=== PATIENT | female | born 1965 | race Caucasian/White ===

== ENCOUNTER 2018-01-06 10:05 | Emergency (ER) | payer OTHER, MEDICAID, MEDICARE ==
[2018-01-06 10:46] LABS: HEMATOCRIT 45.8 % (36.0-47.0); HEMOGLOBIN 15.2 g/dl (12.0-15.5); MEAN CORPUSCULAR HEMOGLOBIN 29.9 pg (27.0-33.0); MEAN CORPUSCULAR HGB CONC 33.2 g/dl (32.0-36.5); PLATELET COUNT, AUTOMATED 244 10^3/uL (150-450); RED BLOOD COUNT 5.09 10^6/uL (4.00-5.40); WHITE BLOOD COUNT 6.9 10^3/uL (4.0-10.0)
[2018-01-06 11:24] LABS: ACETAMINOPHEN LEVEL < 2.0 UG/ML (10.0-30.0); ALBUMIN 3.8 GM/DL (3.2-5.2); ALBUMIN/GLOBULIN RATIO 1.19 (1.00-1.93); ALKALINE PHOSPHATASE 100 U/L (45-117); ALT/SGPT 42 U/L (12-78); ANION GAP 9 MEQ/L (8-16); AST/SGOT 29 U/L (7-37); BILIRUBIN,DIRECT 0.2 MG/DL (0.0-0.2); BILIRUBIN,TOTAL 0.8 MG/DL (0.2-1.0); BLOOD UREA NITROGEN 9 MG/DL (7-18); CALCIUM LEVEL 8.7 MG/DL (8.5-10.1); CARBON DIOXIDE LEVEL 23 MEQ/L (21-32); CHLORIDE LEVEL 110 MEQ/L (98-107); CREATININE FOR GFR 0.86 MG/DL (0.55-1.30); ETHYL ALCOHOL (ETHANOL) < 0.003 % (0.000-0.010); GLOMERULAR FILTRATION RATE > 60.0 (>51); GLUCOSE, FASTING 89 MG/DL (70-100); POTASSIUM SERUM 4.1 MEQ/L (3.5-5.1); SALICYLATE LEVEL < 1.7 MG/DL (5.0-30.0); SODIUM LEVEL 142 MEQ/L (136-145)
[2018-01-06] MEDS: CEPHALEXIN 500 MG CAP PO (12:06)
[2018-01-06 12:49] LABS: AMPHETAMINES LEVEL URINE NEGATIVE (NEGATIVE); BARBITURATES URINE NEGATIVE (NEGATIVE); BENZODIAZEPINES URINE NEGATIVE (NEGATIVE); CANNABINOIDS URINE NEGATIVE (NEGATIVE); COCAINE METABOLITE URINE NEGATIVE (NEGATIVE); METHADONE URINE NEGATIVE (NEGATIVE); OPIATES URINE NEGATIVE (NEGATIVE); PHENCYCLIDINE URINE NEGATIVE (NEGATIVE)
== END 2018-01-06 15:54 ==
LOC: M ED 10:05
DX: R45.851 Suicidal ideations (principal); Z79.890 Hormone replacement therapy; Z88.0 Allergy status to penicillin
CPT/HCPCS: 93005

== ENCOUNTER → 2018-01-15 | Outpatient (CLI) | payer OTHER | LOC: M RAD 15:32 | DX: J32.4 Chronic pansinusitis (principal) | CPT/HCPCS: 70486 ==

== ENCOUNTER → 2020-05-20 | Outpatient (CLI) | payer OTHER ==
[~2020-05-20] MED LIST: BISO5TAB14 PO; CEPH500C; ELIQ5TAB PO; ESTR1TD; GABA-282 PO; PANT40TA29 PO; SIME80TA PO; VIVELLE
== END ==
LOC: M LABSMTC 10:08
PROVIDERS: ATTEND Anesthesiology
DX: Z01.818 Encounter for other preprocedural examination (principal); Z11.52 Encounter for screening for COVID-19

== ENCOUNTER 2020-05-25 11:45 | Day surgery (SDC) | payer OTHER ==
[~2020-05-25] VITALS: Ht 165.1 cm; Wt 127.0 kg
[~2020-05-25 11:45] MED LIST changes: +LIDOCAINE 2% 100MG/5ML SDV (FOR ANES.) As Ordered ONE; +NS 1,000 ML IV SCH; +fentaNYL 100 MCG/2 ML INJECTION (J3010) As Ordered ONE; +propofoL 200 MG/20 ML VIAL As Ordered ONE
--- OUTSIDE RECORDS SUMMARY | 2020-05-25 11:53 | CCD | Continuity of Care Document ---
Author Author Rika DANG MD Organization Unknown Address [address] [place] [address] Phone [phone] Care Team Providers Care Sba Business Development Officer Name Role Phone Hillary Garcia DO AUTM [phone] Problems Active Problems Provider Date Chest pain Onset: Pulmonary embolism Onset: Note: Bilateral Gastroesophageal reflux disease Onset: 0 Degenerative joint disease Onset: Obstructive sleep apnea Onset: 0 Radiculopathy Onset: Anxiety depression Onset: Herpes simplex with complication Onset: Note: History of Mixed hyperlipidemia Salena Acosta RN, EXHAUST WORKER Onset: 01/05/2020 Essential hypertension Salena Acosta RN, EXHAUST WORKER Onset: 01/05/20 20 Obesity Salena Acosta RN, EXHAUST WORKER Onset: 01/05/2020 Palpitations Salena Acosta RN, EXHAUST WORKER Onset: 01/05/2020 Precordial pain Salena Acosta RN, EXHAUST WORKER Onset: 01/05/2020 Skin sensation disturbance Salena Acosta RN, EXHAUST WORKER Onset: 10/2019 Dyspnea Salena Acosta RN, EXHAUST WORKER Onset: 01/05/2020 H/O: pulmonary embolus Salena Acosta RN, EXHAUST WORKER Onset: 01/05/20 Social History Type Date Description Comments Sex Unknown Tobacco Use Start: Unknown Light tobacco user x 9 years ETOH Use Rarely consumes alcohol Tobacco Use Start: Unknown End: Unknown Patient is a former smoker D/C 1991 Recreational Drug Use Denies Drug Use Smoking Status Reviewed: 04/06/20 Patient is a former smoker D/ C 1991 Allergies, Adverse Reactions, Alerts Active Allergies Reaction Severity Comments Date Penicillins Rash Morphine Chest discomfort Omeprazole Myalgia Premarin Pulmonary Embolism 0 Medications Active Medications SIG Qnty Indications Ordering Provide r Date Pantoprazole Sodium 40mg Tablets D R 1 by mouth twice a day Unknown Gabapentin 300mg Capsules 1 by mouth twice a day Unknown Eliquis 5mg Tablets 1 by mouth twice a day Unknown History Medications Bisoprolol Fumarate 5mg Tablets 1/2 by mouth every day 90tabs Salena Acosta RN, EXHAUST WORKER 01/05/2020 - Unknown Immunizations Description No Information Available Vital Signs Date Vital Result Comment 04/09/2020 11:15am BP Systolic 124 mmHg BP Diastolic 72 mmHg Heart Rate 102 /min Height 65 inches 5'5" Weight 291.00 lb BMI (Body Mass Index) 48.4 kg/m2 O2 % BldC Oximetry 96 % 01/05/2020 10:38am BP Systolic 124 mmHg BP Diastolic 62 mmHg Heart Rate 80 /min Height 65 inches 5'5" Weight 283.00 lb BMI (Body Mass Index) 47.1 kg/m2 Results Test Acquired Date Facility Test Result H/L Range Note Order 02/02/2020 [facility] Echocardiogram <pending> CBC With Auto Diff 01/05/2020 [facility] WBC # Bld Auto 7.2 10*3/uL Normal 4.45-10.71 1 RBC # Bld Auto 5.05 10*6/uL Normal 4.20-5.40 Hgb Bld-sCnc 14.9 g/dL Normal 10.7-15.4 Hct VFr Bld Auto 45.8 % Normal 37-47 MCV BldCo Auto 90.7 fL Normal 80-96 MCH RBC Qn Auto 29.5 pg Normal 27-31 MCHC BldCo-mCnc 32.5 g/dL Low 33-37 RDW RBC Auto 14 % Normal 11-15 Platelet # Bld Auto 249 10*3/uL Normal 130-472 PMV Bld 10.3 fL Normal 9.1-13.1 Neutrophils/leuk NFr Bld Auto 56.3 % Normal 41-77 Neutrophils # Bld Auto 4.1 U Normal 1.7-7.6 Lymphocytes/leuk NFr Bld Auto 32.8 % Normal 14-46 Lymphocytes # Bld Auto 2.4 U Normal 0.6-4.6 Monocytes/leuk NFr Bld Auto 6.4 % Normal 4-12 Monocytes # Bld Auto 0.5 U Normal 0.2-1.2 Eosinophil/leuk NFr Bld Auto 3.3 % Normal 0-7 Eosinophil # Bld Auto 0.2 U Normal 0.0-0.5 Basophils/leuk NFr Bld Auto 1.1 % Normal 0.4-1.3 Basophils # Bld Auto 0.1 U Normal 0.0-0.2 Nucleated Red Blood Cell 0 % Nucleated Red Blood Cell# 0 U Imm Granulocytes Bld Ql Auto 0.1 Normal 0-2 Imm Granulocytes # Bld Auto 0.0 U Normal 0-0.1 Manual diff Bld NO [facility] PPP-aCnc 0.35 mg/L Normal 0.0-0.50 2 Basic Metabolic Profile [facility] BUN SerPl-mCnc 16 mg/dL Normal 9-23 Sodium SerPl-sCnc 142 mmol/L Normal 132-146 Potassium SerPl-sCnc 4.7 mmol/L Normal 3.5-5.5 Chloride SerPl-sCnc 109 mmol/L Normal 99-109 Co2 SerPl-sCnc 29 mmol/L Normal 20-31 Anion Gap SerPl-sCnc 9 mmol/L Normal 8-16 Glucose SerPl-mCnc 86 mg/dL Normal 74-106 Creatinine 1.0 mg/dL Normal 0.5-1.1 GFR/Bsa.pred SerPlBld-ArVRat 58 UCUM Above 60 Calcium SerPl-mCnc 9.8 mg/dL Normal 8.5-10.1 D-Dimer Test 01/05/2020 [facility] Z#Other Observations <pending> BMP W/Egfr 01/05/2020 [facility] Sodium QN Ser/Plasma <pending> Potassium <pending> Chloride Serum/Plasma <pending> Carbon Dioxide Ser/Plasm <pending> Calcium Ser/Plasma Mass/Vol <pending> Glucose Serum <pending> CBC W/Auto Differential 01/05/2020 [facility] White Blood Count Ser Auto CNT <pending> RBC Red Blood Count <pending> Hemoglobin Blood <pending> Hematocrit <pending> MCV (Corpuscular Volume) <pending> MCH (Corpuscular Hemoglobin) <pending> MCHC (Corpuscular Hemog Conc) <pending> RDW <pending> Platelet Count Blood Auto CNT <pending> MPV <pending> Neutrophils <pending> Fluid Bands <pending> Fluid Lymphocytes <pending> Monocytes <pending> Fluid Body Eosinophils <pending> Basophils % <pending> Absolute Basophils <pending> Absolute Eosinophils <pending> Absolute Lymphocytes <pending> Absolute Monocytes <pending> Absolute Neutrophils Auto CNT <pending> 1 Z86.711,R06.02,R07.2 2 PLEASE NOTE: THIS TEST WAS PERFORMED USING A PARTICLE- ENHANCED, IMMUNOTURBIDIMETRIC ASSAY AND HAS A SINGLE, CLINICALLY DERIVED CUTOFF OF 0.50 MG/L. Procedures Date Code Description Status 02/02/2020 83838 Echocardiography, Tranthoracic C omplete Image Documentation Completed Medical Devices Description No Information Available Encounters Type Date Location Provider Dx Diagnosis Office Visit 04/09/2020 11:00a [place] [facility] Tee Dang MD R06.0 2 Shortness of breath R07.2 Precordial pain I10 Essential (primary) hyperten sis Z86.711 Personal history of pulmonar y embolism Office Visit 01/05/2020 10:15a [place] [facility] [place] GRANT[employer] ADMINISTRATOR/Device (41 5) Z86.711 Personal history of pulmonary embolism R06.02 Shortness of breath R20.0 Anesthesia of skin R07.2 Precordial pain R00.2 Palpitations E66.09 Other obesity due to excess calories I10 Essential (primary) hyperten sis E78.2 Mixed hyperlipidemia G47.33 Obstructive sleep apnea (renetta lt) (pediatric) Assessments Date Code Description Provider 04/09/2020 R06.02 Shortness of breath Tee arita MD 04/09/2020 R07.2 Precordial pain Tee Dang MD 04/09/2020 I10 Essential (primary) hypertension Tee Dang MD 04/09/2020 Z86.711 Personal history of pulmonary em bolism Tee Dang MD 02/02/2020 R06.02 Shortness of breath Vinicius bernabe MD 02/02/2020 R07.2 Precordial pain Vinicius Banks MD 02/02/2020 I10 Essential (primary) hypertension Vinicius Banks MD 02/02/2020 R06.02 Shortness of breath Shane scott MD 02/02/2020 R07.2 Precordial pain Ade Brown 02/02/2020 I10 Essential (primary) hypertension Shane Fajardo MD 01/05/2020 Z86.711 Personal history of pulmonary em bolism [place] GRANTS ADMINISTRATOR/Device (415) 01/05/2020 Z86.711 Personal history of pulmonary em bolism Salena Acosta RN, EXHAUST WORKER 01/05/2020 R06.02 Shortness of breath [place] GRANTS ADMINISTRATOR/ Device (415) 01/05/2020 R06.02 Shortness of breath Salena Acosta RN, EXHAUST WORKER 01/05/2020 R20.0 Anesthesia of skin [place] GRANTS ADMINISTRATOR/D evice (415) 01/05/2020 R20.0 Anesthesia of skin Salena Acosta RN, EXHAUST WORKER 01/05/2020 R07.2 Precordial pain [place] GRANTS ADMINISTRATOR/Mayte ce (415) 01/05/2020 R07.2 Precordial pain Salena Acosta RN , EXHAUST WORKER 01/05/2020 R00.2 Palpitations [place] GRANTS ADMINISTRATOR/Mayte ce (415) 01/05/2020 R00.2 Palpitations Salena Acosta RN , EXHAUST WORKER 01/05/2020 E66.09 Other obesity due to excess dylan prasanth [place] GRANTS ADMINISTRATOR/Device (415) 01/05/2020 E66.09 Other obesity due to excess dylan prasanth Salena Acosta RN, EXHAUST WORKER 01/05/2020 I10 Essential (primary) hypertension [place] GRANTS ADMINISTRATOR/Device (415) 01/05/2020 I10 Essential (primary) hypertension Salena Acosta RN, EXHAUST WORKER 01/05/2020 E78.2 Mixed hyperlipidemia [place] GRANTS ADMINISTRATOR /Device (415) 01/05/2020 E78.2 Mixed hyperlipidemia Salena wilson RN, EXHAUST WORKER 01/05/2020 G47.33 Obstructive sleep apnea (adult) (pediatric) [place] GRANTS ADMINISTRATOR/Device (415) 01/05/2020 G47.33 Obstructive sleep apnea (adult) (pediatric) Salena Acosta, RN, EXHAUST WORKER Plan of Treatment Future Appointment(s):* 05/11/2020 11:30 am - Stress ECHO Schedule (204 and 208) at [place] E[facility] Schedule * 05/11/2020 11:00 am - Stress ECHO Schedule (204 and 208) at [place] ECHO Schedule * 04/09/2021 2:45 pm - Rita FRANKLIN ([id number]) at [place] [facility] 04/09/2020 - Tee Dang MD* R06.02 Shortness of breath * R07.2 Precordial pain * I10 Essential (primary) hypertension * Z86.711 Personal history of pulmonary embolism* New Orders:* Stress Echo, Ordered: 04/09/20 * Recommendations:* Impression: 1. Morbid obesity. 2. Precedent history of pulmonary emboli. 3. Dyspnea on exertion and chest pain syndrome. Plan: Stress echocardiogram. If negative, weight loss will again be stressed. ADDENDUM: Etiology of pulmonary emboli is not certain. Patient does state that she did have a hematologic evaluation. Functional Status Description No Information Available Mental Status Description No Information Available Referrals Refer to Reason for Referral Status Appt Date Caden Daugherty MD Scheduled 04/26/[address] [place] [address] [phone] Abdi Mcgill Scheduled 02/02/[address] [place] [address] [address] [place] [address] ( )- -
--- OUTSIDE RECORDS SUMMARY | 2020-05-25 11:53 | CCD | Continuity of Care Document ---
Author Author Rika CAMPOS MD Organization Unknown Address [address] [place] [id number] Phone [phone] Care Team Providers Care Operations Officer Afloat Name Role Phone Sarah Falcon Hillary DO AUTM Problems Active Problems Provider Date Chest pain Onset: Pulmonary embolism Onset: Note: Bilateral Gastroesophageal reflux disease Onset: 0 Degenerative joint disease Onset: Obstructive sleep apnea Onset: 0 Radiculopathy Onset: Anxiety depression Onset: Herpes simplex with complication Onset: Note: History of Mixed hyperlipidemia Salena Acosta RN, WOODS BOSS Onset: 01/05/2020 Essential hypertension Salena Acosta RN, WOODS BOSS Onset: 01/05/20 Obesity Salena Acosta RN, WOODS BOSS Onset: 01/05/2020 Palpitations Salena Acosta RN, WOODS BOSS Onset: 01/05/2020 Precordial pain Salena Acosta RN, WOODS BOSS Onset: 01/05/2020 Skin sensation disturbance Salena Acosta RN, WOODS BOSS Onset: 10/2019 Dyspnea Salena Acosta RN, WOODS BOSS Onset: 01/05/2020 H/O: pulmonary embolus Salena Acosta RN, WOODS BOSS Onset: 01/05/20 Social History Type Date Description Comments Sex Unknown Tobacco Use Start: Unknown Light tobacco user x 9 years ETOH Use Rarely consumes alcohol Tobacco Use Start: Unknown End: Unknown Patient is a former smoker D/C 1991 Recreational Drug Use Denies Drug Use Smoking Status Reviewed: 05/23/20 Patient is a former smoker D/ C 1991 Allergies, Adverse Reactions, Alerts Active Allergies Reaction Severity Comments Date Penicillins Rash Morphine Chest discomfort Omeprazole Myalgia Premarin Pulmonary Embolism 0 Medications Active Medications SIG Qnty Indications Ordering Provide r Date Sertraline HCL 50mg Tablets 1 by mouth every day Unknown Pantoprazole Sodium 40mg Tablets D R 1 by mouth twice a day Unknown Gabapentin 300mg Capsules 1 by mouth twice a day Unknown Eliquis 5mg Tablets 1 by mouth twice a day Unknown Multivitamin Gummies Womens Chewtabs Unknown Colace 100mg Capsules 1 by mouth 2 times a day Unknown Nystatin [id number] Cream bid as needed Unknown Trazodone HCL 50mg Tablets 1 po daily Unknown History Medications Bisoprolol Fumarate 5mg Tablets 1/2 by mouth every day 90tabs Salena Acosta RN, WOODS BOSS 01/05/2020 - Unknown Immunizations Description No Information Available Vital Signs Date Vital Result Comment 05/24/2020 11:37am BP Systolic 110 mmHg BP Diastolic 78 mmHg Heart Rate 93 /min Height 65 inches 5'5" Weight 280.00 lb BMI (Body Mass Index) 46.6 kg/m2 O2 % BldC Oximetry 79 % 04/09/2020 11:15am BP Systolic 124 mmHg BP Diastolic 72 mmHg Heart Rate 102 /min Height 65 inches 5'5" Weight 291.00 lb BMI (Body Mass Index) 48.4 kg/m2 O2 % BldC Oximetry 96 % Results Test Acquired Date Facility Test Result H/L Range Note Order 02/02/2020 [facility] Echocardiogram <pending> CBC With Auto Diff 01/05/2020 [facility] WBC # Bld Auto 7.2 10*3/uL Normal [...] diff Bld NO Laboratory test finding 01/05/2020 [facility] pital D Dimer PPP-aCnc 0.35 mg/L Normal 0.0-0.50 2 Basic Metabolic Profile 01/05/2020 [facility] pital BUN SerPl-mCnc 16 mg/dL Normal 9-23 Sodium [...] MG/L. Procedures Date Code Description Status 02/02/2020 45432 Echocardiography, Tranthoracic C omplete Image Documentation Completed Medical Devices Description No Information Available Encounters Type Date Location Provider Dx Diagnosis Office Visit 04/09/2020 11:00a [place] [facility] Tee Coyle MD R06.0 2 Shortness of breath R07.2 Precordial pain I10 Essential (primary) hyperten sis Z86.711 Personal history of pulmonar y embolism Office Visit 01/05/2020 10:15a [place] [facility] [place] SEDIMENTATIONIST/Device (41 5) Z86.711 Personal history of pulmonary embolism R06.02 Shortness of breath R20.0 Anesthesia of skin R07.2 Precordial pain R00.2 Palpitations E66.09 Other obesity due to excess calories I10 Essential (primary) hyperten sis E78.2 Mixed hyperlipidemia G47.33 Obstructive sleep apnea (renetta lt) (pediatric) Assessments Date Code Description Provider 05/24/2020 R06.02 Shortness of breath Yoel swanson MD 05/24/2020 R07.2 Precordial pain Ade Wallace 05/24/2020 I10 Essential (primary) hypertension Yoel Campos MD 05/24/2020 Z86.711 Personal history of pulmonary em bolism Yoel Campos MD 04/09/2020 R06.02 Shortness of breath Tee arita MD 04/09/2020 R07.2 Precordial pain Tee Coyle MD 04/09/2020 I10 Essential (primary) hypertension Tee Coyle MD 04/09/2020 Z86.711 Personal history of pulmonary em bolism Tee Coyle MD 02/02/2020 R06.02 Shortness of breath Vinicius bernabe MD 02/02/2020 R07.2 Precordial pain Vinicius Banks MD 02/02/2020 I10 Essential (primary) hypertension Vinicius Banks MD 02/02/2020 R06.02 Shortness of breath Shane scott MD 02/02/2020 R07.2 Precordial pain Ade Brown 02/02/2020 I10 Essential (primary) hypertension Shane Fajardo MD 01/05/2020 Z86.711 Personal history of pulmonary em bolism [place] SEDIMENTATIONIST/Device (415) 01/05/2020 Z86.711 Personal history of pulmonary em bolism Salena Acosta RN, WOODS BOSS 01/05/2020 R06.02 Shortness of breath [place] SEDIMENTATIONIST/ Device (415) 01/05/2020 R06.02 Shortness of breath Salena Acosta RN, WOODS BOSS 01/05/2020 R20.0 Anesthesia of skin [place] SEDIMENTATIONIST/D evice (415) 01/05/2020 R20.0 Anesthesia of skin Salena Acosta RN, WOODS BOSS 01/05/2020 R07.2 Precordial pain [place] SEDIMENTATIONIST/Mayte ce (415) 01/05/2020 R07.2 Precordial pain Salena Acosta RN , WOODS BOSS 01/05/2020 R00.2 Palpitations [place] SEDIMENTATIONIST/Mayte ce (415) 01/05/2020 R00.2 Palpitations Salena Acosta RN , WOODS BOSS 01/05/2020 E66.09 Other obesity due to excess dylan prasanth [place] SEDIMENTATIONIST/Device (415) 01/05/2020 E66.09 Other obesity due to excess dylan prasanth Salena Acosta RN, WOODS BOSS 01/05/2020 I10 Essential (primary) hypertension [place] SEDIMENTATIONIST/Device (415) 01/05/2020 I10 Essential (primary) hypertension Salena Acosta RN, WOODS BOSS 01/05/2020 E78.2 Mixed hyperlipidemia [place] SEDIMENTATIONIST /Device (415) 01/05/2020 E78.2 Mixed hyperlipidemia Salena wilson RN, WOODS BOSS 01/05/2020 G47.33 Obstructive sleep apnea (adult) (pediatric) [place] SEDIMENTATIONIST/Device (415) 01/05/2020 G47.33 Obstructive sleep apnea (adult) (pediatric) Salena Acosta RN, WOODS BOSS Plan of Treatment Future Appointment(s):* 07/03/2020 8:30 am - Rita Wilson ([id number]) at [facility] * 04/09/2021 2:45 pm - Rita FRANKLIN ([id number]) at [place] Office 05/24/2020 - Yoel Campos MD* R06.02 Shortness of breath * R07.2 Precordial pain * I10 Essential (primary) hypertension * Z86.711 Personal history of pulmonary embolism Functional Status Description No Information Available Mental Status Description No Information Available Referrals Refer to Dr Reason for Referral Status Appt Date Caden Daugherty MD Scheduled 04/26/2020 [facility] [address] [place] [address] [phone] Abdi Mcgill Scheduled 02/02/[address] [place] [phone] ( )- -
--- OUTSIDE RECORDS SUMMARY | 2020-05-25 11:53 | CCD | Continuity of Care Document ---
Author Author Rika [facility] Organization Unknown Address [address] [place] [address], [address] [place] [address] Phone [phone] Care Team Providers Care Sheet Metal Assembler Name Role Phone Guy Rodriguez DO AUTM [phone] Hillary Garcia D.O. AUTM AUTM Unavailable Problems Active Problems Provider Date Allergic rhinitis Taras Lemon MD Onset: 01/01/2017 Chronic sinusitis Taras Lemon MD Onset: 01/01/2017 Chronic rhinitis Taras Lemon MD Onset: 01/01/2017 Chronic pansinusitis Taras Lemon MD Onset: 01/22/2018 Social History Type Date Description Comments Sex Unknown ETOH Use Denies alcohol use Tobacco Use Start: Unknown End: Unknown Patient is a former smoker Recreational Drug Use Denies Drug Use Smoking Status Reviewed: 07/20/19 Patient is a former smoker Allergies, Adverse Reactions, Alerts Active Allergies Reaction Severity Comments Date Penicillin 10/21/2016 Medications Active Medications SIG Qnty Indications Ordering Provide r Date Gabapentin 300mg Capsules 1 tab by mouth bid Unknown Eliquis 5mg Tablets 1 tab by mouth twice a day Unknown Trazodone HCL 50mg Tablets 1 by mouth at bedtime Unknown Pantoprazole Sodium 40mg Tablets D R twice daily Unknown Miralax 17GM/Scoop Powder prn Unknown Famotidine 20mg Tablets 1 tab by mouth twice a day Unknown Immunizations Description No Information Available Vital Signs Date Vital Result Comment 04/19/2020 1:58pm BP Systolic 108 mmHg BP Diastolic 80 mmHg Height 65 inches 5'5" Weight 286.00 lb BMI (Body Mass Index) 47.6 kg/m2 [place] Body Weight 125 lb Weight 129.730 kg BSA (Body Surface Area) 2.30 m2 07/20/2019 3:42pm BP Systolic 130 mmHg BP Diastolic 82 mmHg Heart Rate 96 /min O2 % BldC Oximetry 97 % Body Temperature 97.2 F Height 65 inches 5'5" Weight 296.00 lb BMI (Body Mass Index) 49.3 kg/m2 [place] Body Weight 125 lb Weight 134.266 kg BSA (Body Surface Area) 2.34 m2 Results Description No Information Available Procedures Description No Information Available Medical Devices Description No Information Available Encounters Description No Information Available Assessments Date Code Description Provider 04/19/2020 K21.9 Gastro-esophageal reflux disease without esophagitis ARSH Mansfield 04/19/2020 K59.00 Constipation, unspecified ARSH Lubin Plan of Treatment 04/19/2020 - ARSH [place]* K21.9 Gastro-esophageal reflux disease without esophagitis * K59.00 Constipation, unspecified * * New Orders:* Endoscopy, Ordered: 04/19/20 * Comments:* Will arrange for upper endoscopy. Reviewed risks and benefits of the procedure, as well as other options, with the patient. Prep for this procedure was discussed with patient. A letter will be sent to her Dry Cans Back Tender requesting a cardiac clearance prior to the procedure. She will NOT stop Eliquis for the EGD. Patient verbalized understanding of all of the above and is in agreement to proceed. Patient will seek medical attention for any acute changes. Will monitor. * Follow up:* As scheduled, sooner if needed. Functional Status Description No Information Available Mental Status Description No Information Available Referrals Refer to Reason for Referral Status Appt Date Hung Mayes M.D. GERD/reflux w/o esophagitis Schedule d 04/09/2020 6 [facility], [address] [place] [id number] [phone]
--- OUTSIDE RECORDS SUMMARY | 2020-05-25 11:54 | CCD | Continuity of Care Document ---
Author Author [facility] Address [address] [place] [address] Phone Support Name Relationship Address Phone Hillary Montelongo PRS [facility] [place] [address] Guy Quispe PRS [address] [place] [address] Dennis Lopez PRS [address] [place] [address] Shane Fajardo PRS [facility] [place] [address] Gypsy Bunch PRS Unknown Unavailable [place] [address] EDUARDO MCKINNEY PRS [address] [place] [address] [place] [address] Migdalia Joshi PRS [address] [place] [address] DERRICK KOCH PRS [address] [place] [address] Jenni Peres PRS [address] [place] [address] Ephraim Gonzalez PRS [address] [place] [address] [place] [address] Do Acosta PRS [address] [place] [address] Salomon Stanley PRS [address] [place] [address] Allergies, Adverse Reactions, Alerts Allergen Type Severity Reaction Last Updated Verified Status Penicillins Allergy Mode rate Rash March 14, 2020 12:26pm Yes Active estrogens, conjugated Adverse Reaction Severe PULMONARY EMBOLISM March 14, 2020 12:26pm Yes Active morphine Adverse Reaction Moderate Chest pain 01/06March 14, 2020 12:26pm Yes Active omeprazole Adverse Reaction Myalgia March 14, 2020 12:26pm Yes Active Medications Medication Status Dose Units Route Directions Qty Days Start Date End Date Instructions Gabapentin (Neurontin) 300 mg capsule Discontinued 300 MG PO 2 Times Per Day 60 September 03, 2018 1:01pm November 08, 2018 2:03pm Pantoprazole Discontinued 40 MG PO Once Per Day 90 December 10, 2018 3:36pm February 18, 2019 3:56pm Flucelvax Quad 7314-5335 (PF) (flu vac q s 2018(4 yr up)CD(PF)) 60 mcg (15 mcg x Discontinued 0.5 ML IM 1 Time/Once 0.5 February 18, 2019 2:31pm February 18, 2019 3:40pm Pantoprazole Discontinued 40 MG PO 2 Times Per Day 180 February 18, 2019 3:56pm September 14, 2019 6:12pm Azithromycin Discontinued 0 PO .COMPLEX 6 February 18, 2019 3:57pm May 10, 2019 8:03am take 500 mg today (day 1), then 250 mg for 4 days (days 2-5) PO Docusate Sodium (Colace) 100 mg capsule Discontinued 100 MG PO 2 Times Per Day 60 June 24, 2019 11:57am October 09, 2019 3:00am Polyethylene Glycol 3350 (Miralax) 17 gram/dose powder Discontinued 17 GM PO daily 850 June 24, 2019 11:58am March 14, 2020 12:27pm 1 scoop with water Doxycycline Hyclate Discontinued 100 MG PO 2 Times Per Day 20 July 20, 2019 12 :45pm August 12, 2019 12:58pm w/food, avoid dairy Famotidine Discontinued 20 MG PO 2 Times Per Day 60 November 23, 2019 3:16pm March 14, 2020 12:27pm Nystatin-Triamcinolone Discontinued 1 APPLIC TOP 2 Times Per D ay 60 September 14, 2019 11: 21am September 14, 2019 12:54pm use on butto cks rash BID x2 weeks,then prn Pantoprazole Discontinued 40 MG PO 2 Times Per Day 180 September 14, 2019 6:11pm March 14, 2020 12:27pm Apixaban (Eliquis) 5 mg tablet Active 5 MG PO 2 Times Per Day 180 September 14, 2019 6: 11pm Afluria Qd 2019-(3yr up)(PF) (flu vac sb0952-47 36mos up(PF)) Discontinued 60 MCG IM 1 Time/Once 0.5 January 30, 2020 3:19pm January 292019 3:47pm Pantoprazole Active 40 MG PO Every Morning March 26, 2020 2:59pm Acetaminophen (Tylenol) 325 MG tablet Discontinued 650 MG PO NEEDED July 07, 2014 6:0 4am May 01, 2015 2:49pm Omeprazole Discontinued 20 MG PO Once Per Day July 07, 2014 6:04am March 16, 2015 6:18pm Levofloxacin (Levaquin) 750 MG tablet Discontinued 750 MG PO Once Per Day 10 July 11, 2014 11:46am August 03, 2014 6:25pm Azithromycin Discontinued 250 MG PO Once Per Day 4 July 11, 2014 11:47am August 03, 2014 6:25pm Aspirin (Aspirin Low-Strength) 81 MG tablet,chewable Discontinued 81 MG PO Once Per Day August 27, 2014 4:21pm May 01, 2015 2:49pm Cefuroxime Axetil Discontinued 500 MG PO 2 Times Per Day March 16, 2015 6:18pm March 18, 2015 3:56pm Esomeprazole Magnesium (Nexium) 20 MG ca psule,delayed release(DR/EC) Discontinued 20 MG PO Once Per Day March 16, 2015 6:18pm May 01, 2015 2:49pm Fluticasone Propionate Discontinued 1 DOSE NS Once Per Day May 01, 2015 2 :46pm July 04, 2015 12:17pm Simvastatin Discontinued 40 MG PO Once Per Day December 15, 2016 8:21pm April 12, 2018 4:14pm Fluticasone Furoate (Flonase Sensimist) 9.9 ML spray,suspension Discontinued 9.9 ML NS Once Per Day December 15, 2016 8:21pm April 21, 2017 12:14pm Dicyclomine Discontinued 20 MG PO Every 8 hours December 15, 2016 10:42pm April 21, 2017 12:14pm Apixaban (Eliquis) 5 mg Tablet Discontinue d 10 MG PO 2 Times Per Day May 11, 2019 8:24am June 24, 2019 10:29am Docusate Sodium (Colace) 100 mg capsule Discontinued 100 MG PO 2 Times Per Day October 09, 2019 3:00am March 14, 2020 12:27pm Nystatin Discontinued 1 APPLIC TOP 2 Times Per Day October 09, 2019 9:49 am March 14, 2020 12:27pm Erythromycin Discontinued 1 APPLIC BOTH EYES Once Pe r Day 1 October 12, 2019 8:43 am October 18, 2019 11:01pm Bisoprolol Fumarate Active 5 MG PO Once Per Day March 14, 2020 12:26pm Multivitamin Discontinued 1 CAP PO Once Per Day 0 April 26, 2012 10:11am August 20, 2015 10:30am Omeprazole Discontinued 40 MG PO Once Per Day July 04, 2015 12:17pm February 12, 2017 3:17pm Susu Jewt-Tqffrzrb-Yimxoyguq Ac (Evening Mcdonald 1,000 Mg Sftg) 1000 MG capsule Discontinued 1000 MG PO Once Per Day August 20, 2015 10:30am August 18, 2016 9:22am Estradiol (Vivelle-Dot) 0.025 MG patch semiweekly Discontinued 1 PATCH TD 2 Times Per Week August 23, 2015 11:23am October 29, 2015 9:54am Estradiol (Vivelle-Dot) 0.05 MG/24 HR patch semiweekly Discontinued 1 PATCH TD 2 Times Per Week September 11, 2015 3:38pm October 28 016 9:54am Estradiol (Climara) 0.05 MG/DAY patch weekly Discontinued 1 PATCH TD 1 Time Per Week September 13, 2015 6:59am October 29, 2015 9:54am ONCE A WEEK Estradiol (Climara) 0.1 MG/DAY patch weekly Discontinued 1 PATCH TD 1 Time Per Week October 29, 2015 9:52am November 23, 2015 7:47pm ONCE A WEEK Estradiol (Climara) 0.1 MG/DAY patch weekly Discontinued 1 PATCH TD 1 Time Per Week November 23, 2015 7:47pm February 19, 2016 1:24pm ONCE A WEEK Estradiol (Climara) 0.1 MG/DAY patch weekly Discontinued 1 PATCH TD 1 Time Per Week 4 February 19, 2016 1:24pm August 07, 2016 3:02pm ONCE A WEEK Estradiol (Climara) 0.1 MG/DAY patch weekly Discontinued 1 PATCH TD 1 Time Per Week 4 August 07, 2016 3:02pm August 21, 2016 8:10am ONCE A WEEK Estradiol (Climara) 0.1 MG/DAY patch weekly Discontinued 1 PATCH TD 1 Time Per Week August 21, 2016 8:10am September 10, 2017 8:44am ONCE A WEEK Estradiol (Climara) 0.1 MG/DAY patch weekly Discontinued 1 PATCH TD 1 Time Per Week 4 September 10, 2017 8:44am July 28, 2018 6:59am ONCE A WEEK Estradiol (Climara) 0.1 MG/DAY patch weekly Discontinued 1 PATCH TD 1 Time Per Week September 10, 2017 8:44am August 24, 2018 8:55pm ONCE A WEEK Sertraline Discontinued 1 TAB PO Once Per Day March 26, 2018 4:08pm May 28, 2018 2:28pm Fluticasone Propionate (Flonase Allergy Relief) 9.9 ML spray,suspension Discontinued 1 SPRAYS NS Once Per Day 1 March 26, 2018 4:08pm March 302018 4:14pm Risperidone Discontinued 1 MG PO 2 Times Per Day March 26, 2018 4:08pm May 28, 2018 2:28pm Loratadine Discontinued 10 MG PO Once Per Day March 26, 2018 4:08pm April 12, 2018 4:14pm Trazodone Hcl Discontinued 1 TAB PO Once Per Day 60 March 26, 2018 4:08pm March 14, 2020 12:27pm Pantoprazole Discontinued 40 MG PO Once Per Day April 12, 2018 4:17pm July 28, 2018 9:02am Pantoprazole Discontinued 40 MG PO Once Per Day April 12, 2018 4:17pm December 10, 2018 3:36pm Sertraline Discontinued 50 MG PO Once Per Day May 28, 2018 2:28pm March 14, 2020 12:27pm Lisdexamfetamine (Vyvanse) 40 MG capsule Discontinued 1 CAP PO O nce Per Day May 28, 2018 2:28pm May 10, 2019 8:06am Gabapentin (Neurontin) 300 MG capsule Discontinued 300 MG PO At Bedtime May 28, 2018 3:09pm July 28, 2018 9:54am Gabapentin (Neurontin) 300 MG capsule Discontinued 300 MG PO At Bedtime May 28, 2018 3:09pm September 03, 2018 1:02pm Cholecalciferol (Vitamin D3) (Vitamin D3) 1000 UNIT ca psule Discontinued 1 CAP PO Once Per Day May 28, 2018 3:15pm July 28, 2018 9:54am Cholecalciferol (Vitamin D3) (Vitamin D3) 1000 UNIT ca psule Discontinued 1 CAP PO Once Per Day May 28, 2018 3:15pm November 4:55pm Estradiol (Climara) 0.1 mg/24 hr patch weekly Discontinued 1 PATCH TD 1 Time Per Week 4 August 24, 2018 8:54pm October 25, 2018 11:52am ONCE A WEEK Estradiol (Climara) 0.1 mg/24 hr patch weekly Discontinued 1 PATCH TD 1 Time Per Week 4 October 25, 2018 11:52am December 27, 2018 12:46pm ONCE A WEEK Gabapentin Discontinued 300 MG PO 2 Times Per Day 60 November 08, 2018 2:02pm December 08, 2018 9:10pm Gabapentin Discontinued 300 MG PO 2 Times Per Day 60 December 08, 2018 9:09pm March 07, 2019 12:18pm Cholecalciferol (Vitamin D3) (Vitamin D3) 1,000 unit c apsule Discontinued 1000 UNIT PO Once Per Day 30 December 20, 2018 4:54pm June 162019 2:44pm Estradiol Discontinued 1 PATCH TD Every Week 4 December 27, 2018 12:46pm December 28, 2018 6:26am Norethindrone-Ethin Estradiol (Nortrel 0 .5/35 (28)) 0.5-35 mg-mcg tablet Discontinued 1 TAB PO daily December 28, 2018 6:24am May 102019 8:07am Estradiol Discontinued 1 PATCH TD Every Week December 28, 2018 6:26am April 19, 2019 3:49pm Gabapentin Discontinued 300 MG PO 2 Times Per Day 60 March 07, 2019 12:18pm September 05, 2019 2:18pm Estradiol Discontinued 1 PATCH TD Every Week 4 April 19, 2019 3:49pm June 24, 2019 10:28am Apixaban (Eliquis) 5 mg tablet Discontinue d 5 MG PO 2 Times Per Day 180 May 12 0 5:12pm September 14, 2019 6:12pm Cholecalciferol (Vitamin D3) (Vitamin D3 ) 25 mcg (1,000 unit) capsule Discontinued 1000 UNIT PO daily June 17, 2019 2:44pm July 10, 2019 5:20pm Cholecalciferol (Vitamin D3) (Vitamin D3 ) 25 mcg (1,000 unit) capsule Discontinued 1000 UNIT PO daily July 10, 2019 5:20pm December 142019 10:13am Gabapentin Discontinued 300 MG PO 2 Times Per Day 60 September 05, 2019 2:18pm February 15, 2020 7:57am Nystatin Discontinued 1 APPLIC TOP 2 Times Per Day September 14, 2019 12: 54pm October 09, 2019 9:49am Cholecalciferol (Vitamin D3) (Vitamin D3 ) 25 mcg (1,000 unit) capsule Discontinued 1000 UNIT PO daily December 15, 2019 10:13am January 05, 2020 9:50am Cholecalciferol (Vitamin D3) (Vitamin D3 ) 25 mcg (1,000 unit) capsule Discontinued 0 .ROUTE .COMPLEX January 05, 2020 9:50am March 142019 12:27pm TAKE ONE CAPSULE BY MOUTH EVERY DAY Gabapentin Active 0 .ROUTE .COMPLEX 60 February 15, 2020 7:57am TAKE ONE CAPSULE BY MOUTH TWICE A DAY Problems Active Problems Medical Problem Onset Date Status Medication noncompliance due to cognitive impairment Active Small bowel obstruction due to adhesions Active 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 Hearing loss Active Fatty liver March 26, 2018 Active Obstructive sleep apnea hypopnea, severe Active Glucose intolerance Ac tive Mixed hyperlipidemia A ctive Mild cognitive impairment February 282017 Active 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, 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, with psychotic features March 26, 2018 Active Seasonal allergic rhinitis due to pollen March 26, 2018 Active Left lumbar radiculopathy Active Pulmonary embolism Act cyndy GERD (gastroesophageal reflux disease) Active Carpal tunnel syndrome, bilateral Active Vitamin D deficiency March 26, 2018 Active Spinal stenosis of lumbar region with neurogenic olinda ication May 28, 2018 Active Hypokalemia Active Inactive/Resolved Problems Medical Problem Onset Date Status Chest wall pain Resolv ed Acute abdominal pain R esolved Small bowel obstruction Resolved Obstructive sleep apnea syndrome Resolved Epistaxis Resolved Fever Resolved Obesities, morbid Reso lved URI (upper respiratory infection) Resolved Gastroenteritis Resolv ed Bowel obstruction Reso lved Mixed hyperlipidemia March 26, 2018 Resolved Postmenopausal March 26, 2018 Resolved Abdominal pain in female patient Resolved Hepatic cyst Resolved Rectal bleeding Resolv ed Small bowel obstruction Resolved Blood present in stool Resolved Hemangioma of spine May 28, 2018 Resolved Chest pain Resolved Constipation by delayed colonic transit Resolved Acute appendicitis Res olved Adhesion of intestine March 26, 2018 Resolved Procedures Procedure Date Performed Status CT Abd/pel w/ contrast February 1:44pm completed SARS-CoV-2 (PCR) Interpretation Dece mber 2019 completed 3D DIG MAMMO SCREEN BILAT February 272019 4:38pm completed MRI Lumbar without contrast Septembe r 2019 2:40pm completed Gastrointestinal Tract Panel (PCR) A ugust 2019 completed MRI Abdomen w/ & w/o contrast September 282019 12:03pm completed Xray Chest One View May 09 020 4:17pm completed CTA Chest non-card W/ & or w/o Febru nayeli 2019 6:41pm completed US Echo complete May 10, 2019 1:33p m completed Relevant Diagnostic Tests and/or Laboratory Data Laboratory Results Test Date/Time Result Interpretation Reference Range Result Comment Performing Site White Blood Count March 14 0 1:53pm 9.8 10e3/uL 4.45-10.71 [facility], [address] [place] [address] White Blood Count January 05, 2020 10:51a m 7.2 10e3/uL 4.45-10.71 [facility], [address] [place] [address] 30586 White Blood Count August 09, 2019 7:08am 5.6 10e3/uL 4.45-10.71 [facility], [address] [place] [address] 50787 White Blood Count May 11 0 5:55am 4.7 10e3/uL 4.45-10.71 [facility], [address] [place] [address]1940 Red Blood Count March 14, 2020 1:53pm 4.85 10e6/uL 4.20-5.40 [facility], [address] [place] [address] Red Blood Count January 05, 2020 10:51am 5.05 10e6/uL 4.20-5.40 [facility], [address] [place] [address] 99615 Red Blood Count August 09, 2019 7:08am 4.93 10e6/uL 4.20-5.40 [facility], [address] [place] [address] Red Blood Count May 11, 2019 5:55am 4.44 10e6/uL 4.20-5.40 [facility], [address] [place], [place] [id number] Hemoglobin March 14, 2020 1:53pm 14.2 g/dL 10.7-15.4 [facility], [address] [place] [address] Hemoglobin January 05, 2020 10:51am 14.9 g/dL 10.7-15.4 [facility], [address] [place] [address] Hemoglobin August 09, 2019 7:08am 14.5 g/dL 10.7-15.4 [facility], [address] [place] [address] Hemoglobin May 11, 2019 5:55am 13.1 g/dL 10.7-15.4 [facility], [address] [place] [address] Hematocrit March 14, 2020 1:53pm 43.7 % 37-47 [facility], [address] [place], [place] [id number] Hematocrit January 05, 2020 10:51am 45.8 % 37-47 [facility], [address] [place] [address] 44214 Hematocrit August 09, 2019 7:08am 44.9 % 37-47 [facility], [address] [place], [place] [address] Hematocrit May 11, 2019 5:55am 40.4 % 37-47 [facility], [address] [place] [address] Mean Corpuscular Volume February 1:53pm 90.1 fl 80-96 [facility], [address] [place], [place] [id number] Mean Corpuscular Volume January 05, 2020 10:51am 90.7 fl 80-96 [facility], [address] [place] [address] Mean Corpuscular Volume August 08 7:08am 91.1 fl 80-96 [facility], [address] [place] [address] Mean Corpuscular Volume April 5:55am 91.0 fl 80-96 [facility], [address] [place] [address] 03748 Mean Corpuscular Hemoglobin March 14, 2020 1:53pm 29.3 pg 27-31 [facility], [address] [place] [address] 18658 Mean Corpuscular Hemoglobin January 05, 2020 10:51am 29.5 pg 27-31 [facility], [address] [place] [address] 56593 Mean Corpuscular Hemoglobin July 7:08am 29.4 pg 27-31 [facility], [address] [place] [address] Mean Corpuscular Hemoglobin May 11, 2019 5:55am 29.5 pg 27-31 [facility], [address] [place] [address] 45535 Mean Corpuscular Hemoglobin Concent March 14, 2020 1:53pm 32.5 g/dl 33-37 [facility], [address] [place] [address] 93104 Mean Corpuscular Hemoglobin Concent January 05, 2020 10:51am 32.5 g/dl 3337 [facility], [address] [place] [address] 88884 Mean Corpuscular Hemoglobin Concent August 09, 2019 7:08am 32.3 g/dl 3337 [facility], [address] [place] [address] 89202 Mean Corpuscular Hemoglobin Concent May 11, 2019 5:55am 32.4 g/dl 3337 [facility], [address] [place] [address] 09835 Red Cell Distribution Width March 14, 2020 1:53pm 14 % 11-15 [facility], [address] [place] [address] Red Cell Distribution Width January 05, 2020 10:51am 14 % 11-15 [facility], [address] [place] [address] Red Cell Distribution Width July 7:08am 14 % 11-15 [facility], [address] [place] [address] Red Cell Distribution Width May 11, 2019 5:55am 14 % 11-15 [facility], [address] [place] [address] 12836 Platelet Count March 14, 2020 1:53pm 226 10e3/ul 130-472 [facility], [address] [place] [address] Platelet Count January 05, 2020 10:51am 249 10e3/ul 130-472 [facility], [address] [place] [address] 38004 Platelet Count August 09, 2019 7:08am 244 10e3/ul 130-472 [facility], [address] [place] [address] Platelet Count May 11, 2019 5:55am 180 10e3/ul 130-472 [facility], [address] [place] [address] 18271 Mean Platelet Volume March 14, 2020 1:53pm 10.0 fl 9.1-13.1 [facility], [address] [place] [address] Mean Platelet Volume January 04 10:51am 10.3 fl 9.1-13.1 [facility], [address] [place] [address] Mean Platelet Volume August 09, 2019 7:08am 10.9 fl 9.1-13.1 [facility], [address] [place] [address] Mean Platelet Volume May 11, 2019 5:55am 10.2 fl 9.1-13.1 [facility], [address] [place] [address] 85117 Neutrophils (%) (Auto) February 1:53pm 75.4 % [address] [place] [address] LABORATORY, [address] [place] [address] 20667 Neutrophils (%) (Auto) January 05, 2020 10:51am 56.3 % [address] [facility], [address] [place] [address] 39375 Neutrophils (%) (Auto) August 08 0 7:08am 56.0 % [address] [place] [address] LABORATORY, [address] [place] [address] 12669 Neutrophils (%) (Auto) April 5:55am 46.8 % [address] [place] [address] LABORATORY, [address] [place] [address] 49483 Absolute Neutrophil March 14, 020 1:53pm 7.4 # 1.7-7.6 [facility], [address] [place] [address] 47470 Absolute Neutrophil January 04 0 10:51am 4.1 # 1.7-7.6 [facility], [address] [place] [address] 23335 Absolute Neutrophil August 09, 2019 7:08am 3.2 # 1.7-7.6 [facility], [address] [place] [address] Absolute Neutrophil May 11 020 5:55am 2.2 # 1.7-7.6 [facility], [address] [place] [address] 85242 Lymphocytes (%) (Auto) February 1:53pm 17.0 % 1446 [facility], [address] [place] [address] 45245 Lymphocytes (%) (Auto) January 05, 2020 10:51am 32.8 % 1446 [facility], [address] [place] [address] 96691 Lymphocytes (%) (Auto) August 08 0 7:08am 35.5 % 14-46 [facility], [address] [place] [address] 57110 Lymphocytes (%) (Auto) April 5:55am 42.1 % 1446 [facility], [address] [place] [address] 10660 Lymphocytes # (Auto) March 14, 2020 1:53pm 1.7 # 0.6-4.6 [facility], [address] [place] [address] 21228 Lymphocytes # (Auto) January 04 10:51am 2.4 # 0.6-4.6 [facility], [address] [place] [address] 23115 Lymphocytes # (Auto) August 09, 2019 7:08am 2.0 # 0.6-4.6 [facility], [address] [place] [address] 04156 Lymphocytes # (Auto) May 11, 2019 5:55am 2.0 # 0.6-4.6 [facility], [address] [place] [address] 23998 Monocytes (%) (Auto) March 14, 2020 1:53pm 4.8 % 4-12 [facility], [address] [place] [address] 03169 Monocytes (%) (Auto) January 04 10:51am 6.4 % 4-12 [facility], [address] [place] [address] 97762 Monocytes (%) (Auto) August 09, 2019 7:08am 5.0 % 4-12 [facility], [address] [place] [address] 81267 Monocytes (%) (Auto) May 11, 2019 5:55am 6.4 % 4-12 [facility], [address] [place] [address] 85515 Monocytes # March 14, 2020 1:53pm 0.5 # 0.2-1.2 [facility], [address] [place] [address] 78240 Monocytes # January 05, 2020 10:51am 0.5 # 0.2-1.2 [facility], [address] [place] [address] 78996 Monocytes # August 09, 2019 7:08am 0.3 # 0.2-1.2 [facility], [address] [place] [address] 37743 Monocytes # May 11, 2019 5:55am 0.3 # 0.2-1.2 [facility], [address] [place] [address] 26176 Eosinophils (%) (Auto) February 1:53pm 1.9 % 0-7 [facility], [address] [place] [address] 73033 Eosinophils (%) (Auto) January 05, 2020 10:51am 3.3 % 0-7 [facility], [address] [place] [address] 49761 Eosinophils (%) (Auto) August 08 0 7:08am 2.8 % 0-7 [facility], [address] [place] [address] Eosinophils (%) (Auto) April 5:55am 3.6 % 0-7 [facility], [address] [place] [address] Absolute Eosinophils (CBC) March 14, 2020 1:53pm 0.2 # 0.0-0.5 [facility], [address] [place] [address] 45027 Absolute Eosinophils (CBC) January 042019 10:51am 0.2 # 0.0-0.5 [facility], [address] [place] [address] 44383 Absolute Eosinophils (CBC) August 09, 2019 7:08am 0.2 # 0.0-0.5 [facility], [address] [place] [address] Absolute Eosinophils (CBC) May 11, 2019 5:55am 0.2 # 0.0-0.5 [facility], [address] [place] [address] 04769 Basophils (%) (Auto) March 14, 2020 1:53pm 0.6 % 0.4-1.3 [facility], [address] [place] [address] 36224 Basophils (%) (Auto) January 04 10:51am 1.1 % 0.4-1.3 [facility], [address] [place] [address] 64637 Basophils (%) (Auto) August 09, 2019 7:08am 0.7 % 0.4-1.3 [facility], [address] [place] [address] 09613 Basophils (%) (Auto) May 11, 2019 5:55am 1.1 % 0.4-1.3 [facility], [address] [place] [address] 30227 Absolute Basophils (CBC) March 142019 1:53pm 0.1 # 0.0-0.2 [facility], [address] [place] [address] 70797 Absolute Basophils (CBC) December 10:51am 0.1 # 0.0-0.2 [facility] [facility], [address] [place] [address] 67363 Absolute Basophils (CBC) August 08 7:08am 0.0 # 0.0-0.2 [facility], [address] [place] [address] 16220 Absolute Basophils (CBC) May 112019 5:55am 0.1 # 0.0-0.2 [facility], [address] [place] [address] 84296 Immature Granulocyte % (Auto) Decemb er 2019 1:53pm 0.3 % 0-2 [facility], [address] [place] [address] 20757 Immature Granulocyte % (Auto) Octobe r 2019 10:51am 0.1 % 0-2 [facility], [address] [place] [address] 06863 Immature Granulocyte % (Auto) August 082019 7:08am 0.0 % 0-2 [facility], [address] [place] [address] 79782 Immature Granulocyte % (Auto) Februa ry 2019 5:55am 0.0 % 0-2 [facility], [address] [place] [address] 86508 Absolute Immature Granulocyte (auto March 14, 2020 1:53pm 0.0 # 0-0.1 [facility], [address] [place] [address] 47693 Absolute Immature Granulocyte (auto January 05, 2020 10:51am 0.0 # 0-0.1 [facility], [address] [place] [address] 90744 Absolute Immature Granulocyte (auto August 09, 2019 7:08am 0.0 # 0-0.1 [facility], [address] [place] [address] Absolute Immature Granulocyte (auto May 11, 2019 5:55am 0.0 # 0-0.1 [facility], [address] [place] [address] Add Manual Differential February 1:53pm No [facility], [address] [place] [address] Add Manual Differential January 05, 2020 10:51am No [facility], [address] [place] [address] Add Manual Differential August 08 7:08am No [facility], [address] [place] [address] Add Manual Differential April 5:55am No [facility], [address] [place] [address] Prothrombin Time May 09, 2019 4:15p m 10.1 SECONDS 9.6-12.3 [facility], [address] [place] [address] INR International Normalized Ratio F 2019 4:15pm 1.0 0.9-1.1 THE INR IS OPERATIONALLY DEFINED FOR PHILOMENA SH PLASMA FROMPATIENTS STABILIZED ON ORAL ANTICOAGULANTS. ROUTINE ANTICOAGULANT THERAPY 2.0-3.0RECURRENT SYSTEMIC EMBOLISM/HEART VALVE REPLACEMENT 2.5-3.5 [facility], [address] [place] [address] Partial Thromboplastin Time - Ashlie F 2019 4:15pm 23.9 SECONDS 22.7-31.6 [facility], [address] [place] [address] D-Dimer January 05, 2020 10:51am 0.35 mg/L 0.0-0.50 PLEASE NOTE: THIS TEST WAS PERFORMED USING A PARTICLE-ENHANCED, IMMUNOTURBIDIMETRIC ASSAY AND HAS A SINGLE,CLINICALLY DERIVED CUTOFF OF 0.50 MG/L. [facility], [address] [place] [address] 30590 D-Dimer May 09, 2019 4:15pm 9.60 mg/L 0.0-0.50 Repeated by: Abida Lomeli 05/09/19 1825.Result Confirmation: 9.6 mg/L PLEASE NOTE: THIS TEST WAS PERFORMED USING A PARTICLE-ENHANCED, IMMUNOTURBIDIMETRIC ASSAY AND HAS A SINGLE,CLINICALLY DERIVED CUTOFF OF 0.50 MG/L. [facility], [address] [place] [address] 29994 Urine Color May 10, 2019 8:23am Yellow [facility], [address] [place] [address] 30300 Urine Appearance May 10, 2019 8:23a m Clear CLEAR [facility], [address] [place] [address] 55568 Urine pH May 10, 2019 8:23am 6.0 [facility], [address] [place] [address] 19633 Urine Specific [facility] April 8:23am 1.015 [facility], [address] [place] [address] 22141 Urine Leukocyte Esterase May 102019 8:23am Negative NEGATIVE [facility], [address] [place] [address] 12052 Urine Nitrate May 10, 2019 8:23am Negative NEGATIVE [facility], [address] [place] [address] 11395 Urine Protein May 10, 2019 8:23am Negative NEGATIVE [facility], [address] [place] [address] 82170 Urine Glucose May 10, 2019 8:23am Negative NEGATIVE [facility], [address] [place] [address] 83434 Urine Ketones May 10, 2019 8:23am Negative NEGATIVE [facility], [address] [place] [address] 19469 Urine Urobilinogen May 10 8:23am 0.2 eu/dl [facility], [address] [place] [address] 79466 Urine Bilirubin May 10, 2019 8:23am Negative NEGATIVE [facility], [address] [place] [address] 14612 Urine Blood May 10, 2019 8:23am Negative NEGATIVE [facility], [address] [place] [address] 47477 Add Urine Microanalysis April 8:23am No [facility], [address] [place] [address] 95280 Blood Urea Nitrogen March 14 020 1:53pm 16 mg/dL 12-20 [facility], [address] [place] [address] 71553 Blood Urea Nitrogen January 04 0 10:51am 16 mg/dL 12-20 [facility], [address] [place] [address] 28603 Blood Urea Nitrogen November 20 0 10:28am 13 mg/dL 12-20 [facility], [address] [place] [address] Blood Urea Nitrogen August 09, 2019 7:08am 13 mg/dL 12-20 [facility], [address] [place] [address] Blood Urea Nitrogen May 11 5:55am 13 mg/dL 12-20 [facility], [address] [place] [address] 25847 Sodium Level March 14, 2020 1:53pm 142 mmol/L 132-146 [facility], [address] [place] [address] 10573 Sodium Level January 05, 2020 10:51am 142 mmol/L 132-146 [facility], [address] [place] [address] 06989 Sodium Level November 21, 2019 10:28am 144 mmol/L 132-146 [facility], [address] [place] [address] 28112 Sodium Level August 09, 2019 7:08am 142 mmol/L 132-146 [facility], [address] [place] [address] 79162 Sodium Level May 11, 2019 5:55am 143 mmol/L 132-146 [facility], [address] [place] [address] 25064 Potassium Level March 14, 2020 1:53pm 4.2 mmol/L 3.5-5.5 [facility], [address] [place] [address] 50524 Potassium Level January 05, 2020 10:51am 4.7 mmol/L 3.5-5.5 [facility], [address] [place] [address] 97269 Potassium Level November 21, 2019 10:28am 4.2 mmol/L 3.5-5.5 [facility], [address] [place] [address] 14535 Potassium Level August 09, 2019 7:08am 3.8 mmol/L 3.5-5.5 [facility], [address] [place] [address] 10027 Potassium Level May 11, 2019 5:55am 4.3 mmol/L 3.5-5.5 SLIGHTLY HEMOLYZED [facility], [address] [place] [address] 94677 Chloride Level March 14, 2020 1:53pm 110 mmol/l 99-109 [facility], [address] [place] [address] 89602 Chloride Level January 05, 2020 10:51am 109 mmol/l 99-109 [facility], [address] [place] [address] 00198 Chloride Level November 21, 2019 10:28am 113 mmol/l 99-109 [facility], [address] [place] [address] 11168 Chloride Level August 09, 2019 7:08am 111 mmol/l 99-109 [facility], [address] [place] [address] 39566 Chloride Level May 11, 2019 5:55am 112 mmol/l 99-109 [facility], [address] [place] [address] 88887 Carbon Dioxide Level March 14, 2020 1:53pm 26 mmol/l 20-31 [facility], [address] [place] [address] 51616 Carbon Dioxide Level January 04 10:51am 29 mmol/l -31 [facility], [address] [place] [address] 42775 Carbon Dioxide Level November 20 10:28am 25 mmol/l 20-31 [facility], [address] [place] [address] 02697 Carbon Dioxide Level August 09, 2019 7:08am 22 mmol/l 20-31 [facility], [address] [place] [address] 45296 Carbon Dioxide Level May 11, 2019 5:55am 25 mmol/l 20-31 [facility], [address] [place] [address] 93481 Anion Gap March 14, 2020 1:53pm 10 mmol/l 8-16 [facility], [address] [place] [address] 88964 Anion Gap January 05, 2020 10:51am 9 mmol/l 8-16 [facility], [address] [place] [address] 89331 Anion Gap November 21, 2019 10:28am 10 mmol/l 8-16 [facility], [address] [place] [address] 82529 Anion Gap August 09, 2019 7:08am 13 mmol/l 8-16 [facility], [address] [place] [address] 87889 Anion Gap May 11, 2019 5:55am 10 mmol/l 8-16 [facility], [address] [place] [address] 79095 Glucose Level March 14, 2020 1:53pm 107 mg/dL 74-106 [facility], [address] [place] [address] 33458 Glucose Level January 05, 2020 10:51am 86 mg/dL 74-106 [facility], [address] [place] [address] 20262 Glucose Level November 21, 2019 10:28am 95 mg/dL 74-106 [facility], [address] [place] [address] 50395 Glucose Level August 09, 2019 7:08am 133 mg/dL 74-106 [facility], [address] [place] [address] Glucose Level May 11, 2019 5:55am 95 mg/dL 74-106 [facility], [address] [place] [address] Creatinine March 14, 2020 1:53pm 0.9 mg/dL 0.5-1.1 [facility], [address] [place] [address] Creatinine January 05, 2020 10:51am 1.0 mg/dL 0.5-1.1 [facility], [address] [place] [address] Creatinine November 21, 2019 10:28am 1.0 mg/dL 0.5-1.1 [facility], [address] [place] [address] Creatinine August 09, 2019 7:08am 1.0 mg/dL 0.5-1.1 [facility], [address] [place] [address] Creatinine May 11, 2019 5:55am 0.8 mg/dL 0.5-1.1 [facility], [address] [place] [address] Glomerular Filtration Rate Calc Dece mber 2019 1:53pm Greater than 60 ml/min ABOVE 60 [facility], [address] [place] [address] Glomerular Filtration Rate Calc Octo 2019 10:51am 58 ml/min ABOVE 60 [facility], [address] [place] [address] Glomerular Filtration Rate Calc Augu st 2019 10:28am 58 ml/min ABOVE 60 [facility], [address] [place] [address] Glomerular Filtration Rate Calc August 09, 2019 7:08am 58 ml/min ABOVE 60 [facility], [address] [place] [address] Glomerular Filtration Rate Calc Febr uary 2019 5:55am Greater than 60 ml/min ABOVE 60 [facility], [address] [place] [address] Alanine Aminotransferase (ALT/SGPT) March 14, 2020 1:53pm 28 U/L 10- [facility], [address] [place] [address] Alanine Aminotransferase (ALT/SGPT) November 21, 2019 10:28am 30 U/L 10-49 [facility], [address] [place] [address] Alanine Aminotransferase (ALT/SGPT) August 09, 2019 7:08am 29 U/L 10-49 [facility], [address] [place] [address] Alanine Aminotransferase (ALT/SGPT) May 11, 2019 5:55am 25 U/L 10-49 [facility], [address] [place] [address] Aspartate Amino Transf (AST/SGOT) De cember 2019 1:53pm 17 U/L 0-33 [facility], [address] [place] [address] 36316 Aspartate Amino Transf (AST/SGOT) Au jonatan 2019 10:28am 22 U/L 0-33 [facility], [address] [place] [address] 19625 Aspartate Amino Transf (AST/SGOT) Ma y 2019 7:08am 21 U/L 0-33 [facility], [address] [place] [address] 35465 Aspartate Amino Transf (AST/SGOT) Fe bruary 2019 5:55am 24 U/L 0-33 [facility], [address] [place] [address] 96179 Alkaline Phosphatase March 14, 2020 1:53pm 98 U/L 45-129 [facility], [address] [place] [address] 01595 Alkaline Phosphatase November 20 10:28am 104 U/L 45-129 [facility], [address] [place] [address] 52848 Alkaline Phosphatase August 09, 2019 7:08am 103 U/L 45-129 [facility], [address] [place] [address] 55921 Alkaline Phosphatase May 11, 2019 5:55am 80 U/L 45-129 [facility], [address] [place] [address] 17398 Amylase Level March 14, 2020 1:53pm 55 U/L 30-118 [facility], [address] [place] [address] 35907 Lipase March 14, 2020 1:53pm 141 U/L 73-393 [facility], [address] [place] [address] 90895 Calcium Level March 14, 2020 1:53pm 9.1 mg/dL 8.5-10.1 [facility], [address] [place] [address] 26742 Calcium Level January 05, 2020 10:51am 9.8 mg/dL 8.5-10.1 [facility], [address] [place] [address] Calcium Level November 21, 2019 10:28am 9.2 mg/dL 8.5-10.1 [facility], [address] [place] [address] Calcium Level August 09, 2019 7:08am 9.4 mg/dL 8.5-10.1 [facility], [address] [place] [address] Calcium Level May 11, 2019 5:55am 8.5 mg/dL 8.5-10.1 [facility], [address] [place], [place] [address] Total Bilirubin March 14, 2020 1:53pm 0.4 mg/dL 0.3-1.2 [facility], [address] [place] [address] Total Bilirubin November 21, 2019 10:28am 0.6 mg/dL 0.3-1.2 [facility], [address] [place] [address] Total Bilirubin August 09, 2019 7:08am 0.5 mg/dL 0.3-1.2 [facility], [address] [place], [place] [address] Total Bilirubin May 11, 2019 5:55am 0.4 mg/dL 0.3-1.2 [facility], [address] [place] [address] Albumin March 14, 2020 1:53pm 3.6 g/dL 3.2-4.8 [facility], [address] [place] [address] Albumin November 21, 2019 10:28am 3.9 g/dL 3.2-4.8 [facility], [address] [place], [place] [address] Albumin August 09, 2019 7:08am 3.9 g/dL 3.2-4.8 [facility], [address] [place] [address] Albumin May 11, 2019 5:55am 3.3 g/dL 3.2-4.8 [facility], [address] [place], [place] [address] Serum Total Protein March 14 020 1:53pm 7.2 g/dL 5.7-8.2 [facility], [address] [place] [address] Serum Total Protein November 20 0 10:28am 7.0 g/dL 5.7-8.2 [facility], [address] [place] [address] Serum Total Protein August 09, 2019 7:08am 7.0 g/dL 5.7-8.2 [facility], [address] [place] [address] Serum Total Protein May 11 5:55am 6.1 g/dL 5.7-8.2 [facility], [address] [place] [address] 03940 Lactic Acid Level March 14 0 5:30pm 1.3 mmol/L 0.5-2.2 [facility], [address] [place] [address] 82389 Triglycerides Level August 09, 2019 7:08am 110 mg/dL 0-150 [facility], [address] [place] [address] Triglycerides Level May 09 4:15pm 110 mg/dL 0-150 [facility], [address] [place] [address] 91575 Cholesterol Level August 09, 2019 7:08am 240 mg/dL 120-200 [facility], [address] [place] [address] 25427 Cholesterol Level May 09 4:15pm 200 mg/dL 120-200 [facility], [address] [place] [address] 11546 HDL Cholesterol August 09, 2019 7:08am 49 mg/dL HDL Less than 40 mg/dL: Major risk for CHDHDL Greater than 59 mg/dL: Low risk for CHD [facility], [address] [place] [address] 67959 HDL Cholesterol May 09, 2019 4:15pm 42 mg/dL HDL Less than 40 mg/dL: Major risk for CHDHDL Greater than 59 mg/dL: Low risk for CHD [facility], [address] [place] [address] 53916 LDL Cholesterol, Calculated July 7:08am 169 mg/dL 0-100 [facility], [address] [place] [address] 79833 LDL Cholesterol, Calculated May 09, 2019 4:15pm 136 mg/dL 0-100 [facility], [address] [place] [address] 73836 Magnesium Level May 09, 2019 4:15pm 2.2 mg/dL 1.3-2.7 [facility], [address] [place] [address] 14637 Creatine Kinase May 09, 2019 4:15pm 85 U/L 33-211 [facility], [address] [place] [address] Creatine Kinase MB May 09 4:15pm 1.8 ng/mL 0.0-5.0 [facility], [address] [place] [address] Creatine Kinase MB % May 09, 2019 4:15pm 2.1 % [facility], [address] [place] [address] Troponin I March 14, 2020 1:53pm Less than 0.015 ng/mL 0.00-0.09 Less than 0.09 NG/ML Negative0.10 - 0.77 NG/ML High Risk0.78 NG/ML or Greater Positive The WHO defined the cutoff (definition for diagnosis of MO)for this method as 0.78 ng/ml. [facility], [address] [place] [address] 89958 Troponin I May 10, 2019 4:00am Less than 0.015 ng/mL 0.00-0.09 Less than 0.09 NG/ML Negative0.10 - 0.77 NG/ML High Risk0.78 NG/ML or Greater Positive The WHO defined the cutoff (definition for diagnosis of MO)for this method as 0.78 ng/ml. [facility], [address] [place] [address] Serum Test, Qualitative De cember 2019 1:53pm Negative NEGATIVE [facility], [address] [place] [address] 68310 Insulin Level November 21, 2019 10:28am 11.3 uIU/mL Reference Range < or = 19.6 Risk: Optimal < or = 19.6 Moderate NA High >19.6 Adult cardiovascular event risk category cut points (optimal, moderate, high) are based on [employer] population data from 02/2011.This insulin assay shows strong cross- reactivity forsome insulin analogs (lispro, aspart, and glargine)and much lower cross-reactivity with others (detemir,glulisine).THIS TEST WAS PERFORMED AT:[employer] [id number] MERATI,MD [place] Vitamin D 25-Hydroxy August 09, 2019 7:08am 40.9 ng/mL Vitamin D deficiency has been defined by the [place] [employer] and an Endocrine Society practice guideline as alevel of serum 25-OH vitamin D less than 20 ng/mL (1,2).The Endocrine Society went on to further define vitamin Dinsufficiency as a level between 21 and 29 ng/mL (2).1. IOM ([place] [employer]). 2010. Dietary reference intakes for calcium and D. [place]: The National Academies Press.2. Juliet MF, Sahil MARTINEZ, Brissa SHRESTHA, et al. Evaluation, treatment, and prevention of vitamin D deficiency: an Endocrine Society clinical practice guideline. JCEM. 2010; 96(7):1911-30.Performed at: [facility] [address] [id number] Director: Inga Reyes MD, Phone: [phone] [facility] , [address] [facility] [address] Coronavirus (COVID-19)(PCR) July 2:10pm Not detected Not Detec sathish Testing was performed using the ben(R) SARS-CoV-2 test.This test was developed and its performance characteristicsdetermined by [facility]. This test has not beenFDA cleared or approved. This test has been authorized byA under an Emergency Use Authorization (EUA). This testis only authorized for the duration of time the declarationthat circumstances exist justifying the authorization ofthe emergency use of in vitro diagnostic tests fordetection of SARS-CoV-2 virus and/or diagnosis of COVID-19infection under section 564(b)(1) of the Act, 21 U.S.C.360bbb-3(b)(1), unless the authorization is terminated orrevoked sooner. When diagnostic testing is negative, thepossibility of a false negative result should be consideredin the context of a patient's recent exposures and thepresence of clinical signs and symptoms consistent withCOVID- 19. An individual without symptoms of COVID-19 andwho is not shedding SARS-CoV-2 virus would expect to have anegative (not detected) result in this assay.Per formed at: [facility] [address] [id number] Director: Inga Reyes MD, Phone: [phone] [facility] , [address] [facility] [address] Hemoglobin A1c November 21, 2019 10:28am 6.0 % 4.0-6.0 The following ranges may be used for interpretation of results: HGBA1C degree of glucose control: Greater than 8%: Action Suggested * Less than 7%: Goal of Diabetic Therapy Less than 6%: Normal Factors such as duration of diabetes, adherence to therapyand the age of the patient should also be considered inassessing the degree of blood glucose control. * High risk of developing longwall headgate operator complications such asretinopathy, nephropathy, neuropathy, cardiopathy, etc. Some danger of hypoglycemic reaction in Type I diabetics.Some glucose intolerant individuals and "Sub Clinical"diabetics may demonstrate HGBA1C levels in this area. [facility], [address] [place] [address] Hemoglobin A1c August 09, 2019 7:08am 5.5 % 4.0-6.0 Th e following ranges may be used for interpretation of results: HGBA1C degree of glucose control: Greater than 8%: Action Suggested * Less than 7%: Goal of Diabetic Therapy Less than 6%: Normal Factors such as duration of diabetes, adherence to therapyand the age of the patient should also be considered inassessing the degree of blood glucose control. * High risk of developing longwall headgate operator complications such asretinopathy, nephropathy, neuropathy, cardiopathy, etc. Some danger of hypoglycemic reaction in Type I diabetics.Some glucose intolerant individuals and "Sub Clinical"diabetics may demonstrate HGBA1C levels in this area. [facility], [address] [place] [id number] Hemoglobin A1c May 09, 2019 4:15pm 5.6 % 4.0-6.0 The following ranges may be used for interpretation of results: HGBA1C degree of glucose control: Greater than 8%: Action Suggested * Less than 7%: Goal of Diabetic Therapy Less than 6%: Normal Factors such as duration of diabetes, adherence to therapyand the age of the patient should also be considered inassessing the degree of blood glucose control. * High risk of developing longwall headgate operator complications such asretinopathy, nephropathy, neuropathy, cardiopathy, etc. Some danger of hypoglycemic reaction in Type I diabetics.Some glucose intolerant individuals and "Sub Clinical"diabetics may demonstrate HGBA1C levels in this area. [facility], [address] [place] [address] Estimated Average Glucose (eAG) Augu 2019 10:28am 126 mg/dl An A1C of 7% - the goal of diabetic ther apy - is equivalentto an EAG of 154 mg/dl. [facility], [address] [place] [address] Estimated Average Glucose (eAG) August 09, 2019 7:08am 111 mg/dl An A1C of 7% - the goal of diabetic therapy - is equivalentto an EAG of 154 mg/dl. [facility], [address] [place] [address] Estimated Average Glucose (eAG) [facility]2019 4:15pm 114 mg/dl An A1C of 7% - the goal of diabetic ther apy - is equivalentto an EAG of 154 mg/dl. [facility], [address] [place] [address] Pro-B-Type Natriuretic Peptide Febru 2019 4:15pm 25.00 pg/mL 0.00-175 [facility], [address] [place] [address] Microbiology Results Procedure Source Result Collection Date/Time Result Date/Time Result Comment Performing Site SARS-CoV-2 (PCR) Interpretation Naso pharyngeal No Organisms Detected March 14, 2020 4:39pm March 14, 2020 5:20pm [facility], [address] [place] [address] Gastrointestinal Tract Panel (PCR) Stool No Organisms Detected November 24, 2019 2:00pm November 24, 2019 5:14pm [facility], [address] [place] [address] Diagnostic Imaging Reports Report Dictated Date/Time Dictated By Status Radiology Report May 09, 2019 4:26p do Schwartz DO completed [place] [id number] [place] [id number] [phone] NAME SEX PT STATUS ACCOUNT NUMBER MADDISON CHAVARRIA [facility] ER [id number] ORDERING PHYSICIAN LOCATION MEDICAL RECORD NO. Guy Quispe MD ER [id number] ATTENDING PHYSICIAN DATE OF DATE OF EXAM/TIME Hillary Montelongo DO 1965 05/09/191616 TYPE / EXAM Xray Chest One View REASON FOR EXAM chest pain CLINICAL HISTORY: Chest pain. TECHNIQUE: Single portable radiograph of the chest obtained. COMPARISON: 02/12/2017. FINDINGS: The cardiomediastinal silhouette is unremarkable. There are low lung volumes, with no gross focal consolidations. There is no pneumothorax. There are degenerative changes of the thoracic spine. IMPRESSION: Low lung volumes, with no gross focal consolidations. No pneumothorax. Reported By Mark Schwartz DO on 05/09/191625 Signed By Mark Schwartz DO on 05/09/191626 Date Time CC: Mark Schwartz DO; Hillary Montelongo DO Techn: PELBU Trans Dt/Tm: Trans by: DT Prt Dt/Tm: [id number]: Total DLP = 0.00 mGy-cm Fluoroscopy Time (in secs): Radiology Report May 09, 2019 7:45p m [place] [address] [phone] NAME SEX PT STATUS ACCOUNT NUMBER MADDISON CHAVARRIA F ADM TONY [id number] ORDERING PHYSICIAN LOCATION MEDICAL RECORD NO. Dennis Lopez MD [id number] ATTENDING PHYSICIAN DATE OF DATE OF EXAM/TIME Hillray Montelongo DO 1965 05/09/19 / 1841 TYPE / EXAM CTA Chest non-card W/ & or w/o REASON FOR EXAM elevated d dimer PATTIEMADDISON Booker [id number] 1965 ADDENDUM Clinical History/Indication for Exam: elevated d dimer Called for Critical Findings by Maria Del Carmen GROVE on 05/09/2019 4:54PM [place] Time;Call for Critical Findings Reconstructions Comparison: NONE History: Evaluate for pulmonary embolism PROCEDURE: CT images are obtained of the entire chest after intravenous contrast administration . Post processing multiplanar reformations and 3D rendering is done . FINDINGS: Several intraluminal filling defects seen in distal right main pulmonary artery extending into right upper lobe and right lower lobe pulmonary artery branches as well as several intraluminal filling defect seen in distal left main pulmonary artery and extending into left lower lobe pulmonary artery branches. This is compatible with POSITIVE BILATERAL PULMONARY EMBOLISM. No endotracheal mass. No pneumonia. No pleural effusion. No enlarged mediastinal lymphadenopathy. No enlarged right or left hilar lymphadenopathy. Thoracic aorta is normal in caliber. Degenerative changes of thoracic spine. No pericardial effusion. Visualized upper abdomen shows no right or left adrenal mass. Cholecystectomy. IMPRESSION: 1. POSITIVE BILATERAL PULMONARY EMBOLISM. Automatic exposure control was used as a dose lowering technique. Contrast Type: isovue 370. Contrast Volume: 75cc REPORT SIGNATURE ON FILE 05/09/2019 (19:45 Eastern Time ) Signed by: Miles Fajardo M.D. Addendum Reported By Miles Fajardo MD on 05/09/191944 Signed By Miles Fajardo MD on 05/09/191944 Trans Dt/Tm: Trans by: MEDQ [p pg] Clinical History/Indication for Exam: elevated d dimer Call for Critical Findings Reconstructions Comparison: NONE History: Evaluate for pulmonary embolism PROCEDURE: CT images are obtained of the entire chest after intravenous contrast administration . Post processing multiplanar reformations and 3D rendering is done . FINDINGS: Several intraluminal filling defects seen in distal right main pulmonary artery extending into right upper lobe and right lower lobe pulmonary artery branches as well as several intraluminal filling defect seen in distal left main pulmonary artery and extending into left lower lobe pulmonary artery branches. This is compatible with POSITIVE BILATERAL PULMONARY EMBOLISM. No endotracheal mass. No pneumonia. No pleural effusion. No enlarged mediastinal lymphadenopathy. No enlarged right or left hilar lymphadenopathy. Thoracic aorta is normal in caliber. Degenerative changes of thoracic spine. No pericardial effusion. Visualized upper abdomen shows no right or left adrenal mass. Cholecystectomy. IMPRESSION: 1. POSITIVE BILATERAL PULMONARY EMBOLISM. Automatic exposure control was used as a dose lowering technique. Contrast Type: isovue 370. Contrast Volume: 75cc REPORT SIGNATURE ON FILE 05/09/2019 (19:45 Eastern Time ) Signed by: Miles Fajardo M.D. Reported By Miles Fajardo MD on 05/09/191944 Signed By Miles Fajardo MD on 05/09/191944 Date Time CC: Miles Fajardo MD; Hillary Montelongo DO Techn: PELBU Trans Dt/Tm: Trans by: DT Prt Dt/Tm: : Total DLP = 433.00 mGy-cm : Total Radiation Dose = 2.5547 mSv Lifetime Dose: 2.5547 mSv Radiology Report May 10, 2019 2:47p do Cruz completed [facility] [address] [place] [id number] [phone] NAME SEX PT STATUS ACCOUNT NUMBER MADDISON CHAVARRIA DIS TONY [id number] ORDERING PHYSICIAN LOCATION MEDICAL RECORD NO. Dennis Lopez MD [id number] ATTENDING PHYSICIAN DATE OF DATE OF EXAM/TIME Hillary Montelongo DO 1965 05/10/19 / 1332 TYPE / EXAM US Echo complete REASON FOR EXAM bilateral PE DATE OF TEST: 05/10/19 REFERRING PHYSICIAN: Dr. Lopez. INDICATION: Chest pain syndrome, bilateral PE (pulmonary embolism). MEASUREMENTS: Left atrium 3.9, aortic root 3.3, left ventricle in diastole 4.4 and systole 2.4. FINDINGS: 1. Normal aortic root. Normal left and right sided atrial and ventricular size. 2. Normal aortic, mitral and tricuspid v alve and pulmonic valves. 3. Normal left ventricular systolic func tion, ejection fraction 50%. 4. No evidence of pericardial effusion. 5. Color flow and spectral Doppler exami nation was unremarkable. Diastolic function was normal. IMPRESSION: 1. Normal left ventricular systolic func tion. 2. No evidence of significant Doppler ab normality. Reported By Ortiz Cruz MD on 05/10/19 7501 Signed By Ortiz Cruz MD on 05/17/19 0933 <<Signature on File>> Date Time CC: Ortiz Cruz M.D.; Hillary Montelongo DO Techn: FREST Trans Dt/Tm: 05/10/19 1749 Trans by: MB Prt Dt/Tm: : Total DLP = 0.00 mGy-cm : Total Radiation Dose = 0.0000 mSv Lifetime Dose: 2.5547 mSv Stress Test June 28, 2019 10:20am Shane Fajardo completed STRESS TEST CONSULTATION NAME: MADDISON CHAVARRIA : 1965 AGE: 53 MR#: [id number] ADMITTING DATE: 06/28/[address]: DISCHARGE DATE: ATTENDING DR: MAINE AYON ROOM#: PRE-TEST EKG Sinus rhythm, nonspecific changes. Patient exercised on Lexiscan protocol, 0.4 mg of Lexiscan given over 20 seconds after which Cardiolite was injected. Resting heart rate 51, resting blood pressure 116/80. Peak heart rate 82, peak blood pressure 106/60. SYMPTOMS WITH STRESS TEST No chest pain. EKG CHANGES WITH EXERCISE No additional ST or T-wave changes at peak exercise or in recovery. ARRHYTHMIAS None. EKG ANALYSIS No ST-T changes after Lexiscan. SUGGESTIONS Pending Cardiolite results, dictated separately. CC: Hillary Montelongo DO <Electronically signed by Shane Fajardo MD> Shane Fajardo MD 07/04/19 1447 Shane Fajardo M.D. Cosigner: D: STEFAN 06/28/19 1020 T: BEATA 06/28/19 1052 CC: Shane Fajardo M.D.; Hillary Montelongo DO LAST EDIT: Radiology Report June 28, 2019 2:15pm Shane Fajardo completed [facility] [address] [place] [address] [phone] NAME SEX PT STATUS ACCOUNT NUMBER MADDISON CHAVARRIA REG REF [id number] ORDERING PHYSICIAN LOCATION MEDICAL RECORD NO. MAINE MCKINNEY EKG [id number] ATTENDING PHYSICIAN DATE OF DATE OF EXAM/TIME Hillary Montelongo DO 1965 06/28/19 / 699 TYPE / EXAM NM Nuclear Stress Test REASON FOR EXAM R07.2 CP, E78.2 HYPERLIPIDEMIA, R06.02 SOB, R00.2 PALPS, Z66.711 DATE OF TEST: 06/28/19 TECHNIQUE: Gaited myocardial perfusion SPECT was performed using rest-stress sequence. T echnetium 99m sestamibi; 10.14 millicurie at rest and 31.7 millicurie at peak exercise was injected. EKG was reported separately. FINDINGS: 1. There is normal perfusion of all segm ent of left ventricular myocardium at rest and with exercise. 2. Significant breast attenuation noted at rest level. 3. Above findings were confirmed with [facility] eye SPECT analysis. 4. Gated wall motion analysis showed nor mal wall motion, ejection fraction of 69%. CONCLUSION: 1. Normal perfusion of all segment of le ft ventricular myocardium. 2. No evidence of ischemia or infarction . 3. Significant breast attenuation at res t. 4. Normal LV function. Reported By Shane Fajardo MD on 06/28/19 1415 Signed By Shane Fajardo MD on 07/04/19 1447 <<Signature on File>> Date Time CC: Shane Fajardo M.D.; Hillary Montelongo DO Techn: MARLYN Trans Dt/Tm: 06/28/19 1602 Trans by: MELECIO Judge Dt/Tm: : Total DLP = 0.00 mGy-cm : Total Radiation Dose = 0.0000 mSv Lifetime Dose: 2.5547 mSv Radiology Report October 26, 2019 1:32pm Ayaka Salas MD completed [facility] [address] [place] [address] [phone] NAME SEX PT STATUS ACCOUNT NUMBER MADDISON CHAVARRIA REG REF [id number] ORDERING PHYSICIAN LOCATION MEDICAL RECORD NO. Natashamono MD Lisa MRI [id number] ATTENDING PHYSICIAN DATE OF DATE OF EXAM/TIME SarahKeshavHillary Falcon 1965 10/26/19 / 1303 TYPE / EXAM MRI Abdomen w/ & w/o contrast REASON FOR EXAM Liver Lesion Clinical History/Indication for Exam: Liver Lesion MR ABDOMEN WITHOUT AND WITH INTRAVENOUS CONTRAST INDICATION: Liver Lesion TECHNIQUE: Multiplanar magnetic resonance images of the abdomen without and with intravenous contrast. COMPARISON: CT abdomen from 10/08/19. FINDINGS: there is a well-circumscribed T2 intense cystic lesion involving the inferior aspect of the right lobe of the liver,, with low intensity appearance on T1-weighted imagingand no evidence for postcontrast enhancement on early and delayed imaging. Findings are favored to represent benign entity such as hepatic cysts. The lesion appears mildly irregular on the margins and measures approximately 2.8 x 2.7 cm, series 11, image 20, and decision to distal intrahepatic duct. Attention on follow-up imaging can be considered if clinically indicated. No additional suspicious hepatic lesions otherwise noted. No intrahepatic ductal dilation. Lung bases are grossly unremarkable. Inferior heart is within normal limits for size. Moderate hepatomegaly with hepatic steatosis measuring up to 22 cm. Hiatal hernia. The stomach is grossly unremarkable. Spleen, pancreas, adrenal glands demonstrate normal signal intensity and morphology. Bilateral kidneys are without suspicious lesions or collecting system obstruction. The biliary system is not dilated. Changes suggestive of previous cholecystectomy. The upper abdomen is without enlarged lymph nodes. Diverticular disease in the colon. No bowel obstruction or inflammation. Vascular structures are grossly unremarkable. Degenerative changes in the osseous structures of the spine and pelvis. No acute osseous abnormality. IMPRESSION: Mildly irregular well-circumscribed lesion in the right lobe of the liver is favored to represent benign entity such as a cyst. No evidence for abnormal enhancement. Contrast Type: Eovist. Contrast Volume: 10mL REPORT SIGNATURE ON FILE 10/26/2019 (13:32 Eastern Time ) Signed by: Ayaka Salas M.D. Reported By Ayaka Salas MD on 10/26/191331 Signed By Ayaka Salas MD on 10/26/191331 Date Time CC: Hillary Montelongo DO; Ayaka Salas MD Techn: ALY Trans Dt/Tm: Trans by: DT Prt Dt/Tm: : Total DLP = 0.00 mGy-cm : Total Radiation Dose = 0.0000 mSv Lifetime Dose: 30.4697 mSv Radiology Report December 11 7:43pm Jb Gill MD completed [facility] [address] [place] [address] [phone] NAME SEX PT STATUS ACCOUNT NUMBER MADDISON CHAVARRIA REG REF [id number] ORDERING PHYSICIAN LOCATION MEDICAL RECORD NO. Addis Alamo MRI [id number] ATTENDING PHYSICIAN DATE OF DATE OF EXAM/TIME Addis Alamo RPA 1965 12/12/19 / 0 TYPE / EXAM MRI Lumbar without contrast REASON FOR EXAM hx stenosis w/radic worsening numbness/weakness le Clinical History/Indication for Exam: hx stenosis w/radic worsening numbness/weakness MRI LUMBAR SPINE WITHOUT INTRAVENOUS CONTRAST INDICATION: hx stenosis w/radic worsening numbness/weakness TECHNIQUE: Magnetic resonance images of the lumbar spine without intravenous contrast in multiple planes. COMPARISON: June 03, 2018 MRI FINDINGS: Vertebrae: Minimal Modic type I endplate signal changes at L2-L3. Lumbar spine is normal in height, curvature, and alignment. Marrow: Several vertebral body hemangiomas are again seen including any typical L1 vertebral body hemangioma and these are similar to prior. Spinal cord: Conus medullaris is unremarkable. Cauda equina is unremarkable. Sacrum/coccyx: Intact. Soft tissues: Paraspinous soft tissues are unremarkable. DISCS/SPINAL CANAL/NEURAL FORAMINA: T12-L1: Disc space is preserved. Facet joints are unremarkable. Spinal canal is patent. Neural foramina are patent. L1-L2: Mild facet hypertrophy bilaterally. Spinal canal and neural from our patent. Disc spaces preserved. L2-L3: Mild desiccation of the disc with mild circumferential disc bulging. Mild facet hypertrophy bilaterally. Mild spinal canal stenosis. Right neural foramen is patent. Mild left neural foraminal stenosis. L3-L4: Mild facet hypertrophy bilaterally. Spinal canal is patent. Neural foramina are patent. L4-L5: Desiccation of the disc. Mild facet hypertrophy bilaterally. Spinal canal is patent. Mild bilateral neural foraminal stenosis. L5-S1: Mild facet hypertrophy bilaterally. Spinal canal is patent. Mild right neural foraminal stenosis. Left neural foramen is patent. IMPRESSION: Mild multilevel lumbar spondylosis with spinal canal and neural foraminal stenosis as described and level by level detail above and not significantly changed compared to prior study. REPORT SIGNATURE ON FILE 12/12/2019 (19:43 Eastern Time ) Signed by: Jb Gill MD, PhD. Reported By Jb Gill MD on 12/12/191942 Signed By Jb Gill MD on 12/12/191942 Date Time CC: Jb Gill MD; [place]is [place]amo Techn: ALICIA Trans Dt/Tm: Trans by: DT Prt Dt/Tm: : Total DLP = 0.00 mGy-cm : Total Radiation Dose = 0.0000 mSv Lifetime Dose: 30.4697 mSv Radiology Report March 01, 2020 6:21pm Candace Quijano MD completed [facility] [address] [facility] [address] [place] [id number] [phone] NAME SEX PT STATUS ACCOUNT NUMBER MADDISON CHAVARRIA REG REF [id number] ORDERING PHYSICIAN LOCATION MEDICAL RECORD NO. Hillary Montelongo DO MAMMO [id number] ATTENDING PHYSICIAN DATE OF DATE OF EXAM/TIME Hillary Montelongo DO 1965 02/28/201637 TYPE / EXAM 3D DIG MAMMO SCREEN BILAT REASON FOR EXAM Screening for breast cancer LAST CLINICAL BREAST EXAM: 1 year ago FIVE YEAR RISK: 0.8% LIFETIME RISK: 6.1% FAMILY HISTORY OF BREAST CARCINOMA: None COMPARISON: 09/16/2018 09/06/2014 01/09/2011 2D bilateral digital mammogram in the CC and MLO projections was performed with supplemental 3D tomosynthesis of both breasts. FINDINGS: Craniocaudad and oblique lateral views of the breasts were obtained. The breasts are primarily of fat density. There is no dominant mass, suspicious clustered microcalcification or architectural distortion. IMPRESSION: No mammographic evidence of malignancy. Yearly screening recommended. OVERALL FINAL ASSESSMENT OF FINDINGS BI-RADS 1 - Negative OVERALL FINAL ASSESSMENT OF THE BREAST COMPOSITION Breast Density Classification: A Description: The breasts are almost entirely fatty. This mammogram was read with the assistance of Jamil, an FDA-approved computer- aided detection system for mammography. Reported By Candace Quijano MD on 03/01/201820 Signed By Candace Quijano MD on 03/01/201824 Date Time CC: Candace Quijano MD; Hillary Montelongo DO Techn: PELBU Trans Dt/Tm: Trans by: DT Prt Dt/Tm: 7032-0177: Total DLP = 0.00 mGy-cm 6658-9290: Total Radiation Dose = 0.0000 mSv Lifetime Dose: 30.4697 mSv Radiology Report March 14, 2020 3:26p m Kay Medrano MD completed [facility] [address] [facility] [place] [address] [phone] NAME SEX PT STATUS ACCOUNT NUMBER MADDISON CHAVARRIA [facility] ER [id number] ORDERING PHYSICIAN LOCATION MEDICAL RECORD NO. Salomon Stanley MD ER [id number] ATTENDING PHYSICIAN DATE OF DATE OF EXAM/TIME Hillary Montelongo DO 1965 03/14/201343 TYPE / EXAM CT Abd/pel w/ contrast REASON FOR EXAM Epigastric pain MADDISON CHAVARRIA [id number] 1965 ADDENDUM Clinical History/Indication for Exam: Epigastric pain Called for Critical Findings by Dora Phipps to on 03/14/2020 12:41PM [place] Time;Call for Critical Findings Acute small bowel obstruction. Automatic exposure control was used as a dose lowering technique. Contrast Type: Isovue 300. Contrast Volume: 100 mL REPORT SIGNATURE ON FILE 03/14/2020 (15:26 Eastern Time ) Signed by: Kay Medrano M.D. Addendum Reported By Kay Medrano MD on 03/14/201525 Signed By Kay Medrano MD on 03/14/201525 Trans Dt/Tm: Trans by: MEDQ [p pg] TJMADDISON OGDEN [id number] 1965 ADDENDUM Clinical History/Indication for Exam: Epigastric pain Call for Critical Findings Acute small bowel obstruction. Automatic exposure control was used as a dose lowering technique. Contrast Type: Isovue 300. Contrast Volume: 100 mL REPORT SIGNATURE ON FILE 03/14/2020 (15:26 Eastern Time ) Signed by: Kay Medrano M.D. Addendum Reported By Kay Medrano MD on 03/14/201525 Signed By Kay Medrano MD on 03/14/201525 Trans Dt/Tm: Trans by: MEDQ [p pg] Clinical History/Indication for Exam: Epigastric pain CT ABDOMEN AND PELVIS WITH INTRAVENOUS CONTRAST INDICATION: Epigastric pain TECHNIQUE: Axial computed tomography images of the abdomen and pelvis with intravenous contrast. Sagittal and coronal reformatted images were created and reviewed. This CT exam was performed using one or more of the following dose reduction techniques: automated exposure control, adjustment of the mA and/or kV according to patient size, and/or use of iterative reconstruction technique. COMPARISON: CT abdomen pelvis dated October 08, 2019. CT abdomen pelvis dated October 08, 2019. FINDINGS: Lung bases: Unremarkable. No mass. No consolidation. ABDOMEN: Liver: Hepatic steatosis. Hepatomegaly at 27 m in length. 2.7 cm hypodense lesion is noted in segment 6 of the liver, no change when compared to the prior studies. Consider hemangioma. Consider follow- up with CT scan of the abdomen with hepatic hemangioma protocol. Hepatomegaly at 20 cm in length. Gallbladder and bile ducts: Cholecystectomy. No ductal dilation. Pancreas: Unremarkable. No mass. No ductal dilation. Spleen: Unremarkable. No splenomegaly. Adrenals: Unremarkable. No mass. Kidneys and ureters: Cortical scarring is seen involving the interpolar region of the RIGHT kidney, new since the prior study, most likely sequela from prior inflammatory process. No hydronephrosis. Stomach and bowel: Multiple distended loops of small bowel are seen involving the distal jejunum and proximal ileum with mild mucosal thickening and associated mesenteric congestion. Transition point is located in the RIGHT lower abdomen likely in the proximal 3rd of the ileum. PELVIS: Appendix: No findings to suggest acute appendicitis. Bladder: Unremarkable. No mass. Reproductive: The uterus is not seen. The ovaries are not seen. ABDOMEN and PELVIS: Intraperitoneal space: Mild ascites. No free air. Bones/joints: No significant findings. Soft tissues: Unremarkable. Vasculature: Unremarkable. No abdominal aortic aneurysm. Lymph nodes: Unremarkable. No enlarged lymph nodes. IMPRESSION: 1. Hepatic steatosis. Hepatomegaly at 27 m in length. 2. 2.7 cm hypodense lesion is noted in segment 6 of the liver, no change when compared to the prior studies. Consider hemangioma. Consider follow-up with CT scan of the abdomen with hepatic hemangioma protocol. 3. Pattern of findings suggestive of high-grade partial small bowel obstruction. The possibility of closed loop bowel obstruction is also raised since the proximal jejunum and the distal ileum are not distended. Nevertheless the appearance is very similar to the prior study dated October 08, 2019. 4. Mild ascites. No free air. Automatic exposure control was used as a dose lowering technique. Contrast Type: Isovue 300. Contrast Volume: 100 mL REPORT SIGNATURE ON FILE 03/14/2020 (15:26 Eastern Time ) Signed by: Kay Medrano M.D. Reported By Kay Medrano MD on 03/14/20 1526 Signed By Kay Medrano MD on 03/14/20 1526 Date Time CC: Kay Medrano MD; Hillary Montelongo DO Techn: EBEBR Trans Dt/Tm: Trans by: DT Prt Dt/Tm: [id number]: Total DLP = 1706.00 mGy-cm : Total Radiation Dose = 25.5900 mSv Lifetime Dose: 56.0597 mS v Health Concerns Health Concerns may be documented in an alternate section. Advance Directives Advance Directive Response Recorded Date/Time Advanced Directive No 2019 12:23pm MOLST No January 29 020 4:49pm Advance Directives on File or in chart? No January 30, 2020 4:49pm Does Patient have a DNR? 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 Hospital Discharge Follow-up LIVER [place],K76.9,Z91.14,I26.99,G47.33,E74.39, Lesion assessment Hospital Discharge Follow-up I26.99,G47.33,E74.39,K76.89,E87.6 Gastroesophageal reflux disease (GERD) K21.9 Gastroesophageal reflux disease (GERD) MOSES,HYPOPNEA,SEVERE PE,IMPAIRED COGNITION HX STENOSIS, NUMBNESS, WEAKNESS Z86.711,R06.02,R07.2 Hyperlipidemia screening STOMACH PAIN Hyperlipidemia Reason for Visit Obstructive sleep a pnea hypopnea, severe Pulmonary embolism GERD (gastroesophageal reflux disease) Mild cognitive impairment Blood present in stool Carpal tunnel syndrome, bilateral Obstructive sleep apnea hypopnea, severe Pulmonary embolism Glucose intolerance Peripheral axonal neuropathy Spinal stenosis of lumbar region with neurogenic claudication Medication noncompliance due to cognitive impairment Obstructive sleep apnea hypopnea, severe Pulmonary embolism Mild cognitive impairment Hypokalemia Medication noncompliance due to cognitive impairment Pulmonary embolism Fatty liver Glucose intolerance GERD (gastroesophageal reflux disease) Mild cognitive impairment Obstructive sleep apnea hypopnea, severe Medication noncompliance due to cognitive impairment Mixed hyperlipidemia Obstructive sleep apnea hypopnea, severe Pulmonary embolism Fatty liver GERD (gastroesophageal reflux disease) Glucose intolerance Mild cognitive impairment Seasonal allergic rhinitis due to pollen Severe episode of recurrent major depressive disorder, with psychotic features Spinal stenosis of lumbar region with neurogenic claudication Vitamin D deficiency Left lumbar radiculopathy Medication noncompliance due to cognitive impairment Obstructive sleep apnea hypopnea, severe Pulmonary embolism Small bowel obstruction due to adhesions Fatty liver GERD (gastroesophageal reflux disease) Glucose intolerance Peripheral axonal neuropathy Spinal stenosis of lumbar region with neurogenic claudication Encounters Encounter Location(s) Ar rival/Admit Date Discharge/Depart Date Provider(s) Discharged Inpatient [facility] May 09, 2019 5:40pm May 11, 2019 11:00am Dennis Lopez MD Registered Outpatient [facility] May 13, 2019 2:03pm Gypsy Bunch RN Departed Physician/Provider Office Visit [facility] May 16, 2019 2:14pm May 16, 2019 2:58pm Guy hummel DO Departed Physician/Provider Office Visit [facility] June 24, 2019 10:19am June 24, 2019 12:18pm Hillary Hewitt Registered Referred [facility]-EKG June 28, 2019 6:38am MAINE AYON Departed Physician/Provider Office Visit [facility] July 20, 2019 11:54am July 20, 2019 12:45pm Addis arriola Registered Referred [facility]-Laboratory August 09, 2019 6:50am Hillary Montelongo Departed Physician/Provider Office Visit [facility] August 12, 2019 12:13pm August 12, 2019 1:16pm Hillary Thomsa Departed Physician/Provider Office Visit [facility] August 16, 2019 2:07pm August 16, 2019 2:16pm Migdalia Joshi Registered Referred [facility]-Lab Drop Off August 16, 2019 2:48pm Migdalia Joshi Departed Physician/Provider Office Visit [facility] September 14, 2019 10:38am September 14, 2019 11:30am Hillary Brush Registered Outpatient [facility] October 08, 2019 10:36pm October 12, 2019 9:45am Derrick huerta MD Registered Outpatient [facility] Family [facility] October 13, 2019 2:54pm Gypsy Bunch RN Departed Physician/Provider Office Visit [facility] October 18, 2019 11:10am October 18, 2019 12:16pm Jenni clay Departed Physician/Provider Office Visit [facility] October 21, 2019 11:33am October 21, 2019 12:00pm Ephraim Gonzalez MD Registered Referred [facility]-MRI/MRA October 26, 2019 8:20am Ephraim Gonzalez MD Departed Physician/Provider Office Visit [facility] October 27, 2019 11:51am October 27, 2019 12:04pm Ephraim Gonzalez MD Departed Physician/Provider Office Visit [facility] October 28, 2019 8:32am October 28, 2019 9:33am Hillary Benítez Registered Referred [facility]Laboratory November 21, 2019 10:18am Hillary Montelongo Departed Physician/Provider Office Visit [facility] November 23, 2019 2:14pm November 23, 2019 3:17pm Ann sánchez NP Registered Referred [facility]Labor[facility] November 24, 2019 1:06pm Ann Fernandez NP Departed Physician/Provider Office Visit [facility] December 07, 2019 2:25pm December 07, 2019 3:38pm Addis payton Registered Referred [facility]-Sleep Lab December 07, 2019 6:48pm Hillary Montelongo Registered Referred [facility]-MRI/MRA December 12, 2019 2:29pm Addis Alamo Registered Referred [facility]Laboratory January 05, 2020 10:45am Salena Acosta Departed Physician/Provider Office Visit [facility] January 30, 2020 3:19pm January 30, 2020 4:50pm Hillary Montelongo Registered Referred [facility]-Mammography February 28, 2020 4:14pm Hillary Montelongo Departed Emergency [facility]-Emergency Room ER March 14, 2020 11:45am March 14, 2020 10:04pm null Departed Physician/Provider Office Visit [facility] March 26, 2020 2:23pm March 26, 2020 3:53pm Hillary Montelongo Recent Diagnosis Onset Date Obstructive sleep apnea hypopnea, severe Pulmonary embolism GERD (gastroesophageal reflux disease) Mild cognitive impairment February 282017 Blood present in stool Carpal tunnel syndrome, bilateral Obstructive sleep apnea hypopnea, severe Pulmonary embolism Glucose intolerance 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 Spinal stenosis of lumbar region with neurogenic olinda ication May 28, 2018 Medication noncompliance due to cognitive impairment Obstructive sleep apnea hypopnea, severe Pulmonary embolism Mild cognitive impairment February 282017 Hypokalemia Medication noncompliance due to cognitive impairment Pulmonary embolism Fatty liver March 26, 2018 Glucose intolerance GERD (gastroesophageal reflux disease) Mild cognitive impairment February 282017 Obstructive sleep apnea hypopnea, severe Medication noncompliance due to cognitive impairment Mixed hyperlipidemia Obstructive sleep apnea hypopnea, severe Pulmonary embolism Fatty liver March 26, 2018 GERD (gastroesophageal reflux disease) Glucose intolerance Mild cognitive impairment February 282017 Seasonal allergic rhinitis due to pollen March 26, 2018 Severe episode of recurrent major depres sive disorder, with psychotic features March 26, 2018 Spinal stenosis of lumbar region with neurogenic olinda ication May 28, 2018 Vitamin D deficiency March 26, 2018 Left lumbar radiculopathy Medication noncompliance due to cognitive impairment Obstructive sleep apnea hypopnea, severe Pulmonary embolism Small bowel obstruction due to adhesions Fatty liver March 26, 2018 GERD (gastroesophageal reflux disease) Glucose intolerance 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 Spinal stenosis of lumbar region with neurogenic olinda ication May 28, 2018 Assessments Diagnosis Onset Date Res olution Status Obstructive sleep apnea hypopnea, severe acute Pulmonary embolism acute GERD (gastroesophageal reflux disease) chronic Mild cognitive impairment February 282017 chronic Blood present in stool resolved Carpal tunnel syndrome, bilateral acute Obstructive sleep apnea hypopnea, severe acute Pulmonary embolism acute Glucose intolerance chronic 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 chronic Spinal stenosis of lumbar region with neurogenic olinda ication May 28, 2018 chronic Medication noncompliance due to cognitive impairment acute Obstructive sleep apnea hypopnea, severe acute Pulmonary embolism acute Mild cognitive impairment February 282017 chronic Hypokalemia acute Medication noncompliance due to cognitive impairment acute Pulmonary embolism acute Fatty liver March 26, 2018 chronic Glucose intolerance chronic GERD (gastroesophageal reflux disease) chronic Mild cognitive impairment February 282017 chronic Obstructive sleep apnea hypopnea, severe acute Medication noncompliance due to cognitive impairment acute Mixed hyperlipidemia acute Obstructive sleep apnea hypopnea, severe acute Pulmonary embolism acute Fatty liver March 26, 2018 chronic GERD (gastroesophageal reflux disease) chronic Glucose intolerance chronic Mild cognitive impairment February 282017 chronic Seasonal allergic rhinitis due to pollen March 26, 2018 chronic Severe episode of recurrent major depres sive disorder, with psychotic features March 26, 2018 chronic Spinal stenosis of lumbar region with neurogenic olinda ication May 28, 2018 chronic Vitamin D deficiency March 26, 2018 chronic Left lumbar radiculopathy acute Medication noncompliance due to cognitive impairment acute Obstructive sleep apnea hypopnea, severe acute Pulmonary embolism acute Small bowel obstruction due to adhesions acute Fatty liver March 26, 2018 chronic GERD (gastroesophageal reflux disease) chronic Glucose intolerance chronic 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 chronic Spinal stenosis of lumbar region with neurogenic olinda ication May 28, 2018 chronic Family History Relationship Condition A ge at Onset Recorded Date/Time Not Specified Alcoholism Unknown Not Specified Malignant neoplasm of colon Unknown Malignant neoplasm of lung 60 Functional Status Observation Response Valente e Recorded Functional Status Complete [place] May 09, 2019 9:00pm Goals Goals may be documented in an alternate section. Immunizations Immunization Event Date Not Given Reason Dose Number Stock Digger Lot Number Vaccine Information Statement (VIS) Deta il influenza vaccine, inactivated Decem 2016 influenza vaccine, inactivated Novem 2018 [id number] influenza vaccine, inactivated Novem 2019 [id number] Mental Status Observation Response Valente e Recorded Impairments No impairments or barriers March 14, 2020 11:45am Cognitive Status Mild Cognitive impairment May 09, 2019 9:00pm Medical Equipment No Medical Equipment Information available Insurance Providers Guarantor MADDISON CHAVARRIA Address [address] [place] [address] Contact Info. Home Phone: Payer Policy Id Coverage Id Subscriber's Name Subscriber Id Effective Date Expiration Date MEDICAID [place] [id number] R [id number] [facility] [id number] MADDISON CHAVARRIA [id number] 2015 MEDICAID MEDICARE [place] Self Pay Self N/A [employer] MEDICAID [id number] MADDISON CHAVARRIA [id number] Plan of Treatment Given patient's memory impairment I have handwritten out several information sheets for her. I have explained and written out for her that once she is off Eliquis referral for pain management particularly epidural is option. Today I do not think it matters who she sees. They are going to suggest physical therapy. She has not completed a course of therapy recently. She did some therapy years ago but not recent. She has multilevel spinal stenosis which is mild and at multiple levels. Her pain however is radicular and mainly on the left side. She probably has an L4-L5 L5-S1 left-sided lumbar radiculopathy and that is what they should focus on. She seem s to be obsessed with trying to exercise doing things that likely aggravate her back such as push ing and pulling exercises with her legs and I have repeatedly told her her that probably plain w alking is what is the best for her back muscles and that if she feels strain in her back from thes e other exercises she should stop doing them. Hopefully therapy will teach her some safer ways to exercise and build back her back muscles. Continue gabapentin. Her year of Eliquis will end in and we will do hypercoagulable work-up. I personally think her main risk factor in addition to her obesity was her estrogen use. I would not be surprised if we have been negative hypercoagul able work-up and it was her daily estrogen use of Premarin. I reached out to behavioral wellness as they have watch caser she now is no lo nger going to behavioral wellness she is seeing a private psychologist who does not have any c ase managers not sure what to do to help her other than hand write notes like I did today each vi sit provide her copy of her medicine reconcile her meds directly from the pharmacy fills Prior to pulmonary embolus her main risk factors were obesity fairly sedentary l ifestyle and Premarin use her 1 year will be up in April. I plan to see her back then. C ontinue Eliquis I have hand written these instructions not to stop Eliquis until I see her back wh en I see her in April I will formally give her permission to stop it and order hypercoagulabl e work-up next visit. Once she is off Eliquis then if her back has not improved with physical therapy we will have more options in terms of injection therapy she would be high risk for that now w isadora she is anticoagulated. Bleeding precautions discussed currently no nosebleeds blood in the stool or blood in the urine or any menstrual bleeding. Admits she is not wearing her CPAP gave her lengthy discussion on how this affec ts the lungs the heart and all the body systems. She admits to severe fatigue. It is likely fro m not wearing her CPAP. Her oxygen was borderline at 90 even with the CPAP 12. I am sure she plu mmets severely without it. Even with that she was only 90 sleeping she has very poor sleep eff iciency in the 50s. She really should wear it. I am happy to send her back to Dr. Bee. At this point she does not want to go because of Covid. 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 She will try physical therapy. She initially had seen neurology group in [place]. They shrestha d sent her to neurosurgeon and did a bone scan which was negative. She has been noncompliant with follow-up back at their office. There are various pain groups that do injections. That may be tricky because of the hemangiomas. Definitely not even an option while she is on Eliquis hopefull y therapy will help will reevaluate in April and at that time plan is to take her off the Eliquis .She was getting some breakthrough indigestion and I think it was mainly because she was not taking her medicine she has medicine compliance issues I think mainly because of her me idris she was referred back in the summer to GI she did not go. I think main issue is improvi ng her medication compliance when she takes Protonix daily she does not have any issues She was scheduled for routine follow-up today of her multiple medical problems b ut it so happens she just got home last week from another admission for small bowel obstruction. Not alexandru was found other than acute small bowel obstruction. She was again treated with NG tube IV fluid s and bowel rest she was tolerating soups and liquids by the time she left. She says she is eating s crambled eggs soups toast and other soft foods without any difficulty she is having 1 or 2 bowel mov ements daily. She is also drinking some Slim fast she has not had any recurrence of abdominal pain .. They put her back on pantoprazole which she had run out of. Medicine compliance continues to be a n issue. She is not had any indigestion since being discharged home on pantoprazole. She did fill i t the when she got discharged home. She was also provided with a list of her medications which I have told her multiple times she should carry in her purse so she has it at all times. GERD improved on pantoprazole 40mg bid and famotidine 20mg bid. Awaiting gastroenterology appt. Sleep study scheduled for [facility]. Advised that her symptoms could very well be related to untreated MOSES. Hx lumbar stenosis, last MRI over 1yr ago - complaining of increased numbness LE bilat and weakness with any physical exertion. Recommended updated MRI to further evaluate spinal stenosis. 53 yoF who was recently admitted 2 weeks ago for partial SBO that resolved with conservative management. SHe is doing well from this standpoint and denies pain or nausea/vo miting, passing flatus/having BMs. She was seen for a hypodense lesion in right lobe of the liver last week. MRI w as obtained showing it to be likely a benign cyst ~2.8x2.7 cm. -No need for further work-up or follow-up given the MRI finding. 53 yoF who was recently admitted 2 weeks ago for partial SBO that resolved with conservative management. SHe is doing well from this standpoint and denies pain or nausea/vo miting, passing flatus/having BMs. She also was seen to have a hypodense lesion in right lobe of the liver. -Will schedule for MRI liver with 4 phase contrast to fu on the liver lesion. Chronic issue which we need to continue to work with patient on and part of reas on I am reluctant to transfer her psychiatric care back to me actually has not been taking her Zoloft in several months and psychiatric caregiver was not aware recently did letter so that she was awar e patient had not been failing Zoloft in several months and although she does not always reported to her caregiver and brief visits she has had suicidal thoughts in the past but within the timeframe of me taking care of her in the past 2 years so definitely advise ongoing psychiatric care at [facility] and communicated this to her provider Leigh both by letter and phone call to her n tejase Patient is significantly obese weight loss has been difficult for her some of it likely is related to sedentary lifestyle but some of it also is likely related to psychiatric medi cations so have encouraged her to dialogue with her provider there are medications she could patience e that would counter this and this is probably partly why she has not been taking her medication we w ill continue to watch liver test repeat MRI and 1 year Weight is 288 although she has not had A1c above 6 and remains in glucose tolera nce range she has fatty liver she has EMG proven polyneuropathy and has some early complications f rom the glucose intolerance so weight loss is advised follow-up blood sugar in the hospital was 103 labs potassium when she left the hospital was still low at 3.4 so that does need a follow-up.Ma y A1c 5.5 Likely incidental finding confirmed on MRI. Patient is feeling well without any further GI upset. I discussed with patient that some providers would probably given its cystic natur e not recommend any follow-up but I typically will do a one-year follow-up with MRI just to make enoch e there is no changes .I would particularly recommend this in her case since she has moderate range fatty liver MRI in 1 year will also give us another look at the fatty liver changes .if they progress she should see GI on the basis of her fatty liver I am not concerned about the cyst at all I am concerned about the fatty liver and advise weight loss cyst really is incidental finding and I d o not think contributes to her symptoms she presented with whatsoever. Hospital stay fairly lengthy but eventually resolved and felt to be due to adhes ions . Followed up with surgeon as advised. Tolerating regular diet feels well today Again explained how important it is she takes her Eliquis this is something that if she stops prematurely could cause recurrence of her pulmonary emboli and cause she d id resume it and has been taking it as directed .......Patient admitted with nausea vomiting having small bowel obstruction she had surgical consult in the hospital with Dr. Loyola and then as an outpatient has followed up this pa week with Dr. Gonzalez. She is feeling better the cause is felt to be due to adhesions. She did have hypokalemia and I have ordered some follow-up labs. Her anticoagulation was reversed and she wa s put on heparin drip I followed her inpatient course and had my nursing staff contact her to [place] sure she had appropriately resumed her Eliquis which she had she followed up with Dr. Gonzalez an d he did MRI of the abdomen which confirmed suspected hepatic cyst but not any tumor or mass. It al so confirms more fatty liver changes that are in moderate range she had elevated liver test in [address] showed some mild fatty liver it is now moderate range so she really needs to try to lose ashok e weight. Since hepatic cyst is new we will plan on repeating MRI in 1 year just to make sure th ere is no change if there is no change then she probably does not need any additional imaging Likely due to the vomiting and small bowel obstruction but she should have follo w-up labs to make sure this is come back in normal range Patient wrote me a letter earlier this year and it is clear to me that she feels badly when she does not take her medicines. It is clear she wants to please her providers including me and Leigh at [facility] I think she just needs some help I think if she had a case sealer that could set up her medicines and give her a reminder phone calls she would probably take them w ithout any difficulty. She is not homebound she does get out and about. So I do not think she would qualify for home health services. In the meantime I suggested she set an alarm clock bradley does not have a smart phone but she can set an alarm clock during the day to remind her for her morning and night pills and use the pillbox Called mental health and left message with display manager Lo Colin to see if dex ent can be taken into case management as she still is not taking her trazodone or sertraline for months at a time. She is not consistently taking any of her medicines she is fairly good about heidy apentin and vitamin D and her famotidine but is not taking anything else on a regular basis she real ly needs to be taking her Eliquis as directed as well as her antidepressants. I left a message with the drop shipment clerk at [facility] but she said most everyone is working from home. However on ce patient arrived she informed me she no longer is seen at [facility]. I do not think [facility] group she is seeing now has case management. She cannot even for sure give me the name of o she seeing. I told her the benefit of staying with [facility] is that they did have c ase managers and that I think she really needs 1. I would recommend she transferred back. She i s going to think it over Recheck liver function test we are going to repeat CT in the spring to reassess her liver changes but she needs to do her liver tests now I ordered CPAP 12 cm daily 2 months ago she never picked it up. After having [facility] functional capacity test doing poorly and being referred back to cardiology she now finally has decided she should try it again. 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 she does have memory iss ues I think this is the main reason she struggles with medicine compliance left call with case manag er at [facility] she really would benefit from case management I am going to refer her t o [facility] She is supposed to be taking trazodone at night sertraline in the morning has no t filled either 1 in 6 months today tells me she actually has not been back to Leigh at [facility] in a few months I had done a letter to Leigh earlier this year and did not get any response I di d leave a message today hopefully someone will call me back She can take Claritin and Flonase but at this point there are other medicines mu ch more urgent like the Eliquis that she needs to focus on taking it on a regular basis I do not think she has been back to Dr. Bee. Plan was to continue Eliquis an d have her see Dr. Bee again and then once he gave the okay stop it I do not think she has been back to him she is not taking it consistently she did get off Premarin which was probably one of he r risk factors but she really needs to take this consistently I did previously suggest a pillbox. Not consistently taking pantoprazole or famotidine neither 1 admits she does get indigestion encouraged her to take the pantoprazole every morning and take the famotidine at bedtime if she has any problems during the day Recheck vitamin D she does fairly consistently fill her vitamin D so hopefully t he level will be in good range Has not followed up with neurology but is still taking Neurontin Patient has complication of herpes encephalitis has very poor short-term memory and I am not at all convinced that she is deliberately not taking her medications I think she just d oes not remember them I have called her and told her to get back on the Eliquis immediately. I h yoselyn told her she should restart pantoprazole for her reflux hiatal hernia. But that getting back on Eliquis is something that is potentially life-threatening if she does not follow through. She voices understanding. I have personally spoke with Kya at the pharmacy. She will g et it filled immediately. I will have my nurse follow through tomorrow to make sure that she has filled it and started taking it. If she has not I will make adult protective referral On medicine reconciliation she has been off her Eliquis about a month should hav e refill that August 09 and did not I will have her restart it she should be on it at least 3 more month s and if she does not comply since this is something potentially life-threatening I will make adul t protective referral I am not sure she completely understands how serious this is she is had cognitive impairment she is applied for disability has been denied she does not have a gua rdian I am not at all convinced she understands how serious some of her medical conditions are thi s is part of why I have been reluctant to take over her mental health care I ordered sleep study on paper last visit a month ago. It still has not been do ne I will order it electronically today. This is simply a re-titration. 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 She had desaturations documented in 2018 sleep study down to 85. Her AHI in 2018 was 10 . She continues to complain of severe fatigue. She was titrated to 14 cm water pressure in June 29 018 she simply refused to use it her weight got up to 330 she is down to 294 she may need a lit tle less or a little more but she needs an up-to-date sleep study to figure that out she has impaired cognition she most definitely cannot follow instructions for home study she needs it in the hospita l study will have staff follow through on this. Although she came in for a simple rash I reconciled her medicines and discovered she has not filled her mental health medicines for anxiety and depression in several months. Disco kervin she has not filled her Protonix for hiatal hernia and reflux in over 6 months and critically important she has not filled her Eliquis since April if she were taking the Eliquis twice a day every day since April she would have been due for a refill approximately 1 month ago I spoke directly with the pharmacy. Kya the pharmacist will get it ready I called the patient and disc ussed this she says she did not intentionally stop anything I believe her I think these are medicati on errors because of her cognitive impairment hopefully with her pillboxes and some support from my [facility] staff and myself we can get her back on track if not I will have to do an adult protective referral Main reason she came in was rash it ends up being the most minor issue addressed today. It is a simple candidiasis that should with hygiene to the area twice a day and nystatin cream twice a day to the area clear up. However multiple other more pressing issues discussed wit h her including follow-up phone call to make sure she gets back on her blood thinner. Swabbed for COVID. PH out to quarantine patient. will continue pantropazole and will get gi panel and stool for h pylori. will t reat if indicated. will refer to GI and will start bid pepcid duplicate patient reports that she does have support system Advised epistaxis could be d/t sinus infection. However is currently on eliquis 5mg bid - has appt today with pulmonology - enco uraged to mention this today. Discussed ENT referral if persists. Treat with doxycycline 100mg bid x 10days. Advised not to take within 2hrs of eating dairy. Encouraged to take with food. Discussed possible side effects. Recommended nasal saline twice daily. She has sleep apnea and refuses to use CPAP this is a risk in terms of anesthesi a for colonoscopy faxed previous [address] Bee and I think he wants her to have an up-t o-date 1 will defer to his work-up but did discuss risk with her and why she should cooperate with h im This is 1 of the reasons I feel she is disabled. She is not fully oriented. Sh e cannot spell world backwards. Her concentration is impaired. Her memory is impaired she could not recall 3 objects. At 5 minutes she could recall only 1. I write things down for her. Just the si mple addition of Colace and MiraLAX she could not remember at the end of the visit. I always wri te things down for her. I do not see how any senior data modeler could think she has employable with these [facility] issues. She has depression and anxiety. She might physically be able to work but in terms o f being able to keep pace follow directions I think she has significant impairment she additionally n ow has other medical issues as addressed above This was her main complaint last visit in January and since starting on pantopr azole she admits it is much better Waiting further input from both cardiology and pulmonology in terms of length of treatment unless there is significant bleeding to the point she ends up in the ER or has severe a nemia she needs to continue Eliquis and we discussed this at length. If she has rectal bleeding th at fills the toilet she is to go to the ER and call 911. She admits she had rectal bleeding prior t o hospitalization. She was not anemic in the hospital she is to continue Eliquis and I will make [facility] surgery referral.. We discussed that although we will follow through if she is not anemi c likely and a repeat colonoscopy will either be deferred or possibly not even happen at all. Likelihood as she has hemorrhoids and constipation I am going to treat those with Colace and Sujatha AX. If that takes care of it and she is not anemic probably does not need another colonoscopy but we definitely will watch closely. I want her to do CBC in the next week she is to watch her stools closely. After reading through both cardiology and pulmonary consults it looks like Dr. Bee was not aware she does have sleep apnea and chooses not to wear CPAP. So we will fax her 2018 jerardo dies to him. This is been a chronic issue for her. Colonoscopy was clear in 2016. She was n ot anemic in April. It is just more worrisome now that she is on Eliquis her pattern of b leeding has not changed it is scant amounts on the stool not in the stool she is not anemic. Wi ll recheck her CBC. Dr. Nunez no longer is here at the hospital. Offered her GI referral but she de clines. Unless she becomes anemic risk in the face of acute PE is really not outweighed unless she becomes anemic would favor postponing a repeat colonoscopy. I have done a detailed letter to Dr. Vernell gold and ask his second opinion if he feels otherwise certainly will proceed as he suggest but my opinion is to watch her CBC monthly and unless she becomes anemic to stay conservative until the rg demic is over with and cardiology and pulmonary consults have completed there necessary testing and patient agrees. Hospital Discharge F/u for large PE R and some on L. She did not take Eliquis t emperatriz. Go to [facility] and take Eliquis 5mg immediately and then another one tonight and then BID. She will stay on for a year. Consult Pulmonology. I will place consult to [facility] Cardiology ronda covarrubias that is what Dr. Corea had wanted. She is on Estradiol Patch weekly for awful menopaus e symptoms. F/u [address] Montelongo can make that determination to keep her on or take her off. She will need a work up after done Elliquis for coagulation factors. Generally well controlled on pantoprazole twice daily. Last endoscopy 2017 refl ux precautions discussed she occasionally forgets her evening pantoprazole but is doing her bes t to remember to put her pills out weekly in her pillbox 1 of her main complaints today is severe fatigue despite 30 pound weight loss an d trying to recondition with exercise. Although she has anxiety and depression and follows with mental health and it definitely could be related to her anxiety and depression it most likely is due to her untreated severe sleep apnea syndrome. Advise she go back to the lab and have a re-titration she admits to daytime somnolence she falls asleep reading she falls asleep watching TV. She does not drive but says she falls asleep riding in the car. She should have re-titration and try CPAP again if she wants her fatigue to improve she is agreeable. Although her A1c is still in the 5 range her fasting blood sugar is 133 and she has mild polyneuropathy which is most likely due to prediabetes on EMG with Dr. Wiggins he started her on gabapentin I am reluctant to increase the dose given her complaints of fatigue p robably related not to gabapentin but to untreated sleep apnea she has lost 30 pounds over the past year she will continue low-carb diet continue walking on her treadmill recheck labs in 3 month s she would like to try to get back down to her previous weight of 235 and I think that is a reasona ble goal In addition to her peripheral axonal neuropathy and L5 chronic radiculopathy was noted she is on gabapentin for both of these due to complaint of fatigue will leave the dose at 300 twice daily continue to lose weight continue to exercise as tolerated She is able to walk about 15 minutes on a treadmill she is trying to do that twi ce a day she is only getting worsening back pain if she sits too long or does more than 15 minutes it seems as though her spinal stenosis symptoms are stable she has not had any change in her incontinen ce she has had urge incontinence and wears a pad but no saddle paresthesias we discussed she could g o back to Dr. Wiggins but at this point in time she declines she does not want to try injections she a lso has carpal tunnel she is not wearing splints we talked about wearing splints she is most co ncerned today about her fatigue Patient had further work-up with contract driver. Both PFTs stress test with card iology all additional work-up due to her pulmonary emboli has been negative. PFTs and puls e oximetry normal. Once I see her back in 3 months we will discontinue Eliquis and do hypercoagulab le work-up. When she first started Eliquis she did have a nosebleed I had her do a follow-up CBC just to make sure she was not having any further bleeding she denies any further melena hematochez ia nosebleeds blood in the urine she has any I have asked her to report immediately or get to the ER she voices understanding she would like a copy of her blood work she understands that once she is off the anticoagulant then we will do some additional labs to make sure she is low risk for recurrence otherwise most likely this was complication of her estrogen she says she has not had a hot flashes and very rarely gets any night sweats 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 [facility] l[facility] we will see her back after she has a chance to do her sleep study Future Tests Future scheduled test information is unavailable Pending Tests Pending diagnostic test information is unavailable Future Visits Future appointment information is unavailable Referrals to Other Providers Reason for Referral Referral Start Date Provider Provider Conta ct Information Provider Address Jaime Loyola MD Email: [email or web address] Phone: [phone] [address] Hillary Montelongo Work Phone: [facility] [address] [facility] [address] Dr Montelongo is on vacation so you w ill be seen by Dr Rodriguez in the same office Guy Rodriguez DO Work Phone: [facility] [address] [facility] [address] [facility] [address] K21.9 - Gastro-esophageal reflux disease without esophagitis November 23, 2019 [facility] [address] [facility]; [address] [facility] [id number] Future Procedures Future procedure information is unavailable Future Medications Future medication information is unavailable Patient Instructions Pulmonary Embolism (DC) Heart Healthy Diet (DC) Apixaban (By mouth) Abdominal Pain (ED) Social History Smoking Status Status Date of Observation Former smoker March 14, 2020 2: 17pm Observation Status Date of Observation Not January 30, 2020 Observation Status Observation Response Valente e of Response Smoking quit date 03/30/90 May 09, 2019 9:00pm Smoking Status Former smoker March 14, 2020 2:17pm Alcohol Use Yes March 14, 2020 2:17pm Substance Use No Decee r 2019 2:17pm Inhalant Use No January 30, 2020 4:49pm When did patient quit smoking? 1991January 30, 2020 4:49pm Assigned Sex Female Vital Signs Vital Reading Result Ref erence Range Collection Date/Time Height 64 [in_i] May 11, 2019 8:24am Weight 291.00 [lb_av] May 11, 2019 8:24am Body Temperature 979 [degF] 97.6-99.5 May 11, 2019 7:54am Heart Rate 72 /min 60-100 May 11, 2019 7:58am Respiratory rate 16 /min 03-22May 11, 2019 7:54am Oxygen saturation by Pulse oximetry 94 % 95- 100 May 11, 2019 7:15am BP Systolic 97 mm[Hg] May 11, 2019 7:54am BP Diastolic 58 mm[Hg] May 11, 2019 7:54am BMI (Body Mass Index) 49.9 kg/m2 May 11, 2019 8:24am Weight 194.50 [lb_av] May 16, 2019 2:18pm Body Temperature 98.3 [degF] 97.6-99.5 May 16, 2019 2:18pm Heart Rate 86 /min 60-100 May 16, 2019 2:18pm Respiratory rate 18 /min -May 16, 2019 2:18pm Oxygen saturation by Pulse oximetry 95 % 95- 100 May 16, 2019 2:18pm BP Systolic 112 mm[Hg] May 16, 2019 2:18pm BP Diastolic 64 mm[Hg] May 16, 2019 2:18pm Height 64 [in_i] June 24, 2019 11:30am Weight 296.00 [lb_av] June 24, 2019 11:30am Body Temperature 97.8 [degF] 97.6-99.5 June 24, 2019 11:30am Heart Rate 78 /min 60-100 June 24, 2019 11:30am Respiratory rate 20 /min 12-24 June 24, 2019 11:30am Oxygen saturation by Pulse oximetry 96 % 95- 100 June 24, 2019 11:30am BP Systolic 118 mm[Hg] June 24, 2019 11:30am BP Diastolic 64 mm[Hg] June 24, 2019 11:30am BMI (Body Mass Index) 50.8 kg/m2 June 24, 2019 11:30am Height 64 [in_i] July 20, 2019 12:59pm Weight 298.00 [lb_av] July 20, 2019 12:59pm Body Temperature 97.9 [degF] 97.6-99.5 July 20, 2019 12:59pm Heart Rate 82 /min 60-100 July 20, 2019 12:59pm Respiratory rate 20 /min 12-24 July 20, 2019 12:59pm Oxygen saturation by Pulse oximetry 97 % 95- 100 July 20, 2019 12:59pm BP Systolic 110 mm[Hg] July 20, 2019 12:59pm BP Diastolic 74 mm[Hg] July 20, 2019 12:59pm BMI (Body Mass Index) 51.1 kg/m2 July 20, 2019 12:59pm Height 64 [in_i] August 12, 2019 1:16pm Weight 296.00 [lb_av] August 12, 2019 1:16pm Body Temperature 98 [degF] 97.6-99.5 August 12, 2019 1:16pm Heart Rate 75 /min 60-100 August 12, 2019 1:16pm Respiratory rate 16 /min 12-24 August 12, 2019 1:16pm Oxygen saturation by Pulse oximetry 98 % 95- 100 August 12, 2019 1:16pm BP Systolic 130 mm[Hg] August 12, 2019 1:16pm BP Diastolic 78 mm[Hg] August 12, 2019 1:16pm BMI (Body Mass Index) 50.8 kg/m2 August 12, 2019 1:16pm Body Temperature 98.1 [degF] 97.6-99.5 August 16, 2019 3:16pm Heart Rate 79 /min 60-100 August 16, 2019 3:16pm Oxygen saturation by Pulse oximetry 97 % 95- 100 August 16, 2019 3:16pm Height 64 [in_i] September 14, 2019 11:44am Weight 294.00 [lb_av] September 14, 2019 11:44am Body Temperature 98.4 [degF] 97.6-99.5 September 14, 2019 11:44am Heart Rate 77 /min 60-100 September 14, 2019 11:44am Respiratory rate 20 /min 12-September 14, 2019 11:44am Oxygen saturation by Pulse oximetry 97 % 95- 100 September 14, 2019 11:44am BP Systolic 138 mm[Hg] September 14, 2019 11:44am BP Diastolic 78 mm[Hg] September 14, 2019 11:44am BMI (Body Mass Index) 50.4 kg/m2 September 14, 2019 11:44am Height 63 [in_i] October 12, 2019 8:51am Weight 294.80 [lb_av] October 12, 2019 8:51am Body Temperature 98.1 [degF] 97.6-99.5 October 12, 2019 9:00am Heart Rate 74 /min 60-100 October 12, 2019 9:00am Respiratory rate 18 /min -October 12, 2019 9:00am Oxygen saturation by Pulse oximetry 95 % 95- 100 October 12, 2019 9:00am BP Systolic 133 mm[Hg] October 12, 2019 9:00am BP Diastolic 72 mm[Hg] October 12, 2019 9:00am BMI (Body Mass Index) 52.2 kg/m2 October 12, 2019 8:51am Height 64.5 [in_i] October 18, 2019 12:43pm Weight 288.50 [lb_av] October 18, 2019 12:43pm Body Temperature 98 [degF] 97.6-99.5 October 18, 2019 12:43pm Heart Rate 86 /min 60-100 October 18, 2019 12:43pm Respiratory rate 18 /min -October 18, 2019 12:43pm Oxygen saturation by Pulse oximetry 98 % 95- 100 October 18, 2019 12:43pm BP Systolic 120 mm[Hg] October 18, 2019 12:43pm BP Diastolic 64 mm[Hg] October 18, 2019 12:43pm BMI (Body Mass Index) 48.7 kg/m2 October 18, 2019 12:43pm Height 64.5 [in_i] October 21, 2019 12:39pm Weight 288.00 [lb_av] October 21, 2019 12:39pm Body Temperature 98.6 [degF] 97.6-99.5 October 21, 2019 12:39pm Heart Rate 80 /min 60-100 October 21, 2019 12:39pm Respiratory rate 21 /min -October 21, 2019 12:39pm Oxygen saturation by Pulse oximetry 97 % 95- 100 October 21, 2019 12:39pm BP Systolic 132 mm[Hg] October 21, 2019 12:39pm BP Diastolic 80 mm[Hg] October 21, 2019 12:39pm BMI (Body Mass Index) 48.6 kg/m2 October 21, 2019 12:39pm Height 64.5 [in_i] October 27, 2019 12:52pm Weight 288.00 [lb_av] October 27, 2019 12:52pm Body Temperature 98.3 [degF] 97.6-99.5 October 27, 2019 12:52pm Heart Rate 85 /min 60-100 October 27, 2019 12:52pm Respiratory rate 21 /min 03-22October 27, 2019 12:52pm Oxygen saturation by Pulse oximetry 98 % 95- 100 October 27, 2019 12:52pm BP Systolic 128 mm[Hg] October 27, 2019 12:52pm BP Diastolic 82 mm[Hg] October 27, 2019 12:52pm BMI (Body Mass Index) 48.6 kg/m2 October 27, 2019 12:52pm Height 64.5 [in_i] October 28, 2019 9:34am Weight 290.00 [lb_av] October 28, 2019 9:34am Body Temperature 98.3 [degF] 97.6-99.5 October 28, 2019 9:34am Heart Rate 78 /min 60-100 October 28, 2019 9:34am Respiratory rate 20 /min 12-October 28, 2019 9:34am Oxygen saturation by Pulse oximetry 98 % 95- 100 October 28, 2019 9:34am BP Systolic 132 mm[Hg] October 28, 2019 9:34am BP Diastolic 88 mm[Hg] October 28, 2019 9:34am BMI (Body Mass Index) 49.0 kg/m2 October 28, 2019 9:34am Height 64.5 [in_i] November 23, 2019 3:44pm Weight 289.00 [lb_av] November 23, 2019 3:44pm Body Temperature 98.2 [degF] 97.6-99.5 November 23, 2019 3:44pm Heart Rate 68 /min 60-100 November 23, 2019 3:44pm Respiratory rate 18 /min 12-November 23, 2019 3:44pm Oxygen saturation by Pulse oximetry 96 % 95- 100 November 23, 2019 3:44pm BP Systolic 138 mm[Hg] November 23, 2019 3:44pm BP Diastolic 94 mm[Hg] November 23, 2019 3:44pm BMI (Body Mass Index) 48.8 kg/m2 November 23, 2019 3:44pm Height 64.5 [in_i] December 07, 2019 3:41pm Weight 288.00 [lb_av] December 07, 2019 3:41pm Body Temperature 98.6 [degF] 97.6-99.5 December 07, 2019 3:41pm Heart Rate 86 /min 60-100 December 07, 2019 3:41pm Respiratory rate 20 /min -December 07, 2019 3:41pm Oxygen saturation by Pulse oximetry 98 % 95- 100 December 07, 2019 3:41pm BP Systolic 126 mm[Hg] December 07, 2019 3:41pm BP Diastolic 78 mm[Hg] December 07, 2019 3:41pm BMI (Body Mass Index) 48.6 kg/m2 December 07, 2019 3:41pm Height 64.5 [in_i] January 30, 2020 3:33pm Weight 289.25 [lb_av] January 30, 2020 3:33pm Body Temperature 98.5 [degF] 97.6-99.5 January 30, 2020 3:33pm Heart Rate 75 /min 60-100 January 30, 2020 3:33pm Respiratory rate 18 /min -January 30, 2020 3:33pm Oxygen saturation by Pulse oximetry 99 % 95- 100 January 30, 2020 3:33pm BP Systolic 138 mm[Hg] January 30, 2020 3:33pm BP Diastolic 82 mm[Hg] January 30, 2020 3:33pm BMI (Body Mass Index) 48.9 kg/m2 January 30, 2020 3:33pm Height 65 [in_i] March 14, 2020 12:23pm Weight 280.00 [lb_av] March 14, 2020 12:23pm Body Temperature 98.3 [degF] 97.6-99.5 March 14, 2020 8:27pm Heart Rate 73 /min 60-100 March 14, 2020 8:27pm Respiratory rate 18 /min -March 14, 2020 8:27pm Oxygen saturation by Pulse oximetry 100 % 95-100 March 14, 2020 8:27pm BP Systolic 123 mm[Hg] March 14, 2020 8:27pm BP Diastolic 71 mm[Hg] March 14, 2020 8:27pm Height 65 [in_i] March 26, 2020 2:26pm Weight 285.12 [lb_av] March 26, 2020 2:26pm Body Temperature 97.5 [degF] 97.6-99.5 March 26, 2020 2:26pm Heart Rate 65 /min 60-100 March 26, 2020 2:26pm Respiratory rate 18 /min -March 26, 2020 2:26pm Oxygen saturation by Pulse oximetry 96 % 95- 100 March 26, 2020 2:26pm BP Systolic 118 mm[Hg] March 26, 2020 2:26pm BP Diastolic 66 mm[Hg] March 26, 2020 2:26pm BMI (Body Mass Index) 47.4 kg/m2 March 26, 2020 2:26pm Hospital Discharge Instructions
--- OUTSIDE RECORDS SUMMARY | 2020-05-25 11:54 | CCD | Summary of Care ---
Author Author [facility] Organization [facility] Address Unknown Phone Unavailable Care Team Providers Care Loading Checker Name Role Phone Hillary Montelongo DO PCP [phone] Encounter Details Care Team Description Date Type Department 03/14/2020 [facility] TRANSFER CE NTER Encounter [address] [place] [address] Allergies Comments Active Allergy Reactions Severity Noted Date Penicillins Hives 07/21/2018 documented as of this encounter (statuses as of 03/29/2020) Medications End Date Status Medication Sig Dispensed Refills Start Date Active trazodone (DESYREL) 50 MG TAKE 1 TABLET 2 05/01 tablet BY MOUTH AT 9 BEDTIME NEEDED FOR SLEEP Active sertraline (ZOLOFT) 50 MG Take 50 mg by 2 05/01 tablet mouth daily 9 Active estradiol (CLIMARA) 0.1 APPLY 1 PATCH 11 MG/24HR ONCE A WEEK 9 Active D3-1000 1000 units Take 1,000 5 capsule Units by 9 mouth daily documented as of this encounter (statuses as of 03/29/2020) Active Problems No known active problemsdocumented as of this encounter (statuses as of 03/29/2020) Social History Date Tobacco Use Types Packs/Day Years Used Never Smoker Smokeless Tobacco: Never Used Drinks/Week oz/Week Comments Alcohol Use Never Alcohol Habits Answer Date Recorded How often do you have a drink containing alcohol? Never 07/21/2018 How many drinks containing alcohol do you have on No t asked a typical day when you are drinking? How often do you have six or more drinks on one Not asked occasion? Sex Assigned at Date Recorded Not on file Date Recorded COVID-19 Exposure Response 03/14/2020 4:02 PM EST In the last month, have you been in contact with No / Unsure someone who was confirmed or suspected to have Coronavirus / COVID-19? documented as of this encounter Last Filed Vital Signs Not on filedocumented in this encounter Plan of Treatment Health Maintenance Due Date Last Done Comments MMR Vaccines (1 of - 1966 Standard series) Varicella Vaccines (1 of 1966 2 - 2-dose childhood series) DTaP,Tdap,and Td Vaccines 1972 (1 - Tdap) HIV Screening 1978 Cervical Cancer Screening 1986 5 years Breast Cancer Screening 2 12/05/2015 years Colon Cancer Screening 10 12/05/2015 yrs Influenza Vaccine 12/29/2019 Pneumococcal Vaccine: 65+ 2030 Years (1 of 1 - PPSV23) HIB Vaccines Aged Out No longer eligible based on patient's age to complete this topic Hepatitis A Vaccines Aged Out No longer eligibl e based on patient's age to complete this topic Hepatitis B Vaccines Aged Out No longer eligibl e based on patient's age to complete this topic IPV Vaccines Aged Out No longer eligible based on patient's age to complete this topic Pneumococcal Vaccine: Aged Out No longer eligib le based on patient's age to Pediatrics (0 to 5 Years) complete this topic and At-Risk Patients (6 to 64 Years) documented as of this encounter Results Not on filedocumented in this encounter
--- OUTSIDE RECORDS SUMMARY | 2020-05-25 11:54 | CCD | Continuity of Care Document ---
Author Author Rika DANG MD Organization Unknown Address [address] [place] [id number] Phone [phone] Care Team Providers Care Clockmaker Name Role Phone Hillary Garcia DO AUTM Problems Active Problems Provider Date Chest pain Onset: Pulmonary embolism Onset: Note: Bilateral Gastroesophageal reflux disease Onset: 0 Degenerative joint disease Onset: Obstructive sleep apnea Onset: 0 Radiculopathy Onset: Anxiety depression Onset: Herpes simplex with complication Onset: Note: History of Mixed hyperlipidemia Slaena Acosta RN, FILBERT GROWER Onset: 01/05/2020 Essential hypertension Salena Acosta RN, FILBERT GROWER Onset: 01/05/20 20 Obesity Salena Acosta RN, FILBERT GROWER Onset: 01/05/2020 Palpitations Salena Acosta RN, FILBERT GROWER Onset: 01/05/2020 Precordial pain Salena Acosta RN, FILBERT GROWER Onset: 01/05/2020 Skin sensation disturbance Salena Acosta RN, FILBERT GROWER Onset: 10/2019 Dyspnea Salena Acosta RN, FILBERT GROWER Onset: 01/05/2020 H/O: pulmonary embolus Salena Acosta RN, FILBERT GROWER Onset: 01/05/20 Social History Type Date Description [...] mouth every day 90tabs Salena Acosta RN, FILBERT GROWER 01/05/2020 - Unknown Immunizations Description No Information [...] Echocardiogram <pending> CBC With Auto Diff 01/05/2020 [facility] WBC # Bld Auto 7.2 10*3/uL Normal [...] diff Bld NO [facility] PPP-aCnc 0.35 mg/L Normal 0.0-0.50 2 Basic Metabolic Profile 01[facility]05[facility]2020 [facility] BUN SerPl-mCnc 16 mg/dL Normal 9-23 Sodium [...] MG/L. Procedures Date Code Description Status 02/02/2020 74422 Echocardiography, Tranthoracic C omplete Image Documentation Completed Medical Devices Description No Information Available Encounters Type Date Location Provider Dx Diagnosis Office Visit 04/09/2020 11:00a [place] [facility] Tee Dang MD R06.0 2 Shortness of breath R07.2 Precordial pain I10 Essential (primary) hyperten sis Z86.711 Personal history of pulmonar y embolism Office Visit 01/05/2020 10:15a [facility] [employer]/Device (41 5) Z86.711 Personal history of pulmonary [...] Personal history of pulmonary em bolism [place] [employer]/Device (415) 01/05/2020 Z86.711 Personal history of pulmonary em bolism Salena Acosta RN, FILBERT GROWER 01/05/2020 R06.02 Shortness of breath [place] [employer]/ Device (415) 01/05/2020 R06.02 Shortness of breath Salena Acosta RN, FILBERT GROWER 01/05/2020 R20.0 Anesthesia of skin [place] FIELD AUDITOR/D evice (415) 01/05/2020 R20.0 Anesthesia of skin Salena Acosta RN, FILBERT GROWER 01/05/2020 R07.2 Precordial pain [place] [employer] AUDITOR/Mayte ce (415) 01/05/2020 R07.2 Precordial pain Salena Acosta RN , FILBERT GROWER 01/05/2020 R00.2 Palpitations [place] [employer] A[employer]ITOR/Mayte ce (415) 01/05/2020 R00.2 Palpitations Salena Acosta RN , FILBERT GROWER 01/05/2020 E66.09 Other obesity due to excess dylan prasanth [place] [employer] A[employer]ITOR/Device (415) 01/05/2020 E66.09 Other obesity due to excess dylan prasanth Salena Acosta RN, FILBERT GROWER 01/05/2020 I10 Essential (primary) hypertension [place] [employer] A[employer]IT[employer]/Device (415) 01/05/2020 I10 Essential (primary) hypertension Salena Acosta RN, FILBERT GROWER 01/05/2020 E78.2 Mixed hyperlipidemia [place] [employer] /Device (415) 01/05/2020 E78.2 Mixed hyperlipidemia Salena wilson RN, FILBERT GROWER 01/05/2020 G47.33 Obstructive sleep apnea (adult) (pediatric) [place] [employer] A[employer]/Device (415) 01/05/2020 G47.33 Obstructive sleep apnea (adult) (pediatric) Salena Acosta, RN, FILBERT GROWER Plan of Treatment Future Appointment(s):* 07/03/2020 2:00 pm - Rita FRANKLIN ([id number]) at [facility] 04/09/2020 - Tee Dang MD* R06.02 Shortness of breath * R07.2 Precordial pain * I10 Essential (primary) hypertension * Z86.711 Personal history of pulmonary embolism Functional Status Description No Information Available Mental Status Description No Information Available Referrals Refer to Reason for Referral Status Appt Date Abdi Mcgill Scheduled 02/02/[address] [place] [address] ( )- -
--- OUTSIDE RECORDS SUMMARY | 2020-05-25 11:55 | CCD | Continuity of Care Document ---
Author Author [facility] Organization [facility] Address [address] [place] [address] Phone Support Name Relationship Address Phone Hillary Montelongo PRS [facility] [place] [address] Guy Quispe PRS [address] [place] [address] Dennis Lopez PRS [address] [place] [address] Shane Fajardo PRS [facility] [place] [address] Gypsy Bunch PRS Unknown Unavailable [place] [address] EDUARDO MCKINNEY PRS [address] [place] [address] [place] [address] Migdalia Joshi PRS [address] [place] [address] DERRICK VERNON PRS [address] [place] [address] Jenni Peres PRS [address] [place] [address] Ephraim Gonzalez PRS [address] [place] [address] [place] [address] Do Acosta PRS [address] [place] [address] Salomon Stanley PRS [address] [place] [address] Allergies, Adverse Reactions, Alerts Allergen Type Severity [...] 3:36pm February 18, 2019 3:56pm Flucelvax Quad (PF) (flu vac q s 2018(4 yr [...] 11pm Afluria Qd 2019-(3yr up)(PF) (flu vac [id number] 36mos up(PF)) Discontinued 60 MCG IM 1 Time/Once 0.5 January 30, 2020 3:19pm January 292019 3:47pm Acetaminophen (Tylenol) 325 MG tablet Discontinued 650 [...] 2015 12:17pm February 12, 2017 3:17pm Susu Kfzo-Eyczhkla-Vmanwqyvc Ac (Evening [place] 1,000 Mg Sftg) 1000 MG capsule Discontinued 1000 MG PO Once Per Day August 20, 2015 10:30am August 18, 2016 9:22am Estradiol (Vivelle-Dot) 0.025 MG patch semiweekly Discontinued 1 PATCH TD 2 Times Per Week August 23, 2015 11:23am October 29, 2015 9:54am Estradiol (Vivelle-Dot) 0.05 MG/24 HR patch semiweekly Discontinued 1 PATCH TD 2 Times Per Week 8 September 11, 2015 3:38pm October 28 016 9:54am Estradiol (Climara) 0.05 MG/DAY patch weekly Discontinued 1 PATCH TD 1 Time Per Week 4 September 13, 2015 6:59am October 29, 2015 [...] 1 PATCH TD 1 Time Per Week February 19, 2016 1:24pm August 07, 2016 3:02pm ONCE A WEEK Estradiol (Climara) 0.1 MG/DAY patch weekly Discontinued 1 PATCH TD 1 Time Per Week 4 August 07, 2016 3:02pm August 21, 2016 8:10am ONCE A WEEK Estradiol (Climara) 0.1 MG/DAY patch weekly Discontinued 1 PATCH TD 1 Time Per Week 4 August 21, 2016 8:10am September 10, 2017 8:44am ONCE A WEEK Estradiol (Climara) 0.1 MG/DAY patch weekly Discontinued 1 PATCH TD 1 Time Per Week September 10, 2017 8:44am July 28, 2018 [...] 1 PATCH TD Every Week 4 December 28, 2018 6:26am April 19, 2019 [...] 300 MG PO 2 Times Per Day September 05, 2019 2:18pm February 15, 2020 [...] EVERY DAY Gabapentin Active 0 .ROUTE .COMPLEX February 15, 2020 7:57am TAKE ONE CAPSULE BY MOUTH TWICE A DAY Problems Active Problems Medical Problem Onset Date Status Medication noncompliance due to cognitive impairment Active 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 [...] due to pollen March 26, 2018 Active Pulmonary embolism Act cyndy GERD (gastroesophageal [...] completed Xray Chest One View May 09 4:17pm completed CTA Chest non-card W/ & or w/o Febru nayeli 2019 6:41pm completed US Echo complete May 10, 2019 1:33p m completed Relevant Diagnostic Tests and/or Laboratory Data Laboratory Results Test Date/Time Result Interpretation Reference Range Result Comment Performing Site White Blood Count March 14 0 1:53pm 9.8 10e3/uL 4.45-10.71 [facility], [address] [place] [address] White Blood Count January 05, 2020 10:51a m 7.2 10e3/uL 4.45-10.71 [facility], [address] [place] [address] White Blood Count August 09, 2019 7:08am 5.6 10e3/uL 4.45-10.71 [facility], [address] [place] [address] 16354 White Blood Count May 11 0 5:55am 4.7 10e3/uL 4.45-10.71 [facility], [address] [place], [place] [id number] Red Blood Count March 14, 2020 1:53pm 4.85 10e6/uL 4.20-5.40 [facility], [address] [place] [address] Red Blood Count January 05, 2020 10:51am 5.05 10e6/uL 4.20-5.40 [facility], [address] [place] [address] 51743 Red Blood Count August 09, 2019 7:08am 4.93 10e6/uL 4.20-5.40 [facility], [address] [place] [address] Red Blood Count May 11, 2019 5:55am 4.44 10e6/uL 4.20-5.40 [facility], [address] [place] [address] Hemoglobin March 14, 2020 1:53pm 14.2 g/dL 10.7-15.4 [facility], [address] [place] [address] Hemoglobin January 05, 2020 10:51am 14.9 g/dL 10.7-15.4 [facility], [address] [place] [address] Hemoglobin August 09, 2019 7:08am 14.5 g/dL 10.7-15.4 [facility], [address] [place] [address] Hemoglobin May 11, 2019 5:55am 13.1 g/dL 10.7-15.4 [facility], [address] [place] [address] Hematocrit March 14, 2020 1:53pm 43.7 % 37-47 [facility], [address] [place] [address] Hematocrit January 05, 2020 10:51am 45.8 % 37-47 [facility], [address] [place] [address] Hematocrit August 09, 2019 7:08am 44.9 % 37-47 [facility], [address] [place] [address] Hematocrit May 11, 2019 5:55am 40.4 % 37-47 [facility], [address] [place] [address] Mean Corpuscular Volume February 1:53pm 90.1 fl 80-96 [facility], [address] [place] [address] Mean Corpuscular Volume January 05, 2020 10:51am 90.7 fl 80-96 [facility], [address] [place] [address] Mean Corpuscular Volume August 08 7:08am 91.1 fl 80-96 [facility], [address] [place] [address] Mean Corpuscular Volume April 5:55am 91.0 fl 80-96 [facility], [address] [place] [address] Mean Corpuscular Hemoglobin March 14, 2020 1:53pm 29.3 pg 27-31 [facility], [address] [place] [address] 71174 Mean Corpuscular Hemoglobin January 05, 2020 10:51am 29.5 pg 27-31 [facility], [address] [place] [address] Mean Corpuscular Hemoglobin July 7:08am 29.4 pg 27-31 [facility], [address] [place] [address] 23723 Mean Corpuscular Hemoglobin May 11, 2019 5:55am 29.5 pg 27-31 [facility], [address] [place] [address] 60070 Mean Corpuscular Hemoglobin Concent March 14, 2020 1:53pm 32.5 g/dl [address] [place] [address] LABORATORY, [address] [place] [address] 41991 Mean Corpuscular Hemoglobin Concent January 05, 2020 10:51am 32.5 g/dl [facility]37 [facility], [address] [place] [address] 39305 Mean Corpuscular Hemoglobin Concent August 09, 2019 7:08am 32.3 g/dl [address] [place] [address] LABORATORY, [address] [place] [address] 95617 Mean Corpuscular Hemoglobin Concent May 11, 2019 5:55am 32.4 g/dl [address] [place] [address] LABORATORY, [address] [place] [address] Red Cell Distribution Width March 14, 2020 1:53pm 14 % 11-15 [facility], [address] [place] [address] Red Cell Distribution Width January 05, 2020 10:51am 14 % 11-15 [facility], [address] [place] [address] Red Cell Distribution Width July 7:08am 14 % 11-15 [facility], [address] [place] [address] Red Cell Distribution Width May 11, 2019 5:55am 14 % 11-15 [facility], [address] [place] [address] Platelet Count March 14, 2020 1:53pm 226 10e3/ul 130-472 [facility], [address] [place] [address] Platelet Count January 05, 2020 10:51am 249 10e3/ul 130-472 [facility], [address] [place] [address] Platelet Count August 09, 2019 7:08am 244 10e3/ul 130-472 [facility], [address] [place] [address] 14780 Platelet Count May 11, 2019 5:55am 180 10e3/ul 130-472 [facility], [address] [place] [address] Mean Platelet Volume March 14, 2020 1:53pm 10.0 fl 9.1-13.1 [facility], [address] [place] [address] 38512 Mean Platelet Volume January 04 20 10:51am 10.3 fl 9.1-13.1 [facility], [address] [place], [place] [address] Mean Platelet Volume August 09, 2019 7:08am 10.9 fl 9.1-13.1 [facility], [address] [place], [place] [address] Mean Platelet Volume May 11, 2019 5:55am 10.2 fl 9.1-13.1 [facility], [address] [place] [address] 89484 Neutrophils (%) (Auto) February 1:53pm 75.4 % [address] [place] [address] LABORATORY, [address] [place] [address] 84407 Neutrophils (%) (Auto) January 05, 2020 10:51am 56.3 % [address] [facility], [address] [place] [address] 72416 Neutrophils (%) (Auto) August 08 0 7:08am 56.0 % [address] [facility], [address] [place] [address] 33634 Neutrophils (%) (Auto) April 5:55am 46.8 % [address] [place] [address] LABORATORY, [address] [place] [address] 89875 Absolute Neutrophil March 14, 020 1:53pm 7.4 # 1.7-7.6 [facility], [address] [place] [address] 96580 Absolute Neutrophil January 04 0 10:51am 4.1 # 1.7-7.6 [facility], [address] [place] [address] 46972 Absolute Neutrophil August 09, 2019 7:08am 3.2 # 1.7-7.6 [facility], [address] [place] [address] 08845 Absolute Neutrophil May 11 020 5:55am 2.2 # 1.7-7.6 [facility], [address] [place] [address] 60050 Lymphocytes (%) (Auto) February 1:53pm 17.0 % 14-46 [facility], [address] [place] [address] 05562 Lymphocytes (%) (Auto) January 05, 2020 10:51am 32.8 % 14-46 [facility], [address] [place] [address] 31986 Lymphocytes (%) (Auto) August 08 0 7:08am 35.5 % 14-46 [facility], [address] [place] [address] 94066 Lymphocytes (%) (Auto) April 5:55am 42.1 % 14-46 [facility], [address] [place] [address] 89720 Lymphocytes # (Auto) March 14, 2020 1:53pm 1.7 # 0.6-4.6 [facility], [address] [place] [address] 67940 Lymphocytes # (Auto) January 04 10:51am 2.4 # 0.6-4.6 [facility], [address] [place] [address] 39990 Lymphocytes # (Auto) August 09, 2019 7:08am 2.0 # 0.6-4.6 [facility], [address] [place] [address] 86421 Lymphocytes # (Auto) May 11, 2019 5:55am 2.0 # 0.6-4.6 [facility], [address] [place] [address] 48745 Monocytes (%) (Auto) March 14, 2020 1:53pm 4.8 % 4-12 [facility], [address] [place] [address] 13515 Monocytes (%) (Auto) January 04 10:51am 6.4 % 4-12 [facility], [address] [place] [address] 67133 Monocytes (%) (Auto) August 09, 2019 7:08am 5.0 % 4-12 [facility], [address] [place] [address] 25237 Monocytes (%) (Auto) May 11, 2019 5:55am 6.4 % 4-12 [facility], [address] [place] [address] 91838 Monocytes # March 14, 2020 1:53pm 0.5 # 0.2-1.2 [facility], [address] [place] [address] 45458 Monocytes # January 05, 2020 10:51am 0.5 # 0.2-1.2 [facility], [address] [place] [address] 81839 Monocytes # August 09, 2019 7:08am 0.3 # 0.2-1.2 [facility], [address] [place] [address] 20711 Monocytes # May 11, 2019 5:55am 0.3 # 0.2-1.2 [facility], [address] [place] [address] 50029 Eosinophils (%) (Auto) February 1:53pm 1.9 % 0-7 [facility], [address] [place] [address] 59571 Eosinophils (%) (Auto) January 05, 2020 10:51am 3.3 % 0-7 [facility], [address] [place] [address] 84173 Eosinophils (%) (Auto) August 08 0 7:08am 2.8 % 0-7 [facility], [address] [place] [address] 15928 Eosinophils (%) (Auto) April 5:55am 3.6 % 0-7 [facility], [address] [place] [address] Absolute Eosinophils (CBC) March 14, 2020 1:53pm 0.2 # 0.0-0.5 [facility], [address] [place] [address] 40042 Absolute Eosinophils (CBC) January 042019 10:51am 0.2 # 0.0-0.5 [facility], [address] [place] [address] 37976 Absolute Eosinophils (CBC) August 09, 2019 7:08am 0.2 # 0.0-0.5 [facility], [address] [place] [address] 08253 Absolute Eosinophils (CBC) May 11, 2019 5:55am 0.2 # 0.0-0.5 [facility], [address] [place] [address] 05663 Basophils (%) (Auto) March 14, 2020 1:53pm 0.6 % 0.4-1.3 [facility], [address] [place] [address] 97719 Basophils (%) (Auto) January 04 10:51am 1.1 % 0.4-1.3 [facility], [address] [place] [address] 73880 Basophils (%) (Auto) August 09, 2019 7:08am 0.7 % 0.4-1.3 [facility], [address] [place] [address] 29736 Basophils (%) (Auto) May 11, 2019 5:55am 1.1 % 0.4-1.3 [facility], [address] [place] [address] 72276 Absolute Basophils (CBC) March 142019 1:53pm 0.1 # 0.0-0.2 [facility], [address] [place] [address] Absolute Basophils (CBC) December 10:51am 0.1 # 0.0-0.2 [facility], [address] [place] [address] 08000 Absolute Basophils (CBC) August 08 7:08am 0.0 # 0.0-0.2 [facility], [address] [place] [address] 62999 Absolute Basophils (CBC) May 112019 5:55am 0.1 # 0.0-0.2 [facility], [address] [place] [address] 92014 Immature Granulocyte % (Auto) Decemb 2019 1:53pm 0.3 % 0-2 [facility], [address] [place] [address] 52584 Immature Granulocyte % (Auto) Octobe 2019 10:51am 0.1 % 0-2 [facility], [address] [place] [address] 02551 Immature Granulocyte % (Auto) August 082019 7:08am 0.0 % 0-2 [facility], [address] [place] [address] 96706 Immature Granulocyte % (Auto) Februa 2019 5:55am 0.0 % 0-2 [facility], [address] [place] [address] 59155 Absolute Immature Granulocyte (auto March 14, 2020 1:53pm 0.0 # 0-0.1 [facility], [address] [place] [address] 86716 Absolute Immature Granulocyte (auto January 05, 2020 10:51am 0.0 # 0-0.1 [facility], [address] [place] [address] 78668 Absolute Immature Granulocyte (auto August 09, 2019 7:08am 0.0 # 0-0.1 [facility], [address] [place] [address] 58026 Absolute Immature Granulocyte (auto May 11, 2019 5:55am 0.0 # 0-0.1 [facility], [address] [place] [address] 39088 Add Manual Differential February 1:53pm No [facility], [address] [place] [address] Add Manual Differential January 05, 2020 10:51am No [facility], [address] [place] [address] Add Manual Differential August 08 7:08am No [facility], [address] [place] [address] Add Manual Differential April 5:55am No [facility], [address] [place] [address] Prothrombin Time May 09, 2019 4:15p m 10.1 SECONDS 9.6-12.3 [facility], [address] [place] [address] INR International Normalized Ratio F ebruary 2019 4:15pm 1.0 0.9-1.1 THE INR IS OPERATIONALLY DEFINED FOR PHILOME[place] SH PLASMA FROMPATIENTS STABILIZED ON ORAL ANTICOAGULANTS. ROUTINE ANTICOAGULANT THERAPY 2.0-3.0RECURRENT SYSTEMIC EMBOLISM/HEART VALVE REPLACEMENT 2.5-3.5 [facility], [address] [place] [address] Partial Thromboplastin Time - Ashlie F [facility]2019 4:15pm 23.9 SECONDS 22.7-31.6 [facility], [address] [place] [address] D-Dimer January 05, 2020 10:51am 0.35 mg/L 0.0-0.50 PLEASE NOTE: THIS TEST WAS PERFORMED USING A PARTICLE-ENHANCED, IMMUNOTURBIDIMETRIC ASSAY AND HAS A SINGLE,CLINICALLY DERIVED CUTOFF OF 0.50 MG/L. [facility], [address] [place] [address] D-Dimer May 09, 2019 4:15pm 9.60 mg/L 0.0-0.50 Repeated by: Abida Lomeli 05/09/19 7738.Result Confirmation: 9.6 mg/L PLEASE NOTE: THIS TEST WAS PERFORMED USING A PARTICLE-ENHANCED, IMMUNOTURBIDIMETRIC ASSAY AND HAS A SINGLE,CLINICALLY DERIVED CUTOFF OF 0.50 MG/L. [facility], [address] [place] [address] 13410 Urine Color May 10, 2019 8:23am Yellow [facility], [address] [place] [address] 58134 Urine Appearance May 10, 2019 8:23a m Clear CLEAR [facility], [address] [place] [address] 05452 Urine pH May 10, 2019 8:23am 6.0 [facility], [address] [place] [address] 08191 Urine Specific [place] April 8:23am 1.015 [facility], [address] [place] [address] 21089 Urine Leukocyte Esterase May 102019 8:23am Negative NEGATIVE [facility], [address] [place] [address] 00649 Urine Nitrate May 10, 2019 8:23am Negative NEGATIVE [facility], [address] [place] [address] 47093 Urine Protein May 10, 2019 8:23am Negative NEGATIVE [facility], [address] [place] [address] 15332 Urine Glucose May 10, 2019 8:23am Negative NEGATIVE [facility], [address] [place] [address] 89525 Urine Ketones May 10, 2019 8:23am Negative NEGATIVE [facility], [address] [place] [address] 32446 Urine Urobilinogen May 10 8:23am 0.2 eu/dl [facility], [address] [place] [address] 71438 Urine Bilirubin May 10, 2019 8:23am Negative NEGATIVE [facility], [address] [place] [address] 06257 Urine Blood May 10, 2019 8:23am Negative NEGATIVE [facility], [address] [place] [address] 32560 Add Urine Microanalysis April 8:23am No [facility], [address] [place] [address] 76137 Blood Urea Nitrogen March 14 020 1:53pm 16 mg/dL 12-20 [facility], [address] [place] [address] 34031 Blood Urea Nitrogen January 04 0 10:51am 16 mg/dL 12-20 [facility], [address] [place] [address] 04381 Blood Urea Nitrogen November 20 0 10:28am 13 mg/dL 12-20 [facility], [address] [place] [address] 59847 Blood Urea Nitrogen August 09, 2019 7:08am 13 mg/dL 12-20 [facility], [address] [place] [address] Blood Urea Nitrogen May 11 5:55am 13 mg/dL 12-20 [facility], [address] [place] [address] 29835 Sodium Level March 14, 2020 1:53pm 142 mmol/L 132-146 [facility], [address] [place] [address] 50546 Sodium Level January 05, 2020 10:51am 142 mmol/L 132-146 [facility], [address] [place] [address] Sodium Level November 21, 2019 10:28am 144 mmol/L 132-146 [facility], [address] [place] [address] 00543 Sodium Level August 09, 2019 7:08am 142 mmol/L 132-146 [facility], [address] [place] [address] Sodium Level May 11, 2019 5:55am 143 mmol/L 132-146 [facility], [address] [place] [address] Potassium Level March 14, 2020 1:53pm 4.2 mmol/L 3.5-5.5 [facility], [address] [place] [address] Potassium Level January 05, 2020 10:51am 4.7 mmol/L 3.5-5.5 [facility], [address] [place] [address] Potassium Level November 21, 2019 10:28am 4.2 mmol/L 3.5-5.5 [facility], [address] [place] [address] Potassium Level August 09, 2019 7:08am 3.8 mmol/L 3.5-5.5 [facility], [address] [place] [address] Potassium Level May 11, 2019 5:55am 4.3 mmol/L 3.5-5.5 SLIGHTLY HEMOLYZED [facility], [address] [place] [address] Chloride Level March 14, 2020 1:53pm 110 mmol/l 99-109 [facility], [address] [place] [address] Chloride Level January 05, 2020 10:51am 109 mmol/l 99-109 [facility], [address] [place] [address] 15544 Chloride Level November 21, 2019 10:28am 113 mmol/l 99-109 [facility], [address] [place] [address] Chloride Level August 09, 2019 7:08am 111 mmol/l 99-109 [facility], [address] [place] [address] 61441 Chloride Level May 11, 2019 5:55am 112 mmol/l 99-109 [facility], [address] [place] [address] 83956 Carbon Dioxide Level March 14, 2020 1:53pm 26 mmol/l 20-31 [facility], [address] [place] [address] 01708 Carbon Dioxide Level January 04 10:51am 29 mmol/l 20-31 [facility], [address] [place] [address] 17274 Carbon Dioxide Level November 20 10:28am 25 mmol/l 20-31 [facility], [address] [place] [address] 35400 Carbon Dioxide Level August 09, 2019 7:08am 22 mmol/l 20-31 [facility], [address] [place] [address] 12728 Carbon Dioxide Level May 11, 2019 5:55am 25 mmol/l 20-31 [facility], [address] [place] [address] 23031 Anion Gap March 14, 2020 1:53pm 10 mmol/l 8-16 [facility], [address] [place] [address] [id number] Anion Gap January 05, 2020 10:51am 9 mmol/l 8-16 [facility], [address] [place] [address] [id number] Anion Gap November 21, 2019 10:28am 10 mmol/l 8-16 [facility], [address] [place] [address] [id number] Anion Gap August 09, 2019 7:08am 13 mmol/l 8-16 [facility], [address] [place] [address] [id number] Anion Gap May 11, 2019 5:55am 10 mmol/l 8-16 [facility], [address] [place] [address] [id number] Glucose Level March 14, 2020 1:53pm 107 mg/dL 74-106 [facility], [address] [place] [address] [id number] Glucose Level January 05, 2020 10:51am 86 mg/dL 74-106 [facility], [address] [place] [address] [id number] Glucose Level November 21, 2019 10:28am 95 mg/dL 74-106 [facility], [address] [place] [address] 40001 Glucose Level August 09, 2019 7:08am 133 mg/dL 74-106 [facility], [address] [place] [address] 23065 Glucose Level May 11, 2019 5:55am 95 mg/dL 74-106 [facility], [address] [place] [address] 28709 Creatinine March 14, 2020 1:53pm 0.9 mg/dL 0.5-1.1 [facility], [address] [place] [address] Creatinine January 05, 2020 10:51am 1.0 mg/dL 0.5-1.1 [facility], [address] [place] [address] Creatinine November 21, 2019 10:28am 1.0 mg/dL 0.5-1.1 [facility], [address] [place] [address] Creatinine August 09, 2019 7:08am 1.0 mg/dL 0.5-1.1 [facility], [address] [place] [address] Creatinine May 11, 2019 5:55am 0.8 mg/dL 0.5-1.1 [facility], [address] [place] [address] Glomerular Filtration Rate Calc Dece mber 2019 1:53pm Greater than 60 ml/min ABOVE 60 [facility], [address] [place] [address] Glomerular Filtration Rate Calc Octo devora 2019 10:51am 58 ml/min ABOVE 60 [facility], [address] [place] [address] Glomerular Filtration Rate Calc Augu st 2019 10:28am 58 ml/min ABOVE 60 [facility], [address] [place] [address] Glomerular Filtration Rate Calc August 09, 2019 7:08am 58 ml/min ABOVE 60 [facility], [address] [place] [address] Glomerular Filtration Rate Calc Febr uary 2019 5:55am Greater than 60 ml/min ABOVE 60 [facility], [address] [place] [address] Alanine Aminotransferase (ALT/SGPT) March 14, 2020 1:53pm 28 U/L 49 [facility], [address] [place] [address] Alanine Aminotransferase (ALT/SGPT) November 21, 2019 10:28am 30 U/L [facility], [address] [place] [address] Alanine Aminotransferase (ALT/SGPT) August 09, 2019 7:08am 29 U/L [facility], [address] [place] [address] Alanine Aminotransferase (ALT/SGPT) May 11, 2019 5:55am 25 U/L 49 [facility], [address] [place] [address] 37515 Aspartate Amino Transf (AST/SGOT) De cember 2019 1:53pm 17 U/L 0-33 [facility], [address] [place] [address] Aspartate Amino Transf (AST/SGOT) Au jonatan 2019 10:28am 22 U/L 0-33 [facility], [address] [place] [address] 72262 Aspartate Amino Transf (AST/SGOT) Ma y 2019 7:08am 21 U/L 0-33 [facility], [address] [place] [address] 17866 Aspartate Amino Transf (AST/SGOT) Fe bruary 2019 5:55am 24 U/L 0-33 [facility], [address] [place] [address] 00217 Alkaline Phosphatase March 14, 2020 1:53pm 98 U/L 45-129 [facility], [address] [place] [address] 66437 Alkaline Phosphatase November 20 10:28am 104 U/L 45-129 [facility], [address] [place] [address] 39152 Alkaline Phosphatase August 09, 2019 7:08am 103 U/L 45-129 [facility], [address] [place] [address] 71490 Alkaline Phosphatase May 11, 2019 5:55am 80 U/L 45-129 [facility], [address] [place] [address] 55213 Amylase Level March 14, 2020 1:53pm 55 U/L 30-118 [facility], [address] [place] [address] 67062 Lipase March 14, 2020 1:53pm 141 U/L 73-393 [facility], [address] [place] [address] 35902 Calcium Level March 14, 2020 1:53pm 9.1 mg/dL 8.5-10.1 [facility], [address] [place] [address] 34508 Calcium Level January 05, 2020 10:51am 9.8 mg/dL 8.5-10.1 [facility], [address] [place] [address] Calcium Level November 21, 2019 10:28am 9.2 mg/dL 8.5-10.1 [facility], [address] [place] [address] Calcium Level August 09, 2019 7:08am 9.4 mg/dL 8.5-10.1 [facility], [address] [place], [place] [address] Calcium Level May 11, 2019 5:55am 8.5 mg/dL 8.5-10.1 [facility], [address] [place] [address] Total Bilirubin March 14, 2020 1:53pm 0.4 mg/dL 0.3-1.2 [facility], [address] [place] [address] Total Bilirubin November 21, 2019 10:28am 0.6 mg/dL 0.3-1.2 [facility], [address] [place], [place] [address] Total Bilirubin August 09, 2019 7:08am 0.5 mg/dL 0.3-1.2 [facility], [address] [place], [place] [address] Total Bilirubin May 11, 2019 5:55am 0.4 mg/dL 0.3-1.2 [facility], [address] [place] [address] Albumin March 14, 2020 1:53pm 3.6 g/dL 3.2-4.8 [facility], [address] [place], [place] [address] Albumin November 21, 2019 10:28am 3.9 g/dL 3.2-4.8 [facility], [address] [place] [address] Albumin August 09, 2019 7:08am 3.9 g/dL 3.2-4.8 [facility], [address] [place], [place] [address] Albumin May 11, 2019 5:55am 3.3 g/dL 3.2-4.8 [facility], [address] [place], [place] [address] Serum Total Protein March 14 020 1:53pm 7.2 g/dL 5.7-8.2 [facility], [address] [place], [place] [address] Serum Total Protein November 20 0 10:28am 7.0 g/dL 5.7-8.2 [facility], [address] [place] [address] 25677 Serum Total Protein August 09, 2019 7:08am 7.0 g/dL 5.7-8.2 [facility], [address] [place] [address] 85095 Serum Total Protein May 11 5:55am 6.1 g/dL 5.7-8.2 [facility], [address] [place] [address] 68070 Lactic Acid Level March 14 5:30pm 1.3 mmol/L 0.5-2.2 [facility], [address] [place] [address] 25303 Triglycerides Level August 09, 2019 7:08am 110 mg/dL 0-150 [facility], [address] [place] [address] Triglycerides Level May 09 4:15pm 110 mg/dL 0-150 [facility], [address] [place] [address] 10636 Cholesterol Level August 09, 2019 7:08am 240 mg/dL 120-200 [facility], [address] [place] [address] 72637 Cholesterol Level May 09 4:15pm 200 mg/dL 120-200 [facility], [address] [place] [address] 61121 HDL Cholesterol August 09, 2019 7:08am 49 mg/dL HDL Less than 40 mg/dL: Major risk for CHDHDL Greater than 59 mg/dL: Low risk for CHD [facility], [address] [place] [address] 08775 HDL Cholesterol May 09, 2019 4:15pm 42 mg/dL HDL Less than 40 mg/dL: Major risk for CHDHDL Greater than 59 mg/dL: Low risk for CHD [facility], [address] [place] [address] 53872 LDL Cholesterol, Calculated July 7:08am 169 mg/dL 0-100 [facility], [address] [place] [address] 33025 LDL Cholesterol, Calculated May 09, 2019 4:15pm 136 mg/dL 0-100 [facility], [address] [place] [address] 51715 Magnesium Level May 09, 2019 4:15pm 2.2 mg/dL 1.3-2.7 [facility], [address] [place] [address] 68431 Creatine Kinase May 09, 2019 4:15pm 85 U/L 33-211 [facility], [address] [place] [address] 33969 Creatine Kinase MB May 09 4:15pm 1.8 ng/mL 0.0-5.0 [facility], [address] [place] [address] 36348 Creatine Kinase MB % May 09, 2019 4:15pm 2.1 % [facility], [address] [place] [address] 33049 Troponin I March 14, 2020 1:53pm Less than 0.015 ng/mL 0.00-0.09 Less than 0.09 NG/ML Negative0.10 - 0.77 NG/ML High Risk0.78 NG/ML or Greater Positive The WHO defined the cutoff (definition for diagnosis of GA)for this method as 0.78 ng/ml. [facility], [address] [place] [address] 45642 Troponin I May 10, 2019 4:00am Less than 0.015 ng/mL 0.00-0.09 Less than 0.09 NG/ML Negative0.10 - 0.77 NG/ML High Risk0.78 NG/ML or Greater Positive The WHO defined the cutoff (definition for diagnosis of GA)for this method as 0.78 ng/ml. [facility], [address] [place] [address] 74692 Serum Test, Qualitative De cember 2019 1:53pm Negative NEGATIVE [facility], [address] [place] [address] 01377 Insulin Level November 21, 2019 10:28am 11.3 uIU/mL Reference Range < or = 19.6 Risk: Optimal < or = 19.6 Moderate NA High >19.6 Adult cardiovascular event risk category cut points (optimal, moderate, high) are based on [place] population data from 02/2011.This insulin assay shows strong cross- reactivity forsome insulin analogs (lispro, aspart, and glargine)and much lower cross-reactivity with others (detemir,glulisine).THIS TEST WAS PERFORMED AT:[address] [id number] MERATI,MD [employer] Vitamin D 25-Hydroxy August 09, 2019 7:08am 40.9 ng/mL Vitamin D deficiency has been defined by the [place] [employer] and an Endocrine Society practice guideline as alevel of serum 25-OH vitamin D less than 20 ng/mL (1,2).The Endocrine Society went on to further define vitamin Dinsufficiency as a level between 21 and 29 ng/mL (2).1. IOM ([place] [employer]). 2010. Dietary reference intakes for calcium and D. [place]: The National Academies Press.2. Juliet MF, Sahil MARTINEZ, Brissa BARAJAS, et al. Evaluation, treatment, and prevention of vitamin D deficiency: an Endocrine Society clinical practice guideline. JCEM. 2010; 96(7):1911-30.Performed at: [facility] [address] [id number] Director: Inga Reyes MD, Phone: [phone] [place] , [address] [facility] [id number] Coronavirus (COVID-19)(PCR) July 2:10pm Not detected Not Detec sathish Testing was performed using the ben(R) SARS-CoV-2 test.This test was developed and its performance characteristicsdetermined by [employer]. This test has not beenFDA cleared or [...] detected) result in this assay.Per formed at: [facility] [address] [id number] Director: Inga Reyes MD, Phone: [phone] [place] , [address] [facility] [address] Hemoglobin A1c November 21, 2019 10:28am 6.0 [...] glucose control. 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 Some danger of hypoglycemic reaction in Type I diabetics.Some glucose intolerant individuals and "Sub Clinical"diabetics may demonstrate HGBA1C levels in this area. [facility], [address] [place] [address] 87110 Hemoglobin A1c August 09, 2019 7:08am 5.5 [...] glucose control. 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 Some danger of hypoglycemic reaction in Type I diabetics.Some glucose intolerant individuals and "Sub Clinical"diabetics may demonstrate HGBA1C levels in this area. [facility], [address] [facility] [address] Hemoglobin A1c May 09, 2019 4:15pm 5.6 [...] glucose control. 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 Some danger of hypoglycemic reaction in Type I diabetics.Some glucose intolerant individuals and "Sub Clinical"diabetics may demonstrate HGBA1C levels in this area. [facility], [address] [place] [address] Estimated Average Glucose (eAG) Augu st 2019 10:28am 126 mg/dl An A1C of 7% - the goal of diabetic ther apy - is equivalentto an EAG of 154 mg/dl. [facility], [address] [place] [address] Estimated Average Glucose (eAG) August 09, 2019 7:08am 111 mg/dl An A1C of 7% - the goal of diabetic therapy - is equivalentto an EAG of 154 mg/dl. [facility], [address] [place] [address] Estimated Average Glucose (eAG) [facility]2019 4:15pm 114 mg/dl An A1C of 7% - the goal of diabetic ther apy - is equivalentto an EAG of 154 mg/dl. [facility], [address] [place] [address] Pro-B-Type Natriuretic Peptide Febru 2019 4:15pm 25.00 pg/mL 0.00-175 [facility], [address] [place] [address] Microbiology Results Procedure Source Result Collection Date/Time Result Date/Time Result Comment Performing Site SARS-CoV-2 (PCR) Interpretation Naso pharyngeal No Organisms Detected March 14, 2020 4:39pm March 14, 2020 5:20pm [facility], [address] [place] [address] Gastrointestinal Tract Panel (PCR) Stool No Organisms Detected November 24, 2019 2:00pm November 24, 2019 5:14pm [facility], [address] [place] [address] Diagnostic Imaging Reports Report Dictated Date/Time Dictated By Status Radiology Report May 09, 2019 4:26p do Schwartz DO completed [address] [id number] [place] [address] [phone] NAME SEX PT STATUS ACCOUNT NUMBER MADDISON CHAVARRIA [facility] ER [id number] ORDERING PHYSICIAN LOCATION MEDICAL RECORD NO. Guy Quispe MD ER [id number] ATTENDING PHYSICIAN DATE OF DATE OF EXAM/TIME [...] Trans Dt/Tm: Trans by: DT Prt Dt/Tm: [id number]: Total DLP = 0.00 mGy-cm Fluoroscopy Time (in secs): Radiology Report May 09, 2019 7:45p [place] [address] [phone] NAME SEX PT STATUS ACCOUNT NUMBER MADDISON CHAVARRIA F [facility] [id number] ORDERING PHYSICIAN LOCATION MEDICAL RECORD NO. Dennis Lopez MD [id number] ATTENDING PHYSICIAN DATE OF DATE OF EXAM/TIME Hillary Montelongo DO 1965 05/09/19 / 1841 TYPE / EXAM CTA Chest non-card W/ & or w/o REASON FOR EXAM elevated d dimer MADDISON CHAVARRIA [id number] 1965 ADDENDUM Clinical History/Indication for Exam: elevated d dimer Called for Critical Findings by Maria Del Carmen GROVE on 05/09/2019 4:54PM [place] Time;Call for Critical Findings Reconstructions Comparison: NONE [...] MD on 05/09/191944 Trans Dt/Tm: Trans by: FABRICIO [p pg] Clinical History/Indication for Exam: elevated [...] May 10, 2019 2:47p do Cruz completed [facility] [address] [id number] [phone] NAME SEX PT STATUS ACCOUNT NUMBER MADDISON CHAVARRIA DIS TONY [id number] ORDERING PHYSICIAN LOCATION MEDICAL RECORD NO. Dennis Lopez MD EW [id number] ATTENDING PHYSICIAN DATE OF DATE OF EXAM/TIME [...] Reported By Ortiz Cruz MD on 05/10/19 1707 Signed By Ortiz Cruz MD on 05/17/19 8153 <<Signature on File>> Date Time CC: Ortiz Cruz M.D.; Hillary Montelongo DO Techn: FRE Trans Dt/Tm: 05/10/19 1749 Trans by: MELECIO Judge Dt/Tm: : Total DLP = 0.00 mGy-cm : Total Radiation Dose = 0.0000 mSv Lifetime Dose: 2.5547 mSv Stress Test June 28, 2019 10:20am Shane Fajardo completed STRESS TEST CONSULTATION NAME: MADDISON CHAVARRIA : 1965 AGE: 53 MR#: [id number] ADMITTING DATE: 06/28/[address]: DISCHARGE DATE: [...] June 28, 2019 2:15pm Shane Fajardo completed [facility] [address] [id number] [phone] NAME SEX PT STATUS ACCOUNT NUMBER MADDISON CHAVARRIA F REG REF [id number] ORDERING PHYSICIAN LOCATION MEDICAL RECORD NO. MAINE MCKINNEY EKG [id number] ATTENDING PHYSICIAN DATE OF DATE OF EXAM/TIME [...] level. 3. Above findings were confirmed with bu lls eye SPECT analysis. 4. Gated wall motion [...] 26, 2019 1:32pm Ayaka Salas MD completed [id number] [place] [address] [phone] NAME SEX PT STATUS ACCOUNT NUMBER MADDISON CHAVARRIA REG REF [id number] ORDERING PHYSICIAN LOCATION MEDICAL RECORD NO. Ephraim Gonzalez MD MRI [id number] ATTENDING PHYSICIAN DATE OF DATE OF EXAM/TIME Hillary Montelongo DO 1965 10/26/19 / 1303 TYPE / EXAM [...] M.D. Reported By Ayaka Salas MD on 10/26/19 1332 Signed By Aykaa Salas MD on 10/26/19 1332 Date Time CC: Hillary Montelongo DO; Ayaka Salas MD Techn: YADIELPAMELA Trans Dt/Tm: Trans by: DT Prt Dt/Tm: : Total DLP = 0.00 mGy-cm : Total Radiation Dose = 0.0000 mSv Lifetime Dose: 30.4697 mSv Radiology Report December 11 7:43pm Jb Gill MD completed [facility] [address] [facility] [address] [place] [id number] [phone] NAME SEX PT STATUS ACCOUNT NUMBER MADDISON CHAVARRIA REG REF [id number] ORDERING PHYSICIAN LOCATION MEDICAL RECORD NO. Addis Alamo MRI [id number] ATTENDING PHYSICIAN DATE OF DATE OF EXAM/TIME Addis Alamo RPA 1965 12/12/191539 TYPE / EXAM MRI Lumbar without contrast [...] Jb Gill MD on 12/12/191942 Signed By bJ Gill MD on 12/12/191942 Date Time CC: Jb Gill MD; Addis Alamo Techn: ALICIA Trans Dt/Tm: Trans by: DT Prt Dt/Tm: : Total DLP = 0.00 mGy-cm : Total Radiation Dose = 0.0000 mSv Lifetime Dose: 30.4697 mSv Radiology Report March 01, 2020 6:21pm Candace Quijano MD completed [facility] [address] [place] [address] [phone] NAME SEX PT STATUS ACCOUNT NUMBER MADDISON CHAVARRIA REG REF [id number] ORDERING PHYSICIAN LOCATION MEDICAL RECORD NO. Hillary Montelongo DO MAMMO [id number] ATTENDING PHYSICIAN DATE OF DATE OF EXAM/TIME [...] mammogram was read with the assistance of [employer], an FDA-approved computer- aided detection system for mammography. Reported By Candace Quijano MD on 03/01/201820 Signed By Candace Quijano MD on 03/01/201824 Date Time CC: Candace Quijano MD; Hillary Montelongo DO Techn: PELBU Trans Dt/Tm: Trans by: DT Prt Dt/Tm: [id number]: Total DLP = 0.00 mGy-cm 7887-8810: Total Radiation Dose = 0.0000 mSv Lifetime Dose: 30.4697 mSv Health Concerns Health Concerns may be documented in an alternate section. Advance Directives Advance Directive Response Recorded Date/Time Advanced Directive No Ordonez2019 12:23pm [place] No January 29 4:49pm Advance Directives on File or in chart? No January 30, 2020 4:49pm Does Patient have a DNR? 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 annual exam Hospital Discharge Follow-up [place],K76.9,Z91.14,I26.99,G47.33,E74.39, Lesion assessment Hospital Discharge Follow-up I26.99,G47.33,E74.39,K76.89,E87.6 Gastroesophageal reflux disease (GERD) K21.9 Gastroesophageal reflux disease (GERD) MOSES,HYPOPNEA,SEVERE PE,IMPAIRED COGNITION HX STENOSIS, NUMBNESS, WEAKNESS Z86.711,R06.02,R07.2 Hyperlipidemia screening STOMACH PAIN Reason for Visit Obstructive sleep a pnea [...] region with neurogenic claudication Vitamin D deficiency Encounters Encounter Location(s) Ar rival/Admit Date Discharge/Depart Date Provider(s) Discharged Inpatient -[facility] May 09, 2019 5:40pm May 11, 2019 11:00am Dennis Lopez MD Registered Outpatient -[facility] May 13, 2019 2:03pm Gypsy Bunch RN Departed Physician/Provider Office Visit -[facility] May 16, 2019 2:14pm May 16, 2019 2:58pm Guy Rodriguez DO Departed Physician/Provider Office Visit -[facility] June 24, 2019 10:19am June 24, 2019 12:18pm Hillary Montelongo Registered Referred -EKG June 28, 2019 6:38am MAINE AYON Departed Physician/Provider Office Visit -[facility] July 20, 2019 11:54am July 20, 2019 12:45pm Addis Alamo Registered Referred -Laboratory August 09, 2019 6:50am Hillary Montelongo Departed Physician/Provider Office Visit -[facility] August 12, 2019 12:13pm August 11 0 1:16pm Hillary Montelongo Departed Physician/Provider Office Visit -[facility] August 16, 2019 2:07pm August 16, 2019 2:16pm Migdalia Joshi Registered Referred -Lab Drop Off August 16, 2019 2:48pm Migdalia Joshi Departed Physician/Provider Office Visit -[facility] September 14, 2019 10:38am September 14, 2019 11:30am Hillary Montelongo Registered Outpatient -[facility] General Surgery October 08, 2019 10:36pm October 11, 020 9:45am Derrick Vernon MD Registered Outpatient -[facility] Family Practice October 13, 2019 2:54pm Gypsy Bunch RN Departed Physician/Provider Office Visit -[facility] October 18, 2019 11:10am October 18, 2019 12:16pm Jenni Peres Departed Physician/Provider Office Visit -[facility] General Surgery October 21, 2019 11:33am October 21, 2019 12:00pm Ephraim Gonzalez MD Registered Referred -MRI/MRA October 26, 2019 8:20am Ephraim Gonzalez MD Departed Physician/Provider Office Visit -[facility] General Surgery October 27, 2019 11:51am October 27, 2019 12:04pm Ephraim Gonzalez MD Departed Physician/Provider Office Visit -[facility] October 28, 2019 8:32am October 28, 2019 9:33am Hillary Montelongo Registered Referred -Laboratory November 21, 2019 10:18am Hillary Montelongo Departed Physician/Provider Office Visit -[facility] November 23, 2019 2:14pm October 3:17pm Ann Fernandez NP Registered Referred -Laboratory November 24, 2019 1:06pm Xander Ivey Departed Physician/Provider Office Visit -[facility] December 07, 2019 2:25pm December 07, 2019 3:38pm Addis Alamo Registered Referred -Sleep Lab December 07, 2019 6:48pm Hillary shepherd Registered Referred -MRI/MRA December 12, 2019 2:29pm Addis Alamo Registered Referred -Laboratory January 05, 2020 10:45am Salena Acosta Departed Physician/Provider Office Visit -[facility] January 30, 2020 3:19pm January 30, 2020 4:50pm Hillary Montelongo Registered Referred -Mammography February 28, 2020 4:14pm Hillary shepherd Departed Emergency -Emergency Room ER March 14, 2020 11:45am March 14, 2020 10:04pm null Recent Diagnosis Onset Date Obstructive sleep apnea [...] 2018 Vitamin D deficiency March 26, 2018 Assessments Diagnosis Onset Date Res olution [...] Vitamin D deficiency March 26, 2018 chronic Family History Relationship Condition A ge at Onset Recorded Date/Time Not Specified Alcoholism Unknown Not Specified Malignant neoplasm of colon Unknown Malignant neoplasm of lung 60 Functional Status Observation Response Valente e Recorded Functional Status Complete [place] May 09, 2019 9:00pm Goals Goals may be documented in an alternate section. Immunizations Immunization Event Date Not Given Reason Dose Number Nonprofit Financial Controller Lot Number Vaccine Information Statement (VIS) Deta il influenza vaccine, inactivated Decem 2016 influenza vaccine, inactivated Novem 2018 2612 31 influenza vaccine, inactivated Novem 2019 [id number] Mental Status Observation Response Valente e Recorded Impairments No impairments or barriers March 14, 2020 11:45am Cognitive Status Mild Cognitive impairment May 09, 2019 9:00pm Medical Equipment No Medical Equipment Information available Insurance Providers Guarantor MADDISON Do PATTIE Address [address] [place] [address] [address] [id number] Contact Info. Home Phone: Payer Policy Id Coverage Id Subscriber's Name Subscriber Id Effective Date Expiration Date MEDICAID [place] [id number] [facility] [id number] MADDISON CHAVARRIA [id number] [address] [facility] Self Pay Self N/A [facility] MEDICAID [id number] MADDISON Booker PATTIE [id number] Plan of Treatment GERD improved on pantoprazole 40mg bid and famotidine 20mg bid. Awaiting gastroenterology appt. Sleep study scheduled for tonight. Advised that her symptoms could very well [...] so definitely advise ongoing psychiatric care at [facility] and communicated this to her provider Leigh both by letter and phone call to her n christine Patient is significantly obese weight loss has [...] an outpatient has followed up this pa st week with Dr. Gonzalez. She is feeling [...] her providers including me and Leigh at [facility] I think she just needs some [...] I suggested she set an alarm clock e does not have a smart phone but she can set an alarm clock during the day to remind her for her morning and night pills and use the pillbox Called [facility] and left message with wood lather Lo Colin to see if dex ent [...] antidepressants. I left a message with the charge account clerk at [facility] but she said most everyone is working from home. However on ce patient arrived she informed me she no longer is seen at [facility]. I do not think [facility] group she is seeing now has case management. She cannot even for sure give me the name of o she seeing. I told her the benefit of staying with [facility] is that they did have c ase [...] she never picked it up. After having [facility] functional capacity test doing poorly and being referred back to cardiology she now finally has decided she should try it again. She plans to pick it up later this week when she has her e cho or going to try to coordinate for her to have her mammogram lab work seed cone picker the CPAP and do the echo [...] left call with case manag er at [facility] she really would benefit from case management I am going to refer her t o [facility] She is supposed to be taking trazodone at night sertraline in the morning has no t filled either 1 in 6 months today tells me she actually has not been [facility] to [facility] [facility] months I had done [...] back on the Eliquis immediately. I h ave told her she should restart pantoprazole for [...] been denied she does not have a cadea rdian I am not at all convinced [...] a re-titration. We know she has sleep bond runner ea. She had desaturations documented in 2018 [...] home study she needs it in the [facility] l study will have staff follow through [...] her pillboxes and some support from my o [facility] staff and myself we can get her [...] of anesthesi a for colonoscopy faxed previous [address] Bee and I think [...] her. 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 She has depression and anxiety. She [...] to continue Eliquis and I will make ge [facility] surgery referral.. We discussed that although [...] issue for her. Colonoscopy was clear in 2017. She was n ot anemic in April. [...] have done a detailed letter to Dr. Matt er and ask his second opinion if he [...] not take Eliquis t emperatriz. Go to [facility] and take Eliquis 5mg immediately and then another one tonight and then BID. She will stay on for a year. Consult Pulmonology. I will place consult to [facility] ronda covarrubias that is what Dr. [...] her fatigue Patient had further work-up with machine rigger. 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 [address] [facility] [address] [address] Montelongo is on vacation so you w ill be seen by Dr Rodriguez in the same office Guy Rodriguez DO Work Phone: [facility] [address] [facility] [address] [facility] [address] K21.9 - Gastro-esophageal reflux disease without esophagitis November 23, 2019 Luis Felipe Barcenasedi [facility] [address] [facility]; [address] [facility] [address] Future Procedures Future procedure information is unavailable Future Medications Future medication information is unavailable Patient Instructions Pulmonary Embolism (DC) Heart Healthy Diet (DC) Apixaban (By mouth) Abdominal Pain (ED) Social History Smoking Status Status Date of Observation Former smoker March 14, 2020 2: 17pm Observation Status Date of Observation Not January 30, 2020 Observation Status Observation Response Valente e of Response Smoking Status Former smoker March 14, 2020 2:17pm Alcohol Use Yes March 14, 2020 2:17pm Substance Use No Decembe r 2019 2:17pm Inhalant Use No January 30, 2020 4:49pm When did patient quit smoking? 1991January 30, 2020 4:49pm Smoking quit date 03/30/90 May 09, 2019 9:00pm Assigned Sex Female Vital Signs Vital Reading Result Ref erence Range Collection Date/Time Height 64 [in_i] May 11, 2019 8:24am Weight 291.00 [lb_av] May 11, 2019 8:24am Body Temperature 979 [degF] 97.6-99.5 May 11, 2019 7:54am Heart Rate 72 /min 60-100 May 11, 2019 7:58am Respiratory rate 16 /min -May 11, 2019 7:54am Oxygen saturation by Pulse [...] 16, 2019 2:18pm Respiratory rate 18 /min -24 May 16, 2019 2:18pm Oxygen saturation by Pulse [...] 24, 2019 11:30am Respiratory rate 20 /min -June 24, 2019 11:30am Oxygen saturation by Pulse [...] 20, 2019 12:59pm Respiratory rate 20 /min -July 20, 2019 12:59pm Oxygen saturation by Pulse [...] 12, 2019 1:16pm Respiratory rate 16 /min -August 12, 2019 1:16pm Oxygen saturation by Pulse [...] 14, 2019 11:44am Respiratory rate 20 /min 12-24 September 14, 2019 11:44am Oxygen saturation by Pulse [...] 18, 2019 12:43pm Respiratory rate 18 /min 12-October 18, 2019 12:43pm Oxygen saturation by Pulse [...] 28, 2019 9:34am Respiratory rate 20 /min -October 28, 2019 9:34am Oxygen saturation by Pulse [...] 23, 2019 3:44pm Respiratory rate 18 /min -November 23, 2019 3:44pm Oxygen saturation by Pulse [...] 14, 2020 8:27pm Respiratory rate 18 /min 12-24 March 14, 2020 8:27pm Oxygen saturation by Pulse oximetry 100 % 95-100 March 14, 2020 8:27pm BP Systolic 123 mm[Hg] March 14, 2020 8:27pm BP Diastolic 71 mm[Hg] March 14, 2020 8:27pm Hospital Discharge Instructions
--- OUTSIDE RECORDS SUMMARY | 2020-05-25 11:58 | CCD ---
Author Author [facility] Organization [facility] Address Unknown Phone Unavailable Care Team Providers Care Services Coordinator Name Role Phone Lisa [phone] MD Ephraim FRANKLIN Unavailable Unavailable Lisa [phone] MD Ephraim FRANKLIN Unavailable Unavailable Lisa [phone] MD Ephraim FRANKLIN Unavailable Unavailable CUONG, LAURA Unavailable Unavailable ROME Peres Unavailable Unavailable Antwan Stanley MD Unavailable Unavailable Antwan Stanley MD Unavailable Unavailable Antwan Stanley MD Unavailable Unavailable Antwan Stanley MD Unavailable Unavailable Antwan Stanley MD Unavailable Unavailable Antwan Stanley MD Unavailable Unavailable Antwan Stanley MD Unavailable Unavailable Antwan Stanley MD Unavailable Unavailable Antwan Stanley MD Unavailable Unavailable Antwan Stanley MD Unavailable Unavailable Lizeth, Antwan Latif MD Unavailable Unavailable KOPIDLANSKY, Monique FOX SILVERWARE ETCHER-CLOTH LAMINATING SUPERVISOR-C Unavailable Unava ilable KOPIDLANSKY, Monique FOX SILVERWARE ETCHER-CLOTH LAMINATING SUPERVISOR-C Unavailable Unava ilable KOPIDLANSKY, Monique FOX APRN-CLOTH LAMINATING SUPERVISOR-C Unavailable Unava ilable KOPIDLANSKY, Monique FOX APRN-CLOTH LAMINATING SUPERVISOR-C Unavailable Unava ilable KOPIDLANSKY, Monique FOX APRN-CLOTH LAMINATING SUPERVISOR-C Unavailable Unava ilable KOPIDLANSKY, Monique FOX APRN-CLOTH LAMINATING SUPERVISOR-C Unavailable Unava ilable KOPIDLANSKY, Monique FOX APRN-CLOTH LAMINATING SUPERVISOR-C Unavailable Unava ilable KOPIDLANSKY, Monique FOX APRN-CLOTH LAMINATING SUPERVISOR-C Unavailable Unava ilable KOPIDLANSKY, Monique FOX APRN-CLOTH LAMINATING SUPERVISOR-C Unavailable Unava ilable KOPIDLANSKY, Monique FOX APRN-CLOTH LAMINATING SUPERVISOR-C Unavailable Unava ilable KOPIDLANSKY, Monique FOX APRN-CLOTH LAMINATING SUPERVISOR-C Unavailable Unava ilable KOPIDLANSKY, Monique FOX APRN-CLOTH LAMINATING SUPERVISOR-C Unavailable Unava ilable KOPIDLANSKY, Monique FOX APRN-CLOTH LAMINATING SUPERVISOR-C Unavailable Unava ilable KOPIDLANSKY, Monique FOX APRN-CLOTH LAMINATING SUPERVISOR-C Unavailable Unava ilable KOPIDLANSKY, Monique FOX APRN-CLOTH LAMINATING SUPERVISOR-C Unavailable Unava ilable KOPIDLANSKY, Monique FOX APRN-CLOTH LAMINATING SUPERVISOR-C Unavailable Unava ilable KOPIDLANSKY, Monique FOX APRN-CLOTH LAMINATING SUPERVISOR-C Unavailable Unava ilable KOPIDLANSKY, Monique FOX APRN-CLOTH LAMINATING SUPERVISOR-C Unavailable Unava ilable KOPIDLANSKY, Monique FOX SILVERWARE ETCHER-CLOTH LAMINATING SUPERVISOR-C Unavailable Unava ilable KOPIDLANSKY, Monique FOX SILVERWARE ETCHER-CLOTH LAMINATING SUPERVISOR-C Unavailable Unava ilable KOPIDLANSKY, Monique FOX SILVERWARE ETCHER-CLOTH LAMINATING SUPERVISOR-C Unavailable Unava ilable KOPIDLANSKY, Monique FOX APRN-CLOTH LAMINATING SUPERVISOR-C Unavailable Unava ilable KOPIDLANSKY, Monique FOX SILVERWARE ETCHER-CLOTH LAMINATING SUPERVISOR-C Unavailable Unava ilable Adi, A Migdalia WHEAT CLEANER Unavailable Unavailable Adi, A Migdalia WHEAT CLEANER Unavailable Unavailable Adi, A Migdalia WHEAT CLEANER Unavailable Unavailable Adi, A Migdalia WHEAT CLEANER Unavailable Unavailable Adi, A Migdalia WHEAT CLEANER Unavailable Unavailable Adi, A Migdalia WHEAT CLEANER Unavailable Unavailable Adi, A Migdalia WHEAT CLEANER Unavailable Unavailable Adi, A Migdalia WHEAT CLEANER Unavailable Unavailable Adi, A Migdalia WHEAT CLEANER Unavailable Unavailable Adi, A Migdalia WHEAT CLEANER Unavailable Unavailable Adi, A Migdalia WHEAT CLEANER Unavailable Unavailable Adi, A Migdalia WHEAT CLEANER Unavailable Unavailable Adi, A Migdalia WHEAT CLEANER Unavailable Unavailable Adi, A Migdalia WHEAT CLEANER Unavailable Unavailable Adi, A Migdalia WHEAT CLEANER Unavailable Unavailable Adi, A Migdalia WHEAT CLEANER Unavailable Unavailable Adi, A Migdalia WHEAT CLEANER Unavailable Unavailable Adi, A Migdalia WHEAT CLEANER Unavailable Unavailable Adi, A Migdalia WHEAT CLEANER Unavailable Unavailable Adi, A Migdalia WHEAT CLEANER Unavailable Unavailable Adi, A Migdalia WHEAT CLEANER Unavailable Unavailable Adi, A Migdalia WHEAT CLEANER Unavailable Unavailable Adi, A Migdalia WHEAT CLEANER Unavailable Unavailable Adi, A Migdalia WHEAT CLEANER Unavailable Unavailable Adi, A Migdalia WHEAT CLEANER Unavailable Unavailable Adi, A Migdalia WHEAT CLEANER Unavailable Unavailable Adi, A Migdalia WHEAT CLEANER Unavailable Unavailable Adi, A Migdalia WHEAT CLEANER Unavailable Unavailable Adi, A Migdalia WHEAT CLEANER Unavailable Unavailable Adi, A Migdalia WHEAT CLEANER Unavailable Unavailable Adi, A Migdalia WHEAT CLEANER Unavailable Unavailable Adi, A Migdalia WHEAT CLEANER Unavailable Unavailable Adi, A Migdalia WHEAT CLEANER Unavailable Unavailable Adi, A Migdalia WHEAT CLEANER Unavailable Unavailable Adi, A Migdalia WHEAT CLEANER Unavailable Unavailable Adi, A Migdalia WHEAT CLEANER Unavailable Unavailable Adi, A Migdalia WHEAT CLEANER Unavailable Unavailable Adi, A Migdalia WHEAT CLEANER Unavailable Unavailable Jennifer, P Guy DO Unavailable Unavailable Jennifer, P Guy DO Unavailable Unavailable Jennifer, P Guy DO Unavailable Unavailable Jennifer, P Guy DO Unavailable Unavailable Jennifer, P Guy DO Unavailable Unavailable Jennifer, P Guy DO Unavailable Unavailable Jennifer, P Guy DO Unavailable Unavailable Jennifer, P Guy DO Unavailable Unavailable Jennifer, P Guy DO Unavailable Unavailable Jennifer, P Guy DO Unavailable Unavailable Jennifer, P Guy DO Unavailable Unavailable Jennifer, P Guy DO Unavailable Unavailable Jennifer, P Guy DO Unavailable Unavailable Jennifer, P Guy DO Unavailable Unavailable Jennifer, P Guy DO Unavailable Unavailable Jennifer, P Guy DO Unavailable Unavailable Jennifer, P Guy DO Unavailable Unavailable Jennifer, P Guy DO Unavailable Unavailable Jennifer, P Guy DO Unavailable Unavailable Jennifer, P Guy DO Unavailable Unavailable Jennifer, P Guy DO Unavailable Unavailable Jennifer, P Guy DO Unavailable Unavailable Jennifer, P Guy DO Unavailable Unavailable Jennifer, P Guy DO Unavailable Unavailable Jennifer, P Guy DO Unavailable Unavailable Jennifer, P Guy DO Unavailable Unavailable Jennifer, P Guy DO Unavailable Unavailable Jennifer, P Guy DO Unavailable Unavailable Jennifer, P Guy DO Unavailable Unavailable Jennifer, P Guy DO Unavailable Unavailable Jennifer, P Guy DO Unavailable Unavailable Jennifer, P Guy DO Unavailable Unavailable Jennifer, P Guy DO Unavailable Unavailable Jennifer, P Guy DO Unavailable Unavailable Jennifer, P Guy DO Unavailable Unavailable Jennifer, P Guy DO Unavailable Unavailable Jennifer, P Guy DO Unavailable Unavailable Jennifer, P Guy DO Unavailable Unavailable Jennifer, P Guy DO Unavailable Unavailable Jennifer, P Guy DO Unavailable Unavailable Jennifer, P Guy DO Unavailable Unavailable Jennifer, P Guy DO Unavailable Unavailable Jennifer, P Guy DO Unavailable Unavailable Jennifer, P Guy DO Unavailable Unavailable Jennifer, P Guy DO Unavailable Unavailable Jennifer, P Guy DO Unavailable Unavailable Jennifer, P Guy DO Unavailable Unavailable Jennifer, P Guy DO Unavailable Unavailable Jennifer, P Guy DO Unavailable Unavailable Jennifer, P Guy DO Unavailable Unavailable Jennifer, P Guy DO Unavailable Unavailable Jennifer, P Guy DO Unavailable Unavailable Jennifer, P Guy DO Unavailable Unavailable Jennifer, P Guy DO Unavailable Unavailable Jennifer, P Guy DO Unavailable Unavailable Jennifer, P Guy DO Unavailable Unavailable Jennifer, P Guy DO Unavailable Unavailable Jennifer, P Guy DO Unavailable Unavailable Jennifer, P Guy DO Unavailable Unavailable Jennifer, P Guy DO Unavailable Unavailable Jennifer, P Guy DO Unavailable Unavailable Jennifer, P Guy DO Unavailable Unavailable Jennifer, P Guy DO Unavailable Unavailable Jennifer, P Guy DO Unavailable Unavailable Jennifer, P Gyu DO Unavailable Unavailable Jennifer, P Guy DO Unavailable Unavailable Jennifer, P Guy DO Unavailable Unavailable Jennifer, P Guy DO Unavailable Unavailable Jennifer, P Guy DO Unavailable Unavailable Guy Quispe MD Unavailable Unavailable Giovanni DANG MD Unavailable Unavailable Giovanni DANG MD Unavailable Unavailable Giovanni DANG MD Unavailable Unavailable Giovanni DANG MD Unavailable Unavailable Giovanni DANG MD Unavailable Unavailable Giovanni DANG MD Unavailable Unavailable Giovanni DANG MD Unavailable Unavailable Giovanni DANG MD Unavailable Unavailable Giovanni DANG MD Unavailable Unavailable Giovanni DANG MD Unavailable Unavailable Giovanni DANG MD Unavailable Unavailable Giovanni DANG MD Unavailable Unavailable Giovanni DANG MD Unavailable Unavailable Giovanni DANG MD Unavailable Unavailable Giovanni DANG MD Unavailable Unavailable Giovanni DANG MD Unavailable Unavailable Giovanni DANG MD Unavailable Unavailable Giovanni DANG MD Unavailable Unavailable Giovanni DANG MD Unavailable Unavailable Giovanni DANG MD Unavailable Unavailable Giovanni DANG MD Unavailable Unavailable Giovanni DANG MD Unavailable Unavailable Giovanni DANG MD Unavailable Unavailable Giovanni DANG MD Unavailable Unavailable Giovanni DANG MD Unavailable Unavailable Giovanni DANG MD Unavailable Unavailable Giovanni DANG MD Unavailable Unavailable Giovanni DANG MD Unavailable Unavailable Giovanni DANG MD Unavailable Unavailable Giovanni DANG MD Unavailable Unavailable Giovanni DANG MD Unavailable Unavailable Giovanni DANG MD Unavailable Unavailable Giovanni DANG MD Unavailable Unavailable Giovanni DANG MD Unavailable Unavailable Giovanni DANG MD Unavailable Unavailable Giovanni DANG MD Unavailable Unavailable Giovanni DANG MD Unavailable Unavailable Giovanni DANG MD Unavailable Unavailable Giovanni DANG MD Unavailable Unavailable Giovanni DANG MD Unavailable Unavailable Giovanni DANG MD Unavailable Unavailable Giovanni DANG MD Unavailable Unavailable Giovanni DANG MD Unavailable Unavailable Giovanni DANG MD Unavailable Unavailable Giovanni DANG MD Unavailable Unavailable Giovanni DANG MD Unavailable Unavailable Giovanni DANG MD Unavailable Unavailable Giovanni DANG MD Unavailable Unavailable Giovanni DANG MD Unavailable Unavailable Giovanni DANG MD Unavailable Unavailable Giovanni DANG MD Unavailable Unavailable Giovanni DANG MD Unavailable Unavailable Mary CHAVEZ MD Unavailable Unavailable Mary CHAVEZ MD Unavailable Unavailable Mary CHAVEZ MD Unavailable Unavailable Mary CHAVEZ MD Unavailable Unavailable Mary CHAVEZ MD Unavailable Unavailable JIMMIE, P FAWAD MD Unavailable Unavailable JIMMIE, P FAWAD MD Unavailable Unavailable JIMMIE, P FAWAD MD Unavailable Unavailable JIMMIE, P FAWAD MD Unavailable Unavailable JIMMIE, P FAWAD MD Unavailable Unavailable JIMMIE, P FAWAD MD Unavailable Unavailable JIMMIE, P FAWAD MD Unavailable Unavailable JIMMIE, P FAWAD MD Unavailable Unavailable JIMMIE, P FAWAD MD Unavailable Unavailable JIMMIE, P FAWAD MD Unavailable Unavailable JIMMIE, P FAWAD MD Unavailable Unavailable JIMMIE, P FAWAD MD Unavailable Unavailable JIMMIE, P FAWAD MD Unavailable Unavailable JIMMIE, P FAWAD MD Unavailable Unavailable JIMMIE, P FAWAD MD Unavailable Unavailable JIMMIE, P FAWAD MD Unavailable Unavailable JIMMIE, P FAWAD MD Unavailable Unavailable JIMMIE, P FAWAD MD Unavailable Unavailable JIMMIE, P FAWAD MD Unavailable Unavailable JIMMIE, P FAWAD MD Unavailable Unavailable JIMMIE, P FAWAD MD Unavailable Unavailable JIMMIE, P FAWAD MD Unavailable Unavailable JIMMIE, P FAWAD MD Unavailable Unavailable JIMMIE, P FAWAD MD Unavailable Unavailable JIMMIE, P FAWAD MD Unavailable Unavailable JIMMIE, P FAWAD MD Unavailable Unavailable JIMMIE, P FAWAD MD Unavailable Unavailable JIMMIE, P FAWAD MD Unavailable Unavailable JIMMIE, P FAWAD MD Unavailable Unavailable JIMMIE, P FAWAD MD Unavailable Unavailable JIMMIE, P FAWAD MD Unavailable Unavailable JIMMIE, P FAWAD MD Unavailable Unavailable JIMMIE, P FAWAD MD Unavailable Unavailable JIMMIE, P FAWAD MD Unavailable Unavailable JIMMIE, P FAWAD MD Unavailable Unavailable JIMMIE, P FAWAD MD Unavailable Unavailable JIMMIE, P FAWAD MD Unavailable Unavailable JIMMIE, P FAWAD MD Unavailable Unavailable JIMMIE, P FAWAD MD Unavailable Unavailable JIMMIE, P FAWAD MD Unavailable Unavailable JIMMIE, P FAWAD MD Unavailable Unavailable JIMMIE, P FAWAD MD Unavailable Unavailable JIMMIE, P FAWAD MD Unavailable Unavailable JIMMIE, P FAWAD MD Unavailable Unavailable JIMMIE, P FAWAD MD Unavailable Unavailable JIMMIE, P FAWAD MD Unavailable Unavailable JIMMIE, P FAWAD MD Unavailable Unavailable JIMMIE, P FAWAD MD Unavailable Unavailable JIMMIE, P FAWAD MD Unavailable Unavailable JIMMIE, P FAWAD MD Unavailable Unavailable JIMMIE, P FAWAD MD Unavailable Unavailable JIMMIE, P FAWAD MD Unavailable Unavailable JIMMIE, P FAWAD MD Unavailable Unavailable JIMMIE, P FAWAD MD Unavailable Unavailable JIMMIE, P FAWAD MD Unavailable Unavailable JIMMIE, P FAWAD MD Unavailable Unavailable Fajardo, Rambhai Shane MD Unavailable Unavailable Fajardo, Cecil Lynn MD Unavailable Unavailable Fajardo, Cecil Lynn MD Unavailable Unavailable Fajardo, Cecil Lynn MD Unavailable Unavailable Fajardo, Cecil Lynn MD Unavailable Unavailable Fajardo, Cecil Lynn MD Unavailable Unavailable Fajardo, Cecil Lynn MD Unavailable Unavailable Fajardo, Cecil Lynn MD Unavailable Unavailable Fajardo, Cecil Lynn MD Unavailable Unavailable Fajardo, Cecil Lynn MD Unavailable Unavailable Fajardo, Cecil Lynn MD Unavailable Unavailable Fajardo, Ceicl Lynn MD Unavailable Unavailable Fajardo, Cecil Lynn MD Unavailable Unavailable Fajardo, Cecil Lynn MD Unavailable Unavailable Fajardo, Cecil Lynn MD Unavailable Unavailable Fajardo, Cecil Lynn MD Unavailable Unavailable Fajardo, Cecil Lynn MD Unavailable Unavailable Fajardo, Cecil Lynn MD Unavailable Unavailable Fajardo, Cecil Lynn MD Unavailable Unavailable Fajardo, Cecil Lynn MD Unavailable Unavailable Fajardo, Cecil Lynn MD Unavailable Unavailable Fajardo, Cecil Lynn MD Unavailable Unavailable Fajardo, Cecil Lynn MD Unavailable Unavailable Fajardo, Cecil Lynn MD Unavailable Unavailable Fajardo, Cecil Lynn MD Unavailable Unavailable Fajardo, Cecil Lynn MD Unavailable Unavailable Fajardo, Cecil Lynn MD Unavailable Unavailable Fajardo, Cecil Lynn MD Unavailable Unavailable Fajardo, Cecil Lynn MD Unavailable Unavailable Fajardo, Cecil Lynn MD Unavailable Unavailable Fajardo, Cecil Lynn MD Unavailable Unavailable Fajardo, Cecil Lynn MD Unavailable Unavailable Fajardo, Cecil Lynn MD Unavailable Unavailable Fajardo, Cecil Lynn MD Unavailable Unavailable Fajardo, Cecil Lynn MD Unavailable Unavailable Fajardo, Cecil Lynn MD Unavailable Unavailable Fajardo, Cecil Lynn MD Unavailable Unavailable Fajardo, Cecil Lynn MD Unavailable Unavailable Fajardo, Cecil Lynn MD Unavailable Unavailable Fajardo, Cecil Lynn MD Unavailable Unavailable Fajardo, Cecil Lynn MD Unavailable Unavailable Fajardo, Cecil Lynn MD Unavailable Unavailable Fajardo, Cecil Lynn MD Unavailable Unavailable Fajardo, Cecil Lynn MD Unavailable Unavailable Fajardo, Cecil Lynn MD Unavailable Unavailable Fajardo, Cecil Lynn MD Unavailable Unavailable Cecil Fajardo MD Unavailable Unavailable Cecil Fajardo MD Unavailable Unavailable Cecil Fajardo MD Unavailable Unavailable Cecil Fajardo MD Unavailable Unavailable Cecil Fajardo MD Unavailable Unavailable Cecil Fajardo MD Unavailable Unavailable Cecil Fajardo MD Unavailable Unavailable Cecil Fajardo MD Unavailable Unavailable Cecil Fajardo MD Unavailable Unavailable Cecil Fajardo MD Unavailable Unavailable Cecil Fajardo MD Unavailable Unavailable Bartolome Bee MD Unavailable Unavailable Bartolome Bee MD Unavailable Unavailable Bartolome Bee MD Unavailable Unavailable Bartolome Bee MD Unavailable Unavailable Bartolome Bee MD Unavailable Unavailable Bartolome Bee MD Unavailable Unavailable Bartolome Bee MD Unavailable Unavailable Bartolome Bee MD Unavailable Unavailable Bartolome Bee MD Unavailable Unavailable Bartolome Bee MD Unavailable Unavailable Bartolome Bee MD Unavailable Unavailable Bartolome Bee MD Unavailable Unavailable Bartolome Bee MD Unavailable Unavailable Bartolome Bee MD Unavailable Unavailable Bartolome Bee MD Unavailable Unavailable Bartolome Bee MD Unavailable Unavailable Bartolome Bee MD Unavailable Unavailable Bartolome Bee MD Unavailable Unavailable Bartolome Bee MD Unavailable Unavailable Bartolome Bee MD Unavailable Unavailable Bartolome Bee MD Unavailable Unavailable Bartolome Bee MD Unavailable Unavailable Bartolome Bee MD Unavailable Unavailable Bartolome Bee MD Unavailable Unavailable Bartolome Bee MD Unavailable Unavailable Bartolome Bee MD Unavailable Unavailable Bartolome Bee MD Unavailable Unavailable Bartolome Bee MD Unavailable Unavailable Bartolome Bee MD Unavailable Unavailable Bartolome Bee MD Unavailable Unavailable Bartolome Bee MD Unavailable Unavailable Bartolome Bee MD Unavailable Unavailable Bartolome Bee MD Unavailable Unavailable Bartolome Bee MD Unavailable Unavailable Bartolome Bee MD Unavailable Unavailable Bartolome Bee MD Unavailable Unavailable Bartolome Bee MD Unavailable Unavailable Bartolome Bee MD Unavailable Unavailable Bartolome Bee MD Unavailable Unavailable Bartolome Bee MD Unavailable Unavailable Bartolome Bee MD Unavailable Unavailable Bartolome Bee MD Unavailable Unavailable Bartolome Bee MD Unavailable Unavailable Bartolome Bee MD Unavailable Unavailable Bartolome Bee MD Unavailable Unavailable Bartolome Bee MD Unavailable Unavailable Bartolome Bee MD Unavailable Unavailable Bartolome Bee MD Unavailable Unavailable Bartolome Bee MD Unavailable Unavailable Bartolome Bee MD Unavailable Unavailable Bartolome Bee MD Unavailable Unavailable Reeves, N Su PA-C Unavailable Unavailable Reeves, N Su PA-C Unavailable Unavailable Reeves, N Su PA-C Unavailable Unavailable Reeves, N Su PA-C Unavailable Unavailable Reeves, N Su PA-C Unavailable Unavailable Reeves, N Su PA-C Unavailable Unavailable Sandor-Jorgensen, Hillary DO Unavailable Unavailable Sandor-Jorgensen, Hillary DO Unavailable Unavailable [place]-Jorgensen, Hillary DO Unavailable Unavailable [place]-Jorgensen, Hillary DO Unavailable Unavailable Sandor-Jorgensen, Hillary DO Unavailable Unavailable [place]-Jorgensen, Hillary DO Unavailable Unavailable [place]-Jorgensen, Hillary DO Unavailable Unavailable Sandor-Jorgensen, Hillary DO Unavailable Unavailable Sandor-Jorgensen, Hillary DO Unavailable Unavailable [place]-Jorgensen, Hillary DO Unavailable Unavailable Sandor-Jorgensen, Hillary DO Unavailable Unavailable Sandor-Jorgensen, Hillary DO Unavailable Unavailable Sandor-Jorgensen, Hillary DO Unavailable Unavailable [place]-Jorgensen, Hillary DO Unavailable Unavailable Sandor-Jorgensen, Hillary DO Unavailable Unavailable [place]-Jorgensen, Hillary DO Unavailable Unavailable Sandor-Jorgensen, Hillary DO Unavailable Unavailable [place]-Jorgensen, Hillary DO Unavailable Unavailable Sandor-Jorgensen, Hillary DO Unavailable Unavailable Sandor-Jorgensen, Hillary DO Unavailable Unavailable [place]-Jorgensen, Hillary DO Unavailable Unavailable Sandor-Jorgensen, Hillary DO Unavailable Unavailable [place]-Jorgensen, Hillary DO Unavailable Unavailable [place]-Jorgensen, Hillary DO Unavailable Unavailable Sandor-Jorgensen, Hillary DO Unavailable Unavailable [place]-Jorgensen, Hillary DO Unavailable Unavailable Sandor-Jorgensen, Hillary DO Unavailable Unavailable [place]-Jorgensen, Hillary DO Unavailable Unavailable [place]-Jorgensen, Hillary DO Unavailable Unavailable [place]-Jorgensen, Hillary DO Unavailable Unavailable [place]-Jorgensen, Hillary DO Unavailable Unavailable Sandor-Jorgensen, Hillary DO Unavailable Unavailable Sandor-Jorgensen, Hillary DO Unavailable Unavailable [place]-Jorgensen, Hillary DO Unavailable Unavailable Sandor-Jorgensen, Hillary DO Unavailable Unavailable [place]-Jorgensen, Hillary DO Unavailable Unavailable Sandor-Jorgensen, Hillary DO Unavailable Unavailable Sandor-Jorgensen, Hillary DO Unavailable Unavailable Sandor-Jorgensen, Hillary DO Unavailable Unavailable Sandor-Jorgensen, Hillary DO Unavailable Unavailable [place]-Jorgensen, Hillary DO Unavailable Unavailable [place]-Jorgensen, Hillary DO Unavailable Unavailable Sandor-Jorgensen, Hillary DO Unavailable Unavailable [place]-Jorgensen, Hillary DO Unavailable Unavailable [place]-Jorgensen, Hillary DO Unavailable Unavailable [place]-Jorgensen, Hillary DO Unavailable Unavailable [place]-Jorgensen, Hillary DO Unavailable Unavailable Sandor-Jorgensen, Hillary DO Unavailable Unavailable Sandor-Jorgensen, Hillary DO Unavailable Unavailable Sandor-Jorgensen, Hillary DO Unavailable Unavailable Sandor-Jorgensen, Hillary DO Unavailable Unavailable [place]-Jorgensen, Hillary DO Unavailable Unavailable Sandor-Jorgensen, Hillary DO Unavailable Unavailable [place]-Jorgensen, Hillary DO Unavailable Unavailable [place]-Jorgensen, Hillary DO Unavailable Unavailable [place]-Jorgensen, Hillary DO Unavailable Unavailable Sandor-Jorgensen, Hillary DO Unavailable Unavailable [place]-Jorgensen, Hillary DO Unavailable Unavailable [place]-Jorgensen, Hillary DO Unavailable Unavailable [place]-Jorgensen, Hillary DO Unavailable Unavailable Sandor-Jorgensen, Hillary DO Unavailable Unavailable [place]-Jorgensen, Hillary DO Unavailable Unavailable Sandor-Jorgensen, Hillary DO Unavailable Unavailable Sandor-Jorgensen, Hillary DO Unavailable Unavailable [place]-Jorgensen, Hillary DO Unavailable Unavailable [place]-Jorgensen, Hillary DO Unavailable Unavailable [place]-Jorgensen, Hillary DO Unavailable Unavailable [place]-Joregnsen, Hillary DO Unavailable Unavailable Sandor-Jorgensen, Hillary DO Unavailable Unavailable Sandor-Jorgensen, Hillary DO Unavailable Unavailable [place]-Jorgensen, Hillary DO Unavailable Unavailable PARSHALL, A ANAYA MD Unavailable Unavailable PARSHALL, A ANAYA MD Unavailable Unavailable PARSHALL, A ANAYA MD Unavailable Unavailable PARSHALL, A ANAYA MD Unavailable Unavailable PARSHALL, A ANAYA MD Unavailable Unavailable PARSHALL, A ANAYA MD Unavailable Unavailable PARSHALL, A ANAYA MD Unavailable Unavailable PARSHALL, A ANAYA MD Unavailable Unavailable PARSHALL, A ANAYA MD Unavailable Unavailable PARSHALL, A ANAYA MD Unavailable Unavailable PARSHALL, A ANAYA MD Unavailable Unavailable PARSHALL, A ANAYA MD Unavailable Unavailable PARSHALL, A ANAYA MD Unavailable Unavailable PARSHALL, A ANAYA MD Unavailable Unavailable PARSHALL, A ANAYA MD Unavailable Unavailable PARSHALL, A ANAYA MD Unavailable Unavailable PARSHALL, A ANAYA MD Unavailable Unavailable PARSHALL, A ANAYA MD Unavailable Unavailable PARSHALL, A ANAYA MD Unavailable Unavailable PARSHALL, A ANAYA MD Unavailable Unavailable PARSHALL, Anthony JULIEN MD Unavailable Unavailable PARSHALL, Anthony JULIEN MD Unavailable Unavailable PARSHALL, Anthony JULIEN MD Unavailable Unavailable PARSHALL, Anthony JULIEN MD Unavailable Unavailable PARSHALL, Anthony JULIEN MD Unavailable Unavailable PARSHALL, Anthony JULEIN MD Unavailable Unavailable PARSHALL, Anthony JULIEN MD Unavailable Unavailable PARSHALL, Anthony JULIEN MD Unavailable Unavailable Ramos Gray MD Unavailable Unavailable Ramos Gray MD Unavailable Unavailable Ramos Gray MD Unavailable Unavailable Ramos Gray MD Unavailable Unavailable Ramos Gray MD Unavailable Unavailable Ramos Gray MD Unavailable Unavailable Ramos Gray MD Unavailable Unavailable Ramos Gray MD Unavailable Unavailable Ramos Gray MD Unavailable Unavailable Ramos Gray MD Unavailable Unavailable Ramos Gray MD Unavailable Unavailable Ramos Gray MD Unavailable Unavailable Ramos Gray MD Unavailable Unavailable Ramos Gray MD Unavailable Unavailable Ramos Gray MD Unavailable Unavailable Ramos Gray MD Unavailable Unavailable Ramos Gray MD Unavailable Unavailable Ramos Gray MD Unavailable Unavailable Ramos Gray MD Unavailable Unavailable Ramos Gray MD Unavailable Unavailable Ramos Gray MD Unavailable Unavailable Ramos Gray MD Unavailable Unavailable Ramos Gray MD Unavailable Unavailable Ramos Gray MD Unavailable Unavailable Ramos Gray MD Unavailable Unavailable Ramos Gray MD Unavailable Unavailable Ramos Gray MD Unavailable Unavailable Hamo, M Salena WHEAT CLEANER Unavailable Unavailable Hamo, M Salena WHEAT CLEANER Unavailable Unavailable Hamo, M Salena WHEAT CLEANER Unavailable Unavailable Hamo, M Salena WHEAT CLEANER Unavailable Unavailable Hamo, M Salena WHEAT CLEANER Unavailable Unavailable Hamo, M Salena WHEAT CLEANER Unavailable Unavailable Hamo, M Salena WHEAT CLEANER Unavailable Unavailable Hamo, M Salena WHEAT CLEANER Unavailable Unavailable Hamo, M Salena WHEAT CLEANER Unavailable Unavailable Hamo, M Salena WHEAT CLEANER Unavailable Unavailable Hamo, M Salena WHEAT CLEANER Unavailable Unavailable Hamo, M Salena WHEAT CLEANER Unavailable Unavailable Hamo, M Salena WHEAT CLEANER Unavailable Unavailable Hamo, M Salena WHEAT CLEANER Unavailable Unavailable Hamo, M Salena WHEAT CLEANER Unavailable Unavailable Hamo, M Salena WHEAT CLEANER Unavailable Unavailable Hamo, M Salena WHEAT CLEANER Unavailable Unavailable Hamo, M Salena WHEAT CLEANER Unavailable Unavailable Hamo, M Salena WHEAT CLEANER Unavailable Unavailable Hamo, M Salena WHEAT CLEANER Unavailable Unavailable Hamo, M Salena WHEAT CLEANER Unavailable Unavailable Sandor-Jorgensen, Hillary DO Unavailable Unavailable Sandor-Jorgensen, Hillary DO Unavailable Unavailable [place]-Jorgensen, Hillary DO Unavailable Unavailable Sandor-Jorgensen, Hillary DO Unavailable Unavailable Sandor-Jorgensen, Hillary DO Unavailable Unavailable [place]-Jorgensen, Hillary DO Unavailable Unavailable Sandor-Jorgensen, Hillary DO Unavailable Unavailable [place]-Jorgensen, Hillary DO Unavailable Unavailable [place]-Jorgensen, Hillary DO Unavailable Unavailable [place]-Jorgensen, Hillary DO Unavailable Unavailable [place]-Jorgensen, Hillary DO Unavailable Unavailable [place]-Jorgensen, Hillary DO Unavailable Unavailable [place]-Jorgensen, Hillary DO Unavailable Unavailable [place]-Jorgensen, Hillary DO Unavailable Unavailable Sandor-Jorgensen, Hillary DO Unavailable Unavailable Sandor-Jorgensen, Hillary DO Unavailable Unavailable [place]-Jorgensen, Hillary DO Unavailable Unavailable [place]-Ojrgensen, Hillary DO Unavailable Unavailable Sandor-Jorgensen, Hillary DO Unavailable Unavailable [place]-Jorgensen, Hillary DO Unavailable Unavailable Sandor-Jorgensen, Hillary DO Unavailable Unavailable [place]-Jorgensen, Hillary DO Unavailable Unavailable [place]-Jorgensen, Hillary DO Unavailable Unavailable Sandor-Jorgensen, Hillary DO Unavailable Unavailable [place]-Jorgensen, Hillary DO Unavailable Unavailable Sandor-Jorgensen, Hillary DO Unavailable Unavailable [place]-Jorgensen, Hillary DO Unavailable Unavailable Sandor-Jorgensen, Hillary DO Unavailable Unavailable [place]-Jorgensen, Hillary DO Unavailable Unavailable Sandor-Jorgensen, Hillary DO Unavailable Unavailable Sandor-Jorgensen, Hillary DO Unavailable Unavailable [place]-Jorgensen, Hillary DO Unavailable Unavailable [place]-Jorgensen, Hillary DO Unavailable Unavailable [place]-Jorgensen, Hillary DO Unavailable Unavailable [place]-Jorgensen, Hillary DO Unavailable Unavailable [place]-Jorgensen, Hillary DO Unavailable Unavailable [place]-Jorgensen, Hillary DO Unavailable Unavailable [place]-Jorgensen, Hillary DO Unavailable Unavailable [place]-Jorgensen, Hillary DO Unavailable Unavailable [place]-Jorgensen, Hillary DO Unavailable Unavailable [place]-Jorgensen, Hillary DO Unavailable Unavailable [place]-Jorgensen, Hillary DO Unavailable Unavailable Sandor-Jorgensen, Hillary DO Unavailable Unavailable [place]-Jorgensen, Hillary DO Unavailable Unavailable Sandor-Jorgensen, Hillary DO Unavailable Unavailable Sandor-Jorgensen, Hillary DO Unavailable Unavailable Sandor-Jorgensen, Hillary DO Unavailable Unavailable Sandor-Jorgensen, Hillary DO Unavailable Unavailable [place]-Jorgensen, Hillary DO Unavailable Unavailable [place]Jorgensen, Hillary DO Unavailable Unavailable [place]-Jorgensen, Hillary DO Unavailable Unavailable Sandor-Jorgensen, Hillary DO Unavailable Unavailable Sandor-Jorgensen, Hillary DO Unavailable Unavailable [place]-Jorgensen, Hillary DO Unavailable Unavailable [place]Jorgensen, Hillary DO Unavailable Unavailable Sandor-Jorgensen, Hillary DO Unavailable Unavailable Sandor-Jorgensen, Hillary DO Unavailable Unavailable [place]-Jorgensen, Hillary DO Unavailable Unavailable Sandor-Jorgensen, Hillary DO Unavailable Unavailable Sandor-Jorgensen, Hillary DO Unavailable Unavailable Sandor-Jorgensen, Hillary DO Unavailable Unavailable [place]-Jorgensen, Hillary DO Unavailable Unavailable [place]Jorgensen, Hillary DO Unavailable Unavailable [place]Jorgensen, Hillary DO Unavailable Unavailable [place]Jorgensen, Hillary DO Unavailable Unavailable [place]Jorgensen, Hillary DO Unavailable Unavailable Sandor-Jorgensen, Hillary DO Unavailable Unavailable [place]-Jorgensen, Hillary DO Unavailable Unavailable Sandor-Jorgensen, Hillary DO Unavailable Unavailable Sandor-Jorgensen, Hillary DO Unavailable Unavailable [place]-Jorgensen, Hillary DO Unavailable Unavailable [facility]_23, NA Unavailable [phone] Jessica B Umu FRANKLIN Unavailable Unavailable [place], B Umu FRANKLIN Unavailable Unavailable [place], B Umu FRANKLIN Unavailable Unavailable [place], B Umu FRANKLIN Unavailable Unavailable [place], B Umu FRANKLIN Unavailable Unavailable [place], B Umu FRANKLIN Unavailable Unavailable [place], B Umu FRANKLIN Unavailable Unavailable [place], B Umu FRANKLIN Unavailable Unavailable [place], B Umu FRANKLIN Unavailable Unavailable [place], B Umu FRANKLIN Unavailable Unavailable [place], B Umu FRANKLIN Unavailable Unavailable [place], B Umu FRANKLIN Unavailable Unavailable DiBMary cornejo MD Unavailable Unavailable DiBellaMary MD Unavailable Unavailable DiBMary cornejo MD Unavailable Unavailable DiBellaMary MD Unavailable Unavailable DiBella, Mary Negrete MD Unavailable Unavailable DiBella, Mary Negrete MD Unavailable Unavailable Milla, Ade Sandoval MD Unavailable Unavailable Milla, Ade Sandoval MD Unavailable Unavailable Milla, Ade Sandoval MD Unavailable Unavailable Milla, Ade Sandoval MD Unavailable Unavailable Milla, Ade Sandoval MD Unavailable Unavailable Milla, Ade Sandoval MD Unavailable Unavailable Milla, Ade Sandoval MD Unavailable Unavailable Milla, Ade Sandoval MD Unavailable Unavailable Milla, Ade Sandoval MD Unavailable Unavailable Milla, Ade Sandoval MD Unavailable Unavailable Milla, Ade Sandoval MD Unavailable Unavailable Milla, Ade Sandoval MD Unavailable Unavailable Milla, Ade Sandoval MD Unavailable Unavailable Reeves, N Su PA-C Unavailable Unavailable Reeves, N Su PA-C Unavailable Unavailable Reeves, N Su PA-C Unavailable Unavailable Reeves, N Su PA-C Unavailable Unavailable Reeves, N Su PA-C Unavailable Unavailable Reeves, N Su PA-C Unavailable Unavailable Cally, A Addis PA Unavailable Unavailable Cally, A Addis PA Unavailable Unavailable Cally, A Addis PA Unavailable Unavailable Cally, A Addis PA Unavailable Unavailable Cally, A Addis PA Unavailable Unavailable Cally, A Addis PA Unavailable Unavailable Cally, A Addis PA Unavailable Unavailable Cally, A Addis PA Unavailable Unavailable Cally, A Addis PA Unavailable Unavailable Cally, A Addis PA Unavailable Unavailable Cally, A Addis PA Unavailable Unavailable Cally, A Addis PA Unavailable Unavailable Cally, A Addis PA Unavailable Unavailable Cally, A Addis PA Unavailable Unavailable Cally, A Addis PA Unavailable Unavailable Cally, A Addis PA Unavailable Unavailable Cally, A Addis PA Unavailable Unavailable Cally, A Addis PA Unavailable Unavailable Cally, A Addis PA Unavailable Unavailable Cally, A Addis PA Unavailable Unavailable Cally, A Addis PA Unavailable Unavailable Cally, A Addis PA Unavailable Unavailable Cally, A Addis PA Unavailable Unavailable Cally, A Addis PA Unavailable Unavailable Cally, A Addis PA Unavailable Unavailable Cally, A Addsi PA Unavailable Unavailable Cally, A Addis PA Unavailable Unavailable Cally, A Addis PA Unavailable Unavailable Cally, A Addis PA Unavailable Unavailable Cally, A Addis PA Unavailable Unavailable Cally, A Addis PA Unavailable Unavailable Cally, A Addis PA Unavailable Unavailable Cally, A Addis PA Unavailable Unavailable Cally, A Addis PA Unavailable Unavailable Cally, A Addis PA Unavailable Unavailable Cally, A Addis PA Unavailable Unavailable Cally, A Addis PA Unavailable Unavailable Cally, A Addis PA Unavailable Unavailable Cally, A Addis PA Unavailable Unavailable Cally, A Addis PA Unavailable Unavailable Cally, A Addis PA Unavailable Unavailable Cally, A Addis PA Unavailable Unavailable Cally, A Addis PA Unavailable Unavailable Cally, A Addis PA Unavailable Unavailable Cally, A Addis PA Unavailable Unavailable Cally, A Addis PA Unavailable Unavailable Cally, A Addis PA Unavailable Unavailable Cally, A Addis PA Unavailable Unavailable Cally, A Addis PA Unavailable Unavailable Cally, A Addis PA Unavailable Unavailable Cally, A Addis PA Unavailable Unavailable Cally, A Addis PA Unavailable Unavailable Cally, A Addis PA Unavailable Unavailable Cally, A Addis PA Unavailable Unavailable Cally, A Addis PA Unavailable Unavailable Adam, Anh WHEAT CLEANER Unavailable Unavailable Adam, Anh WHEAT CLEANER Unavailable Unavailable Adam, Anh WHEAT CLEANER Unavailable Unavailable Adam, Anh WHEAT CLEANER Unavailable Unavailable Adam, Anh WHEAT CLEANER Unavailable Unavailable Adam, Anh WHEAT CLEANER Unavailable Unavailable Adam, Anh WHEAT CLEANER Unavailable Unavailable Adam, Anh WHEAT CLEANER Unavailable Unavailable Adam, Anh WHEAT CLEANER Unavailable Unavailable Adam, Anh WHEAT CLEANER Unavailable Unavailable Adam, Anh WHEAT CLEANER Unavailable Unavailable Adam, Anh WHEAT CLEANER Unavailable Unavailable Adam, Anh WHEAT CLEANER Unavailable Unavailable Adam, Anh WHEAT CLEANER Unavailable Unavailable Adam, Anh WHEAT CLEANER Unavailable Unavailable Adam, Anh WHEAT CLEANER Unavailable Unavailable Adam, Anh WHEAT CLEANER Unavailable Unavailable Adam, Anh WHEAT CLEANER Unavailable Unavailable Adam, Anh WHEAT CLEANER Unavailable Unavailable Adam, Anh WHEAT CLEANER Unavailable Unavailable Adam, Anh WHEAT CLEANER Unavailable Unavailable Adam, Anh WHEAT CLEANER Unavailable Unavailable Adam, Anh WHEAT CLEANER Unavailable Unavailable Adam, Anh WHEAT CLEANER Unavailable Unavailable Adam, Anh WHEAT CLEANER Unavailable Unavailable Adam, Anh WHEAT CLEANER Unavailable Unavailable Adam, Anh WHEAT CLEANER Unavailable Unavailable Adam, Anh WHEAT CLEANER Unavailable Unavailable Adam, Anh WHEAT CLEANER Unavailable Unavailable Adam, Anh WHEAT CLEANER Unavailable Unavailable Adam, Anh WHEAT CLEANER Unavailable Unavailable Adam, Anh WHEAT CLEANER Unavailable Unavailable Adam, Ahn WHEAT CLEANER Unavailable Unavailable Adam, Anh WHEAT CLEANER Unavailable Unavailable Nawaf Medinaon WHEAT CLEANER Unavailable Unavailable Nawaf Medinaon WHEAT CLEANER Unavailable Unavailable Adam, Anh WHEAT CLEANER Unavailable Unavailable Adam, Anh WHEAT CLEANER Unavailable Unavailable Adam, Anh WHEAT CLEANER Unavailable Unavailable Adam, Anh WHEAT CLEANER Unavailable Unavailable Jr Curry Unavailable Unavailable ESEMUEDE, O DERRICK FRANKLIN Unavailable Unavailable ESEMUEDE, O DERRICK FRANKLIN Unavailable Unavailable ESEMUEDE, O DERRICK FRANKLIN Unavailable Unavailable Re-disclosure Warning The records that you are about to access may contain information from federally-assisted alcohol or drug abuse programs. If such information is present, then the following federally mandated warning applies: This information has been disclosed to you from records protected by federal confidentiality rules (42 CFR part 2). The federal rules prohibit you from making any further disclosure of this information unless further disclosure is expressly permitted by the written consent of the person to whom it pertains or as otherwise permitted by 42 CFR part 2. A general authorization for the release of medical or other information is NOT sufficient for this purpose. The Federal rules restrict any use of the information to criminally investigate or prosecute any alcohol or drug abuse patient.The records that you are about to access may contain highly sensitive health information, the redisclosure of which is protected by Article 27-F of the [facility] Public Health law. If you continue you may have access to information: Regarding HIV / AIDS; Provided by facilities licensed or operated by the [facility] Office of Mental Health; or Provided by the [facility] Office for People With Developmental Disabilities. If such information is present, then the following [facility] mandated warning applies: This information has been disclosed to you from confidential records which are protected by state law. State law prohibits you from making any further disclosure of this information without the specific written consent of the person to whom it pertains, or as otherwise permitted by law. Any unauthorized further disclosure in violation of state law may result in a fine or long-term sentence or both. A general authorization for the release of medical or other information is NOT sufficient authorization for further disc losure. Allergies and Adverse Reactions Type Description Substance Reaction Status Data Source(s ) SYSTEMIC NO ALLERGIES ON FILE NO ALLERGIES ON FILE [facility] DRUG INGREDI OMEPRAZOLE Omeprazole [facility] DRUG INGREDI MORPHINE Morphine [facility] DRUG INGREDI ESTROGENS, CONJUGATED Estrogens, Conjugated (NURSING HOME) [facility] Drug allergy morphine Morphine Chest pain 10/10 [place] Other, not lis sathish MO [facility] Drug allergy estrogens, conjugated estrogens, conjugated PULM ONARY EMBOLISM SV Other, not listed [facility] Drug allergy Penicillins Penicillin Rash MO [facility] Drug allergy omeprazole omeprazole Myalgia U [facility] Family History Family Member Name Family Member Gender Family Member Status Date o f Status Description Data Source(s) Unknown Condition [facility] Unknown Condition [facility] Unknown Condition [facility] Unknown Condition [facility] Unknown Condition [facility] Unknown Condition [facility] Unknown Condition [facility] Unknown Condition [facility] Unknown Condition [facility] Unknown Condition [facility] Condition [facility] Unknown Condition [facility] Unknown Condition [facility] Unknown Condition [facility] Unknown Condition [facility] Unknown Condition [facility] Unknown Condition [facility] Unknown Condition [facility] Unknown Condition [facility] Unknown Condition [facility] Unknown Unknown Problem [facility] ([facility]) Unknown Male Problem [facility] ([facility]) Encounters Encounter Providers Location Date Indications Data Source(s ) OUTPATIENT [id number] 05/15/2020 12:49:20 PM EST [facility] Outpatient Attender: YUDY DANG MD [facility] 10:00:00 AM EST [facility] ([facility]) Outpatient Attender: Hillary Bledsoe er: Hillary Woods DO 03/26/2020 02:23:00 PM EST - 03/26/2020 03:53:00 PM EST [facility] Inpatient Attender: FAWAD CHAVEZ MDAdmitter: FAWAD CHAVEZ MD [id number] 03/14/2020 11:37:00 PM EST - 03/19/2020 05:00:00 PM EST [facility] Patient discharged. Emergency Attender: Salomon Stanley MD 03/14/20 20 11:45:00 AM EST - 03/14/2020 10:04:00 PM EST [facility] Patient discharged. Outpatient Attender: Hillary Woods DO 2019 04:14:00 PM EST screening [facility] screening Outpatient Attender: Hillary Bledsoe er: Hillary Woods DO 01/30/2020 03:19:00 PM EST - 01/30/2020 04:50:00 PM EST [facility] Outpatient Attender: Salena Acosta WHEAT CLEANER 01/05/2020 11:45: 00 AM EDT Z86.711,R06.02,R07.2 [facility] Z86.711,R06.02,R07.2 Outpatient Attender: DUNIA COSTELLO_23 [facility] 01/05/2020 1 0:15:00 AM EDT [facility] ([facility]) Outpatient Attender: LAURA Ricks rrer: John Gray MDConsultant: Hillary Woods DO 12/23/2019 11:12:00 AM EDT - 12/23/2019 11:12:00 AM EDT [facility] Outpatient Attender: Anh Medina NPConsultant: Hillary Vicente DO 12/15/2019 12:39:19 PM EDT - 12/15/2019 09:17:00 AM EDT [facility] Patient discharged. Outpatient Attender: Addis GROVE 12/12/2019 03 :29:00 PM EDT HX STENOSIS, NUMBNESS, WEAKNESS [facility] HX STENOSIS, NUMBNESS, WEAKNESS Outpatient Attender: Hillary Woods DO 2019 08:00:00 PM EDT MOSES,HYPOPNEA,SEVERE PE,IMPAIRED COGNITION [facility] MOSES,HYPOPNEA,SEVERE PE,IMPAIRED COGNITIO N Outpatient Attender: Addis [place] PAReferrer: Hillary Hewitt DO 12/07/2019 03:25:00 PM EDT - 12/07/2019 04:38:00 PM EDT [facility] Outpatient Attender: ANN FERNANDEZ APRN-CLOTH LAMINATING SUPERVISOR-C 11/25/2019 12:00:00 [address] EDT [address] [facility] K[facility].9 Outpatient Attender: ANN NEIL COXN-CLOTH LAMINATING SUPERVISOR-C 11/23/2019 03:14:00 PM EDT - 11/23/2019 04:17:00 PM EDT [facility] Outpatient Attender: Hillary Woods DO 2019 11:18:00 AM EDT I26.99,G47.33,E74.39,K76.89,E87.6 [facility] I26.99,G47.33,E74.39,K76.89,E87.6 Outpatient Attender: Hillary Bledsoe er: Hillary Woods DO 10/28/2019 09:32:00 AM EDT - 10/28/2019 10:33:00 AM EDT [facility] Outpatient Attender: [id number] Ephraim Calle r: Hillary Woods DO 10/27/2019 12:51:00 PM EDT - 10/27/2019 01:04:00 PM EDT [facility] Outpatient Attender: [id number] Ephraim Gonzalez MD 020 09:20:00 AM EDT [place],K76.9,Z91.14,I26.99,G47.33,E74.39, [facility] [place],K76.9,Z91.14,I26.99,G47.33,E7 4.39, Outpatient Attender: [id number] Ephraim Calle r: Hillary Woods DO 10/21/2019 12:33:00 PM EDT - 10/21/2019 01:00:00 PM EDT [facility] Outpatient Attender: Jenni PeresReferrer: Hillary Jorgensen DO 10/18/2019 12:10:00 PM EDT - 10/18/2019 01:16:00 PM EDT [facility] Inpatient Attender: Umu Butler MD Attender: Caden Liu MDAttender: ANAYA BAER MDAdmitter: Umu Butler MDConsultant: DERRICK KOCH MDConsultant: ANAYA BAER MDConsultant: Jaime Loyola MDConsultant: Jr GROVE 10/08/2019 11:36:00 PM EDT - 10/12/2019 10:45:00 AM EDT SMALL BOWEL OBSTRUCTION [facility] SMALL BOWEL OBSTRUCTION Patient discharged. Outpatient Attender: Hillary Bledsoe er: Hillary Woods DO 09/14/2019 11:38:00 AM EDT - 09/14/2019 12:30:00 PM EDT [facility] Outpatient Attender: iMgdalia Joshi NP 08/16/2019 03:48:00 PM EDT J98.9, R50.9 [facility] J98.9, R50.9 Outpatient Attender: Migdalia KRISHNAMURTHYeferrer: Hillary aldrich-Terrie WOODSON 08/16/2019 03:07:00 PM EDT - 08/16/2019 03:16:00 PM EDT [facility] Outpatient Attender: Hillary Bledsoe er: Hillary Woods DO 08/12/2019 01:13:00 PM EDT - 08/12/2019 02:16:00 PM EDT [facility] Outpatient Attender: Hillary Woods DO 2019 07:50:00 AM EDT K62.5,I26.99,E74.39,K76.0,E78.2,E55.9,K21.9 [facility] K62.5,I26.99,E74.39,K76.0,E78.2,E55.9,K2 1.9 Outpatient Attender: Addis Cannoner: Hillary marinelli-Jorgensen DO 07/20/2019 12:54:00 PM EDT - 07/20/2019 01:45:00 PM EDT [facility] Outpatient Attender: Su Reeves PA-C 06/28/2019 0 7:38:00 AM EDT left chest pain [facility] left chest pain Outpatient Attender: Hillary Bledsoe er: Hillary Woods DO 06/24/2019 11:19:00 AM EDT - 06/24/2019 01:18:00 PM EDT [facility] Outpatient Attender: Su Reeves PA-C [facility] 06/10/2019 01:00:00 PM EDT [facility] ([facility]) Outpatient Attender: Deshawn Schilling/Ion/Dev/R eindl 06/01/2019 01:15:00 PM EST [facility] ([facility] Outpatient Attender: Guy Arevaloerrer: Hillary Thomas DO 05/16/2019 02:14:[address] [facility]: Umu Butler MD Attender: Guy Quispe MDAdmitter: Umu Butler MDConsultant: Shane Fajardo MD 05/09/2019 05: 40:00 PM EST - 05/11/2019 11:00:00 AM EST CHEST PAIN [facility] CHEST PAIN Patient discharged. Functional Status Immunizations Vaccine Date Status Description Data Source(s) IIV3. This is one of two codes replacing CVX 15, which is being retired. 01/30/2020 12:00:00 AM EST completed influenza vaccine, inactivated [facility] IIV3. This is one of two codes replacing CVX 15, which is being retired. 01/30/2020 12:00:00 AM EST completed influenza vaccine, inactivated [facility] IIV3. This is one of two codes replacing CVX 15, which is being retired. 01/30/2020 12:00:00 AM EST completed influenza vaccine, inactivated [facility] Medications Medication Brand Name Start Date Product Form Dose Route Admi nistrative Instructions Pharmacy Instructions Status Indications Reaction Description Data Source(s) pantoprazole 40 MG Delayed Release Oral Tablet Pantoprazole Pantoprazole 03/26/2020 02:59:40 PM EST 40 MG active [facility] Bisoprolol Fumarate 5 MG Oral Tablet Bisoprolol Fumarate 12:26:53 PM EST 5 MG active [facility] Bisoprolol Fumarate 5 MG Oral Tablet Bisoprolol Fumarate 12:26:53 PM EST 5 MG active [facility] 300 mg 03/06/2020 12:00:00 AM EST capsule 60 TAKE ONE CAPSULE BY MOUTH TWICE A DAY TAKE ONE CAPSULE BY MOUTH TWICE A DAY SOLD: 04/09/2020 [facility] 300 mg 03/06/2020 12:00:00 AM EST capsule 60 TAKE ONE CAPSULE BY MOUTH TWICE A DAY TAKE ONE CAPSULE BY MOUTH TWICE A DAY SOLD: 05/09/2020 [facility] 300 mg 03/06/2020 12:00:00 AM EST capsule 60 TAKE ONE CAPSULE BY MOUTH TWICE A DAY TAKE ONE CAPSULE BY MOUTH TWICE A DAY SOLD: 03/10/2020 [facility] gabapentin 300 MG Oral Capsule Gabapentin Gabapentin 2019 07:57:12 AM EST 0 active [facility] gabapentin 300 MG Oral Capsule Gabapentin Gabapentin 2019 07:57:12 AM EST 0 active [facility] Qd (3yr up)(PF) (flu vac [id number] 36mos up(P F)) 01/30/2020 03:19:30 PM EST 60 MCG completed [facility] Qd (3yr up)(PF) (flu vac [id number] 36mos up(P F)) 01/30/2020 03:19:30 PM EST 60 MCG completed [facility] Qd (3yr up)(PF) (flu vac [id number] 36mos up(P F)) 01/30/2020 03:19:30 PM EST 60 MCG completed [facility] 5 mg 01/06/2020 12:00:00 AM EDT tablet 15 TAKE 1/2 TABLET BY MOUTH EVERY DAY TAKE 1/2 TABLET BY MOUTH EVERY DAY SOLD: 03/10/2020 [facility] 5 mg 01/06/2020 12:00:00 AM EDT tablet 15 TAKE 1/2 TABLET BY MOUTH EVERY DAY TAKE 1/2 TABLET BY MOUTH EVERY DAY SOLD: 02/09/2020 [facility] 5 mg 01/06/2020 12:00:00 AM EDT tablet 15 TAKE 1/2 TABLET BY MOUTH EVERY DAY TAKE 1/2 TABLET BY MOUTH EVERY DAY SOLD: 05/09/2020 [facility] 5 mg 01/06/2020 12:00:00 AM EDT tablet 15 TAKE 1/2 TABLET BY MOUTH EVERY DAY TAKE 1/2 TABLET BY MOUTH EVERY DAY SOLD: 04/09/2020 [facility] 5 mg 01/06/2020 12:00:00 AM EDT tablet 15 TAKE 1/2 TABLET BY MOUTH EVERY DAY TAKE 1/2 TABLET BY MOUTH EVERY DAY SOLD: 01/10/2020 [facility] Cholecalciferol 1000 UNT Oral Capsule Ch olecalciferol (Vitamin D3) (Vitamin D3) 25 mcg (1,000 unit) capsule Cholecalciferol (Vitamin D3) (Vitamin D3 ) 25 mcg (1,000 unit) capsule 01/05/2020 10:50:13 AM EDT 0 ac tive [facility] Cholecalciferol 1000 UNT Oral Capsule Ch olecalciferol (Vitamin D3) (Vitamin D3) 25 mcg (1,000 unit) capsule Cholecalciferol (Vitamin D3) (Vitamin D3 ) 25 mcg (1,000 unit) capsule 01/05/2020 10:50:13 AM EDT 0 co [facility] Cholecalciferol 1000 UNT Oral Capsule Ch olecalciferol (Vitamin D3) (Vitamin D3) 25 mcg (1,000 unit) capsule Cholecalciferol (Vitamin D3) (Vitamin D3 ) 25 mcg (1,000 unit) capsule 01/05/2020 10:50:13 AM EDT 0 co [facility] Bisoprolol Fumarate 5 MG Oral Tablet Bisoprolol Fumarate 10/2019 12:00:00 AM EDT ORAL completed [facility] ([facility]) 25 mcg (1,000 unit) 01/05/2020 12:00:00 AM EDT capsule 30 TAKE ONE CAPSULE BY MOUTH EVERY DAY TAKE ONE CAPSULE BY MOUTH EVERY DAY SOLD: 02/09/2020 [facility] 25 mcg (1,000 unit) 01/05/2020 12:00:00 AM EDT capsule 30 TAKE ONE CAPSULE BY MOUTH EVERY DAY TAKE ONE CAPSULE BY MOUTH EVERY DAY SOLD: 01/10/2020 [facility] [id number] 01/03/2020 12:00:00 AM EDT Suspension 240 TAKE 1 TEASPOONFUL SWISH IN MOUTH AND SPIT FOUR TIMES A DAY TAKE 1 TEASPOONFUL SWISH IN MOUTH AND SPIT FOUR TIMES A DAY SOLD: 01/05/2020 [facility] Cholecalciferol 1000 UNT Oral Capsule Ch olecalciferol (Vitamin D3) (Vitamin D3) 25 mcg (1,000 unit) capsule Cholecalciferol (Vitamin D3) (Vitamin D3 ) 25 mcg (1,000 unit) capsule 12/15/2019 11:13:24 AM EDT 1000 UNIT completed [facility] Cholecalciferol 1000 UNT Oral Capsule Ch olecalciferol (Vitamin D3) (Vitamin D3) 25 mcg (1,000 unit) capsule Cholecalciferol (Vitamin D3) (Vitamin D3 ) 25 mcg (1,000 unit) capsule 12/15/2019 11:13:24 AM EDT 1000 UNIT completed [facility] Cholecalciferol 1000 UNT Oral Capsule Ch olecalciferol (Vitamin D3) (Vitamin D3) 25 mcg (1,000 unit) capsule Cholecalciferol (Vitamin D3) (Vitamin D3 ) 25 mcg (1,000 unit) capsule 12/15/2019 11:13:24 AM EDT 1000 UNIT completed [facility] Famotidine 20 MG Oral Tablet Famotidine 11/23/2019 04:16:58 PM EDT 20 MG active [facility] Famotidine 20 MG Oral Tablet Famotidine 11/23/2019 04:16:58 PM EDT 20 MG active [facility] Famotidine 20 MG Oral Tablet Famotidine 11/23/2019 04:16:58 PM EDT 20 MG completed [facility] Famotidine 20 MG Oral Tablet Famotidine 11/23/2019 04:16:58 PM EDT 20 MG active [facility] Famotidine 20 MG Oral Tablet Famotidine 11/23/2019 04:16:58 PM EDT 20 MG completed [facility] 20 mg 11/23/2019 12:00:00 AM EDT tablet 60 TAKE ONE TABLET BY MOUTH TWICE A DAY TAKE ONE TABLET BY MOUTH TWICE A DAY SOLD: 11/24/2019 [facility] Erythromycin 0.005 MG/MG Ophthalmic Ointment Erythromycin 10/12/2019 09:43:59 AM EDT 1 APPLIC active [facility] Erythromycin 0.005 MG/MG Ophthalmic Ointment Erythromycin 10/12/2019 09:43:59 AM EDT 1 APPLIC completed [facility] Erythromycin 0.005 MG/MG Ophthalmic Ointment Erythromycin 10/12/2019 09:43:59 AM EDT 1 APPLIC completed [facility] Erythromycin 0.005 MG/MG Ophthalmic Ointment Erythromycin 10/12/2019 09:43:59 AM EDT 1 APPLIC completed [facility] Erythromycin 0.005 MG/MG Ophthalmic Ointment Erythromycin 10/12/2019 09:43:59 AM EDT 1 APPLIC active [facility] Erythromycin 0.005 MG/MG Ophthalmic Ointment Erythromycin 10/12/2019 09:43:59 AM EDT 1 APPLIC completed [facility] Erythromycin 0.005 MG/MG Ophthalmic Ointment Erythromycin 10/12/2019 09:43:59 AM EDT 1 APPLIC completed [facility] Erythromycin 0.005 MG/MG Ophthalmic Ointment Erythromycin 10/12/2019 09:43:59 AM EDT 1 APPLIC completed [facility] Erythromycin 0.005 MG/MG Ophthalmic Ointment Erythromycin 10/12/2019 09:43:59 AM EDT 1 APPLIC completed [facility] Erythromycin 0.005 MG/MG Ophthalmic Ointment Erythromycin 10/12/2019 09:43:59 AM EDT 1 APPLIC completed [facility] 5 mg/gram (0.5 %) 10/12/2019 12:00:00 AM EDT ointment 3 APPLY TO BOTH EYES DAILY FOR CONJUNCTIVITIS APPLY TO BOTH EYES DAILY FOR CONJUNCTIVITIS SOLD: 10/13/2019 [facility] Nystatin [id number] UNT/ML Topical Cream Nystatin 10/09/2019 10:49: 32 AM EDT 1 APPLIC active [facility] Nystatin [id number] UNT/ML Topical Cream Nystatin 10/09/2019 10:49: 32 AM EDT 1 APPLIC active [facility] Nystatin [id number] UNT/ML Topical Cream Nystatin 10/09/2019 10:49: 32 AM EDT 1 APPLIC active [facility] Nystatin [id number] UNT/ML Topical Cream Nystatin 10/09/2019 10:49: 32 AM EDT [address] [facility] Nystatin [id number] UNT/ML Topical Cream Nystatin 10/09/2019 10:49: 32 AM EDT [address] [facility] Nystatin [id number] UNT/ML Topical Cream Nystatin 10/09/2019 10:49: 32 AM EDT 1 APPLIC active [facility] Nystatin [id number] UNT/ML Topical Cream Nystatin 10/09/2019 10:49: 32 AM EDT 1 APPLIC active [facility] Nystatin [id number] UNT/ML Topical Cream Nystatin 10/09/2019 10:49: 32 AM EDT 1 APPLIC active [facility] Nystatin [id number] UNT/ML Topical Cream Nystatin 10/09/2019 10:49: 32 AM EDT 1 APPLIC active [facility] Nystatin [id number] UNT/ML Topical Cream Nystatin 10/09/2019 10:49: 32 AM EDT 1 APPLIC active [facility] Docusate Sodium 100 MG Oral Capsule Docusate Sodium (C olace) 100 mg capsule Docusate Sodium (Colace) 100 mg capsule 10/09/2019 04:00:22 AM EDT 10 0 MG active [facility] Docusate Sodium 100 MG Oral Capsule Docusate Sodium (C olace) 100 mg capsule Docusate Sodium (Colace) 100 mg capsule 10/09/2019 04:00:22 AM EDT 10 0 MG active [facility] Docusate Sodium 100 MG Oral Capsule Docusate Sodium (C olace) 100 mg capsule Docusate Sodium (Colace) 100 mg capsule 10/09/2019 04:00:22 AM EDT 10 0 MG active [facility] Docusate Sodium 100 MG Oral Capsule Docusate Sodium (C olace) 100 mg capsule Docusate Sodium (Colace) 100 mg capsule 10/09/2019 04:00:22 AM EDT 10 0 MG active [facility] Docusate Sodium 100 MG Oral Capsule Docusate Sodium (C olace) 100 mg capsule Docusate Sodium (Colace) 100 mg capsule 10/09/2019 04:00:22 AM EDT 10 0 MG active [facility] Docusate Sodium 100 MG Oral Capsule Docusate Sodium (C olace) 100 mg capsule Docusate Sodium (Colace) 100 mg capsule 10/09/2019 04:00:22 AM EDT 10 0 MG active [facility] Docusate Sodium 100 MG Oral Capsule Docusate Sodium (C olace) 100 mg capsule Docusate Sodium (Colace) 100 mg capsule 10/09/2019 04:00:22 AM EDT 10 0 MG completed [facility] Docusate Sodium 100 MG Oral Capsule Docusate Sodium (C olace) 100 mg capsule Docusate Sodium (Colace) 100 mg capsule 10/09/2019 04:00:22 AM EDT 10 0 MG completed [facility] Docusate Sodium 100 MG Oral Capsule Docusate Sodium (C olace) 100 mg capsule Docusate Sodium (Colace) 100 mg capsule 10/09/2019 04:00:22 AM EDT 10 0 MG active [facility] Docusate Sodium 100 MG Oral Capsule Docusate Sodium (C olace) 100 mg capsule Docusate Sodium (Colace) 100 mg capsule 10/09/2019 04:00:22 AM EDT 10 0 MG active [facility] pantoprazole 40 MG Delayed Release Oral Tablet PANTOPRAZOLE SODIUM 09/15/2019 12:00:00 AM EDT tablet,delayed release (DR/EC) 180 T MOLLY ONE TABLET BY MOUTH TWICE A DAY TAKE ONE TABLET BY MOUTH TWICE A DAY SOLD: 03/21/2020 [facility] 40 mg 09/15/2019 12:00:00 AM EDT tablet,delayed release (DR/EC) 180 TAKE ONE TABLET BY MOUTH TWICE A DAY TAKE ONE TABLET BY MOUTH TWICE A DAY SOLD: 09/15/2019 [facility] apixaban 5 MG Oral Tablet Apixaban (Eliquis) 5 mg tabl et Apixaban (Eliquis) 5 mg tablet 09/14/2019 07:11:47 PM EDT 5 MG active [facility] apixaban 5 MG Oral Tablet Apixaban (Eliquis) 5 mg tabl et Apixaban (Eliquis) 5 mg tablet 09/14/2019 07:11:47 PM EDT 5 MG active [facility] apixaban 5 MG Oral Tablet Apixaban (Eliquis) 5 mg tabl et Apixaban (Eliquis) 5 mg tablet 09/14/2019 07:11:47 PM EDT 5 MG active [facility] apixaban 5 MG Oral Tablet Apixaban (Eliquis) 5 mg tabl et Apixaban (Eliquis) 5 mg tablet 09/14/2019 07:11:47 PM EDT 5 MG active [facility] apixaban 5 MG Oral Tablet Apixaban (Eliquis) 5 mg tabl et Apixaban (Eliquis) 5 mg tablet 09/14/2019 07:11:47 PM EDT 5 MG active [facility] apixaban 5 MG Oral Tablet Apixaban (Eliquis) 5 mg tabl et Apixaban (Eliquis) 5 mg tablet 09/14/2019 07:11:47 PM EDT 5 MG [facility] apixaban 5 MG Oral Tablet Apixaban (Eliquis) 5 mg tabl et Apixaban (Eliquis) 5 mg tablet 09/14/2019 07:11:47 PM EDT 5 MG [facility] apixaban 5 MG Oral Tablet Apixaban (Eliquis) 5 mg tabl et Apixaban (Eliquis) 5 mg tablet 09/14/2019 07:11:47 PM EDT 5 MG [facility] apixaban 5 MG Oral Tablet Apixaban (Eliquis) 5 mg tabl et Apixaban (Eliquis) 5 mg tablet 09/14/2019 07:11:47 PM EDT 5 MG [facility] apixaban 5 MG Oral Tablet Apixaban (Eliquis) 5 mg tabl et Apixaban (Eliquis) 5 mg tablet 09/14/2019 07:11:47 PM EDT 5 MG [facility] apixaban 5 MG Oral Tablet Apixaban (Eliquis) 5 mg tabl et Apixaban (Eliquis) 5 mg tablet 09/14/2019 07:11:47 PM EDT 5 MG [facility] pantoprazole 40 MG Delayed Release Oral Tablet Pantoprazole Pantoprazole 09/14/2019 07:11:41 PM EDT 40 MG [facility] pantoprazole 40 MG Delayed Release Oral Tablet Pantoprazole Pantoprazole 09/14/2019 07:11:41 PM EDT 40 MG [facility] pantoprazole 40 MG Delayed Release Oral Tablet Pantoprazole Pantoprazole 09/14/2019 07:11:41 PM EDT 40 MG [facility] pantoprazole 40 MG Delayed Release Oral Tablet Pantoprazole Pantoprazole 09/14/2019 07:11:41 PM EDT 40 MG [facility] pantoprazole 40 MG Delayed Release Oral Tablet Pantoprazole Pantoprazole 09/14/2019 07:11:41 PM EDT 40 MG [facility] pantoprazole 40 MG Delayed Release Oral Tablet Pantoprazole Pantoprazole 09/14/2019 07:11:41 PM EDT 40 MG [facility] pantoprazole 40 MG Delayed Release Oral Tablet Pantoprazole Pantoprazole 09/14/2019 07:11:41 PM EDT 40 MG active [facility] pantoprazole 40 MG Delayed Release Oral Tablet Pantoprazole Pantoprazole 09/14/2019 07:11:41 PM EDT 40 MG completed [facility] pantoprazole 40 MG Delayed Release Oral Tablet Pantoprazole Pantoprazole 09/14/2019 07:11:41 PM EDT 40 MG active [facility] pantoprazole 40 MG Delayed Release Oral Tablet Pantoprazole Pantoprazole 09/14/2019 07:11:41 PM EDT 40 MG active [facility] pantoprazole 40 MG Delayed Release Oral Tablet Pantoprazole Pantoprazole 09/14/2019 07:11:41 PM EDT 40 MG active [facility] Nystatin [id number] UNT/ML Topical Cream Nystatin 09/14/2019 01:54: 02 PM EDT 1 APPLIC active [facility] Nystatin [id number] UNT/ML Topical Cream Nystatin 09/14/2019 01:54: 02 PM EDT [address] [facility] Nystatin [id number] UNT/ML Topical Cream Nystatin 09/14/2019 01:54: 02 PM EDT [address] [facility] Nystatin 134317 UNT/ML Topical Cream Nystatin 09/14/2019 01:54: 02 PM EDT [address] [facility] Nystatin [id number] UNT/ML Topical Cream Nystatin 09/14/2019 01:54: 02 PM EDT [address] [facility] Nystatin [id number] UNT/ML Topical Cream Nystatin 09/14/2019 01:54: 02 PM EDT [address] [facility] Nystatin [id number] UNT/ML Topical Cream Nystatin 09/14/2019 01:54: 02 PM EDT [address] [facility] Nystatin [id number] UNT/ML Topical Cream Nystatin 09/14/2019 01:54: 02 PM EDT [address] [facility] Nystatin 636127 UNT/ML Topical Cream Nystatin 09/14/2019 01:54: 02 PM EDT [address] [facility] Nystatin 634133 UNT/ML Topical Cream Nystatin 09/14/2019 01:54: 02 PM EDT [address] [facility] Nystatin [id number] UNT/ML Topical Cream Nystatin 09/14/2019 01:54: 02 PM EDT [address] [facility] Nystatin 315694 UNT/ML / Triamcinolone A cetonide 1 MG/ML Topical Cream Nystatin-Triamcinolone Nystatin-Triamcinolone 09/14/2019 12:21:26 PM EDT [address] [facility] Nystatin 358284 UNT/ML / Triamcinolone A cetonide 1 MG/ML Topical Cream Nystatin-Triamcinolone Nystatin-Triamcinolone 09/14/2019 12:21:26 PM EDT [address] [facility] Nystatin [id number] UNT/ML / Triamcinolone A cetonide 1 MG/ML Topical Cream Nystatin-Triamcinolone Nystatin-Triamcinolone 09/14/2019 12:21:26 PM EDT [address] [facility] Nystatin 711737 UNT/ML / Triamcinolone A cetonide 1 MG/ML Topical Cream Nystatin-Triamcinolone Nystatin-Triamcinolone 09/14/2019 12:21:26 PM EDT [address] [facility] Nystatin 469273 UNT/ML / Triamcinolone A cetonide 1 MG/ML Topical Cream Nystatin-Triamcinolone Nystatin-Triamcinolone 09/14/2019 12:21:26 PM EDT [address] [facility] Nystatin 607142 UNT/ML / Triamcinolone A cetonide 1 MG/ML Topical Cream Nystatin-Triamcinolone Nystatin-Triamcinolone 09/14/2019 12:21:26 PM EDT [address] [facility] Nystatin 230341 UNT/ML / Triamcinolone A cetonide 1 MG/ML Topical Cream Nystatin-Triamcinolone Nystatin-Triamcinolone 09/14/2019 12:21:26 PM EDT [address] [facility] Nystatin [id number] UNT/ML / Triamcinolone A cetonide 1 MG/ML Topical Cream Nystatin-Triamcinolone Nystatin-Triamcinolone 09/14/2019 12:21:26 PM EDT [address] [facility] Nystatin 160125 UNT/ML / Triamcinolone A cetonide 1 MG/ML Topical Cream Nystatin-Triamcinolone Nystatin-Triamcinolone 09/14/2019 12:21:26 PM EDT 1 APPLIC active [facility] Nystatin 175291 UNT/ML / Triamcinolone A cetonide 1 MG/ML Topical Cream Nystatin-Triamcinolone Nystatin-Triamcinolone 09/14/2019 12:21:26 PM EDT [address] [facility] Nystatin [id number] UNT/ML / Triamcinolone A cetonide 1 MG/ML Topical Cream Nystatin-Triamcinolone Nystatin-Triamcinolone 09/14/2019 12:21:26 PM EDT [address] [facility] Nystatin [id number] UNT/ML / Triamcinolone A cetonide 1 MG/ML Topical Cream Nystatin-Triamcinolone Nystatin-Triamcinolone 09/14/2019 12:21:26 PM EDT [address] [facility] 100,000 unit/gram 09/14/2019 12:00:00 AM EDT cream 30 APPLY TOPICALLY TWO TIMES A DAY APPLY TOPICALLY TWO TIMES A DAY SOLD: 09/15/2019 [facility] 300 mg 09/06/2019 12:00:00 AM EDT capsule 60 TAKE ONE CAPSULE BY MOUTH TWICE A DAY TAKE ONE CAPSULE BY MOUTH TWICE A DAY SOLD: 02/09/2020 [facility] 300 mg 09/06/2019 12:00:00 AM EDT capsule 60 TAKE ONE CAPSULE BY MOUTH TWICE A DAY TAKE ONE CAPSULE BY MOUTH TWICE A DAY SOLD: 11/11/2019 [facility] 300 mg 09/06/2019 12:00:00 AM EDT capsule 60 TAKE ONE CAPSULE BY MOUTH TWICE A DAY TAKE ONE CAPSULE BY MOUTH TWICE A DAY SOLD: 01/10/2020 [facility] 300 mg 09/06/2019 12:00:00 AM EDT capsule 60 TAKE ONE CAPSULE BY MOUTH TWICE A DAY TAKE ONE CAPSULE BY MOUTH TWICE A DAY SOLD: 10/12/2019 [facility] 300 mg 09/06/2019 12:00:00 AM EDT capsule 60 TAKE ONE CAPSULE BY MOUTH TWICE A DAY TAKE ONE CAPSULE BY MOUTH TWICE A DAY SOLD: 09/10/2019 [facility] 300 mg 09/06/2019 12:00:00 AM EDT capsule 60 TAKE ONE CAPSULE BY MOUTH TWICE A DAY TAKE ONE CAPSULE BY MOUTH TWICE A DAY SOLD: 12/11/2019 [facility] gabapentin 300 MG Oral Capsule Gabapentin Gabapentin 2019 03:18:03 PM EDT 300 MG [facility] gabapentin 300 MG Oral Capsule Gabapentin Gabapentin 2019 03:18:03 PM EDT 300 MG [facility] gabapentin 300 MG Oral Capsule Gabapentin Gabapentin 2019 03:18:03 PM EDT 300 MG [facility] gabapentin 300 MG Oral Capsule Gabapentin Gabapentin 2019 03:18:03 PM EDT 300 MG [facility] gabapentin 300 MG Oral Capsule Gabapentin Gabapentin 2019 03:18:03 PM EDT 300 MG [facility] gabapentin 300 MG Oral Capsule Gabapentin Gabapentin 2019 03:18:03 PM EDT 300 MG [facility] gabapentin 300 MG Oral Capsule Gabapentin Gabapentin 2019 03:18:03 PM EDT 300 MG [facility] gabapentin 300 MG Oral Capsule Gabapentin Gabapentin 2019 03:18:03 PM EDT 300 MG [facility] gabapentin 300 MG Oral Capsule Gabapentin Gabapentin 2019 03:18:03 PM EDT 300 MG [facility] gabapentin 300 MG Oral Capsule Gabapentin Gabapentin 2019 03:18:03 PM EDT 300 MG [facility] gabapentin 300 MG Oral Capsule Gabapentin Gabapentin 2019 03:18:03 PM EDT 300 MG [facility] gabapentin 300 MG Oral Capsule Gabapentin Gabapentin 2019 03:18:03 PM EDT 300 MG [facility] doxycycline hyclate 100 MG Oral Tablet Doxycycline Hyclate D oxycycline Hyclate 07/20/2019 01:45:31 PM EDT 100 MG [facility] doxycycline hyclate 100 MG Oral Tablet Doxycycline Hyclate D oxycycline Hyclate 07/20/2019 01:45:31 PM EDT 100 MG [facility] doxycycline hyclate 100 MG Oral Tablet Doxycycline Hyclate D oxycycline Hyclate 07/20/2019 01:45:31 PM EDT 100 MG [facility] doxycycline hyclate 100 MG Oral Tablet Doxycycline Hyclate D oxycycline Hyclate 07/20/2019 01:45:31 PM EDT 100 MG completed [facility] doxycycline hyclate 100 MG Oral Tablet Doxycycline Hyclate D oxycycline Hyclate 07/20/2019 01:45:31 PM EDT 100 MG completed [facility] doxycycline hyclate 100 MG Oral Tablet Doxycycline Hyclate D oxycycline Hyclate 07/20/2019 01:45:31 PM EDT 100 MG completed [facility] doxycycline hyclate 100 MG Oral Tablet Doxycycline Hyclate D oxycycline Hyclate 07/20/2019 01:45:31 PM EDT 100 MG completed [facility] doxycycline hyclate 100 MG Oral Tablet Doxycycline Hyclate D oxycycline Hyclate 07/20/2019 01:45:31 PM EDT 100 MG completed [facility] doxycycline hyclate 100 MG Oral Tablet Doxycycline Hyclate D oxycycline Hyclate 07/20/2019 01:45:31 PM EDT 100 MG completed [facility] doxycycline hyclate 100 MG Oral Tablet Doxycycline Hyclate D oxycycline Hyclate 07/20/2019 01:45:31 PM EDT 100 MG completed [facility] doxycycline hyclate 100 MG Oral Tablet Doxycycline Hyclate D oxycycline Hyclate 07/20/2019 01:45:31 PM EDT 100 MG completed [facility] doxycycline hyclate 100 MG Oral Tablet Doxycycline Hyclate D oxycycline Hyclate 07/20/2019 01:45:31 PM EDT 100 MG [facility] doxycycline hyclate 100 MG Oral Tablet Doxycycline Hyclate D oxycycline Hyclate 07/20/2019 01:45:31 PM EDT 100 MG completed [facility] doxycycline hyclate 100 MG Oral Tablet Doxycycline Hyclate D oxycycline Hyclate 07/20/2019 01:45:31 PM EDT 100 MG [facility] 50 mg 07/20/2019 12:00:00 AM EDT tablet 30 TAKE 1 TABLET BY MOUTH AT BEDTIME NEEDED FOR SLEEP TAKE 1 TABLET BY MOUTH AT BEDTIME NEEDED FOR SLEEP SOLD: 07/21/2019 [facility] 100 mg 07/20/2019 12:00:00 AM EDT capsule 20 TAKE ONE CAPSULE BY MOUTH TWICE A DAY WITH FOOD , AVOID DAIRY TAKE ONE CAPSULE BY MOUTH TWICE A DAY WI TH FOOD , AVOID DAIRY SOLD: 07/21/2019 [facility] 50 mg 07/20/2019 12:00:00 AM EDT tablet 30 TAKE 1 TABLET BY MOUTH ONCE DAILY TAKE 1 TABLET BY MOUTH ONCE DAILY SOLD: 07/21/2019 [facility] 25 mcg (1,000 unit) 07/11/2019 12:00:00 AM EDT capsule 30 TAKE ONE CAPSULE BY MOUTH EVERY DAY TAKE ONE CAPSULE BY MOUTH EVERY DAY SOLD: 08/11/2019 [facility] 25 mcg (1,000 unit) 07/11/2019 12:00:00 AM EDT capsule 30 TAKE ONE CAPSULE BY MOUTH EVERY DAY TAKE ONE CAPSULE BY MOUTH EVERY DAY SOLD: 09/10/2019 [facility] 25 mcg (1,000 unit) 07/11/2019 12:00:00 AM EDT capsule 30 TAKE ONE CAPSULE BY MOUTH EVERY DAY TAKE ONE CAPSULE BY MOUTH EVERY DAY SOLD: 10/12/2019 [facility] 25 mcg (1,000 unit) 07/11/2019 12:00:00 AM EDT capsule 30 TAKE ONE CAPSULE BY MOUTH EVERY DAY TAKE ONE CAPSULE BY MOUTH EVERY DAY SOLD: 11/11/2019 [facility] 25 mcg (1,000 unit) 07/11/2019 12:00:00 AM EDT capsule 30 TAKE ONE CAPSULE BY MOUTH EVERY DAY TAKE ONE CAPSULE BY MOUTH EVERY DAY SOLD: 07/15/2019 [facility] 25 mcg (1,000 unit) 07/11/2019 12:00:00 AM EDT capsule 30 TAKE ONE CAPSULE BY MOUTH EVERY DAY TAKE ONE CAPSULE BY MOUTH EVERY DAY SOLD: 12/11/2019 [facility] Cholecalciferol 1000 UNT Oral Capsule Cholecalciferol (Vitamin D3) Cholecalciferol (Vitamin D3) 07/10/2019 06:20:05 PM EDT 1000 UNIT active [facility] Cholecalciferol 1000 UNT Oral Capsule Ch olecalciferol (Vitamin D3) (Vitamin D3) 25 mcg (1,000 unit) capsule Cholecalciferol (Vitamin D3) (Vitamin D3 ) 25 mcg (1,000 unit) capsule 07/10/2019 06:20:05 PM EDT 1000 UNIT active [facility] Cholecalciferol 1000 UNT Oral Capsule Ch olecalciferol (Vitamin D3) (Vitamin D3) 25 mcg (1,000 unit) capsule Cholecalciferol (Vitamin D3) (Vitamin D3 ) 25 mcg (1,000 unit) capsule 07/10/2019 06:20:05 PM EDT 1000 UNIT active [facility] Cholecalciferol 1000 UNT Oral Capsule Ch olecalciferol (Vitamin D3) (Vitamin D3) 25 mcg (1,000 unit) capsule Cholecalciferol (Vitamin D3) (Vitamin D3 ) 25 mcg (1,000 unit) capsule 07/10/2019 06:20:05 PM EDT 1000 UNIT active [facility] Cholecalciferol 1000 UNT Oral Capsule Cholecalciferol (Vitamin D3) Cholecalciferol (Vitamin D3) 07/10/2019 06:20:05 PM EDT 1000 UNIT active [facility] Cholecalciferol 1000 UNT Oral Capsule Ch olecalciferol (Vitamin D3) (Vitamin D3) 25 mcg (1,000 unit) capsule Cholecalciferol (Vitamin D3) (Vitamin D3 ) 25 mcg (1,000 unit) capsule 07/10/2019 06:20:05 PM EDT 1000 UNIT active [facility] Cholecalciferol 1000 UNT Oral Capsule Cholecalciferol (Vitamin D3) Cholecalciferol (Vitamin D3) 07/10/2019 06:20:05 PM EDT 1000 UNIT active [facility] Cholecalciferol 1000 UNT Oral Capsule Ch olecalciferol (Vitamin D3) (Vitamin D3) 25 mcg (1,000 unit) capsule Cholecalciferol (Vitamin D3) (Vitamin D3 ) 25 mcg (1,000 unit) capsule 07/10/2019 06:20:05 PM EDT 1000 UNIT completed [facility] Cholecalciferol 1000 UNT Oral Capsule Cholecalciferol (Vitamin D3) Cholecalciferol (Vitamin D3) 07/10/2019 06:20:05 PM EDT 1000 UNIT active [facility] Cholecalciferol 1000 UNT Oral Capsule Ch olecalciferol (Vitamin D3) (Vitamin D3) 25 mcg (1,000 unit) capsule Cholecalciferol (Vitamin D3) (Vitamin D3 ) 25 mcg (1,000 unit) capsule 07/10/2019 06:20:05 PM EDT 1000 UNIT active [facility] Cholecalciferol 1000 UNT Oral Capsule Ch olecalciferol (Vitamin D3) (Vitamin D3) 25 mcg (1,000 unit) capsule Cholecalciferol (Vitamin D3) (Vitamin D3 ) 25 mcg (1,000 unit) capsule 07/10/2019 06:20:05 PM EDT 1000 UNIT active [facility] Cholecalciferol 1000 UNT Oral Capsule Ch olecalciferol (Vitamin D3) (Vitamin D3) 25 mcg (1,000 unit) capsule Cholecalciferol (Vitamin D3) (Vitamin D3 ) 25 mcg (1,000 unit) capsule 07/10/2019 06:20:05 PM EDT 1000 UNIT completed [facility] Cholecalciferol 1000 UNT Oral Capsule Ch olecalciferol (Vitamin D3) (Vitamin D3) 25 mcg (1,000 unit) capsule Cholecalciferol (Vitamin D3) (Vitamin D3 ) 25 mcg (1,000 unit) capsule 07/10/2019 06:20:05 PM EDT 1000 UNIT active [facility] Cholecalciferol 1000 UNT Oral Capsule Ch olecalciferol (Vitamin D3) (Vitamin D3) 25 mcg (1,000 unit) capsule Cholecalciferol (Vitamin D3) (Vitamin D3 ) 25 mcg (1,000 unit) capsule 07/10/2019 06:20:05 PM EDT 1000 UNIT completed [facility] Cholecalciferol 1000 UNT Oral Capsule Ch olecalciferol (Vitamin D3) (Vitamin D3) 25 mcg (1,000 unit) capsule Cholecalciferol (Vitamin D3) (Vitamin D3 ) 25 mcg (1,000 unit) capsule 07/10/2019 06:20:05 PM EDT 1000 UNIT active [facility] POLYETHYLENE GLYCOL 3350 142 MG/ML Oral Solution Polyethylene Glycol 3350 (Miralax) 17 gram/dose powder Polyethylene Glycol 3350 (Miralax) 17 gr am/dose powder 06/24/2019 12:58:26 PM EDT 17 GM completed [facility] POLYETHYLENE GLYCOL 3350 142 MG/ML Oral Solution Polye thylene Glycol 3350 Polyethylene Glycol 3350 06/24/2019 12:58:26 PM EDT 17 GM active [facility] POLYETHYLENE GLYCOL 3350 142 MG/ML Oral Solution Polyethylene Glycol 3350 (Miralax) 17 gram/dose powder Polyethylene Glycol 3350 (Miralax) 17 gr am/dose powder 06/24/2019 12:58:26 PM EDT 17 GM active [facility] POLYETHYLENE GLYCOL 3350 142 MG/ML Oral Solution Polyethylene Glycol 3350 (Miralax) 17 gram/dose powder Polyethylene Glycol 3350 (Miralax) 17 gr am/dose powder 06/24/2019 12:58:26 PM EDT 17 GM [facility] POLYETHYLENE GLYCOL 3350 142 MG/ML Oral Solution Polyethylene Glycol 3350 (Miralax) 17 gram/dose powder Polyethylene Glycol 3350 (Miralax) 17 gr am/dose powder 06/24/2019 12:58:26 PM EDT 17 GM [facility] POLYETHYLENE GLYCOL 3350 142 MG/ML Oral Solution Polyethylene Glycol 3350 (Miralax) 17 gram/dose powder Polyethylene Glycol 3350 (Miralax) 17 gr am/dose powder 06/24/2019 12:58:26 PM EDT 17 GM [facility] POLYETHYLENE GLYCOL 3350 142 MG/ML Oral Solution Polyethylene Glycol 3350 (Miralax) 17 gram/dose powder Polyethylene Glycol 3350 (Miralax) 17 gr am/dose powder 06/24/2019 12:58:26 PM EDT 17 GM completed [facility] POLYETHYLENE GLYCOL 3350 142 MG/ML Oral Solution Polyethylene Glycol 3350 (Miralax) 17 gram/dose powder Polyethylene Glycol 3350 (Miralax) 17 gr am/dose powder 06/24/2019 12:58:26 PM EDT 17 GM [facility] POLYETHYLENE GLYCOL 3350 142 MG/ML Oral Solution Polyethylene Glycol 3350 (Miralax) 17 gram/dose powder Polyethylene Glycol 3350 (Miralax) 17 gr am/dose powder 06/24/2019 12:58:26 PM EDT 17 GM [facility] POLYETHYLENE GLYCOL 3350 142 MG/ML Oral Solution Polye thylene Glycol 3350 Polyethylene Glycol 3350 06/24/2019 12:58:26 PM EDT 17 GM [facility] POLYETHYLENE GLYCOL 3350 142 MG/ML Oral Solution Polye thylene Glycol 3350 Polyethylene Glycol 3350 06/24/2019 12:58:26 PM EDT 17 GM [facility] POLYETHYLENE GLYCOL 3350 142 MG/ML Oral Solution Polye thylene Glycol 3350 Polyethylene Glycol 3350 06/24/2019 12:58:26 PM EDT 17 GM [facility] POLYETHYLENE GLYCOL 3350 142 MG/ML Oral Solution Polyethylene Glycol 3350 (Miralax) 17 gram/dose powder Polyethylene Glycol 3350 (Miralax) 17 gr am/dose powder 06/24/2019 12:58:26 PM EDT 17 GM [facility] POLYETHYLENE GLYCOL 3350 142 MG/ML Oral Solution Polyethylene Glycol 3350 (Miralax) 17 gram/dose powder Polyethylene Glycol 3350 (Miralax) 17 gr am/dose powder 06/24/2019 12:58:26 PM EDT 17 GM active [facility] POLYETHYLENE GLYCOL 3350 142 MG/ML Oral Solution Polye thylene Glycol 3350 Polyethylene Glycol 3350 06/24/2019 12:58:26 PM EDT 17 GM active [facility] POLYETHYLENE GLYCOL 3350 142 MG/ML Oral Solution Polyethylene Glycol 3350 (Miralax) 17 gram/dose powder Polyethylene Glycol 3350 (Miralax) 17 gr am/dose powder 06/24/2019 12:58:26 PM EDT 17 GM active [facility] Docusate Sodium 100 MG Oral Capsule Docusate Sodium (C olace) 100 mg capsule Docusate Sodium (Colace) 100 mg capsule 06/24/2019 12:57:48 PM EDT 10 0 MG completed [facility] Docusate Sodium 100 MG Oral Capsule Docusate Sodium (C olace) 100 mg capsule Docusate Sodium (Colace) 100 mg capsule 06/24/2019 12:57:48 PM EDT 10 0 MG completed [facility] Docusate Sodium 100 MG Oral Capsule Docusate Sodium (C olace) 100 mg capsule Docusate Sodium (Colace) 100 mg capsule 06/24/2019 12:57:48 PM EDT 10 0 MG completed [facility] Docusate Sodium 100 MG Oral Capsule Docusate Sodium 06/24/2019 1 2:57:48 PM EDT 100 MG active [facility] Docusate Sodium 100 MG Oral Capsule Docusate Sodium (C olace) 100 mg capsule Docusate Sodium (Colace) 100 mg capsule 06/24/2019 12:57:48 PM EDT 10 0 MG completed [facility] Docusate Sodium 100 MG Oral Capsule Docusate Sodium (C olace) 100 mg capsule Docusate Sodium (Colace) 100 mg capsule 06/24/2019 12:57:48 PM EDT 10 0 MG completed [facility] Docusate Sodium 100 MG Oral Capsule Docusate Sodium (C olace) 100 mg capsule Docusate Sodium (Colace) 100 mg capsule 06/24/2019 12:57:48 PM EDT 10 0 MG completed [facility] Docusate Sodium 100 MG Oral Capsule Docusate Sodium 06/24/2019 1 2:57:48 PM EDT 100 MG active [facility] Docusate Sodium 100 MG Oral Capsule Docusate Sodium 06/24/2019 1 2:57:48 PM EDT 100 MG active [facility] Docusate Sodium 100 MG Oral Capsule Docusate Sodium (C olace) 100 mg capsule Docusate Sodium (Colace) 100 mg capsule 06/24/2019 12:57:48 PM EDT 10 0 MG completed [facility] Docusate Sodium 100 MG Oral Capsule Docusate Sodium (C olace) 100 mg capsule Docusate Sodium (Colace) 100 mg capsule 06/24/2019 12:57:48 PM EDT 10 0 MG completed [facility] Docusate Sodium 100 MG Oral Capsule Docusate Sodium (C olace) 100 mg capsule Docusate Sodium (Colace) 100 mg capsule 06/24/2019 12:57:48 PM EDT 10 0 MG completed [facility] Docusate Sodium 100 MG Oral Capsule Docusate Sodium (C olace) 100 mg capsule Docusate Sodium (Colace) 100 mg capsule 06/24/2019 12:57:48 PM EDT 10 0 MG active [facility] Docusate Sodium 100 MG Oral Capsule Docusate Sodium 06/24/2019 1 2:57:48 PM EDT 100 MG active [facility] Docusate Sodium 100 MG Oral Capsule Docusate Sodium (C olace) 100 mg capsule Docusate Sodium (Colace) 100 mg capsule 06/24/2019 12:57:48 PM EDT 10 0 MG completed [facility] Docusate Sodium 100 MG Oral Capsule Docusate Sodium 06/24/2019 1 2:57:48 PM EDT 100 MG active [facility] 50 mg 06/24/2019 12:00:00 AM EDT tablet 30 TAKE ONE TABLET BY MOUTH AT BEDTIME NEEDED FOR SLEEP TAKE ONE TABLET BY MOUTH AT BEDTIME N EEDED FOR SLEEP SOLD: 06/26/2019 [facility] 17 gram/dose 06/24/2019 12:00:00 AM EDT powder 510 USE ONE 17 GRAM SCOOP MIXED IN WATER ONCE DAILY NEEDED USE ONE 17 GRAM SCOOP MIXED IN WATER ONC E DAILY NEEDED SOLD: 06/26/2019 [facility] 100 mg 06/24/2019 12:00:00 AM EDT capsule 60 TAKE ONE CAPSULE BY MOUTH TWICE A DAY TAKE ONE CAPSULE BY MOUTH TWICE A DAY SOLD: 06/26/2019 [facility] 50 mg 06/24/2019 12:00:00 AM EDT tablet 30 TAKE ONE TABLET BY MOUTH ONCE DAILY TAKE ONE TABLET BY MOUTH ONCE DAILY SOLD: 06/26/2019 [facility] 17 gram/dose 06/24/2019 12:00:00 AM EDT powder 510 USE ONE 17 GRAM SCOOP MIXED IN WATER ONCE DAILY NEEDED USE ONE 17 GRAM SCOOP MIXED IN WATER ONC E DAILY NEEDED SOLD: 08/11/2019 [facility] Cholecalciferol 1000 UNT Oral Capsule Ch olecalciferol (Vitamin D3) (Vitamin D3) 25 mcg (1,000 unit) capsule Cholecalciferol (Vitamin D3) (Vitamin D3 ) 25 mcg (1,000 unit) capsule 06/17/2019 03:44:09 PM EDT 1000 UNIT completed [facility] Cholecalciferol 1000 UNT Oral Capsule Ch olecalciferol (Vitamin D3) (Vitamin D3) 25 mcg (1,000 unit) capsule Cholecalciferol (Vitamin D3) (Vitamin D3 ) 25 mcg (1,000 unit) capsule 06/17/2019 03:44:09 PM EDT 1000 UNIT completed [facility] Cholecalciferol 1000 UNT Oral Capsule Ch olecalciferol (Vitamin D3) (Vitamin D3) 25 mcg (1,000 unit) capsule Cholecalciferol (Vitamin D3) (Vitamin D3 ) 25 mcg (1,000 unit) capsule 06/17/2019 03:44:09 PM EDT 1000 UNIT completed [facility] Cholecalciferol 1000 UNT Oral Capsule Ch olecalciferol (Vitamin D3) (Vitamin D3) 25 mcg (1,000 unit) capsule Cholecalciferol (Vitamin D3) (Vitamin D3 ) 25 mcg (1,000 unit) capsule 06/17/2019 03:44:09 PM EDT 1000 UNIT completed [facility] Cholecalciferol 1000 UNT Oral Capsule Ch olecalciferol (Vitamin D3) (Vitamin D3) 25 mcg (1,000 unit) capsule Cholecalciferol (Vitamin D3) (Vitamin D3 ) 25 mcg (1,000 unit) capsule 06/17/2019 03:44:09 PM EDT 1000 UNIT completed [facility] Cholecalciferol 1000 UNT Oral Capsule Ch olecalciferol (Vitamin D3) (Vitamin D3) 25 mcg (1,000 unit) capsule Cholecalciferol (Vitamin D3) (Vitamin D3 ) 25 mcg (1,000 unit) capsule 06/17/2019 03:44:09 PM EDT 1000 UNIT completed [facility] Cholecalciferol 1000 UNT Oral Capsule Cholecalciferol (Vitamin D3) Cholecalciferol (Vitamin D3) 06/17/2019 03:44:09 PM EDT 1000 UNIT active [facility] Cholecalciferol 1000 UNT Oral Capsule Cholecalciferol (Vitamin D3) Cholecalciferol (Vitamin D3) 06/17/2019 03:44:09 PM EDT 1000 UNIT completed [facility] Cholecalciferol 1000 UNT Oral Capsule Ch olecalciferol (Vitamin D3) (Vitamin D3) 25 mcg (1,000 unit) capsule Cholecalciferol (Vitamin D3) (Vitamin D3 ) 25 mcg (1,000 unit) capsule 06/17/2019 03:44:09 PM EDT 1000 UNIT completed [facility] Cholecalciferol 1000 UNT Oral Capsule Ch olecalciferol (Vitamin D3) (Vitamin D3) 25 mcg (1,000 unit) capsule Cholecalciferol (Vitamin D3) (Vitamin D3 ) 25 mcg (1,000 unit) capsule 06/17/2019 03:44:09 PM EDT 1000 UNIT completed [facility] Cholecalciferol 1000 UNT Oral Capsule Cholecalciferol (Vitamin D3) Cholecalciferol (Vitamin D3) 06/17/2019 03:44:09 PM EDT 1000 UNIT completed [facility] Cholecalciferol 1000 UNT Oral Capsule Cholecalciferol (Vitamin D3) Cholecalciferol (Vitamin D3) 06/17/2019 03:44:09 PM EDT 1000 UNIT completed [facility] Cholecalciferol 1000 UNT Oral Capsule Cholecalciferol (Vitamin D3) Cholecalciferol (Vitamin D3) 06/17/2019 03:44:09 PM EDT 1000 UNIT completed [facility] Cholecalciferol 1000 UNT Oral Capsule Ch olecalciferol (Vitamin D3) (Vitamin D3) 25 mcg (1,000 unit) capsule Cholecalciferol (Vitamin D3) (Vitamin D3 ) 25 mcg (1,000 unit) capsule 06/17/2019 03:44:09 PM EDT 1000 UNIT completed [facility] Cholecalciferol 1000 UNT Oral Capsule Ch olecalciferol (Vitamin D3) (Vitamin D3) 25 mcg (1,000 unit) capsule Cholecalciferol (Vitamin D3) (Vitamin D3 ) 25 mcg (1,000 unit) capsule 06/17/2019 03:44:09 PM EDT 1000 UNIT completed [facility] Cholecalciferol 1000 UNT Oral Capsule Ch olecalciferol (Vitamin D3) (Vitamin D3) 25 mcg (1,000 unit) capsule Cholecalciferol (Vitamin D3) (Vitamin D3 ) 25 mcg (1,000 unit) capsule 06/17/2019 03:44:09 PM EDT 1000 UNIT completed [facility] 50 mg 05/28/2019 12:00:00 AM EST tablet 30 TAKE ONE TABLET BY MOUTH AT BEDTIME NEEDED FOR SLEEP TAKE ONE TABLET BY MOUTH AT BEDTIME N EEDED FOR SLEEP SOLD: 05/30/2019 [facility] 5 mg 05/16/2019 12:00:00 AM EST tablet 180 TAKE ONE TABLET BY MOUTH TWICE A DAY TAKE ONE TABLET BY MOUTH TWICE A DAY SOLD: 05/16/2019 [facility] 5 mg 05/16/2019 12:00:00 AM EST tablet 180 TAKE ONE TABLET BY MOUTH TWICE A DAY TAKE ONE TABLET BY MOUTH TWICE A DAY SOLD: 09/15/2019 [facility] apixaban 5 MG Oral Tablet Apixaban (Eliquis) 5 mg tabl et Apixaban (Eliquis) 5 mg tablet 05/12/2019 05:12:13 PM EST 5 MG completed [facility] apixaban 5 MG Oral Tablet Apixaban (Eliquis) 5 mg tabl et Apixaban (Eliquis) 5 mg tablet 05/12/2019 05:12:13 PM EST 5 MG completed [facility] apixaban 5 MG Oral Tablet Apixaban (Eliquis) 5 mg tabl et Apixaban (Eliquis) 5 mg tablet 05/12/2019 05:12:13 PM EST 5 MG completed [facility] apixaban 5 MG Oral Tablet Apixaban (Eliquis) 5 mg tabl et Apixaban (Eliquis) 5 mg tablet 05/12/2019 05:12:13 PM EST 5 MG completed [facility] apixaban 5 MG Oral Tablet Apixaban (Eliquis) 5 mg tabl et Apixaban (Eliquis) 5 mg tablet 05/12/2019 05:12:13 PM EST 5 MG completed [facility] apixaban 5 MG Oral Tablet Apixaban Apixaban 05/12/2019 05:12:13 PM ES T [address] [facility] apixaban 5 MG Oral Tablet Apixaban Apixaban 05/12/2019 05:12:13 PM ES T [address] [facility] apixaban 5 MG Oral Tablet Apixaban (Eliquis) 5 mg tabl et Apixaban (Eliquis) 5 mg tablet 05/12/2019 05:12:13 PM EST 5 MG completed [facility] apixaban 5 MG Oral Tablet Apixaban (Eliquis) 5 mg tabl et Apixaban (Eliquis) 5 mg tablet 05/12/2019 05:12:13 PM EST 5 MG completed [facility] apixaban 5 MG Oral Tablet Apixaban (Eliquis) 5 mg tabl et Apixaban (Eliquis) 5 mg tablet 05/12/2019 05:12:13 PM EST 5 MG completed [facility] apixaban 5 MG Oral Tablet Apixaban Apixaban 05/12/2019 05:12:13 PM ES T [address] [facility] apixaban 5 MG Oral Tablet Apixaban Apixaban 05/12/2019 05:12:13 PM ES T [address] [facility] apixaban 5 MG Oral Tablet Apixaban Apixaban 05/12/2019 05:12:13 PM ES T [address] [facility] apixaban 5 MG Oral Tablet Apixaban Apixaban 05/12/2019 05:12:13 PM ES T [address] [facility] apixaban 5 MG Oral Tablet Apixaban (Eliquis) 5 mg tabl et Apixaban (Eliquis) 5 mg tablet 05/12/2019 05:12:13 PM EST 5 MG completed [facility] apixaban 5 MG Oral Tablet Apixaban (Eliquis) 5 mg tabl et Apixaban (Eliquis) 5 mg tablet 05/12/2019 05:12:13 PM EST 5 MG completed [facility] apixaban 5 MG Oral Tablet Apixaban (Eliquis) 5 mg tabl et Apixaban (Eliquis) 5 mg tablet 05/12/2019 05:12:13 PM EST 5 MG completed [facility] apixaban 5 MG Oral Tablet Apixaban (Eliquis) 5 mg Tabl et Apixaban (Eliquis) 5 mg Tablet 05/11/2019 08:24:37 AM EST 10 MG completed [facility] apixaban 5 MG Oral Tablet Apixaban Apixaban 05/11/2019 08:24:37 AM EST 10 MG active [facility] apixaban 5 MG Oral Tablet Apixaban (Eliquis) 5 mg Tabl et Apixaban (Eliquis) 5 mg Tablet 05/11/2019 08:24:37 AM EST 10 MG completed [facility] apixaban 5 MG Oral Tablet Apixaban Apixaban 05/11/2019 08:24:37 AM EST 10 MG completed [facility] apixaban 5 MG Oral Tablet Apixaban Apixaban 05/11/2019 08:24:37 AM EST 10 MG completed [facility] apixaban 5 MG Oral Tablet Apixaban (Eliquis) 5 mg Tabl et Apixaban (Eliquis) 5 mg Tablet 05/11/2019 08:24:37 AM EST 10 MG completed [facility] apixaban 5 MG Oral Tablet Apixaban Apixaban 05/11/2019 08:24:37 AM EST 10 MG completed [facility] apixaban 5 MG Oral Tablet Apixaban (Eliquis) 5 mg Tabl et Apixaban (Eliquis) 5 mg Tablet 05/11/2019 08:24:37 AM EST 10 MG completed [facility] apixaban 5 MG Oral Tablet Apixaban Apixaban 05/11/2019 08:24:37 AM EST 10 MG active [facility] apixaban 5 MG Oral Tablet Apixaban (Eliquis) 5 mg Tabl et Apixaban (Eliquis) 5 mg Tablet 05/11/2019 08:24:37 AM EST 10 MG completed [facility] apixaban 5 MG Oral Tablet Apixaban (Eliquis) 5 mg Tabl et Apixaban (Eliquis) 5 mg Tablet 05/11/2019 08:24:37 AM EST 10 MG completed [facility] apixaban 5 MG Oral Tablet Apixaban (Eliquis) 5 mg Tabl et Apixaban (Eliquis) 5 mg Tablet 05/11/2019 08:24:37 AM EST 10 MG completed [facility] apixaban 5 MG Oral Tablet Apixaban (Eliquis) 5 mg Tabl et Apixaban (Eliquis) 5 mg Tablet 05/11/2019 08:24:37 AM EST 10 MG completed [facility] apixaban 5 MG Oral Tablet Apixaban Apixaban 05/11/2019 08:24:37 AM EST 10 MG completed [facility] apixaban 5 MG Oral Tablet Apixaban (Eliquis) 5 mg Tabl et Apixaban (Eliquis) 5 mg Tablet 05/11/2019 08:24:37 AM EST 10 MG completed [facility] apixaban 5 MG Oral Tablet Apixaban Apixaban 05/11/2019 08:24:37 AM EST 10 MG completed [facility] apixaban 5 MG Oral Tablet Apixaban (Eliquis) 5 mg Tabl et Apixaban (Eliquis) 5 mg Tablet 05/11/2019 08:24:37 AM EST 10 MG completed [facility] apixaban 5 MG Oral Tablet Apixaban (Eliquis) 5 mg Tabl et Apixaban (Eliquis) 5 mg Tablet 05/11/2019 08:24:37 AM EST 10 MG completed [facility] 5 mg 05/11/2019 12:00:00 AM EST tablet 12 TAKE TWO TABLETS BY MOUTH TWICE A DAY TAKE TWO TABLETS BY MOUTH TWICE A DAY SOLD: 05/11/2019 [facility] 0.1 mg/24 hr 04/20/2019 12:00:00 AM EST patch weekly 4 APPLY ONE PATCH TOPICALLY ONCE WEEKLY APPLY ONE PATCH TOPICALLY ONCE WEEKLY SOLD: 04/21/2019 [facility] 0.1 mg/24 hr 04/20/2019 12:00:00 AM EST patch weekly 4 APPLY ONE PATCH TOPICALLY ONCE WEEKLY APPLY ONE PATCH TOPICALLY ONCE WEEKLY SOLD: 05/16/2019 [facility] 168 HR Estradiol 0.84889 MG/HR Transdermal Patch Estradiol 04/19/2019 03:49:35 PM EST 1 PATCH completed [facility] 168 HR Estradiol 0.65286 MG/HR Transdermal Patch Estradiol 04/19/2019 03:49:35 PM EST 1 PATCH completed [facility] 168 HR Estradiol 0.51174 MG/HR Transdermal Patch Estradiol 04/19/2019 03:49:35 PM EST 1 PATCH completed [facility] 168 HR Estradiol 0.65094 MG/HR Transdermal Patch Estradiol 04/19/2019 03:49:35 PM EST 1 PATCH active [facility] 168 HR Estradiol 0.08261 MG/HR Transdermal Patch Estradiol 04/19/2019 03:49:35 PM EST 1 PATCH active [facility] 168 HR Estradiol 0.37025 MG/HR Transdermal Patch Estradiol 04/19/2019 03:49:35 PM EST 1 PATCH completed [facility] 168 HR Estradiol 0.80934 MG/HR Transdermal Patch Estradiol 04/19/2019 03:49:35 PM EST 1 PATCH completed [facility] 168 HR Estradiol 0.42716 MG/HR Transdermal Patch Estradiol 04/19/2019 03:49:35 PM EST 1 PATCH completed [facility] 168 HR Estradiol 0.64032 MG/HR Transdermal Patch Estradiol 04/19/2019 03:49:35 PM EST 1 PATCH completed [facility] 168 HR Estradiol 0.88121 MG/HR Transdermal Patch Estradiol 04/19/2019 03:49:35 PM EST 1 PATCH completed [facility] 168 HR Estradiol 0.00662 MG/HR Transdermal Patch Estradiol 04/19/2019 03:49:35 PM EST 1 PATCH completed [facility] 168 HR Estradiol 0.38776 MG/HR Transdermal Patch Estradiol 04/19/2019 03:49:35 PM EST 1 PATCH completed [facility] 168 HR Estradiol 0.00292 MG/HR Transdermal Patch Estradiol 04/19/2019 03:49:35 PM EST 1 PATCH active [facility] 168 HR Estradiol 0.31748 MG/HR Transdermal Patch Estradiol 04/19/2019 03:49:35 PM EST 1 PATCH completed [facility] 168 HR Estradiol 0.84157 MG/HR Transdermal Patch Estradiol 04/19/2019 03:49:35 PM EST 1 PATCH completed [facility] 168 HR Estradiol 0.49826 MG/HR Transdermal Patch Estradiol 04/19/2019 03:49:35 PM EST 1 PATCH completed [facility] 168 HR Estradiol 0.18303 MG/HR Transdermal Patch Estradiol 04/19/2019 03:49:35 PM EST 1 PATCH completed [facility] 168 HR Estradiol 0.07366 MG/HR Transdermal Patch Estradiol 04/19/2019 03:49:35 PM EST 1 PATCH completed [facility] 168 HR Estradiol 0.57219 MG/HR Transdermal Patch Estradiol 04/19/2019 03:49:35 PM EST 1 PATCH completed [facility] gabapentin 300 MG Oral Capsule Gabapentin Gabapentin 2018 12:18:41 PM EST 300 MG completed [facility] gabapentin 300 MG Oral Capsule Gabapentin Gabapentin 2018 12:18:41 PM EST 300 MG completed [facility] gabapentin 300 MG Oral Capsule Gabapentin Gabapentin 2018 12:18:41 PM EST 300 MG completed [facility] gabapentin 300 MG Oral Capsule Gabapentin Gabapentin 2018 12:18:41 PM EST 300 MG completed [facility] gabapentin 300 MG Oral Capsule Gabapentin Gabapentin 2018 12:18:41 PM EST 300 MG completed [facility] gabapentin 300 MG Oral Capsule Gabapentin Gabapentin 2018 12:18:41 PM EST 300 MG completed [facility] gabapentin 300 MG Oral Capsule Gabapentin Gabapentin 2018 12:18:41 PM EST 300 MG completed [facility] gabapentin 300 MG Oral Capsule Gabapentin Gabapentin 2018 12:18:41 PM EST 300 MG completed [facility] gabapentin 300 MG Oral Capsule Gabapentin Gabapentin 2018 12:18:41 PM EST 300 MG completed [facility] gabapentin 300 MG Oral Capsule Gabapentin Gabapentin 2018 12:18:41 PM EST 300 MG completed [facility] gabapentin 300 MG Oral Capsule Gabapentin Gabapentin 2018 12:18:41 PM EST 300 MG completed [facility] gabapentin 300 MG Oral Capsule Gabapentin Gabapentin 2018 12:18:41 PM EST 300 MG completed [facility] 300 mg 03/07/2019 12:00:00 AM EST capsule 60 TAKE ONE CAPSULE BY MOUTH TWICE A DAY TAKE ONE CAPSULE BY MOUTH TWICE A DAY SOLD: 04/10/2019 [facility] 300 mg 03/07/2019 12:00:00 AM EST capsule 60 TAKE ONE CAPSULE BY MOUTH TWICE A DAY TAKE ONE CAPSULE BY MOUTH TWICE A DAY SOLD: 08/11/2019 [facility] 300 mg 03/07/2019 12:00:00 AM EST capsule 60 TAKE ONE CAPSULE BY MOUTH TWICE A DAY TAKE ONE CAPSULE BY MOUTH TWICE A DAY SOLD: 05/11/2019 [facility] 300 mg 03/07/2019 12:00:00 AM EST capsule 60 TAKE ONE CAPSULE BY MOUTH TWICE A DAY TAKE ONE CAPSULE BY MOUTH TWICE A DAY SOLD: 06/15/2019 [facility] 300 mg 03/07/2019 12:00:00 AM EST capsule 60 TAKE ONE CAPSULE BY MOUTH TWICE A DAY TAKE ONE CAPSULE BY MOUTH TWICE A DAY SOLD: 07/15/2019 [facility] Azithromycin 02/18/2019 03:57:00 PM EST 0 compl [facility] Azithromycin 02/18/2019 03:57:00 PM EST 0 compl [facility] Azithromycin 02/18/2019 03:57:00 PM EST 0 compl [facility] Azithromycin 02/18/2019 03:57:00 PM EST 0 compl [facility] Azithromycin 02/18/2019 03:57:00 PM EST 0 compl [facility] Azithromycin 02/18/2019 03:57:00 PM EST 0 compl [facility] Azithromycin 02/18/2019 03:57:00 PM EST 0 compl [facility] Azithromycin 02/18/2019 03:57:00 PM EST 0 compl [facility] Azithromycin 02/18/2019 03:57:00 PM EST 0 compl [facility] Azithromycin 02/18/2019 03:57:00 PM EST 0 compl [facility] Azithromycin 02/18/2019 03:57:00 PM EST 0 compl [facility] Azithromycin 02/18/2019 03:57:00 PM EST 0 compl [facility] Azithromycin 02/18/2019 03:57:00 PM EST 0 compl [facility] Azithromycin 02/18/2019 03:57:00 PM EST 0 compl [facility] Azithromycin 02/18/2019 03:57:00 PM EST 0 compl [facility] Azithromycin 02/18/2019 03:57:00 PM EST 0 compl [facility] Azithromycin 02/18/2019 03:57:00 PM EST 0 compl eted [facility] Azithromycin 02/18/2019 03:57:00 PM EST 0 compl eted [facility] pantoprazole 40 MG Delayed Release Oral Tablet Pantoprazole Pantoprazole 02/18/2019 03:56:05 PM EST 40 MG completed [facility] pantoprazole 40 MG Delayed Release Oral Tablet Pantoprazole Pantoprazole 02/18/2019 03:56:05 PM EST 40 MG completed [facility] pantoprazole 40 MG Delayed Release Oral Tablet Pantoprazole Pantoprazole 02/18/2019 03:56:05 PM EST 40 MG completed [facility] pantoprazole 40 MG Delayed Release Oral Tablet Pantoprazole Pantoprazole 02/18/2019 03:56:05 PM EST 40 MG completed [facility] pantoprazole 40 MG Delayed Release Oral Tablet Pantoprazole Pantoprazole 02/18/2019 03:56:05 PM EST 40 MG completed [facility] pantoprazole 40 MG Delayed Release Oral Tablet Pantoprazole Pantoprazole 02/18/2019 03:56:05 PM EST 40 MG completed [facility] pantoprazole 40 MG Delayed Release Oral Tablet Pantoprazole Pantoprazole 02/18/2019 03:56:05 PM EST 40 MG [facility] pantoprazole 40 MG Delayed Release Oral Tablet Pantoprazole Pantoprazole 02/18/2019 03:56:05 PM EST 40 MG [facility] pantoprazole 40 MG Delayed Release Oral Tablet Pantoprazole Pantoprazole 02/18/2019 03:56:05 PM EST 40 MG [facility] pantoprazole 40 MG Delayed Release Oral Tablet Pantoprazole Pantoprazole 02/18/2019 03:56:05 PM EST 40 MG [facility] pantoprazole 40 MG Delayed Release Oral Tablet Pantoprazole Pantoprazole 02/18/2019 03:56:05 PM EST 40 MG [facility] 50 mg 02/17/2019 12:00:00 AM EST tablet 30 TAKE ONE TABLET BY MOUTH EVERY DAY TAKE ONE TABLET BY MOUTH EVERY DAY SOLD: 04/10/2019 [facility] 50 mg 02/17/2019 12:00:00 AM EST tablet 30 TAKE ONE TABLET BY MOUTH AT BEDTIME NEEDED FOR SLEEP TAKE ONE TABLET BY MOUTH AT BEDTIME N EEDED FOR SLEEP SOLD: 04/10/2019 [facility] 25 mcg (1,000 unit) 01/06/2019 12:00:00 AM EDT capsule 30 TAKE ONE CAPSULE BY MOUTH EVERY DAY TAKE ONE CAPSULE BY MOUTH EVERY DAY SOLD: 04/10/2019 [facility] 25 mcg (1,000 unit) 01/06/2019 12:00:00 AM EDT capsule 30 TAKE ONE CAPSULE BY MOUTH EVERY DAY TAKE ONE CAPSULE BY MOUTH EVERY DAY SOLD: 05/11/2019 [facility] 25 mcg (1,000 unit) 01/06/2019 12:00:00 AM EDT capsule 30 TAKE ONE CAPSULE BY MOUTH EVERY DAY TAKE ONE CAPSULE BY MOUTH EVERY DAY SOLD: 06/15/2019 [facility] 168 HR Estradiol 0.82698 MG/HR Transdermal Patch Estradiol 12/28/2018 07:26:29 AM EDT 1 PATCH completed [facility] 168 HR Estradiol 0.00292 MG/HR Transdermal Patch Estradiol 12/28/2018 07:26:29 AM EDT 1 PATCH completed [facility] 168 HR Estradiol 0.49824 MG/HR Transdermal Patch Estradiol 12/28/2018 07:26:29 AM EDT 1 PATCH completed [facility] 168 HR Estradiol 0.59847 MG/HR Transdermal Patch Estradiol 12/28/2018 07:26:29 AM EDT 1 PATCH completed [facility] 168 HR Estradiol 0.83483 MG/HR Transdermal Patch Estradiol 12/28/2018 07:26:29 AM EDT 1 PATCH completed [facility] 168 HR Estradiol 0.42187 MG/HR Transdermal Patch Estradiol 12/28/2018 07:26:29 AM EDT 1 PATCH completed [facility] 168 HR Estradiol 0.67597 MG/HR Transdermal Patch Estradiol 12/28/2018 07:26:29 AM EDT 1 PATCH completed [facility] 168 HR Estradiol 0.14588 MG/HR Transdermal Patch Estradiol 12/28/2018 07:26:29 AM EDT 1 PATCH completed [facility] 168 HR Estradiol 0.92732 MG/HR Transdermal Patch Estradiol 12/28/2018 07:26:29 AM EDT 1 PATCH completed [facility] 168 HR Estradiol 0.90718 MG/HR Transdermal Patch Estradiol 12/28/2018 07:26:29 AM EDT 1 PATCH completed [facility] 168 HR Estradiol 0.79214 MG/HR Transdermal Patch Estradiol 12/28/2018 07:26:29 AM EDT 1 PATCH completed [facility] 168 HR Estradiol 0.72899 MG/HR Transdermal Patch Estradiol 12/28/2018 07:26:29 AM EDT 1 PATCH completed [facility] 168 HR Estradiol 0.88929 MG/HR Transdermal Patch Estradiol 12/28/2018 07:26:29 AM EDT 1 PATCH completed [facility] 168 HR Estradiol 0.16504 MG/HR Transdermal Patch Estradiol 12/28/2018 07:26:29 AM EDT 1 PATCH completed [facility] 168 HR Estradiol 0.20032 MG/HR Transdermal Patch Estradiol 12/28/2018 07:26:29 AM EDT 1 PATCH completed [facility] 168 HR Estradiol 0.21444 MG/HR Transdermal Patch Estradiol 12/28/2018 07:26:29 AM EDT 1 PATCH completed [facility] 168 HR Estradiol 0.45305 MG/HR Transdermal Patch Estradiol 12/28/2018 07:26:29 AM EDT 1 PATCH completed [facility] 168 HR Estradiol 0.87155 MG/HR Transdermal Patch Estradiol 12/28/2018 07:26:29 AM EDT 1 PATCH completed [facility] 168 HR Estradiol 0.72679 MG/HR Transdermal Patch Estradiol 12/28/2018 07:26:29 AM EDT 1 PATCH completed [facility] Norethindrone-Ethin Estradiol (Nortrel 0.5/35 (28)) 0.5-35 m g-mcg tablet 12/28/2018 07:24:54 AM EDT 1 TAB completed [facility] Norethindrone-Ethin Estradiol 12/28/2018 07:24:54 AM EDT 1 TAB completed [facility] Norethindrone-Ethin Estradiol (Nortrel 0.5/35 (28)) 0.5-35 m g-mcg tablet 12/28/2018 07:24:54 AM EDT 1 TAB completed [facility] Norethindrone-Ethin Estradiol 12/28/2018 07:24:54 AM EDT 1 TAB completed [facility] Norethindrone-Ethin Estradiol (Nortrel 0.5/35 (28)) 0.5-35 m g-mcg tablet 12/28/2018 07:24:54 AM EDT 1 TAB completed [facility] Norethindrone-Ethin Estradiol 12/28/2018 07:24:54 AM EDT 1 TAB completed [facility] Norethindrone-Ethin Estradiol (Nortrel 0.5/35 (28)) 0.5-35 m g-mcg tablet 12/28/2018 07:24:54 AM EDT 1 TAB completed [facility] Norethindrone-Ethin Estradiol (Nortrel 0.5/35 (28)) 0.5-35 m g-mcg tablet 12/28/2018 07:24:54 AM EDT 1 TAB completed [facility] Norethindrone-Ethin Estradiol 12/28/2018 07:24:54 AM EDT 1 TAB completed [facility] Norethindrone-Ethin Estradiol (Nortrel 0.5/35 (28)) 0.5-35 m g-mcg tablet 12/28/2018 07:24:54 AM EDT 1 TAB completed [facility] Norethindrone-Ethin Estradiol (Nortrel 0.5/35 (28)) 0.5-35 m g-mcg tablet 12/28/2018 07:24:54 AM EDT 1 TAB completed [facility] Norethindrone-Ethin Estradiol (Nortrel 0.5/35 (28)) 0.5-35 m g-mcg tablet 12/28/2018 07:24:54 AM EDT 1 TAB completed [facility] Norethindrone-Ethin Estradiol (Nortrel 0.5/35 (28)) 0.5-35 m g-mcg tablet 12/28/2018 07:24:54 AM EDT 1 TAB completed [facility] Norethindrone-Ethin Estradiol 12/28/2018 07:24:54 AM EDT 1 TAB completed [facility] Norethindrone-Ethin Estradiol 12/28/2018 07:24:54 AM EDT 1 TAB completed [facility] Norethindrone-Ethin Estradiol (Nortrel 0.5/35 (28)) 0.5-35 m g-mcg tablet 12/28/2018 07:24:54 AM EDT 1 TAB completed [facility] Norethindrone-Ethin Estradiol (Nortrel 0.5/35 (28)) 0.5-35 m g-mcg tablet 12/28/2018 07:24:54 AM EDT 1 TAB completed [facility] Norethindrone-Ethin Estradiol 12/28/2018 07:24:54 AM EDT 1 TAB completed [facility] Cholecalciferol 1000 UNT Oral Capsule Ch olecalciferol (Vitamin D3) (Vitamin D3) 1,000 unit capsule Cholecalciferol (Vitamin D3) (Vitamin D3) 1,000 unit c apsule 12/20/2018 05:54:54 PM EDT 1000 UNIT completed [facility] Cholecalciferol 1000 UNT Oral Capsule Ch olecalciferol (Vitamin D3) (Vitamin D3) 1,000 unit capsule Cholecalciferol (Vitamin D3) (Vitamin D3) 1,000 unit c apsule 12/20/2018 05:54:54 PM EDT 1000 UNIT completed [facility] Cholecalciferol 1000 UNT Oral Capsule Cholecalciferol (Vitamin D3) Cholecalciferol (Vitamin D3) 12/20/2018 05:54:54 PM EDT 1000 UNIT completed [facility] Cholecalciferol 1000 UNT Oral Capsule Ch olecalciferol (Vitamin D3) (Vitamin D3) 1,000 unit capsule Cholecalciferol (Vitamin D3) (Vitamin D3) 1,000 unit c apsule 12/20/2018 05:54:54 PM EDT 1000 UNIT completed [facility] Cholecalciferol 1000 UNT Oral Capsule Ch olecalciferol (Vitamin D3) (Vitamin D3) 1,000 unit capsule Cholecalciferol (Vitamin D3) (Vitamin D3) 1,000 unit c apsule 12/20/2018 05:54:54 PM EDT 1000 UNIT completed [facility] Cholecalciferol 1000 UNT Oral Capsule Cholecalciferol (Vitamin D3) Cholecalciferol (Vitamin D3) 12/20/2018 05:54:54 PM EDT 1000 UNIT completed [facility] Cholecalciferol 1000 UNT Oral Capsule Ch olecalciferol (Vitamin D3) (Vitamin D3) 1,000 unit capsule Cholecalciferol (Vitamin D3) (Vitamin D3) 1,000 unit c apsule 12/20/2018 05:54:54 PM EDT 1000 UNIT completed [facility] Cholecalciferol 1000 UNT Oral Capsule Cholecalciferol (Vitamin D3) Cholecalciferol (Vitamin D3) 12/20/2018 05:54:54 PM EDT 1000 UNIT completed [facility] Cholecalciferol 1000 UNT Oral Capsule Ch olecalciferol (Vitamin D3) (Vitamin D3) 1,000 unit capsule Cholecalciferol (Vitamin D3) (Vitamin D3) 1,[address] [facility] 12/20/2018 05:54:54 PM EDT 1000 UNIT completed [facility] Cholecalciferol 1000 UNT Oral Capsule Cholecalciferol (Vitamin D3) Cholecalciferol (Vitamin D3) 12/20/2018 05:54:54 PM EDT 1000 UNIT completed [facility] Cholecalciferol 1000 UNT Oral Capsule Ch olecalciferol (Vitamin D3) (Vitamin D3) 1,000 unit capsule Cholecalciferol (Vitamin D3) (Vitamin D3) 1,[address] [facility] 12/20/2018 05:54:54 PM EDT 1000 UNIT completed [facility] Cholecalciferol 1000 UNT Oral Capsule Ch olecalciferol (Vitamin D3) (Vitamin D3) 1,000 unit capsule Cholecalciferol (Vitamin D3) (Vitamin D3) 1,[address] [facility] 12/20/2018 05:54:54 PM EDT 1000 UNIT completed [facility] Cholecalciferol 1000 UNT Oral Capsule Cholecalciferol (Vitamin D3) Cholecalciferol (Vitamin D3) 12/20/2018 05:54:54 PM EDT 1000 UNIT completed [facility] Cholecalciferol 1000 UNT Oral Capsule Ch olecalciferol (Vitamin D3) (Vitamin D3) 1,000 unit capsule Cholecalciferol (Vitamin D3) (Vitamin D3) 1,[address] [facility] 12/20/2018 05:54:54 PM EDT 1000 UNIT completed [facility] Cholecalciferol 1000 UNT Oral Capsule Ch olecalciferol (Vitamin D3) (Vitamin D3) 1,000 unit capsule Cholecalciferol (Vitamin D3) (Vitamin D3) 1,[address] [facility] 12/20/2018 05:54:54 PM EDT 1000 UNIT completed [facility] Cholecalciferol 1000 UNT Oral Capsule Ch olecalciferol (Vitamin D3) (Vitamin D3) 1,000 unit capsule Cholecalciferol (Vitamin D3) (Vitamin D3) 1,[address] [facility] 12/20/2018 05:54:54 PM EDT 1000 UNIT completed [facility] lisdexamfetamine dimesylate 40 MG Oral Capsule Lisdexa mfetamine Lisdexamfetamine 05/28/2018 02:28:00 PM EST 1 CAP completed [facility] lisdexamfetamine dimesylate 40 MG Oral C apsule Lisdexamfetamine (Vyvanse) 40 MG capsule Lisdexamfetamine (Vyvanse) 40 MG capsule 05/28/2018 02:28:00 PM EST [address] [facility] lisdexamfetamine dimesylate 40 MG Oral C apsule Lisdexamfetamine (Vyvanse) 40 MG capsule Lisdexamfetamine (Vyvanse) 40 MG capsule 05/28/2018 02:28:00 PM EST [address] [facility] lisdexamfetamine dimesylate 40 MG Oral C apsule Lisdexamfetamine (Vyvanse) 40 MG capsule Lisdexamfetamine (Vyvanse) 40 MG capsule 05/28/2018 02:28:00 PM EST [address] [facility] lisdexamfetamine dimesylate 40 MG Oral C apsule Lisdexamfetamine (Vyvanse) 40 MG capsule Lisdexamfetamine (Vyvanse) 40 MG capsule 05/28/2018 02:28:00 PM EST [address] [facility] lisdexamfetamine dimesylate 40 MG Oral Capsule Lisdexa mfetamine Lisdexamfetamine 05/28/2018 02:28:00 PM EST 1 CAP completed [facility] Sertraline 50 MG Oral Tablet Sertraline 05/28/2018 02:28:00 PM EST 50 MG completed [facility] lisdexamfetamine dimesylate 40 MG Oral Capsule Lisdexa mfetamine Lisdexamfetamine 05/28/2018 02:28:00 PM EST 1 CAP completed [facility] lisdexamfetamine dimesylate 40 MG Oral C apsule Lisdexamfetamine (Vyvanse) 40 MG capsule Lisdexamfetamine (Vyvanse) 40 MG capsule 05/28/2018 02:28:00 PM EST [address] [facility] lisdexamfetamine dimesylate 40 MG Oral Capsule Lisdexa mfetamine Lisdexamfetamine 05/28/2018 02:28:00 PM EST 1 CAP completed [facility] lisdexamfetamine dimesylate 40 MG Oral C apsule Lisdexamfetamine (Vyvanse) 40 MG capsule Lisdexamfetamine (Vyvanse) 40 MG capsule 05/28/2018 02:28:00 PM EST [address] [facility] Sertraline 50 MG Oral Tablet Sertraline 05/28/2018 02:28:00 PM EST 50 MG completed [facility] lisdexamfetamine dimesylate 40 MG Oral Capsule Lisdexa mfetamine Lisdexamfetamine 05/28/2018 02:28:00 PM EST 1 CAP completed [facility] lisdexamfetamine dimesylate 40 MG Oral C apsule Lisdexamfetamine (Vyvanse) 40 MG capsule Lisdexamfetamine (Vyvanse) 40 MG capsule 05/28/2018 02:28:00 PM EST [address] [facility] lisdexamfetamine dimesylate 40 MG Oral C apsule Lisdexamfetamine (Vyvanse) 40 MG capsule Lisdexamfetamine (Vyvanse) 40 MG capsule 05/28/2018 02:28:00 PM EST [address] [facility] lisdexamfetamine dimesylate 40 MG Oral C apsule Lisdexamfetamine (Vyvanse) 40 MG capsule Lisdexamfetamine (Vyvanse) 40 MG capsule 05/28/2018 02:28:00 PM EST [address] [facility] lisdexamfetamine dimesylate 40 MG Oral Capsule Lisdexa mfetamine Lisdexamfetamine 05/28/2018 02:28:00 PM EST 1 CAP completed [facility] lisdexamfetamine dimesylate 40 MG Oral C apsule Lisdexamfetamine (Vyvanse) 40 MG capsule Lisdexamfetamine (Vyvanse) 40 MG capsule 05/28/2018 02:28:00 PM EST [address] [facility] lisdexamfetamine dimesylate 40 MG Oral C apsule Lisdexamfetamine (Vyvanse) 40 MG capsule Lisdexamfetamine (Vyvanse) 40 MG capsule 05/28/2018 02:28:00 PM EST [address] [facility] lisdexamfetamine dimesylate 40 MG Oral Capsule Lisdexa mfetamine Lisdexamfetamine 05/28/2018 02:28:00 PM EST 1 CAP completed [facility] Trazodone Hydrochloride 50 MG Oral Tablet Trazodone Hcl Traz odone Hcl 03/26/2018 04:08:00 PM EST 1 TAB completed [facility] Trazodone Hydrochloride 50 MG Oral Tablet Trazodone Hcl Traz odone Hcl 03/26/2018 04:08:00 PM EST 1 TAB completed [facility] Insurance Providers Payer name Policy type / Coverage type Policy ID Covered alliance party ID Covered alliance party's relationship to mercer Policy Mercer Plan Information [facility] [id number] SP [id number] [facility] MED[facility] [id number] Self [id number] [facility] [id number] S [id number] [facility] UNAVAILABLE S UNAVAILABLE [facility]) O [id number] S [id number] [facility] [place] [id number] 18 [id number] [facility] XIX -RECURRING [id number] 18 [id number] [facility] I [id number] Self [id number] [facility] MED[facility] [id number] D [facility] [id number] SP [id number] [facility] Health Maintenance Organization (HMO) [id number] Self [id number] [employer] Other 0 Self 0 [facility] COMM[facility] [id number] SP [id number] [facility] [id number] SP [id number] MEDICAID [id number] SP [id number] MEDICARE [id number] SP [id number] A [facility] Health Maintenance Organization (HMO) [id number] Self [id number] [employer] Other 0 Self 0 [employer] Other 0 Self 0 [employer] Other 0 Self 0 [employer] Other 0 Self 0 [facility] Health Maintenance Organization (HMO) [id number] Self [id number] [employer] Other 0 Self 0 [employer] Other 0 Self 0 [facility] Health Maintenance Organization (HMO) [id number] Self [id number] [facility] Health Maintenance Organization (HMO) [id number] Self [id number] [employer] Other 0 Self 0 [employer] Other 0 Self 0 [employer] Other 0 Self 0 [employer] Other 0 Self 0 Medicaid [place] Medigap Part B Self Medicare [facility] Medigap Part B Self [employer] (pr) Commercial Self Problems, Conditions, and Diagnoses Code Display Name Description Problem Type Effective Dates Data Source(s) 472564959 H/O: pulmonary embolus H/O: pulmonary embolus Problem 01/05/2020 12:00:00 AM EDT [facility] ([facility]) 970622760 Dyspnea Dyspnea Problem 01/05/2020 12:00:00 AM ED T [facility]) 31627188 Skin sensation disturbance Skin sensation disturbance Problem 01/05/2020 12:00:00 AM EDT [facility]) 91180390 Precordial pain Precordial pain Problem 01/05/2020 12:0 0:00 AM EDT [facility] ([facility]) 79969506 Palpitations Palpitations Problem 01/05/2020 12:00:00 A M EDT [facility] ([facility]) 680536683 Obesity Obesity Problem 01/05/2020 12:00:00 AM ED T [facility]) 42512518 Essential hypertension Essential hypertension Problem 01/05/2020 12:00:00 AM EDT [facility]) 811125398 Mixed hyperlipidemia Mixed hyperlipidemia Problem 01/05/2020 12:00:00 AM EDT [facility] ([facility]) K56.609 Unspecified intestinal obstr uction, unspecified as to partial versus complete obstruction Unspecified intestinal obstruction, unsp ecified as to partial versus complete obstruction Diagnosis 03/14/2020 11:37:00 PM E [facility] SBO SBO Diagnosis 03/14/2020 11:37:00 PM ES [facility] [id number] Other abnormalities of gait and mobility Other abnormalities of gait and mobility Diagnosis 12/15/2019 12:40:00 PM EDT [facility] [id number] Spinal stenosis, lumbar region without n eurogenic claudication Spinal stenosis, lumbar region without neurogenic claudication Diagnosis 12/15/2019 12:40:00 PM [facility] Surgeries/Procedures Procedure Description Date Indications Data Source(s) Computed tomography of abdomen and pelvis with contrast (pro cedure) 03/14/2020 01:44:00 PM [facility] Computed tomography of abdomen and pelvis with contrast (pro cedure) 03/14/2020 01:44:00 PM [facility] SARS-CoV-2 (PCR) Interpretation 03/14/2020 12:00:[address] [facility] SARS-CoV-2 (PCR) Interpretation 03/14/2020 12:00:[address] [facility] Screening mammography (procedure) 02/28/2020 04:38:[address] [facility] Screening mammography (procedure) 02/28/2020 04:38:[address] [facility] Echocardiography, Tranthoracic Complete Image Documentation 02/02/2020 12:00:00 AM EST [facility] ([facility]) Echocardiography, Tranthoracic Complete Image Documentation 02/02/2020 12:00:00 AM EST [facility]) MRI Lumbar without contrast 12/12/2019 03:40:07 PM [facility] MRI Lumbar without contrast 12/12/2019 03:40:07 PM [facility] MRI Lumbar without contrast 12/12/2019 03:40:07 PM [facility] Nucleic acid assay (procedure) 11/24/2019 12:00:00 AM [facility] Nucleic acid assay (procedure) 11/24/2019 12:00:00 AM [facility] Nucleic acid assay (procedure) 11/24/2019 12:00:00 AM [facility] Nucleic acid assay (procedure) 11/24/2019 12:00:00 AM [facility] Magnetic resonance imaging of abdomen with contrast (procedu re) 10/26/2019 01:03:00 PM [facility] Magnetic resonance imaging of abdomen with contrast (procedu re) 10/26/2019 01:03:00 PM [facility] Magnetic resonance imaging of abdomen with contrast (procedu re) 10/26/2019 01:03:00 PM [facility] Magnetic resonance imaging of abdomen with contrast (procedu re) 10/26/2019 01:03:00 PM [facility] Magnetic resonance imaging of abdomen with contrast (procedu re) 10/26/2019 01:03:00 PM [facility] Magnetic resonance imaging of abdomen with contrast (procedu re) 10/26/2019 01:03:00 PM [facility] Magnetic resonance imaging of abdomen with contrast (procedu re) 10/26/2019 01:03:00 PM [facility] Diagnostic radiography of abdomen (procedure) 10/11/19 09:17:00 AM [facility] Diagnostic radiography of abdomen (procedure) 10/11/19 09:17:00 AM [facility] Diagnostic radiography of abdomen (procedure) 10/11/19 09:17:00 AM [facility] Radiography of [id number]-juwrgy-omfyqoc (procedure) 10/09 09:44:00 AM [facility] Radiography of sartig-snpjnu-batibgl (procedure) 10/09 09:44:00 AM [facility] Radiography of zqcujf-lefzvt-numijje (procedure) 10/09 09:44:00 AM [facility] Radiography of nqohgo-cfbgej-tvugpeu (procedure) 10/08 01:38:00 PM [facility] Radiography of ucchms-ewuebt-wrbuvkz (procedure) 10/08 01:38:00 PM [facility] Radiography of ueijjy-pucfjo-dkjzrqv (procedure) 10/08 01:38:00 PM [facility] Plain chest X-ray (procedure) 10/08/2019 11:56:00 PM E [facility] Plain chest X-ray (procedure) 10/08/2019 11:56:00 PM E [facility] Plain chest X-ray (procedure) 10/08/2019 11:56:00 PM E [facility] Plain chest X-ray (procedure) 10/08/2019 11:56:00 PM E [facility] Computed tomography of abdomen and pelvis with contrast (pro cedure) 10/08/2019 08:34:00 PM [facility] Computed tomography of abdomen and pelvis with contrast (pro cedure) 10/08/2019 08:34:00 PM [facility] Computed tomography of abdomen and pelvis with contrast (pro cedure) 10/08/2019 08:34:00 PM [facility] Computed tomography of abdomen and pelvis with contrast (pro cedure) 10/08/2019 08:34:00 PM [facility] Drainage of Stomach with Drainage Device, Via Natural or Art ificial Opening 10/08/2019 12:00:00 AM [facility] Introduction of Other Therapeutic Substa nce into Subcutaneous Tissue, Percutaneous Approach 10/08/2019 12:00:00 AM [facility] Introduction of Electrolytic and Water B alance Substance into Peripheral Vein, Percutaneous Approach 10/08/2019 12:00:00 AM [facility] Introduction of Other Therapeutic Substa nce into Peripheral Vein, Percutaneous Approach 10/08/2019 12:00:00 AM [facility] Drainage of Stomach with Drainage Device, Via Natural or Art ificial Opening 10/08/2019 12:00:00 AM [facility] Introduction of Other Therapeutic Substa nce into Subcutaneous Tissue, Percutaneous Approach 10/08/2019 12:00:00 AM [facility] Introduction of Electrolytic and Water B alance Substance into Peripheral Vein, Percutaneous Approach 10/08/2019 12:00:00 AM [facility] Introduction of Other Therapeutic Substa nce into Peripheral Vein, Percutaneous Approach 10/08/2019 12:00:00 AM [facility] Duplex Scan Extremity Veins Complete Bilateral 020 12:00:00 AM EDT [facility] ([facility]) Myocardial Perfusion Imaging Tomographic (Spect) Multiple St udies 06/28/2019 12:00:00 AM EDT [facility] ([facility]) Cardiovascular Stress Test Physician Supervision Only 06/28/2019 12:00:00 AM EDT [facility]) Cardiovascular Stress Test Interpretation & Report Only 06/28/2019 12:00:00 AM EDT [facility] ([facility]) Echocardiography (procedure) 05/10/2019 01:33:00 PM [facility] Echocardiography (procedure) 05/10/2019 01:33:00 PM [facility] Echocardiography (procedure) 05/10/2019 01:33:00 PM [facility] Echocardiography (procedure) 05/10/2019 01:33:00 PM [facility] Echocardiography (procedure) 05/10/2019 01:33:00 PM [facility] Echocardiography (procedure) 05/10/2019 01:33:00 PM [facility] Echocardiography (procedure) 05/10/2019 01:33:00 PM [facility] Echocardiography (procedure) 05/10/2019 01:33:00 PM [facility] Echocardiography (procedure) 05/10/2019 01:33:00 PM [facility] Echocardiography (procedure) 05/10/2019 01:33:00 PM [facility] Echocardiography (procedure) 05/10/2019 01:33:00 PM [facility] Echocardiography (procedure) 05/10/2019 01:33:00 PM [facility] Echocardiography (procedure) 05/10/2019 01:33:00 PM [facility] Echocardiography (procedure) 05/10/2019 01:33:00 PM [facility] Echocardiography (procedure) 05/10/2019 01:33:00 PM [facility] Echocardiography (procedure) 05/10/2019 01:33:00 PM [facility] Echocardiography (procedure) 05/10/2019 01:33:00 PM [facility] Echocardiography (procedure) 05/10/2019 01:33:00 PM [facility] Echocardiography, Profl,Tranthoracic, Realtime Image Documen ivon 05/10/2019 12:00:00 AM [facility]STELL[facility] ([facility]) Computed tomography angiography of thorax (procedure) 05/09/2019 06:41:00 PM [facility] Computed tomography angiography of thorax (procedure) 05/09/2019 06:41:00 PM [facility] Computed tomography angiography of thorax (procedure) 05/09/2019 06:41:00 PM EST [facility] Computed tomography angiography of thorax (procedure) 05/09/2019 06:41:00 PM [facility] Computed tomography angiography of thorax (procedure) 05/09/2019 06:41:00 PM [facility] Computed tomography angiography of thorax (procedure) 05/09/2019 06:41:00 PM [facility] Computed tomography angiography of thorax (procedure) 05/09/2019 06:41:00 PM [facility] Computed tomography angiography of thorax (procedure) 05/09/2019 06:41:00 PM [facility] Computed tomography angiography of thorax (procedure) 05/09/2019 06:41:00 PM [facility] Computed tomography angiography of thorax (procedure) 05/09/2019 06:41:00 PM [facility] Computed tomography angiography of thorax (procedure) 05/09/2019 06:41:00 PM [facility] Computed tomography angiography of thorax (procedure) 05/09/2019 06:41:00 PM [facility] Computed tomography angiography of thorax (procedure) 05/09/2019 06:41:00 PM [facility] Computed tomography angiography of thorax (procedure) 05/09/2019 06:41:00 PM [facility] Computed tomography angiography of thorax (procedure) 05/09/2019 06:41:00 PM [facility] Computed tomography angiography of thorax (procedure) 05/09/2019 06:41:00 PM [facility] Computed tomography angiography of thorax (procedure) 05/09/2019 06:41:00 PM [facility] Computed tomography angiography of thorax (procedure) 05/09/2019 06:41:00 PM [facility] Computed tomography angiography of thorax (procedure) 05/09/2019 06:41:00 PM [facility] Plain chest X-ray (procedure) 05/09/2019 04:17:00 PM [facility] Plain chest X-ray (procedure) 05/09/2019 04:17:00 PM [facility] Plain chest X-ray (procedure) 05/09/2019 04:17:00 PM [facility] Plain chest X-ray (procedure) 05/09/2019 04:17:00 PM [facility] Plain chest X-ray (procedure) 05/09/2019 04:17:00 PM [facility] Plain chest X-ray (procedure) 05/09/2019 04:17:00 PM [facility] Plain chest X-ray (procedure) 05/09/2019 04:17:00 PM [facility] Plain chest X-ray (procedure) 05/09/2019 04:17:00 PM [facility] Plain chest X-ray (procedure) 05/09/2019 04:17:00 PM [facility] Plain chest X-ray (procedure) 05/09/2019 04:17:00 PM [facility] Plain chest X-ray (procedure) 05/09/2019 04:17:00 PM [facility] Plain chest X-ray (procedure) 05/09/2019 04:17:00 PM [facility] Plain chest X-ray (procedure) 05/09/2019 04:17:00 PM [facility] Plain chest X-ray (procedure) 05/09/2019 04:17:00 PM [facility] Plain chest X-ray (procedure) 05/09/2019 04:17:00 PM [facility] Plain chest X-ray (procedure) 05/09/2019 04:17:00 PM [facility] Plain chest X-ray (procedure) 05/09/2019 04:17:00 PM [facility] Plain chest X-ray (procedure) 05/09/2019 04:17:00 PM [facility] Plain chest X-ray (procedure) 05/09/2019 04:17:00 PM [facility] Results ID Date Data Source [id number] 05/20/2020 11:00:00 AM EST [facility] Name Value Range Interpretation Code Description Data Suki rce(s) Supporting Document(s) SARS coronavirus 2 RNA Not Detected [facility] This lab was ordered by [facility] and reported by [facility]. ID Date Data Source [id number] 05/15/2020 12:50:49 PM EST [facility] Name Value Range Interpretation Code Description Data Suki rce(s) Supporting Document(s) Telephone Encounter [facility] XHSPSg7vWgDSSkRc48/GMYnjEYGgx1WqMLatNPa0ZSzuWGBoY0TdILV8yZ9bLLR0IWpHKdRxAaElAoQ9 lbm [file] AgICAgICAgICAgICAgICAgICAgICAgICAgICAgICAg ICAgICAgICAgICAgICAgICAgICAgICAgICAgICAgICAgICAgICAgICAgDQogICAgICAgICAgICAgICAg ICAgICAgICAgICAgICAgICAgICAgICAgICAgICAgICAgICAgICAgICAgICAgICAgICAgICAgICAgICAg ICAgICAgICAgICAgICAgICAgICAgICAgDQogICAgIC AgICAgICAgICAgICAgICAgICAgICAgICAgICAgICAgICAgICAgICAgICAgICAgICAgICAgICAgICAgIC AgICAgICAgICAgICAgICAgICAgICAgICAgICAgICAgICAgDQogICAgICAgICAgICAgICAgICAgICAgIC AgICAgICAgICAgICAgICAgICAgICAgICAgICAgICAg ICAgICAgICAgICAgICAgICAgICAgICAgICAgICAgICAgICAgICAgICAgICAgDQogICAgICAgICAgICAg ICAgICAgICAgICAgICAgICAgICAgICAgICAgICAgICAgICAgICAgICAgICAgICAgICAgICAgICAgICAg ICAgICAgICAgICAgICAgICAgICAgICAgICAgDQogIC AgICAgICAgICAgICAgICAgICAgICAgICAgICAgICAgICAgICAgICAgICAgICAgICAgICAgICAgICAgIC AgICAgICAgICAgICAgICAgICAgICAgICAgICAgICAgICAgICAgDQogICAgICAgICAgICAgICAgICAgIC AgICAgICAgICAgICAgICAgICAgICAgICAgICAgICAg ICAgICAgICAgICAgICAgICAgICAgICAgICAgICAgICAgICAgICAgICAgICAgICAgDQogICAgICAgICAg ICAgICAgICAgICAgICAgICAgICAgICAgICAgICAgICAgICAgICAgICAgICAgICAgICAgICAgICAgICAg ICAgICAgICAgICAgICAgICAgICAgICAgICAgICAgDQ ogICAgICAgICAgICAgICAgICAgICAgICAgICAgICAgICAgICAgICAgICAgICAgICAgICAgICAgICAgIC AgICAgICAgICAgICAgICAgICAgICAgICAgICAgICAgICAgICAgICAgDQogICAgICAgICAgICAgICAgIC AgICAgICAgICAgICAgICAgICAgICAgICAgICAgICAg BCJyPWPjQUFrWPUoIJTxKZTkRMHoOAPlFBDyLPTkZUBlOYWzXORhYWNiJSUlIRZqPPRcBNu6N7blFPTh VAHbRQ8vWZk5Dy9+AJaINcEdGES5wfKhlT5TXV9sl0RhMAlmWBFfl4WmYMp8BR7CKJWqSOubJM2KLNum mv9MPUEiGGRnlTVQh0sxOoLjRTB6JFIhLohgNX0RHJ PpZ4pjhtZrLCLeGYUTAU3BUrKvC2WmtU96TEPOOh8+TBnsrxXsHbqAKfNqTQIfn2ZpSDk7MF7ZQUAsPc nvc3PvCuLmQZKVKTyqYM7KYFP7UUSmUGBnEq7FWFYeY649dyNuGO5GEq3PGxDzJI7qar6KFcXnFRRiNf vPGnd2IGtbID8AiXQaPGnJYCzozBuakqYvXE3nm3Hg nTXtBVJ8HU0wS0rnuHofJCilJK7pJTVqMHJhYs7pIi9dWRTbXGFyWwJ6LFHWPX1YARMhSGBrjHFbSLBw SMWSWK7MNOgnWAL2YnpuokVkpODxOYtlYH2QXUQfbyDdJmZcULUEDGs+Ke2RXE1mt5QwUNosDYEgSX9h jr0XLWuQUyPaV5N5pULiZ1Q6NCobLa5XJVUrTCEtYi KpIPUJMWmlSH7LJI0tgrG0DY6JpAOiGSLdURZgzTMrJAz0S78dmECvAJllTC4EBFS+Mitzy+Fx6MEFGnLR LxUQAkBqIjZZJRRlNeK4YeJ2MNr6WmN8OyNC58vEnmtpBpUTmjFS9KVE2vAJBuBHQRPG4XdJUpnL2yta WvZjIcJEKVWjJlW05cfHHpYWUiACJqFXIwJz1ELGZh P7UzkpJknTmpqrLwIFSzMCRRPH1BNFqtwwRbcMDjuUvkRN76qDnnCB1BIt0NMmIfGI2haq4MoYZgWd0C ATZlPP3OKSZgHKXzKFIgOVH6HTRbUmFcHThbDNVpQLXgGTQ7EFVrUANrFC9QGfIeQYReMFf6LbXcMLQg MFUtlv7MSHAaEWCcYHZ2EwFnZBEkGPGmQZmmNBCnJJ FqQGT2XMGbGMKvAT6HAmEwCJXuZQDlOXOvSAUfKTRlfa5SVAGjTVMrOEQ4ICIwWTGwPGWcSOmnSDSmTQ YeXoN1DLVdQCTjPL9HMcTfYXJfCUR3AVsoLYVhJZXchb6DGLHuDOLkVzj3KkKuBMHyVRJbUFudPHDnFR QaAqCsQRIxFHPkDJ8VYeNpHJUnTPK4CAcwUXKoACUn le1PHIWlBAPwNKZ5LDEgQHKzQQVhRPyhILZzWWJ4IYV9ZUAqTOElMO2DYuYmXPQdKOJ7NCFwDTXwYAHm vr6ZSCIuVMPwGiu7XXRcTMJlAUKrUSpaAUJwAHX1IQe3RZNkYEJfIV4BIiTbDEOgTXmpPMLoQMExWKLc yq3NGQSqOFTqMTN8HbSeRQLyFHLaZRuhGPVfBQW6MM G0UMMiAAAjXP8PTeIzETBcDGs1XBLiIPCrXFSasi4WUJYcLQHeMSZ0MnTlYYEqFKKlLSnkDYByELIzHH c1DUPqHCShMW0SQbKaVNJlKyS3ImFhCKSmQNRmwo0HFODgBTHcZGvrLdQdFTQaERAoIHg4pxAudERdLR y5JA9QN3KtpdJjVgHNJs9To982NFE5XGTkTq8QJ5wc Tj9pYMXdQYIKVw4IZIs8GpkcOLUhYmO5GoTdTUJ3RRV2WpNxDBBaV6YvYKRdGIQ+JZfuQ1JbQAG4VCny PNThJRf1HZTsEIKpS4GbQuCxMmXkYS8tBSUTPe3+KMbwiQZjuHmxYFJIEaOzXJXrQKxxSCFXGq2Q ID Date Data Source [id number] 03/26/2020 02:26:[address] [facility] Patient Name: MADDISON BLANKENSHIP : 1965 Sex: F Pt Unit #: [id number] Location:[facility] Provider: Visit Date/Time: 03/26/20 Primary Insurance: [facility] Secondary Insurance: Self Pay Intake Vital Signs 03/26/20 14:26 Current Height 5 ft 5 in Current Weight 285 lb 2 oz Weight Measurement Method Standing Scale BMI 47.4 BP 118/66 Blood Pressure Location Lt brachial Position Sitting Respiration 18 Pulse 65 Pulse Strength Normal Pulse Source Pulse Oximeter Temp 97.5 F L Temp Source Tympanic Pulse Oximetry (%) 96 Oxygen Delivery Method room air Intake Visit Reasons: Hospital discharge follow-up Nurse Note: patient here today post hospitalization for SBO. patient states thats that she had an EKG on 03/14/20 w hen in the ER.CT scan showed SBO and was transferred to [place].she did not require surgery.she still has left leg numbness on and off with activity and exercise.Had MRI in Nov with [facility] but never followed after.She does not know her meds.. Vacuum Form Operator Required: No Accompanied by: Self / Same as Patient Is patient in pain?: No Allergies Penicillins Allergy (Intermediate, Verified 03/14/20 12:26) Rash estrogens, conjugated [From Premarin] Adverse Reaction (Severe, Verified 03/14/20 12:26) PULMONARY EMBOLISM morphine Adverse Reaction (Intermediate, Verified 03/14/20 12:26) Chest pain 01/06 omeprazole Adverse Reaction (Verified 03/14/20 12:26) Myalgia Medications - Last Reconciled 03/26/20 by Hillary Woods DO apixaban (Eliquis) 5 mg PO BID bisoprolol fumarate 5 mg PO DAILY gabapentin TAKE ONE CAPSULE BY MOUTH TWICE A DAY pantoprazole 40 mg PO QAM Fall Risk History of falls: No Ambulatory Aid:: None Gait/Transferring:: Normal PHQ-2/9 Over the last 2 weeks, how often have you been bothered by any of the following problems? 1. Little interest or pleasure in doing things: not at all 2. Feeling down, depressed, or hopeless: not at all Total score: 0 HIV Testing Offer - ages 13-64 Requirement for HIV testing offer been met?: Patient reports past refusal SBIRT Annual Questionnaire Are you currently in recovery for alcohol or substance use?: No How many times in the past year have you had 4 or more drinks in a day?: None How many times in the past year have you used a recreational drug or used a prescription medication for nonmedical reasons?: None Do you need a note to return Do you need a note to return to daycare/school/sports/work: No Coronavirus Screening Screening Have you traveled outside of [facility] or [facility] in the last 14 days.: Yes Has patient experienced coronavirus symptoms: No [facility] Medical History (Updated 03/26/20 @ 15:31 by Hillary Woods DO) Adhesion of intestine (03/26/18) Carpal tunnel syndrome, bilateral Chest pain Elevated liver enzymes Epistaxis Gastro-esophageal reflux disease without esophagitis Glucose intolerance Hemangioma of spine (05/28/18) Hepatic cyst Herpes simplex complication Herpes simplex encephalitis Hypokalemia left l5 lumbar radiculopathy (05/10/18) Left lumbar radiculopathy Medication noncompliance due to cognitive impairment Mild cognitive impairment Mixed hyperlipidemia (03/26/18) Non-cardiac chest pain Obesity (BMI 30-39.9) Obstructive sleep apnea hypopnea, severe Obstructive sleep apnea syndrome Peripheral neuropathy (05/10/18) Postmenopausal (03/26/18) Pulmonary embolism Rectal bleeding Severe major depression with psychotic features Small bowel obstruction Small bowel obstruction due to adhesions Spinal stenosis, lumbar region, with neurogenic claudication Tingling of both feet Vitamin D deficiency Weight gain Surgical History Appendectomy Biopsy of breast Cholecystectomy History of hysterectomy Status post colonoscopy Status post oophorectomy Family History Mother No problems noted. Father Colon cancer Lung cancer, Onset Age: 60 Other Alcoholism Social History Does the Patient have a Healthcare Proxy: Yes Does Patient have a DNR?: No Does Patient have a Living Will?: No Does the Patient have a MOLST?: No Advance Directives on File or in chart?: No adopted: No household members: none housing: house marital status: Single lives independently: Yes number of children: 1 number of grandchildren: 2 highest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 OxPeIHMxQCSeYyfpZQXuODHnpv3KOSPmHNVdMCYvWR EvOTOsSEWgRXnaAPYmLBH2DIL2NMSwMXDeNG8VOzPhWYLxAIH8HBFoAXKrSNOown5OEKNwUHRiJqF1Np FdRRBhWSNoWOnmKEEpSFP0HdVxMGCoRVSyIW2UEyUfHWBhVBc3NxrwJNYvFZIvyn4HECGlCDYqEGTpWD AcPDNqMMOsRQxqVDViFDM5HvJ7EAHuMOXcNI1VSxLc RZMbVLt4EwpmAVCfEWZqss9CJRYfDGFuHOJ4MROmOKDcPWFwMFwlTMVrZXKzRmSrGWQaZUNoLN4MZlHw RMAuEnJ0KFAyKPMlDLKzpy4LHZBkMDTrDNy2WLPzYQRmKWDwDMy9xwCzqVCxARp5IR2AL0IqftVsDqMB Vw9Vm750PFJ2GQQoPz8WV3zyQn3nZRJeYXJDFg7RMS g5VMl3GhG0KUhgZOSzKkDbPPNgIwAcZMWhBIOsDmIkG9W+BXk7RbCgOKu8LHPjIPN2VYQpOEZdKMA7U4 L4CMUeOQXbFe9cXQRXWf9+BFuioNXcvYbmSKJPImJfATk8WIixYRHUBa1T ID Date Data Source [id number] 03/19/2020 02:18:48 PM EST [facility] Name Value Range Interpretation Code Description Data Suki rce(s) Supporting Document(s) Progress Notes [facility] DOAPTi0vPfOXOpCi47/NESsdGPXtq8DmAMlcEVa5BKvdVILmV0KbVRW4eX5zYJW0CGdKPiVwWzTiElPd lbm UnWduISpWaCJQjZqmHOmEfGLhsBuiafULuZK2DoEH7IGDxW69lOPHcTAXpQ8SsGDB9Keg+Fn3WDUIprA HcNH1VHlwM1VglcevKHE8d5P+YzxLARv5unxtVFWg7fniLke6GSpVfG88DCgvCoAuxwb++t6wiMvDORW 2PRNYkKPxxra7krdnCRcYV+t/xvHy2Xjhi/y+/BlrB 9Ry+/Uo7EV4tJkq+kkXoASVCEdQPmK+EoAvKtwDI5MIVjHDb76QaQBUwHNNnIKWZYtmDu4ftP6kp+Suki [file] 1EMqD0IPN9sSNmLf4LIzO7KMDDXqXoYM1ASOs= ID Date Data Source [id number] 03/19/2020 02:01:20 PM EST [facility] Name Value Range Interpretation Code Description Data Suki rce(s) Supporting Document(s) Discharge Summary [facility] EJQRYw9xGtLYCbEr14/EMGmfWEEyo6EdNXukSKu6BGfuTIGmO9WvRBM1gC2gHTV7ZUdYWiBkYdTnMdAe lbm [file] 3OMYGiFT0IVUHwKUDbUHQGWaNrRXQwXzIlBdQuQTUL Ei9MTbOsD1vTLopiG5RiJYluPt3TNiBmA9Z3qLcKfAW0ZCO7RG5VLdZEQwEoAWv4D7J7gKJlR8S9oVpV tPF6YI1ERO0SNGOzIU9+BpEtY3UIXDpMFTU7MG5YpLWhFH4XtBSWL7TkqCEbMk4yYLAvfTewuNx+PiAv U7RBYVPPBIA3XH9RiLLbIT0TpQYQJ6BvoTNdHq8jTS qcLfJwLK1xMP8+FA1RJJKPBqRSWzWvHLhwADnqTFCiGYi2L2J6UGDwY5TYJ7A9I9r4d4vsam7+IA0KIC XiB8EXFMTZXtKlINaaEIswVNPuDWg2Z7B8TVSvQ2BTM7pfX8n3BM7+PiANCiAgID4+DQo+Pl1BSJ7wg8 SaILqtYOMtUT3clp0BCIdoYJKnL6NeYBVuIFcwS6Tc iLzeNU7MIVhiLHkqLE5ZQYMhEKA5XV5+GRaxyHDyAI6YHnt/aCHrX3ddaACtXNqzsa3o32l/LfWjHM6c CkEADL3fN8GyqZi6jkZRwo5DV1ocTaepHw3+RDagXTc0QfhceE6hpAFuyPn5eYR4yk7pGu4mWUnhICjy dK8kzeX6aU9gHFZmNwD6cfX3cMB2HA3wXg3WLREiRN imREX9XkNEHEgkdR9sEgIqNs9teOD9aKbxM4a4gr24Rx8jzxwvNBs1ME1eHp6rQg8aYAWdr8zsdBB2YJ 5zIyc+KOjwZBQeKC8hNLD7HrXLGc9WWGO8R9h9fI2ryDY2JL1UFmLhTVOoBOIpSYOfGCUdSDXqICZhTX AgICAgICAgICAgICAgICAgICAgICAgICAgICAgICAg ICAgICAgICAgICAgICAgICAgICAgICAgICAgICAgICAgICAgICAgICAgICAgICANCiAgICAgICAgICAg ICAgICAgICAgICAgICAgICAgICAgICAgICAgICAgICAgICAgICAgICAgICAgICAgICAgICAgICAgICAg ICAgICAgICAgICAgICAgICAgICAgICAgICAgICANCi AgICAgICAgICAgICAgICAgICAgICAgICAgICAgICAgICAgICAgICAgICAgICAgICAgICAgICAgICAgIC AgICAgICAgICAgICAgICAgICAgICAgICAgICAgICAgICAgICAgICANCiAgICAgICAgICAgICAgICAgIC AgICAgICAgICAgICAgICAgICAgICAgICAgICAgICAg ICAgICAgICAgICAgICAgICAgICAgICAgICAgICAgICAgICAgICAgICAgICAgICAgICANCiAgICAgICAg ICAgICAgICAgICAgICAgICAgICAgICAgICAgICAgICAgICAgICAgICAgICAgICAgICAgICAgICAgICAg ICAgICAgICAgICAgICAgICAgICAgICAgICAgICAgIC ANCiAgICAgICAgICAgICAgICAgICAgICAgICAgICAgICAgICAgICAgICAgICAgICAgICAgICAgICAgIC AgICAgICAgICAgICAgICAgICAgICAgICAgICAgICAgICAgICAgICAgICANCiAgICAgICAgICAgICAgIC AgICAgICAgICAgICAgICAgICAgICAgICAgICAgICAg ICAgICAgICAgICAgICAgICAgICAgICAgICAgICAgICAgICAgICAgICAgICAgICAgICAgICANCiAgICAg ICAgICAgICAgICAgICAgICAgICAgICAgICAgICAgICAgICAgICAgICAgICAgICAgICAgICAgICAgICAg ICAgICAgICAgICAgICAgICAgICAgICAgICAgICAgIC AgICANCiAgICAgICAgICAgICAgICAgICAgICAgICAgICAgICAgICAgICAgICAgICAgICAgICAgICAgIC AgICAgICAgICAgICAgICAgICAgICAgICAgICAgICAgICAgICAgICAgICAgICANCiAgICAgICAgICAgIC AgICAgICAgICAgICAgICAgICAgICAgICAgICAgICAg ICAgICAgICAgICAgICAgICAgICAgICAgICAgICAgICAgICAgICAgICAgICAgICAgICAgICAgICANCjw/ iLAgC5momHPtvkO8G5wqKc1DXa8UAY0jl9GyANHoGLuficOmCuvKNxLeVXTvPpnDFxi8KVhkIK6NfBKc J4IfI6DtKRihAJ1QXSVsLDEgsWBsTVAtCXGfFcY4EI UsYYrbUA9SeEElZUcnTRZjIONpVqMtFPNvSHSfOMLmSK8DLDTjT344luCfEy4JDa3FJrXpAJ6ndl7DPd TlYDRhNnuDLpk2ZRayWG3MqOGvsTYgQrBfGWHQKuJoO0mdm5WnMuNuGYPXOEyxAV0Fe2AkrFQaNWm+Pg 8KSS1sw5DcTQxiIpYvVV2lbu5JDGiOUaRjQ3TcqFhl FUEmk3DdCXHkZUAPvS0uIOM0SUZ8MUWqhWvmY6GxgmKeFOMDJDZvdSXfJf3tNF3eDNMfDHKpFnS4WCPB JU3LJZXoICFhcMAuDWKcSJTETK0YNCbpPGO4JyfzsnXicNMdKHvtGO9XCTGsmoUmToZdNYTSWXt+Pg0K NF6cs0TiCHdsDbVdWY3cns5CTXrXYpOzV1J8jKQyY9 J0JIkdIx4TVSKrBNEgTuVeRFUOSXmnBS9MAE9lpkP2RM0QcDEyGITgGNXarXJdTRl7E59ikEAySJtvHS 0KICA+Mitzy+Ta8PGXBwAWKbWAJbTjMoVOHIYaNqL9PfT7BAm6QoJ9WdIN22cQocnyWsUNqpIJ8ZZQ8oOY CbAVOFZQ4MeJEpfL4keiWnDINyHCEEXfJfS31htRGc JXClFMR6DVKhQt4QBJQqW9FqutOcyIqpgmGzIBGvCVATKY7ROBgvicHwnGWosYrsFT50xDycRE3JLu7U ZtQxSJ5mjp6ZtBMeDb9GBOGoIU2JFQGkTHOpFZFlHAC0TDPfDdOhUDxkEHBbZVUtDRD9HPWtATLgMF5P DjWuIEKiIhXkRPRhRZScPZPzet9WTLAjNTJwVagfIW DrWHAbWNOaJJxtHLZbMKLcORE5OTZcFCRgBE8UIlNvXXJdNNYvHQPfRCPbGAJxuy2PXDCdLHXyKkE3LA VeWHWiMMXfDStyKXAsMFE4TnB8DAOqDBHoKP2OLiDyGCNlQMO8MlZcFIVgLSSwxa5VJBHsZOHdPCVnZi LdPRLjIHPcUZuiOZXpNIC9EuH8DFPlWYJgHS5FHaZy RKEsEUo5FaPzYJXaPLBhxf5VARGoXHFbREx5OMJkMPEuPKOoXHtsENQzJPBqZTG8JHCwQQPfCG5KQuKq OZDxRXLeKrPeKVWeLCSdqg1RYAWzBJKoLTRjOxPjSIGrLRHyHUawDHLrNTMmXYY3USXcLLTaBY6ZJrHn KKMwNFLeFqBnLVIbNGBabi3RTREwMWQgOuS4OLBhWJ SnQRRtDXpiAURyTOYvQdZlCBTaYJPpRH7YKkDoBVRnCQZ2XMkrRTUpATLjbb6INAHfTPOkUtkbWuXaTB ZnBXBwGDqpCPWxEPF1CZH3VWRgWVSvYF2ZSdJoGHKkRWQdJzQkFRMlRPYuwm3TIQZkBWMeWPK3DVYiGU OiKTPrOBmvZDOvQKW2BHNfCZEgJJGoHV0HGwHmWYQp Gca8EyKlBGBtEFKbqz0KCSFtJOZlCIN3YZYbXNOdFZUnPQncNIIxZBK8LiK5MVKnNSHrKV4NUxUgKUZz Qnz3XDNzTIUjRXBodv5TEJWmJKEuVQB1MvQqEQJkXQLlTJdvXKRrYOMyGxP0BGIwYGJmVE7BVoLiFDLo AtZ5DbOzZUTkMCXtzo5HIEWwEDGiSUNdEFMjCVUcYL EfWWahDPZnSVNbYLl3XFIdKPOsDL2RTsDeCCPxApY2QrJnCNZhERZrll7JADHnNQYpNyIdKYHrBQKoQQ HsLGkoUPAzQRZePAL3UQHlCUEuWG8BNzCpHAbqABZZMrc0NNhdL9l3XYKkHP3CW9Gsc0YbXgbcVDUGVO ozOH7yruFbEFVlTl1ES9cOIsowJqY1QxQ6BTWoJsDx SFB1RVO0MeyvLgF5NlCrMfwwQp6zAEGoLud3UfZmQSI6IoE7TYK8AJv2S0SbCEtuU6P2KGHoTxDrIX6E Om1TCqG9GLX3gBUnAl3YCnAiOWdHJnXxZX4ZKFf= ID Date Data Source [id number] 03/19/2020 06:35:35 AM EST [facility] Name Value Range Interpretation Code Description Data Suki rce(s) Supporting Document(s) Nursing Note [facility] CEJJSm8mLuTNVuKk95/DCXpxRYCnh3DgHNnnMLu5FRrxMFPtF4QjCSC7rI7eZIX5UKiVIdUlBoVzHuDr lbm [file] ICAgICAgICAgICAgICAgICAgICAgICAgICAgICAgICAgICAgICAgICAgICAgICAgICAgICAgICAgICAg ICAgICAgICAgICAgDQogICAgICAgICAgICAgICAgIC AgICAgICAgICAgICAgICAgICAgICAgICAgICAgICAgICAgICAgICAgICAgICAgICAgICAgICAgICAgIC AgICAgICAgICAgICAgICAgICAgICAgDQogICAgICAgICAgICAgICAgICAgICAgICAgICAgICAgICAgIC AgICAgICAgICAgICAgICAgICAgICAgICAgICAgICAg ICAgICAgICAgICAgICAgICAgICAgICAgICAgICAgICAgDQogICAgICAgICAgICAgICAgICAgICAgICAg ICAgICAgICAgICAgICAgICAgICAgICAgICAgICAgICAgICAgICAgICAgICAgICAgICAgICAgICAgICAg ICAgICAgICAgICAgICAgDQogICAgICAgICAgICAgIC AgICAgICAgICAgICAgICAgICAgICAgICAgICAgICAgICAgICAgICAgICAgICAgICAgICAgICAgICAgIC AgICAgICAgICAgICAgICAgICAgICAgICAgDQogICAgICAgICAgICAgICAgICAgICAgICAgICAgICAgIC AgICAgICAgICAgICAgICAgICAgICAgICAgICAgICAg ICAgICAgICAgICAgICAgICAgICAgICAgICAgICAgICAgICAgDQogICAgICAgICAgICAgICAgICAgICAg ICAgICAgICAgICAgICAgICAgICAgICAgICAgICAgICAgICAgICAgICAgICAgICAgICAgICAgICAgICAg ICAgICAgICAgICAgICAgICAgDQogICAgICAgICAgIC AgICAgICAgICAgICAgICAgICAgICAgICAgICAgICAgICAgICAgICAgICAgICAgICAgICAgICAgICAgIC AgICAgICAgICAgICAgICAgICAgICAgICAgICAgDQogICAgICAgICAgICAgICAgICAgICAgICAgICAgIC AgICAgICAgICAgICAgICAgICAgICAgICAgICAgICAg ICAgICAgICAgICAgICAgICAgICAgICAgICAgICAgICAgICAgICAgDQogICAgICAgICAgICAgICAgICAg ICAgICAgICAgICAgICAgICAgICAgICAgICAgICAgICAgICAgICAgICAgICAgICAgICAgICAgICAgICAg XHGhQYBzVDMiTLBjYGZfWEPnDLPwTEf9T6hoKZXoXU HrHT5sUZd0Zd6+ZPlQVdYhRIQ2abVkiW8OJM2rb2MmPXbgZAXan6EaVGa6QI3OLSUeJRdvQF1GSHyfmo 3MSCDjOTVyeAZQi4pvGeIbBWH9YAJtTujrVN3BGCHjI3juphDeAAMtDRYTTM5LBiHfO7PsoO22XJFQHu 4+LTxjftCqZdoIKrLsSVJrf8VkBQm8DW4AQTPkZgyc c3PbMbNbRYJWRAomQH7MLVE6PBYtAYCyMp5ZWBSeO947enOwSZ8XQu3YAmLmGA9bia2XAvLgZTFqLghI Nxy8PXbhEE2LkADsNItNpERijN3mYX4blAFiAgttIHYeqlHFwPXdbwQxkChgTFNXNsBjeNKyVl1eJJ6z OWIcPXZ3PhM1AYBDHP4UFFEgJSWlvCHbISPqENQODL 1IQCoqICC6XiyybnDeuRFnSAnpXC8FYAMficBjMfUiKUVTMMr+Wh7LVD9fj4ZpUQksVJRcCX2jjj6MZV sBGqCyC6H7qZCyK4M2KOmlFu7DUPHyNPGlOjTuAAAITFevNO8OIG3entP0FN4WoDTxKTEbGFMlmTKbJH w3N76zxQWzAHsrGG4NSIZ+Mitzy+Th1RTNWjCSGtACBp GaGoYIQHDdLwK9TfH3EOs9MsI9HhWG24hLajcxQeWElqUW5NNO3qKEVeUWUMQB5EeAOdrC2cpsVyWgJj RAETZtYwR15wbMXlRNYcOLRgJHAdBt9RNUUoU3XebyXhxRceszBrKEYrZVYALX8TRLhcyfNpkFJggOcu BH98jWfrVK9BRq5BUoVjVN8tno2BqEWdAp1LIWKoES 7TZNXhBUWvHSQhVLX6EHJtGgRhIJajMOIiQQApAOF8LBSgLPDrSY3RAsUkSOTuABu0CMUhXMMbVOJbtd 0SSEMxMCEuUYK1WtGyQSNeAAXxQTuoMPSzHPBgGWQ5TCQeLBAdAW6UOkMdYPGzJMQqESIpCTGyLEPkcj 1ZKXLrEAZbPRI7MZNqJVJaGLWfNSanPIRyZBCrURK0 WIUiDWDfJG7JSqYbVSVqDUJ4FBdnJSKrGAPhwt2CFXInBGZvKeskMwLsUFStXHWjMQquIERyDEQyVvxw PYHnBIOyJT1KNaQsTDQdTMC7FSckCURwGIQqyj2VYJUaJEWrVCB4NCOxPXJrXLAgNJtrYPZsYOT0SJX2 UXJzSPLtYO9CPfNbTDBpBPY2WqKhPAHnMSKwrv4WYO NwJSDdXbK5PVAyZAZaBULlEMmgTDIaQIR8Rtd3SDIkKPFoBR1UGsUlGSLwDAu3BrWiMVUvNLSlrm8OHG JoSIKyXCX7RyZwDXKmRUVpBUzcGKJtBOA6WPU0NBNkDNKoHZ8MTwJqKOZdOTf5SrJtAHRyGRBidr3LVK IyPCUcEBA2BsNeDPQcTAFpJHbsQOYdIKIkSSo4QAYe VRKxGM3FOsIfZTYnEaM7CTIdCWNzOLFurs6GRDVrOLRsUSbrGESlQHGcMMYgUWi5xeNvyHFrNLb3BF6Z E1VphzQqJnVIOg4Tj124WMO9OSQaNj8ZI5wcWg9mKWHqFMAABi8TFTj0CEZyNUq3SmXgPERqUENjBUS7 RyVkEELnQOt3VdLzRrJ+PQt8GME4QXMqNyQ5QrDhWa IlVWleN2NsRZTyBEyoC7ZrTO3gFOMFQx1+NEjdrYUdyTsrSJFIMyHePAM7GNohQYYBFq4H ID Date Data Source [id number] 03/19/2020 05:22:00 AM EST [facility] Name Value Range Interpretation Code Description Data Suki rce(s) Supporting Document(s) AST 18 IU/L 15-37 Normal (applies to non-numeric resul ts) [facility] Sulfasalazine and sulfapyridine have the potential to falsely depressAspartate Aminotransferase results. Baseline values before medication administration are recommended. ALT 23 IU/L 13-56 Normal (applies to non-numeric resul ts) [facility] Sulfasalazine and sulfapyridine have the potential to falsely depressAlanine Aminotransferase results. Baseline values before medication administration are recommended. Alkaline Phosphatase 67 mIU/ml 50-136 Normal (applies to non-num danita results) [facility] Total Bilirubin 0.40 mg/dl 0.20-1.00 Normal (applies to non-numeric results) [facility] Blood Urea Nitrogen 9 mg/dl 7-18 Normal (applies to non-nume rahel results) [facility] Creatinine 0.70 mg/dl 0.51-0.95 Normal (applies to non-numeric resul ts) [facility] N-Acetylcysteine (NAC) and Metamizole shrestha ve the potential to falselydepress Creatinine results. Baseline values before medication adminstration are recommended. Patients undergoing treatment with phenindione will have falselydepressed results. Patients on phenindione therapy should be tested with an alternativeCREA method.Toxic levels of acetaminophen may lead to falsely depressed results forpatient samples. Glomerular Filtration Rate 87.00 mL/min/1.73m2 [facility] GFR Reference Ranges:Normal Function or Mild Renal Disease,if clinically at risk:>or= 60Moderately decreased:30 - 59Severely decreased:15 - 29Renal Failure:<15 Please note that the MDRD equation requires an additional adjustment forAfrican-Americans (multiply the GFR result by 1.210).Glomarular Filtration Rate (GFR) is estimated based on the MDRDequation, which assumes a steady state for creatinine (Luz Int Med 139/2 137-149, 2003), as recommended by the NationalKidney Disease Education Program in conjunction with the National Institutes of Health and the National KidneyFoundation. The [place] method used in calculating this result is traceable to IDMS standards. Glucose 105 mg/dl 70-110 Normal (applies to non-numeric resul ts) [facility] Sulfasalazine has the potential to false ly depress Glucose results. Sulfapyridine has the potential to falsely elevate Glucose results. Baseline values before medication administration are recommended. Calcium 8.6 mg/dl 8.5-10.1 Normal (applies to non-numeric resul ts) [facility] Total Protein 5.7 g/dl 6.4-8.2 Below low normal [facility] Albumin 2.8 g/dl 3.4-5.0 Below low normal [facility] Sodium 146 mEq/L 136-145 Above high normal [facility] Potassium 3.3 mEq/L 3.5-5.1 Below low normal [facility] Chloride 116.0 mEq/L 98.0-107.0 Above high normal [facility] Anion Gap 10.6 [facility] Carbon Dioxide 22.7 mMol/L 21.0-32.0 Normal (applies to non-numeric results) [facility] The above 16 analytes were performed by [facility]'s [id number], ,[place] [address] ID Date Data Source [id number] 03/19/2020 04:48:00 AM EST [facility] Name Value Range Interpretation Code Description Data Suki rce(s) Supporting Document(s) WBC 5.17 x1000/ul 4.80-10.00 Normal (applies to non-numeric re sults) [facility] RBC 3.95 x1Mil/ul 4.20-5.40 Below low normal [facility] Hemoglobin 11.4 g/dl 12.0-16.0 Below low normal [facility] Hematocrit 35.2 % 37.0-47.0 Below low normal [facility] MCV 89.1 fL 81.0-99.0 Normal (applies to non-numeric resul ts) [facility] MCH 28.9 pg 27.0-31.0 Normal (applies to non-numeric resul ts) [facility] MCHC 32.4 g/dl 32.2-37.0 Normal (applies to non-numeric resul ts) [facility] RDW 13.5 % 11.5-14.5 Normal (applies to non-numeric resul ts) [facility] Platelet Count 158 x1000/ul 130-400 Normal (applies to non-numeric results) [facility] MPV 10.6 fL 9.4-12.4 Normal (applies to non-numeric resul ts) [facility] Neutrophils 56.8 % 40.0-74.0 Normal (applies to non-numeric resu lts) [facility] Lymphocytes 30.8 % 19.0-48.0 Normal (applies to non-numeric resu lts) [facility] Monocytes 7.7 % 3.4-9.0 Normal (applies to non-numeric resul ts) [facility] Eosinophils 3.9 % 0.0-7.0 Normal (applies to non-numeric resu lts) [facility] Basophils 0.6 % 0.0-2.0 Normal (applies to non-numeric resul ts) [facility] Immature Granulocytes 0.2 % 0.0-0.5 Normal (applies to non-nu meric results) [facility] Nucleated RBCs 0.00 % 0.00-0.20 Normal (applies to non-numeric r esults) [facility] Abs. Neutrophils 2.94 x1000/ul 1.92-8.31 Normal (applies to non-numeric results) [facility] Abs. Lymphocyte 1.59 x1000/ul 1.20-3.70 Normal (applies to non-n umeric results) [facility] Abs. Monocytes 0.40 x1000/ul 0.14-0.97 Normal (applies to non-nu meric results) [facility] Abs. Eosinophils 0.20 x1000/ul 0.00-0.76 Normal (applie s to non-numeric results) [facility] Abs. Basophils 0.03 x1000/ul 0.00-0.22 Normal (applies to non-n umeric results) [facility] Abs. Immature Gran. 0.01 x1000/ul 0.00-0.02 Normal (appl ies to non-numeric results) [facility] Abs. Nucleated RBCs 0.00 x1000/ul 0.00-0.02 Normal (appl ies to non-numeric results) [facility] The above 24 analytes were performed by [facility]'[place] [id number] [address], ,[place] [address] ID Date Data Source [id number] 03/19/2020 04:04:47 AM EST [facility] Name Value Range Interpretation Code Description Data Suki rce(s) Supporting Document(s) Progress Notes [facility] LHZELb4vDeGMXuZi83/HLMuhLBDkn0TlBDkeGXy3IDazXTPwQ3AnXRQ0vF3yDUD4YTnCAbZpQfEwLxIk [facility] [file] TOMMY+WInsLJdgvNg7vUQhGPHtGe2HGNDgUFDjTKKuEYEoEWRhFWSuPIXiLLYiTYUhZORjKCQkOKMtNIIj ICAgICAgICAgICAgICAgICAgICAgICAgICAgICAgICAgICAgICAgICAgICAgICAgICAgICAgICAgICAg XT8EEIPdPADyAWSuRQNwLVJeUGFcOMOlVICjPPGbKY AgICAgICAgICAgICAgICAgICAgICAgICAgICAgICAgICAgICAgICAgICAgICAgICAgICAgICAgICAgIC KaIPWaKXAqCWPsBV1MMFOwIIMoKLDaZUGiFKWtGPQmWYByWIDhTANjXVPnJGTgHSVrYKRhPIGfDOFvJA AgICAgICAgICAgICAgICAgICAgICAgICAgICAgICAg SJBvGMJfYFVxIIXzPMRzSYFrKCZtOP9KMDSxNZZtVSYlPVLmQVDuXRAdEWLuWATyXICwYLYkNFKoZAUp ICAgICAgICAgICAgICAgICAgICAgICAgICAgICAgICAgICAgICAgICAgICAgICAgICAgICAgICAgICAg VNNwGS2DYMYeMNUqQMOmXPMrNPSdJUHyZOXpYMMtAV AgICAgICAgICAgICAgICAgICAgICAgICAgICAgICAgICAgICAgICAgICAgICAgICAgICAgICAgICAgIC WxPKMxZOWqWQFwQQHjCP5KLGUjXNQgRPQkVFEiUKFgBEBgJZQxMSZcJJUoFDGdTGYgWJJiUJLhECOvOS AgICAgICAgICAgICAgICAgICAgICAgICAgICAgICAg BYTpXJFiBATvVBFoGLUcYFGvFOQtXNFeTH9FUFQrEPCmQMOnUXVqWREyNWHiKAUiKKTfGQFlKEKfXFMk ICAgICAgICAgICAgICAgICAgICAgICAgICAgICAgICAgICAgICAgICAgICAgICAgICAgICAgICAgICAg ZYPrCAEgEU9TQDPhPAHbURByHXDqOOIbWIIeGFTsMX AgICAgICAgICAgICAgICAgICAgICAgICAgICAgICAgICAgICAgICAgICAgICAgICAgICAgICAgICAgIC VtNDPmPGAwKJFyECSrCIUiUG7HNEScBNTsXAIdZNBdHZUbPTOuOCTeWRIuMZQhYAQzOFTrWSPxMCJqTX AgICAgICAgICAgICAgICAgICAgICAgICAgICAgICAg ISDfJSGlDFVrJZAiZGTsLKWzVFVyCCRjQTWcRS1LQZAmKAUkNUNaBOZuZXToCBThSKHoVIOcFWBfABMc ICAgICAgICAgICAgICAgICAgICAgICAgICAgICAgICAgICAgICAgICAgICAgICAgICAgICAgICAgICAg QBDmWEMrVQHmPK2XDF43lRNei1U6CFPaSP0eyrg/Pg 5AAOjywnTirCRhBK2CDlOzOL5cyn2LBxCyXZ4bzq6OWIrFCaMmP8K3fSDqYPEqJCPILsZcN27rVJbfSd 75FUfeLYVxTjPnLSl2Hy2PXzAwN5ygZSRoZrL1YLCuEpAnJHqtFW0Cg5TgfDRzXVq+Tl9UNV7ay5EqCG bpOoKzHZ7ull3HSOtJJnOiJ9OangN0GEJ1UZNbUz7Y HIBaBWRxjRKuEYDbHOQBWlDfQ5OpoW29GPAWUm0+ZWcobbVqPvaVGxN9OINaf2WoVGq0SX3IWVEnXYf6 yNGhFBFgQ6Chw3ZzHc78NRHtPxmjLSGlgAqzfuFEEXpdRCKuGZHCiIZpiHChHh5aRS2vOQGeNIH1UfZ0 WHTVLT4SDWRlVGEmqXVfSICuBODHUZ9WLJkyJQJ3Xj obvmNqnJPuUYnnZV2DXRSpnmBeOTgbILCORLv+Ef3VQD7rh0NhJVqbKTQsHQ1rrh4CEZrMHrIuF3J5dO ZuZ5M2NUtwTo5KFOMcOXFzOWEgHUBYMZgwGC2QVD3clkK1BN8CpVDmYGMeUAAmaSNgJDh8L23dhTWaHD udBU9XVQB+Mitzy+Ir6WPZSwXOKsWLOjZuWaUBJBDiRs R0YzZ3JPo9XzK6YoTE78hJizesRmPCopOX1WEF2fNIUsWIYAWS0ChKXmjD8scyOtCbDgWDANNcXoL74y kFDmJRSqEXM1PNOcHr2EYXTrP4FxstBwvJlnffKcSRWpPSISCZ1AMIdpcvGvmZNqlHivLT80pSibZY5T Af9VPhBhGW3tsq6LiLIyYt2ETQGjID9RRVPtXLWyKH YrPUL8WUChNyHcDZomQTMtXZPwYFR7DBXhLQXeDL5KGlKnAGReKQP2HGOfTPBcULBqpb2ULYEvKBRgJe S4ShYcTXBgCPBqRAnyFDMeQRVpIZI0ZVLfGFScEG0WKlZvYGMoPZGgQZVaDYVfJFRvwo9MYPIjORYxUS K6DBVeKGNlGGJlJRdhVJThFYJdCcOkOJWrCDNvUU4N FiEyBAClULU4MXLcTPPdXMGgay9QBUUnRVTjBcH4DYAoMFPiXKJzXSpyPHWbUZWgKdQ8WYVgPZPyYD9I WhXyPFUxSWH8ZYUhZLDjJWMpcl3ESGQyJSWgKVDaEjJiKXPbOHCaNJgkCBYwLQB1EWh3CCBtCIWxSL0Y QrRyHDCsGWQzMABeQHNnBIVtaj0MOYNlSJXuGYL1HF UyGGHhFTAaEVcyAQBzUDI0BQDuXLFnWTHyFX0FRlSpBBKuTDcwEAThWZPmGQPazx7FDDTeURJyWuQcVw YqZVHeAZEuVUkeMYLaYMN4KBBrBGZdOPSqGL2ZCjFxIJrgDEDWCuj8KArbV3s2AKUnWE1XQ7Msq3GdWF uwBJDWDNouVS5ohqUtDPUoWf1KM9jCGlt9JaldVgCv IzInIVE9QkB4HEDcBcC0ZbT4LWXxZAXiDh4lWKJaMjFyFXVlYaJjHpe2EtVgG1JuNOWgZnibKoVaBTE7 VnPtEB0XKh4AAkD9OCO0gJWkGt5VSojrWn4RTDKRE1DJUc== ID Date Data Source [id number] 03/19/2020 12:29:00 AM EST [facility] Name Value Range Interpretation Code Description Data Suki rce(s) Supporting Document(s) Hemoglobin 11.2 g/dl 12.0-16.0 Below low normal [facility] Hematocrit 34.5 % 37.0-47.0 Below low normal [facility] The above 2 analytes were performed by [facility] [id number] [address], ,[place] [address] ID Date Data Source [id number] 03/18/2020 09:20:53 PM EST [facility] Name Value Range Interpretation Code Description Data Suki rce(s) Supporting Document(s) Progress Notes [facility] QITGBc5nVyBCWuLn44/GJFffPKAyk4BaQVdhEKp1CEvzMHMpN5DtHOO3uK7eXNE3APhTIlOkOuTnNcBj lbm WkSfpXGkOuWPBbSfeWAfYqBQjjSjnqwVYoIS1SwYC0HSEyX05oMSVvVTEwT8NoCOIqLXA+Uo6SHYMltE WdOU8FRtuF8ArUccc55R3p/Yg9esEMLaEwQRgZzCPhpCkFWnCQ7BjaBCWpbPR0KSAiXjWKWRlrXtBS5s qioiuvSuvK9aTaOSxrv2/YSZpEUcSqvx8/banm0W80 9Uo1VjeKl3G3b8pNmPDIAyfdB/gv4XcgGQFcLIk6gZsgxEX5DDCO7yRGvI7ywrZ3a3atsaVtpOsuXt01 I/EBpF03KiUzOgC9s/UBOO8zSs67TqxIIaWcCk2ku32Fz6MjesIsPeFyrWD6UEII6yOPl7R7uPACtvzE 1JOpSQBnYnRgQ7RVWsp2VFBN1roH9D1SqfseylL8sN JtIaIFeBPi+Q3iySB/GLLCLXnpO1SlL6k1KpG8LMXuLTYivcVLHtoZUM4Gj8KDiR8f+mvc8NBj2nXqTs QEL7rJBpr0jcq7BVD9TvxwUPSkEwlnu1MuPwagZAW+WE/wPZortrPbrpWojx3Ht7PMVZzfkQC1T/9qu2 C/ZWWZlQ/Romansh/RrSXgA8ikOX2gjVYtwrC01e2DS2ELc TidThsMHsZeIQsdRetsfBsrwnIRwVTtRE1t4DuN8G8EiGcTZaJDCYvdgZBrhaMe0Vz44iouWSga1qIk4 UuGIe2Cas+/WxbTIyi/wlLL7qqwC+Sep60PUoRMIjWWS7X+7nMPs9A6/MlDM+4z/FaOVbnzLSo4uTgGR Na7IH25PqmV2duayfv1JfLVZa40f59iW+yZy23eCFd 9Vv5Iy5A/oFV62Ph4mEZjC5fcUaGOvo4JZD/thUWX7f12amFKjvgvErP9n0dfhFdT0HFTJ+ddPQDZUW1 4OibresV8qNl7yZrla42A4YOPdxyChtgxPQaPB7tAz5Aw7rRxH3zTSciNwhlZi9iNkYZSPWola5pnxrf zCM43P0Kz24eiFcyqyvU1YXwTSCnwmuCFKlx7ZhS6r Kif+82skN26jx5+Q1O8NGTN13RvPFLzoQ/gywdr1HrZ1rh2aawFnzyX0DiAHm0kK+bap/bo0SRQkHbG7 v06ONmvA2Sje375DF+Upvnwl80fV4cQHcT0vIREutH7UOsNijWUPQz3cEnZbzDxPyLDPFpWMaGFk0sS9 3vQpBD8rXEfx+RSqPdOgC9QveCwoIvGcdSJTANmSb3 ymVCZzk5pF6zrOU+BRUNO+nUMk0Z21WuUGzPhqI8jtAlgqR4cJ9kNqZSh4PI1G9Uv0mMJI5JL15kkxk+mmo iRJ1g311ecCPKixPHLxIWlOKYMiEOdL8UbgQlPvGwlFBP3ZS4d8x/MT3NXODtTt/IUpOlOywxXtMRVxX s/vLARAqFG6flWX1aEabvVRfD1yXnXmm0zmVyEB+j+ /ez3S1MMC5L5ZW2hUIx1vALZeaxcoSyIejg8leThk2qxKqrAQlOZQwZLAGKL1U4nvHJBLr9VEW2fMf1G vinpKidORe5uQQuOHTOijkTHq27LSmYiHpyC6KCksFFflKoxSNxHtVxHDd+UTvTkaatYrVNHgG5tJvEj QxPujyKAZRg3u49LrP4SskofEdS9bgy9pMWpB5OYRF 6tA7BGqLnKb5jqGmAJAkZ3JEfphnEJ9pVPSi51fYjmh3Z4/UuQTfyjRRJWO6C2K0wrF1wd+fJvY+G8U2 rEA6k+a48HE7T2ItyUrQ9lELTBFxvWaToMhV9uT+Nkvr5wbbdFsfu78h2EIFvhbLeo4x+L/ANbvmXju/ Yfo5kmG0eNZMuucwBqCfgpIJavhngJQMyT9kkeT7rx RlOxlZ5tlpxPkF7rFY8DRmcIkm1AVWKmfdBzq76kZvA/zzZQyjz65/heqgecPdvlfIoEHK4biB0hBgNx bpwHqmlm0fOdpNuobx6gyfj5dEQawCnEuxkXhBuIkQ0sEJabMO1QRR3L5QwcVob7DCS5boCfge9NrmLy jcOcgPmime3cyFyltAdBKc/BnJCi0rLsug/Zq1qXJx 3I/nHkEDYCcNOfZ9gm6oHhAIWJcs9vjoTt6E4BmRCGYRc6YYzAcjr1YpjCVCXvz+BxTaVpPXIclbPldF PATRICK+GGMIC0H5mvh7wCaND6jvCnEmXVTTzdbPceS6+3psZ3UB/WYachCiSln5zCq698Ut+M0kA4Hb7V3En [file] ICAgICAgICAgICAgICAgICAgICAgICAgICAgICAgIC AgICAgICAgICAgICAgICAgICAgICAgICAgICAgICAgICAgICAgICAgICANCiAgICAgICAgICAgICAgIC AgICAgICAgICAgICAgICAgICAgICAgICAgICAgICAgICAgICAgICAgICAgICAgICAgICAgICAgICAgIC AgICAgICAgICAgICAgICAgICAgICAgICANCiAgICAg ICAgICAgICAgICAgICAgICAgICAgICAgICAgICAgICAgICAgICAgICAgICAgICAgICAgICAgICAgICAg ICAgICAgICAgICAgICAgICAgICAgICAgICAgICAgICAgICANCiAgICAgICAgICAgICAgICAgICAgICAg ICAgICAgICAgICAgICAgICAgICAgICAgICAgICAgIC AgICAgICAgICAgICAgICAgICAgICAgICAgICAgICAgICAgICAgICAgICAgICANCiAgICAgICAgICAgIC AgICAgICAgICAgICAgICAgICAgICAgICAgICAgICAgICAgICAgICAgICAgICAgICAgICAgICAgICAgIC AgICAgICAgICAgICAgICAgICAgICAgICAgICANCiAg ICAgICAgICAgICAgICAgICAgICAgICAgICAgICAgICAgICAgICAgICAgICAgICAgICAgICAgICAgICAg ICAgICAgICAgICAgICAgICAgICAgICAgICAgICAgICAgICAgICANCiAgICAgICAgICAgICAgICAgICAg ICAgICAgICAgICAgICAgICAgICAgICAgICAgICAgIC AgICAgICAgICAgICAgICAgICAgICAgICAgICAgICAgICAgICAgICAgICAgICAgICANCiAgICAgICAgIC AgICAgICAgICAgICAgICAgICAgICAgICAgICAgICAgICAgICAgICAgICAgICAgICAgICAgICAgICAgIC AgICAgICAgICAgICAgICAgICAgICAgICAgICAgICAN CiAgICAgICAgICAgICAgICAgICAgICAgICAgICAgICAgICAgICAgICAgICAgICAgICAgICAgICAgICAg ICAgICAgICAgICAgICAgICAgICAgICAgICAgICAgICAgICAgICAgICANCiAgICAgICAgICAgICAgICAg ICAgICAgICAgICAgICAgICAgICAgICAgICAgICAgIC AgICAgICAgICAgICAgICAgICAgICAgICAgICAgICAgICAgICAgICAgICAgICAgICAgICANCjw/eHBhY2 nmtVKqskQ1T6wvIt3GKy6YYH6ip1ZsGRNtTDgmeoVlKlqHJfMnLQXgZfoPBos2INvjRO5YrQJmC3QcV8 BcNUcrQD0PCJHaXLTegCOxRZHgUNUcFbR8BYOoETco UQ6PbXXgIDlzGZVdQYYqYyMbONJyILOyKVAlEX9JSQXoD101ecKnLm2VDk6CUnGdUY8lqv2AHwEvQTSd RbyMHbh3MNfuDU4TsKTltGXiIvZkLIAIJxFfG6bdp1XcUnCoVUDJKLidNU1Re8JnjGBvFFt+Hx0EQI0f x8PjOBxeLkXsZS0fyo7NTXpNPyYnQ6KmtCwlVHOpq2 fySFSnRR0pzFUeZHY5VPEluYspD6GejwTdGVLMULAnuZUsFs4dYP8dBCOnGFE7UsX3YDHBCQ6TRVVvFH OioJPpTOWhQEAUNH1MXHotZAH6NmmqyxSgjGRyOGhyUB4EYBAtbrNfCfZyPVFZDNg+Ax4IVQ9rp8WqOH zgYkDaMT5vhx0MMLdXOgPfX5F3bFLgP8M2BAanOf9R GDViWBAmByQkJRDEPJweWO6ASA5ewuF2LB3PiJBzGMJySPQjxGCpRWx4O02mpQVhSPbwFP0XKKY+Mitzy+ Ve1BSFLqNVBtSHDaZvWcQEHMNoBrC8AcR4NMl6AtA9VzMA86kOokjxPaJRwhNJ9ELT2wQGXaBXPEXR4Y lOShgJ4zpcGrAIOdTDPORjYbP77dxYQtQOXkIFP6AH XzMd2UBRUwU6LcnbTteGubgxYwZVPgLZUFAO8WQKaxoyJieFTefVsiUC92zImuFB7LXv2IZlDxGG2nxx 7ZcDLdZn5DUYNfRT2RIYHzSJUqCMYnSBA6QCRiZvLvVYvwVDAxOLDxVGL7IJLzXJYsXM2RKcKaCDHfBr v4KoIfCYGyOLBeoz1JYRTtDKGnWNP0UyBwHSYsEPQo AStiGPDnKQBmMHF3AQNcUGYvJH6ITeEiCBAqUFE3QBUoRLAiNCAvvm7TTECgQTWkCry7KGUaAUZyAQVl VMiqWWXwWTH6RZX1OKOmMYFrFD0SBfDdNZShTEHpCojbEEDnFWFoso2EJBYbQDFcWxQ3IGCfYLSrRALa UNpkWLSwQPT7TcK3USGhBGKhUY2NUvViROQeYBfrIR hhEHUyBQHglg4QFYNsYEOxFHAqENEeMOKaUATjNMsoZDDuLAI1Msn3BDAoYGCdCU5EIzLyTHXzSQf0AT czKCFyNYUyxt1YZUXuTHUxSIp4LCZpWZSsYNZtVTkcPYSqLYZnKOW5DHNrPUJzRP2AAqVpFPIbBBO1CP CvHKFwLIAxzr7OVHZaRFXoRXN7JnZvUBWbWMEaNZmi XKAyPAGpWpqrDVFsFTZnIN6JVjRtGQDcGHOnBUCrGHQnXJNzos8MNQFgOZWtKpG8HQXbMYTqJSArXFeg OJCmJBMzScV2EFFwJLKhJG7GAdEcXRTmNQX5DHEmCRJxPGUaan3DSLPfGZOrUws9DkUlKZBgUURdUKnc VYWzTKI0RLdtZBQpGQXrVQ7OOuXdEUPaNnh8NKFnSY LdRRXyrn0KKRAbNWOvQmrvYnCgROEfKJIpXTwuDLJvEEV1LYH4AUBjNSPcFJ7FMoBbULBhNvhdUvfqNT MrFDZqxh7AORPoOFWfJZCkDMMcJCPtYBOzEFijZOBdFUR5NdN9UVYoSEQnPJ2UKsEhDKTtPkz3PrUnQW DjQCMdzt1WCSTlMCNwFPK8VZUqVNVrYHRkQWkfENHb HMOwLOA8ZVPwBKAnXQ6LHyRwMAJeGuV7XbNaRQYrREYlrb6LOZCbSNVvBSWoUgFdBRHiRKYuBFfsUMBo UVCoGjt8FINgDZKeAX3AYcMzUUuuOHASUor5PWmyY0s3UREnYT7DA8Eys9IuHkybBNXBYHzsTQ0fxrSt RTMxQm1YZ2wJWyrvSDGjNSE9SNYhAFX6MIS1PDLdOD ElHDLiLLPyDwvzCV6dRONxFCDcLtZrHnHqOJc0BAk9DJEbGdVtBNUgC6EdNGB9QySpEK6MXw9DHaV4GF P8vXLqQo8ZIsMlGhvANxBjPX5PSNj= ID Date Data Source [id number] 03/18/2020 05:53:19 PM EST [facility] Name Value Range Interpretation Code Description Data Suki rce(s) Supporting Document(s) Care Plan [facility] UUOIOy6qHqHRUhWt40/JNNwoPPFlw5IuOGdeLBc6ZAjaHIEkA4DlCDX1fJ8lKNW7PMtEDjNqJqShYwSa lbm [file] XtQoJJZxJjV3FqM8AMKnCyKwJR6GFf8EQdR4BHM2hUCzFx7AVbH4DpFAGuYbTU8FWVc= ID Date Data Source [id number] 03/18/2020 12:55:12 PM EST [facility] Name Value Range Interpretation Code Description Data Suki rce(s) Supporting Document(s) Progress Notes [facility] VOSWZv0vQiBPFtHt36/FIRbcWIZvj9KlZWzpCAu0UXshWBDqT3VdFUP6fR2oBHA0VKyJBsOkQrLoTbCh lbm TaYilNZeTtGAQpPcvMArLyLXnvSzfduIFeCA4OcVU7NEXtN44mLXKqWNTfY8OlDEH2XNI+Tj6MOLQazO QeQE2OXzqR2WsoJ0iHUT8q6H9tp8yMYJg4amYgMR0gBfD2fbxemqNu13OcD3zVci+sQ3M720o8tUmYsC Salvatore+Qz5/Lm92dCvgd4FUcQkKOYAZ4IZ2PLxGc11xuz [file] [id number]= ID Date Data Source [id number] 03/18/2020 10:44:12 AM EST [facility] Name Value Range Interpretation Code Description Data Suki rce(s) Supporting Document(s) Nursing Note [facility] FETMXk8bBcHJVsKn98/RWRdeMZGnr8OaEDwaARp0OOnvXDYyB6RoFIM7eT3tFPL9OWdMHkWiKkIaGlYx lbm [file] X9U1TtMQAgBGD+IZ2vMEl+As4Vs8UtuxS0hxKsUXwnXDM3OH8RBXZWM8THRf== ID Date Data Source [id number] 03/18/2020 05:28:00 AM EST [facility] Name Value Range Interpretation Code Description Data Suki rce(s) Supporting Document(s) Platelet Count 163 x1000/ul 130-400 Normal (applies to non-numeric results) [facility] The above 1 analytes were performed by [facility]omas[facility] [id number] [address], ,[place] [address] ID Date Data Source [id number] 03/18/2020 04:21:49 AM EST [facility] Name Value Range Interpretation Code Description Data Suki rce(s) Supporting Document(s) Nursing Note [facility] RYASQj9wJjWMSaXf63/KTGuvOFIzk7XpHTfiKMh5VDdqIEHvW5YjKVV4bF1pMPI1TQiLIaCxNdWdZqQz lbm [file] AgICAgICAgICAgICAgICAgICAgICAgICAgICAgICAgICAgICAgICAgICAgICAgICAgICAgICAgICAgIC AgICAgICAgDQogICAgICAgICAgICAgICAgICAgICAg ICAgICAgICAgICAgICAgICAgICAgICAgICAgICAgICAgICAgICAgICAgICAgICAgICAgICAgICAgICAg ICAgICAgICAgICAgICAgICAgDQogICAgICAgICAgICAgICAgICAgICAgICAgICAgICAgICAgICAgICAg ICAgICAgICAgICAgICAgICAgICAgICAgICAgICAgIC AgICAgICAgICAgICAgICAgICAgICAgICAgICAgDQogICAgICAgICAgICAgICAgICAgICAgICAgICAgIC AgICAgICAgICAgICAgICAgICAgICAgICAgICAgICAgICAgICAgICAgICAgICAgICAgICAgICAgICAgIC AgICAgICAgICAgDQogICAgICAgICAgICAgICAgICAg ICAgICAgICAgICAgICAgICAgICAgICAgICAgICAgICAgICAgICAgICAgICAgICAgICAgICAgICAgICAg ICAgICAgICAgICAgICAgICAgICAgDQogICAgICAgICAgICAgICAgICAgICAgICAgICAgICAgICAgICAg ICAgICAgICAgICAgICAgICAgICAgICAgICAgICAgIC AgICAgICAgICAgICAgICAgICAgICAgICAgICAgICAgDQogICAgICAgICAgICAgICAgICAgICAgICAgIC AgICAgICAgICAgICAgICAgICAgICAgICAgICAgICAgICAgICAgICAgICAgICAgICAgICAgICAgICAgIC AgICAgICAgICAgICAgDQogICAgICAgICAgICAgICAg ICAgICAgICAgICAgICAgICAgICAgICAgICAgICAgICAgICAgICAgICAgICAgICAgICAgICAgICAgICAg ICAgICAgICAgICAgICAgICAgICAgICAgDQogICAgICAgICAgICAgICAgICAgICAgICAgICAgICAgICAg ICAgICAgICAgICAgICAgICAgICAgICAgICAgICAgIC AgICAgICAgICAgICAgICAgICAgICAgICAgICAgICAgICAgDQogICAgICAgICAgICAgICAgICAgICAgIC AgICAgICAgICAgICAgICAgICAgICAgICAgICAgICAgICAgICAgICAgICAgICAgICAgICAgICAgICAgIC SgRUKuKOQiAUOzFYSuNTUcZIt0C7wvGWIlQPYmWR2a MKy2Xy2+NNyJRjPzYGA8rmQbiE2XPX9xd7NgSFezIXMue7YhISw1QJ3BYKAoYUgzTC5BHMapxs8CAYXq SUFbyHDOd3txIuBjJPO1MCSuZaniGS3BTSZdE0niijVaDPGeCRGKET9CKhVtA2NvtB86XFKRCt0+DQpl pkZiThdUWfWhVVInz1YuOUb8EV4JFKOuFnnnt7OwVp VmDNSJUKtaEG0GSBM0YMSoNMHuTb1OAJVcR871hlJwXW5DYx4YQeQyGD6sly3YAtTeAICpPzqHRof4ZI lmML6OkPJtSXzHxOVtgB2zVG9kqUTpHmbaX4UzJ1Z4ZDirigIsXP1JIGIvROLBEdEnnWGwAu2xXP8kFW XjANX8YqS9IAFTQO0HTBZiXRVhcUOhNHPfYMZPXU2H UFaxCOW0MovbasYhlTBaEOntSX2HGBEacaNnOlMvCJFQDQn+Di2VPW2pr8TiPQckEYHuRG0iwo8GLTtJ UcAzO0K1dNSyT6K6OEpkVu3VQXLwFPTbSpXaRKEXZTdqHT3JXE6jaaQ3IX4RvTNuYTMrWHMdfSYfNTq9 Y38zmOLwUFhbVP2TMMG+Mitzy+Ua9JCIVeXRRjSFGkKo CoHSQMNrKdP0ObV4XLq4RaO3GgGL26vEpwnwIaGSfpLS5JPL3wGMQpZMYHFA9AzYZtuR0vgiRoOwAwNS FHLmTlG65ylNDpDNLvRFHbNXQxHd4CTXYmJ1ByagAwoFzaywIjMTKaLLSYNO4HOFtryrTuuYOjrFduNM 53zCctVL7CGn2QNwFuLQ6wmh1TrGTbOb2QOSTwST4E WQWhZOWxWSHlDDR1CXGbSrIeHHuiSTMxMPDzXSL6TDPmYSLaDI8TCyHwECAgIEg4NPqtYMPyXTRmga6Z JQGbVTXlGIZaLyEkEWIjCEMpERgiKUFsZTMmLCK2UPYxZNLvCI2VUdMvKOBuOIW4CaSxAKYxSNFbfx2C MDAwMDAwMTYzNSAwMDAwMCBuDQowMDAwMDAyNTkzID WdXOZxOL0CZtIcQFAiURE1DOJkIMPoFWScxk6CNPSpELVtRul1EZYsRSFnIGSuEJqcMCHvETZpGCB7SP IgKLOzEX7JUqIxPKTkZGCqIhFqJGLiMISvut9UUIYdEJXyORPhKnFeXRRwSANsHWshORLwQCS1KfX6OH IcBDKkYD6GBkRvHTCiLKC0NAHuPTYqKFXmnk4UEIVt MLVyYkK2IZSiZMYlRDKrQEzfTCYzONY7CPGaJRBdBBQwNQ3IAsTwCIWdDZj8RnsbIAJhEBLmti0PPZGw AZIiYUMbIKNzGCJbULUaQGvfMVEgHWP2IjC9ZTGcBKMtCJ0KZaBdIINaDNm6XcoyABUgRNKomd7PBUOs AAWmXIH3LjCrQNJgAHLkFPryGQCvIKNaLpKsJMZzJM QwAW9QIiRaSZWxZtO5HLNtBUAtYVPete1QOJQzOAMpTPq8SQSxCKSzVTHpONz3ahEqaXJvXCj6VV3YP2 LuvsRcTnQEZz9Lm142XEO1ADOdJc5JE7deRp5dQMMkVOHZFg2ZIWt2GXhyBPLyDML9EgKrBKNkHOQ4Qd tqGQZwNmR1OKE6Gwj+SSa1T7DqYGF2YLDsWYQqA7Q0 JBU8NUXsDiZnJFzvTkQxGG9kTXIAOx2+EJcleWHgtOweRLMAPoKhXYw7ZNsoWFPFBs0T ID Date Data Source [id number] 03/18/2020 02:49:31 AM EST [facility] Name Value Range Interpretation Code Description Data Suki rce(s) Supporting Document(s) Care Plan [facility] IYJFXv2nUsZJIjWs12/ILPbnTYImw2ErZIuxQUu5TRhhRSYeD3ZqIYA6sX5vQWA6MBfOLgFpPtHqWrOf lbm [file] TWNpJtZS5ROBf= ID Date Data Source [id number] 03/17/2020 11:18:37 PM EST [facility] Name Value Range Interpretation Code Description Data Suki rce(s) Supporting Document(s) Progress Notes [facility] BJGHHr9cWeGRBmFa61/GTUnmTKGfz7EjFJyiLZz2JIdeIBMwP7JkMQU7cZ5jVLH4HXeNMsVfAbLiKuG0 lbm [file] AgICAgICAgICAgICAgICAgICAgICAgICAgICAgICAgICAgICAgICAgICAgICAgICAgICAgICAgICAgIC ZbZTVzEL4QIXIrJPIdZSFgVIAtOUBdINLgWFAcSXFw ICAgICAgICAgICAgICAgICAgICAgICAgICAgICAgICAgICAgICAgICAgICAgICAgICAgICAgICAgICAg RVLrIBDbWTVmPVHxPFMvWQ4LVVNxYTUxSKYwFWSkPUIwZSLlSACgQATcRPBwORJjZJDzIXChSWIzHNLq ICAgICAgICAgICAgICAgICAgICAgICAgICAgICAgIC XxTXVxDJQuACIzKVVqQWTcJQXdNJOzYXOtCZ4YRKIqIYWiDVPlWORjLNKrNBPkLEKlZRUqEAWmXQCgGS AgICAgICAgICAgICAgICAgICAgICAgICAgICAgICAgICAgICAgICAgICAgICAgICAgICAgICAgICAgIC YkIVAoTEQiGM8DLRJoVGZvKFKrQEKhUQYpMRJrFDKa ICAgICAgICAgICAgICAgICAgICAgICAgICAgICAgICAgICAgICAgICAgICAgICAgICAgICAgICAgICAg REAjFNCmEHWiYZEyOINvQIUjQG6GUBHiKQSxFNDmEZXcJIIyYIRpQJCnUZKbNSZeABQnVCLiZKEvPLGa ICAgICAgICAgICAgICAgICAgICAgICAgICAgICAgIC NvKSQqMUAcHZSaGJAiRRDdFWYpLLBeBROmZVDnJS8HXMMhEVSxIYMyHQBrZTRqLDExUQIiRNCrKZDuYJ AgICAgICAgICAgICAgICAgICAgICAgICAgICAgICAgICAgICAgICAgICAgICAgICAgICAgICAgICAgIC SfSKAbPNUeDHEdDZ6JHCZtYMYgUDWfLSSuYJIgBPEn ICAgICAgICAgICAgICAgICAgICAgICAgICAgICAgICAgICAgICAgICAgICAgICAgICAgICAgICAgICAg ZAYrQJCqEWJdIFNbCYPpFGVlWRSgRO7ZKTXdRHSmJRFxEXHeBUZnAGQsXJWfHPAyBPQoKGIzUTHpKRVn ICAgICAgICAgICAgICAgICAgICAgICAgICAgICAgIC XhXFUtSUXcLTTqOFIxMIBvSYIyIAKuIWCxXZMlSOErOU8UXQBpHDKbZFKvOLLpHCPeCQEtLOPdWFXbIL AgICAgICAgICAgICAgICAgICAgICAgICAgICAgICAgICAgICAgICAgICAgICAgICAgICAgICAgICAgIC IlQCYhOZXdMVFbXPAxSP5TTF12gGTow5U0ZQIdOM3k dyc/Fa1DDUakccFrjCUeFZ9QYtLlFN0utw8JEoHqSZ8sjl2HRNvBGlGdQ6H0tVSuAMHdRCBTVkPpF83e FXelLm05AJzfQJPgUhTkRIj8Rs6MJiJwT9iqSVSrDiC5LBOuNsO9KWYzYdE6TLJdFyHgSLTwPGLgWSEz SXIFAU9QIyVcF1DnrK34DJOGAt9+DQplbmRvYmoNCj D1KFOin7AiHBy8VG3JEPXqDdusr2GfQEYiFJOQENumDP5GZIN4RZKhIZZaOu3OHSAuB199pjBjKB8REl 2WSyYbVJ0lgx5ETXRzDYVjVuoVIat7RGfqRZ9RfTXaOEdFxk4pcoJrecCCz7WtckHsvWIKdqRsMQlrcm 5hbiwgTUQgYXQgMTIvMTkvMjAyMCAxMToxNiBQTSkN BzDaG3Rww1GrTlZ0SDMhZdBkYQkfDDIqFbQ9BS80dVcoDC8KGTQoEZXyVR39HOS0WRFrWm9IMx9VCgLs EJ3rki0DJLMsDCTvSdbPUzv4QUsfOQ2CbRUbH3AsvIHjv6gMCtIsT2FGLYC8WPVqQq5RWKJqSiSkFCXw HCsfSU8oKSOcPGLOsOrdfgR5KZ8ZVZ2eajFlKO6IWu IlCg4rWd5JAaFrL4AkC0SeMIWyGCWPZJhaSK0IADbaIZ8pCM4Al4BZqTAcvI2cco7TPSWyJOEqZozzda 9UDpdeN6H7mRllQKJySgwrFZBTPKkrZL9OVKDqUDS2WEPfGMYaZFRZEkLnR94aJC0OL6Dbn71lWhJ9FC FxGcYlFMixJG94gIymjaCmkGPdyOdmVV6ACz5+DQpl liGlCsqHFbtaGWDIJaUwKSRFQmXpXCEoCKKtSARxCmC2KnFnQg7ZCITeEVAvRXFzDcJcQEKsIFSqXCnf EVUvZKTtYxl3BDPuYNJyWH2YMcWuQIPaHrA2DkeoCWFaULCnqk8WDEGeFRHuUTR6YsBfONVaQUNxZUnh MFOcWEAsVKc5KLLjMAObWE0TAaEhFRDaFSH7FIfeXM XyJSYrpq5MMAFaYFBvDHj2ZJNkVAIgPVDcUZmjMFInQRV8UIi0XAPrLVSsKX6WEdRoYADbTSD2JGQwKM BnUVFgci6GJJPjRBMbQuKeXhVoVBDrCFCgGFmlEOSmLOW2PDK9USJxANUjMJ6YVfCsSUNaTRvrMaXjCY BeIUJvic1JNRWqAOSxVCK6XnPwXPBwDORzCZsfZSOa XVGvPYEqAVBcNZWuLE4IVhOlUHHiTKH5MvXqVJXtPDGjgk1YHPRiAVZcVRMmTaThDHKfMBXcEXbmSBJy CWDaTKVyRMCrRNDpLD7ORzXxOLUvIUV9ZpHsXEFhDPLdks2MQGRrRRUuCln8SCKmDIZcWABiYBsoBCCy IGLuCKMpGIUbCVJxKX0QDrFiQSZfJWKsHCnhFWWlZO Hzks0KGVRlIUJpSBUcYBNcFHAnHBOcGNkjKNAeIET5BGs7QLMmNCQnXG4KEiGjYGKaGYD8VBPaOFEmQG Kqgw8TJPAtQVRqIFT7JUHdVUSfRYKuYLlwPLKaFHX1NQJbBPSpIOInRX0OCaEnGPDxLHV7UTraVLVyGM Xzxs6UXPHhBFDjIwLnPIFhPYKfOAErLSgyXSQhMLZ9 HFa8OOJsPHPuWL4ELlEfWMOqVxQ7ATKaAUKnEHAset1VHFArAXOoRTxtQJNkUKNzBSQrDRcxHMBmBZGs SSQ2ISTsUZFtEM6HVxGeRIOrCaPgUBSpHEYdRJAmaj8ARJApQGGqZIQnAPKzVEQnSPMtFFqfEHTqCHLu PmdnYCWdUWCsRR3PFpVnCGLhTxY8OijyJILrXYTsxf 7NWFFuLDPoEul4ASArGZWdSPIwJFqgXSOdQOBeFzH5CDZpLDFlVP5HLdStTSApUrE2ULHmLHCwDLZadp 9QQPRxYJBzXRe0CDTbCFStMQRtPEdiQHWbPVG9BRHrFNEcJHAcZI2IVqTyUIcvNVOKWsa8UVgoM2a8FC U2Js2BR6Mjf3XnPXJzFZBWXXyoEQ0vbrKqUTPkPp1F C1dHKetiCYQrHSViWsS9UPQqBZQpDGhlMdZ1EnYkIPGqMIE8HT5aGPH4TsFzMUCjYvbzMcG8W8U2WND4 TCJ9LOSlS7IuXSo8WiUiSW2XCl2BZoC8TWS3uHWuPn2BArLbUHQKXxIePV8VCOb= ID Date Data Source [id number] 03/17/2020 05:04:45 PM EST [facility] Name Value Range Interpretation Code Description Data Suki rce(s) Supporting Document(s) Nursing Note [facility] XWTAXx6eWtZAChEw63/DTZfnOSIoe6OeLWyyDHq2CBuqHIPfI8JrYNM3jD8vGNK0HEzLPtLtMwSvXpE4 lbm [file] E8ZiGpSqB5CvXuQ7C2HNF+BQ3oOJy+Aj6Oe0SxrmX7vjOcVFctLYGhBh7KRXOGQ8AXWb== ID Date Data Source [id number] 03/17/2020 04:01:19 PM EST [facility] Name Value Range Interpretation Code Description Data Suki rce(s) Supporting Document(s) Progress Notes [facility] YWAHEu5jUuVNUpRn88/LYEsaCUHyw8MiMSmdYWv2TXkoEOPbU8BwPJS0jW0kOUQ6YFcRTbUdHhMsEsH8 lbm [file] AgICAgICAgICAgICAgICAgICAgICAgICAgICAgICAgICAgICAgICAgICAgICAgICAgICAgICANCiAgIC AgICAgICAgICAgICAgICAgICAgICAgICAgICAgICAg ICAgICAgICAgICAgICAgICAgICAgICAgICAgICAgICAgICAgICAgICAgICAgICAgICAgICAgICAgICAg ICAgICANCiAgICAgICAgICAgICAgICAgICAgICAgICAgICAgICAgICAgICAgICAgICAgICAgICAgICAg ICAgICAgICAgICAgICAgICAgICAgICAgICAgICAgIC AgICAgICAgICAgICAgICANCiAgICAgICAgICAgICAgICAgICAgICAgICAgICAgICAgICAgICAgICAgIC AgICAgICAgICAgICAgICAgICAgICAgICAgICAgICAgICAgICAgICAgICAgICAgICAgICAgICAgICANCi AgICAgICAgICAgICAgICAgICAgICAgICAgICAgICAg ICAgICAgICAgICAgICAgICAgICAgICAgICAgICAgICAgICAgICAgICAgICAgICAgICAgICAgICAgICAg ICAgICAgICANCiAgICAgICAgICAgICAgICAgICAgICAgICAgICAgICAgICAgICAgICAgICAgICAgICAg ICAgICAgICAgICAgICAgICAgICAgICAgICAgICAgIC AgICAgICAgICAgICAgICAgICANCiAgICAgICAgICAgICAgICAgICAgICAgICAgICAgICAgICAgICAgIC AgICAgICAgICAgICAgICAgICAgICAgICAgICAgICAgICAgICAgICAgICAgICAgICAgICAgICAgICAgIC ANCiAgICAgICAgICAgICAgICAgICAgICAgICAgICAg ICAgICAgICAgICAgICAgICAgICAgICAgICAgICAgICAgICAgICAgICAgICAgICAgICAgICAgICAgICAg ICAgICAgICAgICANCiAgICAgICAgICAgICAgICAgICAgICAgICAgICAgICAgICAgICAgICAgICAgICAg ICAgICAgICAgICAgICAgICAgICAgICAgICAgICAgIC AgICAgICAgICAgICAgICAgICAgICANCiAgICAgICAgICAgICAgICAgICAgICAgICAgICAgICAgICAgIC AgICAgICAgICAgICAgICAgICAgICAgICAgICAgICAgICAgICAgICAgICAgICAgICAgICAgICAgICAgIC AgICANCjw/hBIiY8wsnYGnydO4R2rgNt1FSe7NEV3g b9KuHNRbOIllznPfWzqKFzKuURQzIvfWNho1KRslHY8OaFFsF6UvF7OfJZkdAQ9SHSRyABThhEDcVDKc GSLyNvL3MBXhZTycGC9JwGFtZUpjDUYnNUSgZtLcSXXgVL7FPDJjA823zsPvZx3LOw1VBcKdUF3wpw9K DFmdGXItYfjYSgd7YMwzWL1XpQYzlUWxQAHvYKOTLj YiA6ybc6NuXzMyQTGPABxrQU8Iu3YuzVOmDIi+Qq0QGZ8es3GoGZeiWIHeTQ1qnh5RJJyZZzAcX1MwuV ejVUYck8thDEZdGL3ahTTiIWA6KCycbpdoNOIkwvOvgSWgOQFRUEZgyNOpRt0xPH9dLLVmSWWlBhB5RM PVQU6THWOkVIQzsRAxHCVuVUIPEX1CTRrnHUN7Mhsa qlXszIEfHEyjPJ6PVFOrhfEuTIicZQSESHf+Dz3KMU8vo6LcAPzcBOVfWA1rpr1VEUiOObIxD9A5bQCj D6A7GDrnPp6JIDEbVIXdTUkkJLUMLRfsJD9QRJ0sjzH6OK7VnRIgJTNgPMBdeHQnIVy2I81csCTjKUqf ZL2YAGN+Mitzy+Pc7TBZExBTZeLXKoKaAbWLIFOiZxD8 NvA7XNs7EgO5SsWZ00hWgimeMgDTwoEX8GLI4qZUMyQZOPRE8SeZCouP3qrvLqWAKnPCQNPvLaY67wzY FgMOHzIYY5FCQrCb3PBRLxS3RpjdLbxThpbaYqIOCfBUOLDH9OCEhsyoZhrQVkxBnsYX19hPpvIG4TFz 5ZTbPhES9wxi6XiJCzVr1WCHMgXq5IDPTuRXSwMTIt AFC8BZAdTnIjFRpgBPPtTPEqZLQ9UBOjPZOwUU7QUmBgGKIkJAzbIeTcFZFbAPMxvt6BERFeTSOfUVns XhLgTFBhOMSuGDxhAUVaWOHjUGM7GGPuRYAhSL2OQkUnVZGfNJUfOIbuLYDxRYWyrc8IQTNqENZeZxT6 UwYwPUYfOGTaEHqtLRLrJNAiDHN8TGQeQQCgWL7GSa DkJJSsJSXrPIBwDCZvIWGaew6EPGRmDKHoThe6GGTvXORcLNRjCFbfMHTsDBM5YZlpDUTyEHWhJC7XPw YmEKZzYGNvFCCeVXNzMWTcch6IQDIhIEOkNQViWgRrECOiUTTqMUtlOOEpVMR2DVTkXJMxAFEyJO7AKs FqYXOdCFR1XCSpMFZgXATxxc4PHFMnUBUgQdO1AZVs IHHhJTKxZHrwKNGcJIX1CDO5SPVeBTRyYN7IQqQdVSSyOGjnOULxHLGnWKOixs2GTBWmPIGbFwZ4GpWg FMVoZLMwMAzhYGMfBKH7AHE4PBWhXJQmDD4FXtMwGLLjHKi6DsfnWTEnLHJqvy5XRBGzWGBhCQXbMWTu YDQuTRFxTLm2ivGdrXQnTMv2IZ3WQ3VdinJiBsPDCf 6Vn136RJVmRJEqHq2CY9khMc8kLEIbIOPNQl6XFRu5SAFgVSHjFeJ2GkT2AtoyHZTkNBSeIfEoHxE1LW U1ZTY+MWqjNBU2XYPoSCRqPmvrTFQrTZEtGpLjZfU4Vbr1NZFlZo2eQLHLKa9+DQpzdGFydHhyZWYNCj okCiDKDiGxKS7OGOf= ID Date Data Source [id number] 03/17/2020 03:04:07 PM EST [facility] Name Value Range Interpretation Code Description Data Suki rce(s) Supporting Document(s) Care Plan [facility] PIAYLh1wYuFBDeWs31/QNLqcHFDkm6RzXOkrAIn4HLbiXVNxE4TzXKC5hV0nZXH3FMlTQlVtGeBuVwR8 lbm VgGbfSGeBeDJMpJlfULkYpXQbkLskbpEKrUM4MeNG2YAYdZ31nPUFfCLLjO7MySHV5Ksr+Hx9KGMPatG YpJG5SIouX7XpIyhq7ML9G0N/gMQFqm+Ry+CRXQepQED8zT6M4hgVNbU1jHtIU3LEI/74rcbnSTNdjrb XTM8MHb0VDtA4oyxizJniy7s19Evcm6Vreuc/yq3GS 9hft208bn7aJQHiwyaCNsHDbefztYe+nlP22XPhEzWc9sXNM8BycWogBtTPjwoFDVxKzw+yiSflWyCBf Ms6rdI4gqsGrd1qnzTUh9um7peFMEGzQxilZk/fMy4c7yzwtrrm3mieGPefyTAz35zjtMTkQwSG99qyz Vicki+ZHKHMOjIV6NzXyQCJ+99kbuqti/z7RFlZVSENi [file] ICAgICAgICAgICAgICAgICAgICAgICAgICAgICAgICAgICAgICAgICAgICAgICAgICAgICAgICAgICAg ICAgICAgICAgICAgICAgICAgICAgICAgICAgDQogIC AgICAgICAgICAgICAgICAgICAgICAgICAgICAgICAgICAgICAgICAgICAgICAgICAgICAgICAgICAgIC AgICAgICAgICAgICAgICAgICAgICAgICAgICAgICAgICAgICAgDQogICAgICAgICAgICAgICAgICAgIC AgICAgICAgICAgICAgICAgICAgICAgICAgICAgICAg ICAgICAgICAgICAgICAgICAgICAgICAgICAgICAgICAgICAgICAgICAgICAgICAgDQogICAgICAgICAg ICAgICAgICAgICAgICAgICAgICAgICAgICAgICAgICAgICAgICAgICAgICAgICAgICAgICAgICAgICAg ICAgICAgICAgICAgICAgICAgICAgICAgICAgICAgDQ ogICAgICAgICAgICAgICAgICAgICAgICAgICAgICAgICAgICAgICAgICAgICAgICAgICAgICAgICAgIC AgICAgICAgICAgICAgICAgICAgICAgICAgICAgICAgICAgICAgICAgDQogICAgICAgICAgICAgICAgIC AgICAgICAgICAgICAgICAgICAgICAgICAgICAgICAg ICAgICAgICAgICAgICAgICAgICAgICAgICAgICAgICAgICAgICAgICAgICAgICAgICAgDQogICAgICAg ICAgICAgICAgICAgICAgICAgICAgICAgICAgICAgICAgICAgICAgICAgICAgICAgICAgICAgICAgICAg ICAgICAgICAgICAgICAgICAgICAgICAgICAgICAgIC AgDQogICAgICAgICAgICAgICAgICAgICAgICAgICAgICAgICAgICAgICAgICAgICAgICAgICAgICAgIC AgICAgICAgICAgICAgICAgICAgICAgICAgICAgICAgICAgICAgICAgICAgDQogICAgICAgICAgICAgIC AgICAgICAgICAgICAgICAgICAgICAgICAgICAgICAg ICAgICAgICAgICAgICAgICAgICAgICAgICAgICAgICAgICAgICAgICAgICAgICAgICAgICAgDQogICAg ICAgICAgICAgICAgICAgICAgICAgICAgICAgICAgICAgICAgICAgICAgICAgICAgICAgICAgICAgICAg ICAgICAgICAgICAgICAgICAgICAgICAgICAgICAgIC RsPENwAIq2D0evAXWgTDDbZS7iYRd0Sj3+LKvVHtQxSFQ3bjFbmF9ALL1hb7FiIRjhEGPiw1RlZDa4PR 2XEVTjMYrkJI6OVNhlkq2SBQJzBGZszYMBi3olRpTiJXD3SBRoCsazDA6KWCPzX6nnvcEvYLBsLKJZFH rmMPQJHQ5QPqSuU6ZraL46HSAVRw4+DQplbmRvYmoN DtB3JRTqp7OfQWl3YH0WUXPbBmbvp2MiBevgDRPRZTzxUR4WCWS8SHB7PVXgSs5DQFPmY346keHxXT5J Dl3WGxGqLS7fcu1BPopaUMIaTreBHyf8WYdzBZ1CjHDmQFuMEKHfIUTlJT4wBfagVLgcknNuGAwyu5A7 nVPqXVIGGmPsxJXwDq8kMB7yFDOpSNXgZrQuVCEBBV 0SJEEtFHEeiEIaYVEoWEOASF1TRKotSLJ2SkuqxcRppHBmBUwySV1CHCTkgoDpVletXCITEKx+Pg0KZW 8wk1FuRMbqEPAdSR6ruv6WXAnSDwOtG7K6uDRjX9N4JCbzFm6ZRRUcDSTfXlGcDLYVYPdpCW2CRL1zvt W5LL3HjTKtQVZeYOKwqDXgGGv9R03jmZMaMKkfSI1F ICA+Mitzy+Fe1BVWZyGEBjMRJdTsFzXEMZRwOuI0JeH7NRk2KoZ7BzCE40aLoelwRcPVrvDB4HFE8mSTAg GHEYHG0HcRWalV7liqAzQwHrHUJMMcAvJ54ouARnVJZoJVK6HGTnFz7YQQZyB6TbmdGbpWckptXkKUGd HMXFNJ4QMZuztzCkmYObuPulFC24cNspPO0YDu3YFv XaPV1bom5KkVGeMh7PMXRiSC0AIKLgUULlAQGnHMN7FENkLiYfNIvwJUByCQYeJTC6LHRlZBNuWI3VYb QxXTLkOjAcJFJrOGUbXCDiyv8SJWFtNLOnMqpnSPGhSFXhJBWdHSdmNLGqNEHjSQS6WOZhAOGeBH1STf PaCZPnABIlIjHgYXVrYMNndv6MWOPjAZStSoV0PARe VHPtHEJbLBzoAJKsRRKaCws2OOCfWKNuTZ0JUjWxWJAsYQW9MNZqTMQgJSBwke2IHUWwMGUnIJR2CRVr AJBjWDTaBYwhRTYxXBZ0ItW9TTCqWZFjTE5CQkSdIJYmBSL6YjNsDLGbGWAnzn3CPDIxRTIqYEv6YWUz LVQlLMTiGMqmVBPzWZW0DXhzIYJqKKQyOL2OJbFzEW RpJSOtIfTiQOXnTSItef2KEIQjLWHmZGOmZOCzZCHyOZJcPBzjNUEaDUF5CJUvYGMyCKZaRV4QNeMsHK LtZVxrOEoyHZMmNTPcbq6JABOnYXRyBGW1JZKyROYbZODeXEtvCQXdWXU2WZM5NYWvHETkYN9NKjJxGJ MjNjTfPqorLECxDFXxhl9XYIXgAVUcQCF0VSUsCUSe KUTgDZbcSFKfQKHfLpNjFXHiTSYnFW3YSqPvPNNtHuJ1LPQzAGUwHKVbnx2ILATcSYKuODh6VJNzSHKw ZULnBTmpKDOhGGBcHGMfFXHzKNNhZA3DNzMePOYfDvM3WOWeVDPuNPQzqz7BNLHvXFEgKvohWZOkKOSn XANjNNxlONDhOQG0DFG0QRQoLNNgBI5FNiWuIXAzPe VfJMXqMKJgWHGchc2KlFMrdFoefz2XJXpSLk6UdBcvMXKrCKcyHu3bjTNbCSYnZDTFGu3CjyZeFIJxXI QBDYhzQDZzTBLjFJHxAxP2ZjUdSpCiIzH3PEJmMRA5QMVeRNp7CLRtTyR3QYYeHPE1QqvsGJByNPIzDG i5WjHjCDteRqQ2MWcgPoX+TZ5iOCj+Bc4Aq0NeliA4jkEzWPtdMAY1SW3HUTBKH4BFPt== ID Date Data Source [id number] 03/17/2020 12:37:02 PM [facility] Patient: MADDISON BLANKENSHIP : 1965 [facility] [employer]Procedure: XR CHEST 1 VIEW Provider: FAWAD MAYORGAINICAL HISTORY: Verify NG tube placement.TECHNIQUE: Portable AP view of the chest obtained.ENCOUNTER: Initial.COMPARISON: 03/15/2020FINDINGS: Diaphragmatic excursion: adequate.Tubes and lines: Nasogastric tube tip projecting beneath the left hemidiaphragm,superimposed upon the region of the gastric fundus.Pleura: No pneumothorax or obvious pleural effusion.Lungs: clear.Cardiac silhouette: not enlarged.Pulmonary vascularity: unremar kable.Trachea: No significant deviation.Thoracic aorta: unremarkable.Remainder of visualized soft tissues and bony structures: unremarkable.IMPRESSION: No radiographic evidence of acute cardiopulmonary disease. NG tube appearssatisfactory in position.Electronically Signed by Bereket Duvall MD 03/17/2020 12:37 PM Name Value Range Interpretation Code Description Data Suki rce(s) Supporting Document(s) ID Date Data Source [id number] 03/17/2020 11:15:41 AM EST [facility] Name Value Range Interpretation Code Description Data Suki rce(s) Supporting Document(s) Progress Notes [facility] QTKIQy0kBnAUMmEm15/NFClmQAKyx6MyDRfgSGc5ARtaRHXsG3ZgGYJ1lK8hYAF4FPhCCzRvEpQoShD8 lbm [file] AgICAgICAgICAgICAgICAgICAgICAgICAgICAgICAgICAgICAgICAgICAgICAgICAgICAgICAgICAgIC AgICAgICAgICAgICAgICAgICAgICAgICAgICAgICAg ICAgICAgICANCiAgICAgICAgICAgICAgICAgICAgICAgICAgICAgICAgICAgICAgICAgICAgICAgICAg ICAgICAgICAgICAgICAgICAgICAgICAgICAgICAgICAgICAgICAgICAgICAgICAgICANCiAgICAgICAg ICAgICAgICAgICAgICAgICAgICAgICAgICAgICAgIC AgICAgICAgICAgICAgICAgICAgICAgICAgICAgICAgICAgICAgICAgICAgICAgICAgICAgICAgICAgIC ANCiAgICAgICAgICAgICAgICAgICAgICAgICAgICAgICAgICAgICAgICAgICAgICAgICAgICAgICAgIC AgICAgICAgICAgICAgICAgICAgICAgICAgICAgICAg ICAgICAgICAgICANCiAgICAgICAgICAgICAgICAgICAgICAgICAgICAgICAgICAgICAgICAgICAgICAg ICAgICAgICAgICAgICAgICAgICAgICAgICAgICAgICAgICAgICAgICAgICAgICAgICAgICANCiAgICAg ICAgICAgICAgICAgICAgICAgICAgICAgICAgICAgIC AgICAgICAgICAgICAgICAgICAgICAgICAgICAgICAgICAgICAgICAgICAgICAgICAgICAgICAgICAgIC AgICANCiAgICAgICAgICAgICAgICAgICAgICAgICAgICAgICAgICAgICAgICAgICAgICAgICAgICAgIC AgICAgICAgICAgICAgICAgICAgICAgICAgICAgICAg ICAgICAgICAgICAgICANCiAgICAgICAgICAgICAgICAgICAgICAgICAgICAgICAgICAgICAgICAgICAg ICAgICAgICAgICAgICAgICAgICAgICAgICAgICAgICAgICAgICAgICAgICAgICAgICAgICAgICANCiAg ICAgICAgICAgICAgICAgICAgICAgICAgICAgICAgIC AgICAgICAgICAgICAgICAgICAgICAgICAgICAgICAgICAgICAgICAgICAgICAgICAgICAgICAgICAgIC AgICAgICANCiAgICAgICAgICAgICAgICAgICAgICAgICAgICAgICAgICAgICAgICAgICAgICAgICAgIC AgICAgICAgICAgICAgICAgICAgICAgICAgICAgICAg ICAgICAgICAgICAgICAgICANCjw/oGZhW2xcnULetrS6R8qmSo0AYi9RMG6xb2IkLNBtWHuhryHwMvvS IrPfAMAdQlkYNzn7EFyeSX9XzVCoN0VoZ0VnJCjxLF8FRTInPLJvxILtMILpFDCoAvY7RDScVLghOB4R aWRzIFsgNSAwIFIgNyAwIFIgOSAwIFIgMTEgMCBSIF 5NUkSpD2FneV11PAURYj8+GQpzsbQzIpoHGmJ5JEDlo2QxAIf9YY7NECNgOvjoa8UjIIfmUYITDKtxFN 8XQRG8BPA6DKNsSb0RSSQvH243tkTlUF6YZj4VUcZyWD6zoq4YOIjiJINeWyjYUyd5GCwvCC8QqSRoBF kUuk2jphHywvKLn0PeveIqlYVMsdvfIR2uP5EntCh8 NBVMSBWWRV1uFWMxQRMpFCryFrJaVQMiEUlqNKJUFEbYQxQnI9Fsq4MqTuX7OIRwDzRvFUgqCAAuBaZ2 DU63eLtvIO0JOHFgSIMiQB09NFG2IATsAl7DRn9OQvMyBQ6mdx6YTKjtPQYlXtoRSuq2QKsdJV8QrVYz O4VcuDWpd5wISxBpV0PHJFG5OEVpJx9VYVLnBsRhQC GqLXcuCS1cFOOjHYZMkIfqypH2VT6IDO5dqzJnHD0BKyZxVv7oEv3ZZgGrL9RkX6DiSZTaKTMROXluCO 4MDByoBG9lEA6Dg8MSsLOikE0amo9LSGXkOIItTckmoj9LQlbsB5M0cQseLIYqXSbkBPXOBOrrRW6ELS MbSSH1UWZ4YkXrZIFPLeEyS10vZY9HL5Aga94kRmE3 TWQfHkAvAKuoFP61zWeqqxCehOImjMplFR3DVk2+DQplbmRvYmoNCnhyZWYNCjAgNTANCjAwMDAwMDAw MOSaUyC7YtOlZh5TMKRdGMYuVGAtFdLzHCKkCLIrTQvgXEXdSTKqKnJiDLBlJUSsMJ7SGqWyKFWfXBPt JvsxTQMrNZDapb3FIOStGBObBVG3NlKzIZZmURYkAZ lkHGIsQQFfQHHqMSPfINTgSP1XBjRnQXUzHZL5DNjgXNRzFQMtjv9KQQTqDWGkMMK7ZSKxNJGpNTOyHB wkSVXkCVZ6Myb4SGVaPQFoUF5OKrFtFEWuDMvzBNspRYXxFLAbal3KQIUiLABnODR3IUUfAXXlQMNiWR pbQRPvQKE7XZT1VJVrQVKlZM6PMhIvUQOlNYbcVQEm NNPfDAJdpn1OAWVnVPSoLBMlSYVvCBRgNOOaTRszYQRiAXXmDxEnVQUmYWJlLQ7DIiChOCGsTMV6DFzi CRWkQJWyzo4CDFZkRGHyRJR2ZAIsEKAvVFGkACppTFFkQCHqKwI5WLIaMWFzEJ7LOuZaKKQsPPJ0Ndzg CALhRCAxfd1TOANdJKGyDET3IGSrIGXnGWXjBGrkRN LpJSJ5OVA0FLRoDZIcTX0NMaIpZMMlLgP7BGAbMRVgKZXsug6ZEDMtURAvUYj6VwJnEQUpGTZoHPqeNM ByQAW9VQu9NNXlVNHwHT1BKpSvWYQdGpRnMTPvKPAyZOCrxp3KWRRjQOHkYdPuWsHlELOfUXTrCBqfMJ MtLIN2OVVtWELySVPdGB5NAxDtSJRtGbrgDACrFRWa WQLvbf0MLNJpXEJeRhTrWSPtANBdQNNqNGnlBUUmCPQ3SyUuPKTyTUWxDQ0SLdTdYVYnNhg1EXGyUHXw KQJvws0GIVKsIQZqOVglAYUhXGXiZKJoHAukHMFeQOP2XMJpFXVdCOUmXU9EFlMcMVHtUJBiKfVxTCHv BGCzga2VJOEqXAK6YmM1OABkXVOdNSReJPybSPDmSI QgTOE8SMQpVTVpXX0WOqVoZWIkOYFgHSRxEWIhCBPnbx7OZMTzNYD7FdM2XXUeOIBfFPGwQDmsDWMqMB X7SEt4KTErJOZgRA9WUyAqNTEjYWAdOHazQGNyZGAtaf1CPJEpDAV3GGU1HFWpBKIsFLOcWFcaLCNrUM W0ZXI2KDKfLDSoMZ9AUiOnHERvNAx3GREiFHBsRGBk to9VACVpLOD3JUu7IcLdHONuJLBcTXsqHCXtASSkACdqCNKbFUGlZI4FYwQfAZHsMBDcSOBgGCSfTBAv yr8ARDEhIMD8BSsuTbQkLZFlDFEpBDfeJLFsDFNwVra5ULVpVWQmJQ9NKePzYVUlVBIzXbDcBKDuKJAe an5WDPDiEXH4WhPgZTLvBXGiZZTqDFj3avXgoLDxEI e2WQ2EA6BjfjBeTUZIAh6Fy425PTF2VTFmBh1DU3hwKu1mFVOdIRUEQb6RWTj4RlUbZOG2QUIeBKS5RF vfPchxAskxFqHxW3XkRGMiYSX+BYm9TRUdHhA3SAAgELa0MCK3H8YhZRKmINXuQeRsRKCtXF8iKKMKWi 4+AKbhjJDmtHbiAIZDGhCvFcUmQYobTPKVUk6M ID Date Data Source [id number] 03/17/2020 05:41:00 AM EST [facility] Name Value Range Interpretation Code Description Data Suki rce(s) Supporting Document(s) AST 18 IU/L 15-37 Normal (applies to non-numeric resul ts) [facility] Sulfasalazine and sulfapyridine have the potential to falsely depressAspartate Aminotransferase results. Baseline values before medication administration are recommended. ALT 25 IU/L 13-56 Normal (applies to non-numeric resul ts) [facility] Sulfasalazine and sulfapyridine have the potential to falsely depressAlanine Aminotransferase results. Baseline values before medication administration are recommended. Alkaline Phosphatase 73 mIU/ml 50-136 Normal (applies to non-num danita results) [facility] Total Bilirubin 0.60 mg/dl 0.20-1.00 Normal (applies to non-numeric results) [facility] Blood Urea Nitrogen 12 mg/dl 7-18 Normal (applies to non-nume rahel results) [facility] Creatinine 0.71 mg/dl 0.51-0.95 Normal (applies to non-numeric resul ts) [facility] N-Acetylcysteine (NAC) and Metamizole shrestha ve the potential to falselydepress Creatinine results. Baseline values before medication adminstration are recommended. Patients undergoing treatment with phenindione will have falselydepressed results. Patients on phenindione therapy should be tested with an alternativeCREA method.Toxic levels of acetaminophen may lead to falsely depressed results forpatient samples. Glomerular Filtration Rate 86.00 mL/min/1.73m2 [facility] GFR Reference Ranges:Normal Function or Mild Renal Disease,if clinically at risk:>or= 60Moderately decreased:30 - 59Severely decreased:15 - 29Renal Failure:<15 Please note that the MDRD equation requires an additional adjustment forAfrican-Americans (multiply the GFR result by 1.210).Glomarular Filtration Rate (GFR) is estimated based on the MDRDequation, which assumes a steady state for creatinine (Luz Int Med 139/2 137-149, 2003), as recommended by the Nationaldney Disease Education Program in conjunction with the National Institutes of Health and the National KidneyFoundation. The [place] method used in calculating this result is traceable to IDAR standards. Glucose 76 mg/dl 70-110 Normal (applies to non-numeric resul ts) [facility] Sulfasalazine has the potential to false ly depress Glucose results. Sulfapyridine has the potential to falsely elevate Glucose results. Baseline values before medication administration are recommended. Calcium 8.5 mg/dl 8.5-10.1 Normal (applies to non-numeric resul ts) [facility] Total Protein 5.6 g/dl 6.4-8.2 Below low normal [facility] Albumin 2.7 g/dl 3.4-5.0 Below low normal [facility] Sodium 144 mEq/L 136-145 Normal (applies to non-numeric resul ts) [facility] Potassium 3.7 mEq/L 3.5-5.1 Normal (applies to non-numeric resul ts) [facility] Chloride 114.0 mEq/L 98.0-107.0 Above high normal [facility] Anion Gap 11.0 [facility] Carbon Dioxide 22.7 mMol/L 21.0-32.0 Normal (applies to non-numeric results) [facility] The above 16 analytes were performed by [facility]'[place] [address] [address], ,[place] [address] ID Date Data Source [id number] 03/17/2020 05:20:00 AM EST [facility] Name Value Range Interpretation Code Description Data Suki rce(s) Supporting Document(s) WBC 6.55 x1000/ul 4.80-10.00 Normal (applies to non-numeric re sults) [facility] RBC 4.14 x1Mil/ul 4.20-5.40 Below low normal [facility] Hemoglobin 11.9 g/dl 12.0-16.0 Below low normal [facility] Hematocrit 38.1 % 37.0-47.0 Normal (applies to non-numeric resul ts) [facility] MCV 92.0 fL 81.0-99.0 Normal (applies to non-numeric resul ts) [facility] MCH 28.7 pg 27.0-31.0 Normal (applies to non-numeric resul ts) [facility] MCHC 31.2 g/dl 32.2-37.0 Below low normal [facility] RDW 13.6 % 11.5-14.5 Normal (applies to non-numeric resul ts) [facility] Platelet Count 161 x1000/ul 130-400 Normal (applies to non-numeric results) [facility] MPV 10.3 fL 9.4-12.4 Normal (applies to non-numeric resul ts) [facility] Neutrophils 67.2 % 40.0-74.0 Normal (applies to non-numeric resu lts) [facility] Lymphocytes 24.0 % 19.0-48.0 Normal (applies to non-numeric resu lts) [facility] Monocytes 6.3 % 3.4-9.0 Normal (applies to non-numeric resul ts) [facility] Eosinophils 1.7 % 0.0-7.0 Normal (applies to non-numeric resu lts) [facility] Basophils 0.5 % 0.0-2.0 Normal (applies to non-numeric resul ts) [facility] Immature Granulocytes 0.3 % 0.0-0.5 Normal (applies to non-nu meric results) [facility] Nucleated RBCs 0.00 % 0.00-0.20 Normal (applies to non-numeric r esults) [facility] Abs. Neutrophils 4.41 x1000/ul 1.92-8.31 Normal (applies to non-numeric results) [facility] Abs. Lymphocyte 1.57 x1000/ul 1.20-3.70 Normal (applies to non-n umeric results) [facility] Abs. Monocytes 0.41 x1000/ul 0.14-0.97 Normal (applies to non-nu meric results) [facility] Abs. Eosinophils 0.11 x1000/ul 0.00-0.76 Normal (applie s to non-numeric results) [facility] Abs. Basophils 0.03 x1000/ul 0.00-0.22 Normal (applies to non-n umeric results) [facility] Abs. Immature Gran. 0.02 x1000/ul 0.00-0.02 Normal (appl ies to non-numeric results) [facility] Abs. Nucleated RBCs 0.00 x1000/ul 0.00-0.02 Normal (appl ies to non-numeric results) [facility] The above 24 analytes were performed by [facility] [place] [address] [address],[id number] [address] ID Date Data Source [id number] 03/17/2020 04:32:12 AM EST [facility] Name Value Range Interpretation Code Description Data Suki rce(s) Supporting Document(s) Nursing Note [facility] SFZOEr0dUyHOYqJk06/SHZncTLNgr9TdLUonZSv1YAwjULCuE3UdADB9iW3eAOT6ZOhIXfQuWsWpXnN3 [facility] [file] aXZgZr9OBfRgIZsKBcVwFC3ZEVv= ID Date Data Source [id number] 03/17/2020 02:39:14 AM EST [facility] Name Value Range Interpretation Code Description Data Suki rce(s) Supporting Document(s) Care Plan [facility] TZGEWb1uDnHKMbEa29/IRPpiFOWlw2RdPUeuSBg3PGpzYVRsO3UaXBU5gK8nLAN4IVgROhCoRoNoLrH7 lbm [file] AgICAgICAgICAgICAgICAgICAgICAgICAgICAgICAgICAgICAgICAgICAgICAgICAgICAgICAgICAgIC AgICAgICAgICAgICANCiAgICAgICAgICAgICAgICAg ICAgICAgICAgICAgICAgICAgICAgICAgICAgICAgICAgICAgICAgICAgICAgICAgICAgICAgICAgICAg ICAgICAgICAgICAgICAgICAgICAgICANCiAgICAgICAgICAgICAgICAgICAgICAgICAgICAgICAgICAg ICAgICAgICAgICAgICAgICAgICAgICAgICAgICAgIC AgICAgICAgICAgICAgICAgICAgICAgICAgICAgICAgICANCiAgICAgICAgICAgICAgICAgICAgICAgIC AgICAgICAgICAgICAgICAgICAgICAgICAgICAgICAgICAgICAgICAgICAgICAgICAgICAgICAgICAgIC AgICAgICAgICAgICAgICANCiAgICAgICAgICAgICAg ICAgICAgICAgICAgICAgICAgICAgICAgICAgICAgICAgICAgICAgICAgICAgICAgICAgICAgICAgICAg ICAgICAgICAgICAgICAgICAgICAgICAgICANCiAgICAgICAgICAgICAgICAgICAgICAgICAgICAgICAg ICAgICAgICAgICAgICAgICAgICAgICAgICAgICAgIC AgICAgICAgICAgICAgICAgICAgICAgICAgICAgICAgICAgICANCiAgICAgICAgICAgICAgICAgICAgIC AgICAgICAgICAgICAgICAgICAgICAgICAgICAgICAgICAgICAgICAgICAgICAgICAgICAgICAgICAgIC AgICAgICAgICAgICAgICAgICANCiAgICAgICAgICAg ICAgICAgICAgICAgICAgICAgICAgICAgICAgICAgICAgICAgICAgICAgICAgICAgICAgICAgICAgICAg ICAgICAgICAgICAgICAgICAgICAgICAgICAgICANCiAgICAgICAgICAgICAgICAgICAgICAgICAgICAg ICAgICAgICAgICAgICAgICAgICAgICAgICAgICAgIC AgICAgICAgICAgICAgICAgICAgICAgICAgICAgICAgICAgICAgICANCiAgICAgICAgICAgICAgICAgIC AgICAgICAgICAgICAgICAgICAgICAgICAgICAgICAgICAgICAgICAgICAgICAgICAgICAgICAgICAgIC AgICAgICAgICAgICAgICAgICAgICANCjw/lWStY7am jOCylaB0M2ymYk9NHh5NBJ8as2DkKCVyEHoxbxHzOomDVgBeCNIiPjcVHoy6LVatEI3UsKEoA7QdY5Sp UKekSU4AJZBqVOWfzQFbKOIcKFQqHvC2OWAfWLzsDE2ZeSEmIDffXRPrVIJkPdDhMSKmVS9SVAUxN635 lbZjUm6FPm5AClKnWS1sor5ZYyohKHIyBpqCAab5PD msRT6OtGXyhHEnACKkHPXYYeNrG2pao0GtPcxfJWBSOKcyIN8Cx8RssVIrUQn+Pg5XNI2bp5KcGGopPF XrZI2lsg2GXIzBIoWvM0RyyUlrPBHumcXuXVcfhfAsoVAUwTPkXZtfSlXuVEtnJJQqZ0qrRHLMHYC3SZ XmIxT1FoMoFvTwHJT7VedbBX5kCAvtNH2JPVS7KXtb XQIdMHXnN6iXXnWeRUdoQLLetUzbXS9FIcVkE0VdoiWunHYzMaIjHUIIFd8+AVgalfNjGqmQKbR3MDMh x4CwDHs2OG3UGXNwLSviNY9UUEHjqQ3tFPgrUC3OTjQuIPHsNIIMPfEeH83qqAJhRPu8Y0CiNwLyNCCh RmlsZXMgPDwvTmFtZXMgWyBdDQogID4+ID4+DQogIC 8ILMzfccYdXUDuDt9QWXGlNHSeQH0dYENvNSLsO7X5oEdeQMFQYwPqS0msvxzpGE1iEKSrV982bXfvvx WrPUP5QMRoAv1LLOKrIVY2XQYmmWNoFlHsIGLUFOoqCQ9UrEXaUEL9tN5lCWoxIFXwBRNbU0yWZzAyvP rzJU46jQrnyiHexGYpXRy+Sf5AJE8qk8LsDSq8tcIb MAwsPYNaRFvgKSGzDQOlUSOiKWO8TGR8TDJPVvBpLZCgJZKmYFsjPTOoYUXexh7MMDMiGDNtNRpvWkTh JCHgONRvEPgdSPTsFKYePpN2GGSqTKTrQZ3IQdGaFSBjPBKbKLocSORpDKSxcf5YVRDqBDPiNeG5TLGy DKIdXMQpDEdiBJHmCYIzOoGsWUQyFLRcME4RGdPtQK PiTLKoFgVdIWEgPPEyqf8JUUKyGZFjOtIiZNKpUNBhCJAgLQrwSXPcHSC2ZughOROtWCHlSX3GSwBaXZ NtZZA6OIQpYOYeTNVlyq7ZVIPhFMCtEHR1INYuUNZdERIyJVcfSJPrPEU6TrD3RMVxDRSzWH0LJaLxXZ TuJEH0WyCtKYOzLWCcxc6LWWCdLRNwLpOcLEZrRKAv RSLjWWaoCKGdYYF2MmS7HLQcTUHdIM6UWsFbEFQoMPd8SfJtZDSgSJXaxn9HHOVuBQFbMDk3RvQqBLHb ENAaYNesAOMvEIZ0GXFeFUFmAKNrOG3ZHxFkQDKfZIcbIobeDDAgDWTobn4BKJRfFPMlZFArHIUzABYz XJPnUPjzSKUmXUWhPCM9DZLhMIGgZD6VTtMtOAPaYy X3DMWrCXHsFVVxws0STUYjVASjHMRwDhNwCEDqACSxOWdfDQMsZBNzJyOlOSKyGGEaHC8DTkGvXEVwDt X6AXQaPDUlFOYovn3CQZFsEAUwEjEvRICgIONlWCXtYLagFHTrSZAvFdqqADIrGDZkUN8XPlXvHFFxCh F4BTCzPYEwVPHksr5WIJPvSEWmZes9IjWbKQGzUTMc NAm6esCktMCiLCj8NT4UF2RnboZfNzQOKm5Nv869WUC8PXLaIj2FQ4oaCt5vBZTjPUBRCr0RDXt1AlWd KCQ9CZXoK9NyCDHnVOSbFUE6HBJcINq3EhqhXYJ+OIrnZAA4RdR7ExVsLxYoSZRfHAMbDCG9AVC0SnGd X9OyFF7fVOSBCm3+DZbxtDLkoCzyPJJYHqJ4WzA8BKlnKXFZEk5P ID Date Data Source [id number] 03/16/2020 06:31:39 PM EST [facility] Name Value Range Interpretation Code Description Data Suki rce(s) Supporting Document(s) Progress Notes [facility] SGXMDk4pZeBNQcDt26/QCQdfGANts5ZiHAcxWEn4MHoaLPJsO2AiQFH3qY8vNTF5TTaKNwWcAnWrTeK0 lbm [file] HwAIUpGHO8LLCwUXxiKKkpReRbFS2OSn2BVuN0NJY9oEEuWp2ZOyR8QYQLNqXsII5HTDs= ID Date Data Source [id number] 03/16/2020 05:56:23 PM EST [facility] Name Value Range Interpretation Code Description Data Suki rce(s) Supporting Document(s) Nursing Note [facility] DHHFXx2dJvLWUuYw36/ZXVvcJJSpn8UjVGduPFw2IVjfRXCdT8NjZQY6vF8gNRV3JTvSDcGjAxQdRpC3 lbm AaFswDIrLnXRJsUqvCNvTgOJkoPmvaiRGmGZ3WfFP2VBHxB88fJARtAQCrB6BbRWC6CCF+Ba8PBRUutS NfLJ3CBjmO9XqqobrFNT3UtP+En46ZntqWO4SQxXhRfbCOInhVMfYpQUJB5eANZ194XfmF91x9zKZbN7 Rqqyp+uVCzlr1Elllzf4X5mKbr5vJz1tpeQfusscfb C3C6crflK3kK6uFxBIaPib0GvpgB9v6m12pcklNpOuEFbeop8ghCqLv47fe9qJUyMX4Pwg8SUV/fVHoY rEtuilOYz1XyzoZJ0uNSrYY/kmJNNfc5Wm49ef+N/zOHkbF3NvQaedGWzOePQBJwwQ2AHTljdbNwYTiQ s88WKOBDHF8Di1wJCTjXZTpNYs8zeYjN9uw60dSALW KHKMtbJugeY+eWWwP6TrvfyQyFZJGROuxJ++1yyLj/CiBk/rHaKBnKBB4irvPsccuTapzhoIVLGsAwje XKmmrZGQYSa5L9H+jRDFDllg70qAFgarF+zrOfyVgzmFrOYKlC30kRjHvjnfJSxlOTDkiVUe5ntP/enc 36E1CyNvFWUOYIPvuYTf6ndBLCVNr0sv+9h+FxiqnB T/XKN5y4Q0k03AHpvZ8WInc5bPA8XvyoHSNhjKFfoHGu5baU2Q8pqAXnBCLiUY+ohOa6r+WHJDwV97yA Patrick+lv46Pn1kc541eyoLNvpuocxJoO2nJujVZ0FXpoo4WizzRx+vym8awC+ggDusmL4STzPaawfc2cdVy [file] AgICAgICAgICAgICAgICAgICAgICAgICAgICAgICAg ICAgICAgICAgICAgICAgICAgICAgICAgICAgDQogICAgICAgICAgICAgICAgICAgICAgICAgICAgICAg ICAgICAgICAgICAgICAgICAgICAgICAgICAgICAgICAgICAgICAgICAgICAgICAgICAgICAgICAgICAg ICAgICAgICAgDQogICAgICAgICAgICAgICAgICAgIC AgICAgICAgICAgICAgICAgICAgICAgICAgICAgICAgICAgICAgICAgICAgICAgICAgICAgICAgICAgIC AgICAgICAgICAgICAgICAgICAgDQogICAgICAgICAgICAgICAgICAgICAgICAgICAgICAgICAgICAgIC AgICAgICAgICAgICAgICAgICAgICAgICAgICAgICAg ICAgICAgICAgICAgICAgICAgICAgICAgICAgICAgDQogICAgICAgICAgICAgICAgICAgICAgICAgICAg ICAgICAgICAgICAgICAgICAgICAgICAgICAgICAgICAgICAgICAgICAgICAgICAgICAgICAgICAgICAg ICAgICAgICAgICAgDQogICAgICAgICAgICAgICAgIC AgICAgICAgICAgICAgICAgICAgICAgICAgICAgICAgICAgICAgICAgICAgICAgICAgICAgICAgICAgIC AgICAgICAgICAgICAgICAgICAgICAgDQogICAgICAgICAgICAgICAgICAgICAgICAgICAgICAgICAgIC AgICAgICAgICAgICAgICAgICAgICAgICAgICAgICAg ICAgICAgICAgICAgICAgICAgICAgICAgICAgICAgICAgDQogICAgICAgICAgICAgICAgICAgICAgICAg ICAgICAgICAgICAgICAgICAgICAgICAgICAgICAgICAgICAgICAgICAgICAgICAgICAgICAgICAgICAg ICAgICAgICAgICAgICAgDQogICAgICAgICAgICAgIC AgICAgICAgICAgICAgICAgICAgICAgICAgICAgICAgICAgICAgICAgICAgICAgICAgICAgICAgICAgIC AgICAgICAgICAgICAgICAgICAgICAgICAgDQogICAgICAgICAgICAgICAgICAgICAgICAgICAgICAgIC AgICAgICAgICAgICAgICAgICAgICAgICAgICAgICAg KUIuYYHtKAOcXKPpQMZsETTnXXIqPBMgRVQsQZZiEQAjFORhQQe1B8hoCOKtCKQaDZ0pRRj8Wh8+DQoN YwFxNDP2mpPbkL6CZA7is9GeWCxgCAYmi0ZrCRk2EN2VDJDkNBilWQ2UAEsqfl7ISZWxNEGzhDJTp2ji YkYkPSO5SYLjOcfqSZ9DCQEjI8cvcfEdZAEdKMBXMI 6DBnZgZ3BswN13YZGLIj8+IIaxubSrKcoRVnXhQJHua0TuECp7TO9TIGIrVlmde6SaDeFtAMNTSJvtJA 5EBXJ0YEFfJMOxOu2PQWSkC670skExSS2XAo1XQmTuWU9lsg4QMfRrFICqOccZDtz2VVhaID1DwRAwVJ cIaOAcdS2jCH7giIJeOpmvJSnsZ9adUUAciIyqk367 z2ptUGHNPyZygSJjTn6xDM6hPKIcRVMjVgRxXBQRBO3SUAOlNYYpnOYoJERzWKIANK6RXTnfHBL1Txca hbJciKQoSRpsHO7EYNGhltYzYaNrSFDZCOp+Xd6XHY9aq2HcVTscGOYzDF2vno1EWJgRCfCoH6W5bSDf Q4Z3UJltNa8KFCWqBJZwOiWgCFEOPBovBV6BCD7fhy Z9FQ9DlSNzVRKaLFBskWFzWDa4E86lgUXzMWuuPT2BIKR+Mitzy+Ug2FFITmVQLwHFBfQoNxWEOTMrZwX2 PrM9XDl9VaE7ExJA84sOtdwdBmSOtaUQ8SYW4kRIEeQWPUFR5DeZQcuT1hgeNkAaWcFSEXEoOyM22rhM GrASMiBDQeSSSfTe6SQDVwZ9RtysIotUkxpiWdMASn FLNPFB3BHKvxcmAelBJfnDgbRF15aIbbUU0BBu9PQhGmHX6koy4QgRElDp2GREYjAT7NCISgOPIuADZb HUA6DTTgErEnQJegRPTqIGGfJVD9GNNnLKCcOZ5GOuDyAMBlCDb8BXMmPSJrJRMugf3ZUDDnEEBiLNJ8 OFHzWTWeIONcRIreEBQlYXPhSSI2AYXoJLUiSK4VQi AbLUDvYFUuDIhhVRRkSBZngm7VPXZqBTPfFxD4XjTeYQYjFRDpYIhvQOSePXRrHmDsHJJhQOYuLR8BEk QaOQNfQGR1YUTfWLYnYDSvdg5CMKBuYCQfVhQbRnSrWTHnOWMuDSygUAQmXSF0APs6EDUmZJPuGL5NCf HdAXHvNDZ4UNBmCBUlGYVmea4SYXJySVWxRMk1BIGh VEMcECFkUBvgRYIcBDC3RoJcTLFcASQeMC3NZzSgKNSeVWg7BtxaIRIeYPNcxp8BWQUlIPDxApc6QCLz XUCkVAEtOAtvIDMsNUB5MZr4COJfHCFhQO0SQzYmUECoBKnoTjFbYIBqNWLnyt7WQXOyJWBfAYF2XxBo TIMuQWZzFHvrGFNbEVY9JxFrTBIcUYWbLP5CXoDrPL JsCSf4UuYyORQmJXStem3QBNCiARQvEVe3TSQvGDRoDTJbAYqiYXAlCCVwIrp6XBOgLXHsKN2FTrGzQT RdKxX8ASyuRNSsZJQdyc9PKLDjKSJyXKWtHTWpQYVmFISnWIj9dwDqzRGoQWv0XK4WI9YjlnIeEsHJQu 0Bm316WCE9ENOwAk9ZL4dsUy9tPBRrOYZNCh9PIZf1 ILQbGtUiUyXiTSXhDYi9UQOaZFQ2MERiUCA7DuRqXyT+SMdiYwE0YzCsPWNbRwMqQFB6XEAdTaU7P9T0 IHu3CMSzTR2jYAROJk2+ENrinIRsnSjxIEWNIyHeWNL2GNjtPIUTLk3W ID Date Data Source [id number] 03/16/2020 05:54:12 PM EST [facility] Name Value Range Interpretation Code Description Data Suki rce(s) Supporting Document(s) Care Plan [facility] IHDTCv6lFfHWIvZw72/AZFvcFFZyn4TyKZwxWGq7NVykIGCtL8BvKNK6jK2sUHM7WIrZScInKqJnKgW4 lbm IaNsqFBzPlNSHwEwsFCvQxQUcpFgqaaDPkIY8UaCJ2WGJfL24yYNHfOLEnJ2MkBTJ6UTL+Hr0PUMMgjS PuVN1SYpiN2UvEljq0GG0X8V/gMQFqm+Ry+HDDCluIMF3NLJis1kVcAlxPdAu9pdD0c++uuFxpJuuJVt nfSKBGVIQKgqkoFw7Du6JP0/8+d1QWxk6Y7x/6apxk 17fsxx/Gbfgay6tqf7nT8HM18sF1kL2a5rxOyl6hKvUe0aHuBrAyBjpMrLlKmlFylbi9uA50Ok6KHaYH y7cD+QRFWk5pof4X985G51B8a4GBvOKOF4soT/grQvb7w5PUodj2eBaJKkdjuIx90qnuIUeYyQC37vwy Vicki+VIVQBSgXC3ImV5MIT+58hvi6ag+m7aT8DNjBXQ [file] FqCrGS1oHVMBZx3+TOuqcBGsoIfdAZQFDoY5KDZ2FSfiWTJMQj3Y ID Date Data Source [id number] 03/16/2020 03:08:08 PM EST [facility] Patient: MADDISON BLANKENSHIP : 1965 [facility]: [facility] ABDOMEN 3+ VIEWS Provider: SHABANA Cottrell provided is obstruction.4 views of the abdomen are submitted.There is an NG tube present with its tip overlying the stomach.There are postoperative changes in the abdomen with clips in the right upperquadrant.There are a few mildly prominent small bowel loops with some gas seen within thecolon and rectal region.The included portions of the lung bases are unremarkable.IMPRESSION: THERE ARE SOME MILDLY PROMINENT GAS-FILLED SMALL BOWEL LOOPS, BUT THERE IS ALSOSOME GAS SEEN IN THE COLON AND RECTAL REGION.FINDINGS COULD BE RESOLVING ILEUS OR OBSTRUCTION. ONGOING FOLLOW-UP SUGGESTEDElectronically Signed by Jean Alba MD 03/16/2020 3:08 PM Name Value Range Interpretation Code Description Data Suki rce(s) Supporting Document(s) ID Date Data Source [id number] 03/16/2020 02:52:49 PM EST [facility] Name Value Range Interpretation Code Description Data Suki rce(s) Supporting Document(s) Progress Notes [facility] MWINVh9kVqUIWeNs18/SZXnzNWGxs7OkUMkbOMy5YEtnCPSuN6IfSVH7qS5fXVD1PJeLIhSzAyYhRjW2 lbm [file] LkFRVmLDSoKmPaMF8LYy6CIhF0ZTQ1oSSnQg8GDaP6WMIZIaBuSQ8FCLv= ID Date Data Source [id number] 03/16/2020 11:27:00 AM EST [facility] Name Value Range Interpretation Code Description Data Suki rce(s) Supporting Document(s) Anti-Xa, UFH 0.66 IU/ml 0.30-0.70 Normal (applies to non-numeric res ults) [facility] Discrepant results may occur due to anti coagulant effects such as directthrombin inhibitors; argatroban (Acova), bivalirudin (Angiomax) ordabigatran (Pradaxa) or direct factor Xa inhibitors; rivaroxaban(Xarelto), apixaban (Eliquis) and edoxaban (Savaysa).The above 1 [address] [facility]'s [id number], ,[place] [address] ID Date Data Source [id number] 03/16/2020 09:34:01 AM EST [facility] Name Value Range Interpretation Code Description Data Suki rce(s) Supporting Document(s) Progress Notes [facility] MEDHBo7sXkFXQvUb46/UGCwxEJRcn6HfARfwNKt3GBalBTYuL6XzXJC0yI2nEZW9LPbBWfAaUeAlGyV3 [facility] [file] T0YNCg== ID Date Data Source [id number] 03/16/2020 07:21:21 AM EST [facility] Name Value Range Interpretation Code Description Data Suki rce(s) Supporting Document(s) Nursing Note 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 [file] ICAgICAgICAgICAgICAgICAgICAgICAgICAgICAgIC AgICAgICAgICAgICAgICAgICAgICAgICAgICAgICAgICAgICAgICAgICAgICAgICAgICAgICAgICANCi AgICAgICAgICAgICAgICAgICAgICAgICAgICAgICAgICAgICAgICAgICAgICAgICAgICAgICAgICAgIC AgICAgICAgICAgICAgICAgICAgICAgICAgICAgICAg ICAgICAgICANCiAgICAgICAgICAgICAgICAgICAgICAgICAgICAgICAgICAgICAgICAgICAgICAgICAg ICAgICAgICAgICAgICAgICAgICAgICAgICAgICAgICAgICAgICAgICAgICAgICAgICANCiAgICAgICAg ICAgICAgICAgICAgICAgICAgICAgICAgICAgICAgIC AgICAgICAgICAgICAgICAgICAgICAgICAgICAgICAgICAgICAgICAgICAgICAgICAgICAgICAgICAgIC ANCiAgICAgICAgICAgICAgICAgICAgICAgICAgICAgICAgICAgICAgICAgICAgICAgICAgICAgICAgIC AgICAgICAgICAgICAgICAgICAgICAgICAgICAgICAg ICAgICAgICAgICANCiAgICAgICAgICAgICAgICAgICAgICAgICAgICAgICAgICAgICAgICAgICAgICAg ICAgICAgICAgICAgICAgICAgICAgICAgICAgICAgICAgICAgICAgICAgICAgICAgICAgICANCiAgICAg ICAgICAgICAgICAgICAgICAgICAgICAgICAgICAgIC AgICAgICAgICAgICAgICAgICAgICAgICAgICAgICAgICAgICAgICAgICAgICAgICAgICAgICAgICAgIC AgICANCiAgICAgICAgICAgICAgICAgICAgICAgICAgICAgICAgICAgICAgICAgICAgICAgICAgICAgIC AgICAgICAgICAgICAgICAgICAgICAgICAgICAgICAg ICAgICAgICAgICAgICANCiAgICAgICAgICAgICAgICAgICAgICAgICAgICAgICAgICAgICAgICAgICAg ICAgICAgICAgICAgICAgICAgICAgICAgICAgICAgICAgICAgICAgICAgICAgICAgICAgICAgICANCiAg ICAgICAgICAgICAgICAgICAgICAgICAgICAgICAgIC AgICAgICAgICAgICAgICAgICAgICAgICAgICAgICAgICAgICAgICAgICAgICAgICAgICAgICAgICAgIC AgICAgICANCjw/rRIzX2nulTZpyfM5W1xuEp2JXe0IDB9hv2TxSNYxRVeigtMsNnnHJyIvNERbPliFBp e2PWvbKX2XgASsP0PxO2KrJXvkHN4GIEQjBABsfCSp PXAoLYFbPxY6FOEnFCutMO2PcGTdDXjeYMNrDAGpRV1FQYJuL094phRmVO4CRu1ZWxOlCU1vnb1XVnRs GYHaIufKMkp0AWzdOY0KuPBqmEXzDrChXNFBTzYpQ7zec6PyZwRmHPGCFBgcSD1Uc4RloPBiHUu+Pg0K OT0np5JhJZmsCbMjDM2gdv4LTThFQgIuT0UdzWiwJB 29qfYrfgvnWl00JIAnzOHWMJCzIS8cgEXwHVzeg3ThIYQPEND6XPCyAaW9GwIdWeBwEEw6YCteXS8eFS kyMB3DVKT8OHzuKPPcLVInH8uBFxXtMQtcKHEkdCbpQQ7TJdUjG4SmqnZmoOAqDrEuBRNUIs7+DQplbm MhJpwLLoT6IFFdj9XmDFt8PG5PKPNxJRcdYE9DCXAf sS2wGRlgSH6EHlGfNIOaSGFCXeDxC75xoKHxBXb3J7EeKmQkOOTbOgoyCXTtKLhwTpMjOWJtSdViGAud ID4+ID4+WUafYK8UVOlssjFeYQGdOn1RIGGaOZSiFG5xFBOdXXGpX8O0tMiwVGAHDeQhJ5egnhqvFO5q BZPfK896pXwlgzJcPOUuIGWoBu4MCEPbBME8KLNrxW EmOpPwOOUJNDvwAK9OiLIpKWA8dW8lWJeqGZGuTEGaR6rOKbTtzMwfNL97gThnftRaqWReTJe+Pg0KZW 3lb5TeEJw7efNnLLdrVOU0YMmcQEDfVBWaDOUaTKT4SRP9CLNFRoQnFVNpCXKuQPboERGyTOPtpd7YFR AwMDAxODgyOSAwMDAwMCBuDQowMDAwMDIwNTYzIDAw BKLkRS3RIhQySQQyXVLpJSyeNHCiUPRfhv7MWLBePVErNZT6HGMrKADuJMZtKPfiTWYoDBOsDGH6IRTg TTKuZS4YYoIeWRJfIPL4TqRrVWSwERDasy5JARPgYBWdUdflKPJrCIGuISUbWVggJBSlBSOzORM8VVAx EZYgEA4UXyMjUICzQAW4OuryFYYsVJUxje9RHFKnSO XkHQZ6NEDlKKAsKZHxTDgjFAFuTXG2BgY1GPWlJEByMR2LLxXpXQFpIWG8CJLpUCVxBVFgxr0WMFJeWP XlWkaeJhUoIZWdDTVfSMmeAJRaWTM2ZCYlCCQtUMZvYO3KHwGuSQHfNNivXpPiXBSgNOCkoo0RIOUyHD MtVaMiUlDkCGTtHTTlLJeqQGXjRFD8ZMY1QIEaQNYv MM6GHoVlKCKuWNi2UiPvCICvCCEjms7FIQBrJRJoYIveTnJqLQQmTAPkSTtlNHIaAPK2OrApQPRhZRFs GX1MFmRnCXLsWaI1QcSuEIOjECWhkf8KBHRdLVRvJGlhVjGtFWUhAWUlUVulGCZgRXKoXAxlTBUlMKRh GO2JSlHcPQagPLDCFtt1LYlrH6t7QDTeNU2CY0Ucz7 HgPvXlBVJPLDodHY3qovSoGQCyIq2EQ1vJOsfuEvM1ZEB0ChZdPANgOPArPJv8XsskGZU4JMBiG3K8Kf 1fEFCvVPRoABOlJvSfM7TgYkLiXtFdIAB1TEmhT7QpVNycLzRjFM6EJc1EUlG4YYJ1mOWcHo5IDnGcCw ZJSxEqSA2ZHRp= ID Date Data Source [id number] 03/16/2020 07:17:31 AM EST [facility] Name Value Range Interpretation Code Description Data Suki rce(s) Supporting Document(s) Care Plan [facility] MEIUUt2jVuNXFaJv98/CVEesYULsu8MhHRuhZNd6SUodJKDoN2KqTZI8iQ7xWLU5DWsPBjGiZsYpPnA1 lbm [file] ICAgICAgICAgICAgICAgICAgICAgICAgICAgICAgICAgICAgICAgICAgICAgICAgICAgICAgICAgICAg ICAgICAgICAgICAgICAgICAgICAgICAgICAgICAgIC AgDQogICAgICAgICAgICAgICAgICAgICAgICAgICAgICAgICAgICAgICAgICAgICAgICAgICAgICAgIC AgICAgICAgICAgICAgICAgICAgICAgICAgICAgICAgICAgICAgICAgICAgDQogICAgICAgICAgICAgIC AgICAgICAgICAgICAgICAgICAgICAgICAgICAgICAg ICAgICAgICAgICAgICAgICAgICAgICAgICAgICAgICAgICAgICAgICAgICAgICAgICAgICAgDQogICAg ICAgICAgICAgICAgICAgICAgICAgICAgICAgICAgICAgICAgICAgICAgICAgICAgICAgICAgICAgICAg ICAgICAgICAgICAgICAgICAgICAgICAgICAgICAgIC AgICAgDQogICAgICAgICAgICAgICAgICAgICAgICAgICAgICAgICAgICAgICAgICAgICAgICAgICAgIC AgICAgICAgICAgICAgICAgICAgICAgICAgICAgICAgICAgICAgICAgICAgICAgDQogICAgICAgICAgIC AgICAgICAgICAgICAgICAgICAgICAgICAgICAgICAg ICAgICAgICAgICAgICAgICAgICAgICAgICAgICAgICAgICAgICAgICAgICAgICAgICAgICAgICAgDQog ICAgICAgICAgICAgICAgICAgICAgICAgICAgICAgICAgICAgICAgICAgICAgICAgICAgICAgICAgICAg ICAgICAgICAgICAgICAgICAgICAgICAgICAgICAgIC AgICAgICAgDQogICAgICAgICAgICAgICAgICAgICAgICAgICAgICAgICAgICAgICAgICAgICAgICAgIC AgICAgICAgICAgICAgICAgICAgICAgICAgICAgICAgICAgICAgICAgICAgICAgICAgDQogICAgICAgIC AgICAgICAgICAgICAgICAgICAgICAgICAgICAgICAg ICAgICAgICAgICAgICAgICAgICAgICAgICAgICAgICAgICAgICAgICAgICAgICAgICAgICAgICAgICAg DQogICAgICAgICAgICAgICAgICAgICAgICAgICAgICAgICAgICAgICAgICAgICAgICAgICAgICAgICAg ICAgICAgICAgICAgICAgICAgICAgICAgICAgICAgIC VbJXBvHZZuAZNtVZg5E4dqVMYmIAZtEL9gPMw2Xd5+LQlNSgKlFLQ8vtAeoP9AUA7qv4XlUClsLBTmz2 FgKSv5AJ6MJDWoOZdrLX9ZRJgzoz0UVGHuYMWtqVEEj8alGoFaGPY1EEYlPnkyQX9XRJGsS1wuqoAwJM RrSCDADFmaDLONNO9XGbJcR9DgyO78UZNYPl2+DQpl qaZsUafHZzC3KIIer2ChFRx8VU6XZHNcRfxre0AcFtwvQOEXHVxrVV3BTKM2XUX3MOCyWq6GJTPwR467 jxMfAS0SDf9KOnWsUP2fun0QHvyfKQUjZfcRDiz1EFwbNE5BtVDnCAbMJVDfXJVeUH7iXwdjHUH9M7Yu xFabWSFylX60JVZCBkNxhCMjVv6pPY9mIYMzBQJ7Fz H2PDJHKJ5KVJOdXBUvjHLdNWSaYXCNFF8YWVueJKZ3ZscnceJpbRSgDLieTU6WTKWjmeSnUozrJSWIDE o+Qe2YJG3ya9IfTJndQYZjFH4imr2PIHwJBmLcC2J0mCQgU2J2IUziOb8ASRIfMSHqEwVrFBMPUQneVX 3XSK8qmmP5KU1KrTZdHJWqNXTgcMUsRSn8N45xbZBz XRdmOM1TATF+Mitzy+Xa4JWFAaLEVnAGSvRqVkTXNEPlElP7ZxB2AHc2AvK1QwVZ57gQlpflNtBOinUQ6E WA1fWPLuRJVOQS2GhZJqtU3ovmYpToVmXTESDiRfD81xbHTuFJNnMAD3RVPiIy4AFDHvQ2YfwkFnxLfi odDdQIAvVGSMLG3GJYncamSpfKPmyQowYO46wAkpQQ 1ECc8AZlFiPM8dkg3PiGIsIu9HDSZgGS4FNWSeFKKgEYAbONL5PXSbRdLdJNkqLSJdEORbCXC2IUZaGP ZmZE8KCzLhNSXiDtEoPCgrVTMkCRChzl4ZTAOmWNSdDbx8QAYoIXKhZYQvDFpfGXSmBCMeHHG3OJGfZQ VuKF7VCfXiNDIaZQBcTvRzJBBiVMIozg6SXSQiCQAj AiA4TIUnOXSnWSEdKThvNEZbOKNiThlnIMOjHSUtFZ5TViAbVCRrQMP9XOVeZFKsSIZwyv2DPOIiLIFs YOL7JMKuKGSuFYUjOKweTOLjJTL5AsZ5LMYaEGXtDU8ZWhDiDGJoGOT0WWRwHLGePSUqvo1NHOKvDGMe GBhiRQEuYFXcWBJqODhqVLWcMHY5QFw0RIKgNFGwUC 9EOoSwVKHdNUAtRJAnXHGwXDWmvj4QYSXjBOHnTLOuOWYyIAZzSAOjUCweEEYyWEE1RAS4YFLrJVAiXR 4OGzWsZSXoQAfgGTYbIWTrEXMbdk5ZDUGiTSRbEJS4FJBqGTKvHGWiQLsdKAOiAPJ4UDGtHPFyTSYtNY 8IMyDnXGZzEjNmGTTjFHPwOYKxek3GBWQdLIGrNBV7 QZLnOISkWPWgXFgsCKZiISTdBiF4CJFoZFTwQC1UJfNaYSRuZuF6BBkcFSDiQWPmvh6PXUHiJZDcWDf8 OOMnHTFsRGXwFIeyNRRoYXDdUGC0YQNbKXTcSO6MZtDkQVNnTlM2HXZtDIDlEMNbqg7BRKYhIWDtTsd0 BSQiERJbWFPrODiwMSIyUBO5MUJ5LQMmQVOzJC8NSl LdBXZlZtElWzEuBWEbZZHfpn6PcAYtrBpcmm3XJHxFFf2KrNwiVIHkYQppUg2vaMDmDGKkCSMJZo9Caw IrAQQnDDZTAMrgLKOsMJYfDxp9BuF5IsHdKTAjRGF0FnR9Y8QeOGSqDZD7Nxz2MlN5O8LpLAidXGAgAk L5BjMbRFh7VVD7PNBtGENqYkc0Yfd+VX8oUGl+Ye9Ku7EejeG2riShIVawAZKwWC0YKROOZ5GWQv== ID Date Data Source [id number] 03/16/2020 06:41:00 AM EST [facility] Name Value Range Interpretation Code Description Data Suki rce(s) Supporting Document(s) WBC 7.10 x1000/ul 4.80-10.00 Normal (applies to non-numeric re sults) [facility] RBC 4.32 x1Mil/ul 4.20-5.40 Normal (applies to non-numeric re sults) [facility] Hemoglobin 12.7 g/dl 12.0-16.0 Normal (applies to non-numeric resul ts) [facility] Hematocrit 40.7 % 37.0-47.0 Normal (applies to non-numeric resul ts) [facility] MCV 94.2 fL 81.0-99.0 Normal (applies to non-numeric resul ts) [facility] MCH 29.4 pg 27.0-31.0 Normal (applies to non-numeric resul ts) [facility] MCHC 31.2 g/dl 32.2-37.0 Below low normal [facility] RDW 14.6 % 11.5-14.5 Above high normal [facility] Platelet Count 218 x1000/ul 130-400 Normal (applies to non-numeric results) [facility] MPV 11.0 fL 9.4-12.4 Normal (applies to non-numeric resul ts) [facility] Neutrophils 53.0 % 40.0-74.0 Normal (applies to non-numeric resu lts) [facility] Lymphocytes 36.6 % 19.0-48.0 Normal (applies to non-numeric resu lts) [facility] Monocytes 7.3 % 3.4-9.0 Normal (applies to non-numeric resul ts) [facility] Eosinophils 2.4 % 0.0-7.0 Normal (applies to non-numeric resu lts) [facility] Basophils 0.6 % 0.0-2.0 Normal (applies to non-numeric resul ts) [facility] Immature Granulocytes 0.1 % 0.0-0.5 Normal (applies to non-nu meric results) [facility] Nucleated RBCs 0.00 % 0.00-0.20 Normal (applies to non-numeric r esults) [facility] Abs. Neutrophils 3.76 x1000/ul 1.92-8.31 Normal (applies to non-numeric results) [facility] Abs. Lymphocyte 2.60 x1000/ul 1.20-3.70 Normal (applies to non-n umeric results) [facility] Abs. Monocytes 0.52 x1000/ul 0.14-0.97 Normal (applies to non-nu meric results) [facility] Abs. Eosinophils 0.17 x1000/ul 0.00-0.76 Normal (applie s to non-numeric results) [facility] Abs. Basophils 0.04 x1000/ul 0.00-0.22 Normal (applies to non-n umeric results) [facility] Abs. Immature Gran. 0.01 x1000/ul 0.00-0.02 Normal (appl ies to non-numeric results) [facility] Abs. Nucleated RBCs 0.00 x1000/ul 0.00-0.02 Normal (appl ies to non-numeric results) [facility] The above 24 analytes were performed by [place] [id number], ,[place] [address] ID Date Data Source [id number] 03/16/2020 05:54:00 AM EST [facility] Name Value Range Interpretation Code Description Data Suki rce(s) Supporting Document(s) AST 20 IU/L 15-37 Normal (applies to non-numeric resul ts) [facility] Sulfasalazine and sulfapyridine have the potential to falsely depressAspartate Aminotransferase results. Baseline values before medication administration are recommended. ALT 31 IU/L 13-56 Normal (applies to non-numeric resul ts) [facility] Sulfasalazine and sulfapyridine have the potential to falsely depressAlanine Aminotransferase results. Baseline values before medication administration are recommended. Alkaline Phosphatase 82 mIU/ml 50-136 Normal (applies to non-num danita results) [facility] Total Bilirubin 0.70 mg/dl 0.20-1.00 Normal (applies to non-numeric results) [facility] Blood Urea Nitrogen 17 mg/dl 7-18 Normal (applies to non-nume rahel results) [facility] Creatinine 0.97 mg/dl 0.51-0.95 Above high normal [facility] N-Acetylcysteine (NAC) and Metamizole shrestha ve the potential to falselydepress Creatinine results. Baseline values before medication adminstration are recommended. Patients undergoing treatment with phenindione will have falselydepressed results. Patients on phenindione therapy should be tested with an alternativeCREA method.Toxic levels of acetaminophen may lead to falsely depressed results forpatient samples. Glomerular Filtration Rate 60.00 mL/min/1.73m2 [facility] GFR Reference Ranges:Normal Function or Mild Renal Disease,if clinically at risk:>or= 60Moderately decreased:30 - 59Severely decreased:15 - 29Renal Failure:<15 Please note that the MDRD equation requires an additional adjustment forAfrican-Americans (multiply the GFR result by 1.210).Glomarular Filtration Rate (GFR) is estimated based on the MDRDequation, which assumes a steady state for creatinine (Luz Int Med 139/2 137-149, 2003), as recommended by the NationalKidney Disease Education Program in conjunction with the National Institutes of Health and the National KidneyFoundation. The [place] method used in calculating this result is traceable to IDMS standards. Glucose 90 mg/dl 70-110 Normal (applies to non-numeric resul ts) [facility] Sulfasalazine has the potential to false ly depress Glucose results. Sulfapyridine has the potential to falsely elevate Glucose results. Baseline values before medication administration are recommended. Calcium 8.4 mg/dl 8.5-10.1 Below low normal [facility] Total Protein 6.0 g/dl 6.4-8.2 Below low normal [facility] Albumin 3.1 g/dl 3.4-5.0 Below low normal [facility] Sodium 144 mEq/L 136-145 Normal (applies to non-numeric resul ts) [facility] Potassium 3.8 mEq/L 3.5-5.1 Normal (applies to non-numeric resul ts) [facility] Chloride 114.0 mEq/L 98.0-107.0 Above high normal [facility] Anion Gap 8.5 [facility] Carbon Dioxide 25.3 mMol/L 21.0-32.0 Normal (applies to non-numeric results) [facility] The above 16 analytes were performed by [address], ,[place] [id number] ID Date Data Source [id number] 03/16/2020 05:43:00 AM [facility] Name Value Range Interpretation Code Description Data Suki rce(s) Supporting Document(s) Anti-Xa, UFH 0.69 IU/ml 0.30-0.70 Normal (applies to non-numeric res ults) [facility] Discrepant results may occur due to anti coagulant effects such as directthrombin inhibitors; argatroban (Acova), bivalirudin (Angiomax) ordabigatran (Pradaxa) or direct factor Xa inhibitors; rivaroxaban(Xarelto), apixaban (Eliquis) and edoxaban (Savaysa).The above 1 analytes were performed by [place] [id number], ,[place] [address] ID Date Data Source [id number] 03/15/2020 09:33:00 PM [facility] Name Value Range Interpretation Code Description Data Suki rce(s) Supporting Document(s) Anti-Xa, UFH >2.00 IU/ml 0.30-0.70 Above upper panic limits [facility] Discrepant results may occur due to anti coagulant effects such as directthrombin inhibitors; argatroban (Acova), bivalirudin (Angiomax) ordabigatran (Pradaxa) or direct factor Xa inhibitors; rivaroxaban(Xarelto), apixaban (Eliquis) and edoxaban (Savaysa). Called To (First Last): emelia Valverdeegree/Accreditation of Person Called: rnLocation Called: [id number] Tests and Results Called: ufh > 2.00Additional Tests that were Called: noneRead Back (Y/N): yDate: 03/15/2020Time: 21:33By: alondra Mehta above [address] [facility]'s [id number],[id number] [address] ID Date Data Source [id number] 03/15/2020 07:32:37 PM EST [facility] Name Value Range Interpretation Code Description Data Suki rce(s) Supporting Document(s) Care Plan [facility] QDQSSf5eFgELZzQo33/QAXonEDFwt5EnGYamBHa4IVdsFKChJ4LsDYL4qX1kUIZ9LGmISpXsMeUgOaP4 [facility] [file] Rg2Nk1RpeyM5uaVzHHrkEObwNc4LHOSRG9XDWp== ID Date Data Source [id number] 03/15/2020 07:25:36 PM EST [facility] Name Value Range Interpretation Code Description Data Suki rce(s) Supporting Document(s) Nursing Note [facility] HJQKLr1uXqBLOmMr35/LEFirPGAie3TlDXsvNCq5NCbwNBSoD7XfPDW7jJ3iBMV7PRfSHrLiPsYoHbV1 lbm [file] AgICAgICAgICAgICAgICAgICAgICAgICAgICAgICAg ICAgICAgICAgICANCiAgICAgICAgICAgICAgICAgICAgICAgICAgICAgICAgICAgICAgICAgICAgICAg ICAgICAgICAgICAgICAgICAgICAgICAgICAgICAgICAgICAgICAgICAgICAgICAgICAgICANCiAgICAg ICAgICAgICAgICAgICAgICAgICAgICAgICAgICAgIC AgICAgICAgICAgICAgICAgICAgICAgICAgICAgICAgICAgICAgICAgICAgICAgICAgICAgICAgICAgIC AgICANCiAgICAgICAgICAgICAgICAgICAgICAgICAgICAgICAgICAgICAgICAgICAgICAgICAgICAgIC AgICAgICAgICAgICAgICAgICAgICAgICAgICAgICAg ICAgICAgICAgICAgICANCiAgICAgICAgICAgICAgICAgICAgICAgICAgICAgICAgICAgICAgICAgICAg ICAgICAgICAgICAgICAgICAgICAgICAgICAgICAgICAgICAgICAgICAgICAgICAgICAgICAgICANCiAg ICAgICAgICAgICAgICAgICAgICAgICAgICAgICAgIC AgICAgICAgICAgICAgICAgICAgICAgICAgICAgICAgICAgICAgICAgICAgICAgICAgICAgICAgICAgIC AgICAgICANCiAgICAgICAgICAgICAgICAgICAgICAgICAgICAgICAgICAgICAgICAgICAgICAgICAgIC AgICAgICAgICAgICAgICAgICAgICAgICAgICAgICAg ICAgICAgICAgICAgICAgICANCiAgICAgICAgICAgICAgICAgICAgICAgICAgICAgICAgICAgICAgICAg ICAgICAgICAgICAgICAgICAgICAgICAgICAgICAgICAgICAgICAgICAgICAgICAgICAgICAgICAgICAN CiAgICAgICAgICAgICAgICAgICAgICAgICAgICAgIC AgICAgICAgICAgICAgICAgICAgICAgICAgICAgICAgICAgICAgICAgICAgICAgICAgICAgICAgICAgIC AgICAgICAgICANCiAgICAgICAgICAgICAgICAgICAgICAgICAgICAgICAgICAgICAgICAgICAgICAgIC AgICAgICAgICAgICAgICAgICAgICAgICAgICAgICAg ICAgICAgICAgICAgICAgICAgICANCjw/uVZhE4nvbYVebvB6G5nhGb7UHh6PSP2ca1KeNDVlIAmmviEb PdbWFaTtFXEvTmjMUuc1JOyfAX0WrUBnB2PiE8GqAZpvMN7LPZHsUOUoiCKzEAYnBHNnUlO6TZYpBLki NH3GwZSbXQrhJRGpZVQzIT3GHTEgR421cuCxXP7XQi 8AWrCfXG4opa1VAbNfJKErWcqALlh6YZmvDP8TcGQzyBDhBhFkRIKJFlOdR8cip4ZwSuSkXRXZRNqmED 4Dl2WbzKQgXVv+Kx8QSC8sc9NdSThjCrHpYF2ond1AOUvFPvGsP7AycFbvNS93qzYkiyedDw66VJEteQ SRKK2uubJcDn1zaCsqMMUKNdRnlBDpVs9vKt6xAZKx HVN9GjCjJOOYOE7ZQZRbNUApwKHlOIGgFAUQRC2JOVeaYZT3EgwkumQgmTDdDEoeZU5FOHQffkYmQrLn MCBSDQo+Cx9IJY7jp4GjMLrsCNCeLP9jnl4FRTwAXyCfZ6Z9mZGvE8L3EXphNe8HACBxWZAdEmNbNXGX PDqsGZ2BWI7wjbB2NH2TrJZuJWHqMKUtqTWqOSo1I4 9jaLXkYGejVB3FUCU+Mitzy+Nj5PUSWhQAIcYVGyGsCuXMUKVuFuB4JjU1IGs4ZzD7RrTR80tYlvnxIvPL rvMX3ELW1oPXSpZJKSHM8FaYLeyU2coaEdXxYdCROYZjHsJ33qlKQnNAQxAUZfEBFoNe9BXHUoO1Ibhy DfmDegngSaMGAtEPJFLL5FNHsrhzTlvOXvgAekBB14 xKkwWC9LHk7JJlUaGX8hzj5PiTUxNd7ZMXVwPB7VMVKqQBPkAYVqXMQ5AVBtYeFyQFapTYZlULRhBMB5 UCAkIOErRY7OAqIaFSAvSKx1UuAnWJTcDAHkds0OJJHgGBPqIWK9OUCsQJTpTBMcJOcaXBKjTAOiLLZ0 CFZwLCChUP7AKwGmMXZiEYJhIbQzWVYiAMEzmz9HIQ WeKPUsRCX7MrBvKPIuOKLpWMgdOMTbZIJtOnN7CHKiGBAvUF8DRxZzFTUdQFB8BeTcUCSgRUWxtg1ACF NcAAXmUrciTZAdMKGhULJkLYqyQNBkZHKbCjpoOAKzNZNcAB0JTtDwTEYgGNA0FdmpIQMlSAEqsu4FPB VtBPZkHOE3OXVpVPAkWJWaSGreUPDtMOI7Zmk2YNDy VGWtKV7VMxRyTFEgPGK8XVVbXNLxVEZjwo1BUTEnROKqJjnaQzItCBMcRPPcTMvvIUPlHQS2QSZgWDLs ASCgAY7DXpFlHFClTNyaEKlaIHMiMBImij0AYHFtBHKhORL9BXKjOPRdMRVbQGuxXIRgSXR3QKK0NHQc XUMkAH0EDeCfRIUiETh8JVckKCCuGRHeym8WQMXcPR SsUBMhFNVtFAMqTDGfDHhmTZGrTPMfVLIpFVLaASXsPL6DPyDtQJSqYgQ8EiAnWRXkEQXjde5OZONnZB RdWTF2HWDaEFEmPTYkRJa9ryTnkETyWLg1HB5NY3UodmYcXnMKJn7Bf205WPK0RPAyKe3HB6dqDz1kRO ZeQLWZHz7IRXs2SgF3TQdhAiNuBeD9TfBqTkGtKIn9 VWYjYVR4JACxInS+VDt2IVZtUQSyQ4YdKIqqTtG5HYEfUJF0YaU9BvxcIwHrPg9bNQRRPs5+DQpzdGFy qKpiXDWWXhWlUOX0ZYgjNQSBRe8X ID Date Data Source [id number] 03/15/2020 03:44:01 PM EST [facility] Name Value Range Interpretation Code Description Data Suki rce(s) Supporting Document(s) Progress Notes [facility] YPTXRh7wNzGQLpAn68/SXYdsMYOpm6ZlJDudHLx9LAasDQIzT7TbHFM7eV4iYOM9ZRoIYmNwDeKePrE9 lbm [file] z4LqgpRPJ+EJ0tXUt+Kv8Dz7VwanX7lzIpPFelSeG8Tz4JUNBZG8TMQs== ID Date Data Source [id number] 03/15/2020 03:33:42 PM EST [facility] Name Value Range Interpretation Code Description Data Suki rce(s) Supporting Document(s) Progress Notes [facility] INMHAs2iFjEQNzKo20/QUVuvXUXpg2GfWEaiZYl1AIwvMFSeZ3LzMUD7nT5lNZM5EFnYIbJnRiPdSpD6 lbm HzLuvFEdMxPDJlBexFQaBgJQjoAsdiyVHkHZ4IgZB6YEShM41mTVKrYWBwI6EsLDC5NNN+Nc1UWXUzpX XrRP4FTbdN1U1xa6xDTL1vJE/SMpWnoUNRC0qBD3OQj8DyJ+YkaZs+CCBlzcPFLNRa4b3ikPfT7n9UX2 C12DOL9qbtNejfuv08o74GRaLs/66Op9JH2ybM/ukv l6yC45dc9r+YwAmn855BW8wX+0OekW7wr3UsPyTTKlgYqtVHyT/mJ3VCkGkH+G8ZNJOdXbLe1yXucRuC /SM1Vk8alijM8AInmi77bhEYdF2wPsib2vm/ysMxsE4mJ2zw7lhr+4bBOwDxLUZtkwHM8Ln/2Qi6vIPg l4lpU8JQ2wsWKcQUyD9s9a/YeCbLhMhk0VbVvTgkTg XLs488x+01dUDqF0yqVco8V2598qp4lic78ucq3vrni4oHWI2+vd7fGh000k8zksydcl7rloP75Eb22J zvoDudOE1fyeQqvHpF6TJAGPbr6KqGq4XEQmj6Muzt9vwfno7iLyWgLFEcDSHB1nVjws0fgxXl61cpnD jAh2xNn4rvDs7DkFKmyCsmPgG/i4sR4BQEUXFqZMD5 4z8whOmXJ7a7jqlLcjbgwqDin7grOJ5la4SzcsFK28NlX2s/maci/t7y/XNU5/9ACerKj+/yilK7KD7Pw 7Alvq4130kd/t3+T5Uxt7Zx0DzoqIGhnhrvzFSHzASDwQ/K32awnoFgmQ8lHVSMqN+V5s6ZEj8ZP2PZ1 LBbQQk+8cICX/nMMefkbLHpK6TunepsuWrO5keOjU+ PT5J705H79jTsnwb786Sx7ZREwy7SivEb5W/149BtoqtCk/5EWO1y66u4xehLOd6jyvsUaWa3qMyIPwc /HVXhwPnLsqX2gD323ZNX//JNNvA9ioTsISk965rRqHKMPNwKN4QXpzjEsSS145z43Mou6ffX7bNDQrw 4l96pN7yw5KrKXGL/6tSy10E891dj92EqN0TL47mbv [file] N5AhKnDR8xLGESYu0+WBwafRJpsCraYOGCOmJ4UGK3AXhoBREUFr6O ID Date Data Source [id number] 03/15/2020 01:44:20 PM EST [facility] Name Value Range Interpretation Code Description Data Suki rce(s) Supporting Document(s) H&P [facility] WYQQSf0nNvPZKcGf96/ZELoxCUPix5JmFYutPIv4OTegABUlV0UuZJN1vE6iDBJ2SQkWWkShVeFcPuK7 lbm [file] ICAgICAgICAgICAgICAgICAgICAgICAgICAgICAgIC AgICAgICAgICAgICAgICAgICAgICAgICAgICAgICAgICAgICAgDQogICAgICAgICAgICAgICAgICAgIC AgICAgICAgICAgICAgICAgICAgICAgICAgICAgICAgICAgICAgICAgICAgICAgICAgICAgICAgICAgIC AgICAgICAgICAgICAgICAgICAgDQogICAgICAgICAg ICAgICAgICAgICAgICAgICAgICAgICAgICAgICAgICAgICAgICAgICAgICAgICAgICAgICAgICAgICAg ICAgICAgICAgICAgICAgICAgICAgICAgICAgICAgDQogICAgICAgICAgICAgICAgICAgICAgICAgICAg ICAgICAgICAgICAgICAgICAgICAgICAgICAgICAgIC AgICAgICAgICAgICAgICAgICAgICAgICAgICAgICAgICAgICAgICAgDQogICAgICAgICAgICAgICAgIC AgICAgICAgICAgICAgICAgICAgICAgICAgICAgICAgICAgICAgICAgICAgICAgICAgICAgICAgICAgIC AgICAgICAgICAgICAgICAgICAgICAgDQogICAgICAg ICAgICAgICAgICAgICAgICAgICAgICAgICAgICAgICAgICAgICAgICAgICAgICAgICAgICAgICAgICAg ICAgICAgICAgICAgICAgICAgICAgICAgICAgICAgICAgDQogICAgICAgICAgICAgICAgICAgICAgICAg ICAgICAgICAgICAgICAgICAgICAgICAgICAgICAgIC AgICAgICAgICAgICAgICAgICAgICAgICAgICAgICAgICAgICAgICAgICAgDQogICAgICAgICAgICAgIC AgICAgICAgICAgICAgICAgICAgICAgICAgICAgICAgICAgICAgICAgICAgICAgICAgICAgICAgICAgIC AgICAgICAgICAgICAgICAgICAgICAgICAgDQogICAg ICAgICAgICAgICAgICAgICAgICAgICAgICAgICAgICAgICAgICAgICAgICAgICAgICAgICAgICAgICAg ICAgICAgICAgICAgICAgICAgICAgICAgICAgICAgICAgICAgDQogICAgICAgICAgICAgICAgICAgICAg ICAgICAgICAgICAgICAgICAgICAgICAgICAgICAgIC BuUEXwSDXlMJSfIHZrOJIpUCSaRDQvCVDaOOTaDGWeMBRdUFPrSSJhYIGlFKOkWPq3E6ibCGAwUQOgNF 0iXKc8Qm9+OPdFCtDdTNF2boRztX7PIZ6jr9QiNTeqQFGjl6CaSPe7PZ2ONJUkEPiaLJ4CRQvrlz8NAU BwRTRepXCJi8anRbUnACD1XDUnUfpeQV1TCLPmZ4lv zbNiDOOsAFNNFZpaJPXMNOrpKVWIUNBcEKUtTrSkGdGaFEBgJWYiPCJHHK7FXzKdV5LcvZ09WKWBVb6+ TNgflwTsLrwUGjY1CGCsi4ElCRo9EM4HKHZwTsqfv0MfZtgsOEBTAGrsAU6UYGT5FWD0AYEeNc1ENLWp M112qwTvKC8GWy6HPgVeHV3hou5OHbdnIKZaPhfMEh b4PYswLC2GeSOwFKpXZkRfJfkbIRW5qTCJYT4tFM8cHL6LVYS2TQQkLkM0GnTqIxByFFc9JTvrIK0yAI nmWK8DVKF6SOwcBJBoJJYaT4rTLlKiVHocFYZbgYhkZJ9KLvDgD2CmmtHiwOJjXBIqJTVXFy3+DQplbm VfUnjFDpKdJCVup7GrYCo9XD3PSAAiHXybJC8QROTw eW6dOSvzGP0WJzMpBxQwZEZJDqYtR51poRIoNAo6H3MzRqXlJVCrBnicDMDdCYvfUbPhWJDdNaAcKYvp ID4+ID4+LGrwWP6TWLdzbzXlRBPeFy6MCSNqUGWyMT1uVUAlZZIcK7M6sHasOFPRWgHsG6sbroyoEO0d EKAcU420zWipzjAyBID1AIInLh8MGCTjAMN9BWAhyC EgSlnbXCGFEUngLE3KvIFsMYC0hU5lLYpcXEJuUVDuD0rXMlIdhUufOP78lVhnbiValCJsIHx+Pg0KZW 2mo4OvLDw8unNzYQpcBMWpYZpfAGBxAHKmWLNaRRW0COK7JKXCKcZgXNRsOOImXIzpUYYdJJZdfr8JLB YtUOR6CIBnDCDoDIUtQLBjJWwyJHRyUGF8Yvv6XYSl RMSmPL2DZxHfSKLoIBPbLRpeXHXbMDXhkt6TATLrUUWqPgD1AGMtEDVeUYKdGRdaUMRqKXClCbVzUAMi WGLvWI0XTwJhXADiNXY7XVRjMNLqTSCmyu7CSJVvIIPoQSv6VaBlOXIzWIStGXsfYHByLBE9DSA7OSXt EQXqRQ0OBtGbMCRiSQq2MiOnCNFxIEUiyn3ACZPgBK UiMTF5MvDmBHNyNVHzVYlqLAXgHXG4ZrGfZJHuQBYjOM9KZxHmBZYyIRX6QHSsGKYhMQNnkl5WEUVkFL CdCmCuNZQsTVNyMQMeGJmlRCWnPVH4GSMiYNSxIJMnPG7ZDtIcACWsDWB9AeusODPcMDUram6ARGJpPK WuIIT3RCDiUFVjHGRaIMlwJTFtITY7BLZzAPAmLHYw GM6JLaKoAZZqVJB8HIciQTDbQRGtgg6FNINlPMFtPvw4MXSaVVSeHBPtWSnnSLUfBGA4RVH1WCTgYZZi SQ0AEsUyVXSrNCwiMgflVUBoMGFasx1MTBXyRHMfZOI2ErKdJVWoYWFrCEpeXPAoEGE0QMv8ZXGcOFHb AR8KYwBcCVUpFZs3BwSoWLBiOJVwgy5CKIVxMIYzWS EbZMDgMRXhWVBzDWgyETOpUFX0XUD2YBCoWCIoZJ0ALiPiHBXuHyEhCdyrDFVrJDHojb8IHKPxQTA8FS UwTYRbODQxBOVdWAldIUOjLMZmPYFsCHWxCWGyKP6GEtHbZLZmTADiNFkaHLCmCGOnbw4ODEUiXHJ2At UiISQzSKEqEDIbRTpeEZPoSGHjWEoeDCKtYUHgBG3M IgYbAEMfFFPfSrSgCFQuAGHgxo9LQVUkUHD9HNPeRZTiUAKqPXCxAWgfVYXiYQW9HZI4ZCGlKCGlSE1J UfYlHDNaQXK0CQlwJAZkDFRutw3FGMHiRCT2KiAlSXAyVEBoUYJhZOphSWOrHLF9LANjAOCiXLLjXM0C FkEwKXWuITH4LbUxPUIaXRPcaz4QmDZkoHfouu7KMW aGJu9ZdKwjEHNpGTymVh4khOE9JZZcCFYBCq9CssYsIWSzADGWDNbaSQZwJLteC0OmKaL0BtW8STU7YW HqBqWuWScgMxeeZTwyEtxaUhQ3C5M4RtMhDQXgMNf5HUSkQoJ5FMKsLOTnTFGdQnN4S5C+AD2eIIy+Pg 7Of5LzicF3zeAiCCu8Nmf5KB1UBOFTJ1NISh== ID Date Data Source [id number] 03/15/2020 12:55:44 PM EST [facility] Patient: [facility] : 1965 [facility] [employer]Procedure: XR CHEST 1 VIEW Provider: SHABANA CHOINICAL HISTORY: Assess NG tube placementTECHNIQUE: Portable AP view of the chest obtained.ENCOUNTER: Initial.COMPARISON: No prior studies are available for comparison.FINDINGS: Diaphragmatic excursion: Moderate hypoinflationTubes and lines: Nasogastric tube tip projecting beneath the left hemidiaphragm,superimposed upon the region of the gastric fundus.Pleura: No pneumothorax or obvious pleural effusion.Lungs: Subsegmental atelectasis left lower lung.Cardiac silhouette: Borderline prominent.Pulmonary vascularity: unremarkable.Trachea: No significant deviation.Thoracic aorta: unremarkable.Remainder of visualized soft tissues and bony structures: unremarkable.IMPRESSION: 1. NG tube appears satisfactory in position.2. Hypoinflation with trace amount of subsegmental atelectasis in the leftlower lung.Electronically Signed by Bereket Duvall MD 03/15/2020 12:55 PM Name Value Range Interpretation Code Description Data Suki rce(s) Supporting Document(s) ID Date Data Source [id number] 03/15/2020 12:15:00 PM EST [facility] Name Value Range Interpretation Code Description Data Suki rce(s) Supporting Document(s) ABO-Rh Typing A Positive [facility] Antibody Screen Negative [facility] Specimen Expires Date/Time [facility] PATIENT HISTORY Pt Hx Checked [facility] The above 4 analytes were performed by S tArielle Pereamarcelinos [id number], ,[place] [address] ID Date Data Source [id number] 03/15/2020 11:11:00 AM EST [facility] Name Value Range Interpretation Code Description Data Suki rce(s) Supporting Document(s) Procalcitonin <0.05 ng/ml 0.00-0.50 Normal (applies to non-numeric r esults) [facility] PCT Concentration: <= 0.5 ng/mLInterpre tation: Systemic infection (sepsis) is not likely. Local bacterial infection is possible.Risk or options for further action:Low risk for progression to severe systemic infection (severe sepsis/septic shock).Caution: PCT levels below 0.5 ng/mL do not exclude an infection, because localized infections (without systemicsigns) may be associated with such low levels.PCT Concentration: 0.5-2 ng/mLInterpretation: Systemic infection (sepsis) is possible, butother condictions are know to elevate PCT as well. Risk or options for further action:Moderate risk for p rogression to severe systemic infection(severe sepsis/septic shock). The patient should be closelymonitored both clinically and by re-assessing PCT within6-24 hours. PCT Concentration: >2 ng/mLInterpretation: Systemic infection (sepsis) is likely, unless other causes are known.Risk or options for further action: High risk for progression to severe systemic infection(severe sepsis/septic shock).PCT Concentration >= 10 ng/mLInterpretation: Important systemic inflammatory response, almost exclusively due to severe bacterial sepsis or septic shock.Risk or options for further action:High likelihood of sepsis or septic shockThe above 1 analytes were performed by Arielle Shekhar' [id number], ,[place] [address] ID Date Data Source [id number] 03/15/2020 10:59:00 AM EST [facility] Name Value Range Interpretation Code Description Data Suki rce(s) Supporting Document(s) Magnesium 2.1 mg/dl 1.6-2.6 Normal (applies to non-numeric resul ts) [facility] The above 1 analytes were performed by Tomasa maiArielle Pereamarcelino's [id number], ,[place] [address] ID Date Data Source [id number] 03/15/2020 10:59:00 AM EST [facility] Name Value Range Interpretation Code Description Data Suki rce(s) Supporting Document(s) AST 24 IU/L 15-37 Normal (applies to non-numeric resul ts) [facility] Sulfasalazine and sulfapyridine have the potential to falsely depressAspartate Aminotransferase results. Baseline values before medication administration are recommended. ALT 37 IU/L 13-56 Normal (applies to non-numeric resul ts) [facility] Sulfasalazine and sulfapyridine have the potential to falsely depressAlanine Aminotransferase results. Baseline values before medication administration are recommended. Alkaline Phosphatase 92 mIU/ml 50-136 Normal (applies to non-num danita results) [facility] Total Bilirubin 0.60 mg/dl 0.20-1.00 Normal (applies to non-numeric results) [facility] Blood Urea Nitrogen 21 mg/dl 7-18 Above high normal [facility] Creatinine 0.83 mg/dl 0.51-0.95 Normal (applies to non-numeric resul ts) [facility] N-Acetylcysteine (NAC) and Metamizole shrestha ve the potential to falselydepress Creatinine results. Baseline values before medication adminstration are recommended. Patients undergoing treatment with phenindione will have falselydepressed results. Patients on phenindione therapy should be tested with an alternativeCREA method.Toxic levels of acetaminophen may lead to falsely depressed results forpatient samples. Glomerular Filtration Rate 72.00 mL/min/1.73m2 [facility] GFR Reference Ranges:Normal Function or Mild Renal Disease,if clinically at risk:>or= 60Moderately decreased:30 - 59Severely decreased:15 - 29Renal Failure:<15 Please note that the MDRD equation requires an additional adjustment forAfrican-Americans (multiply the GFR result by 1.210).Glomarular Filtration Rate (GFR) is estimated based on the MDRDequation, which assumes a steady state for creatinine (Luz Int Med 139/2 137-149, 2003), as recommended by the Nationaldney Disease Education Program in conjunction with the National Institutes of Health and the National KidneyFoundation. The [place] method used in calculating this result is traceable to IDAR standards. Glucose 107 mg/dl 70-110 Normal (applies to non-numeric resul ts) [facility] Sulfasalazine has the potential to false ly depress Glucose results. Sulfapyridine has the potential to falsely elevate Glucose results. Baseline values before medication administration are recommended. Calcium 8.9 mg/dl 8.5-10.1 Normal (applies to non-numeric resul ts) [facility] Total Protein 6.4 g/dl 6.4-8.2 Normal (applies to non-numeric re sults) [facility] Albumin 3.3 g/dl 3.4-5.0 Below low normal [facility] Sodium 145 mEq/L 136-145 Normal (applies to non-numeric resul ts) [facility] Potassium 4.3 mEq/L 3.5-5.1 Normal (applies to non-numeric resul ts) [facility] Chloride 114.0 mEq/L 98.0-107.0 Above high normal [facility] Anion Gap 10.4 [facility] Carbon Dioxide 24.9 mMol/L 21.0-32.0 Normal (applies to non-numeric results) [facility] The above 16 analytes were performed by [facility] [id number], ,[place] [address] ID Date Data Source [id number] 03/15/2020 10:57:00 AM EST [facility] Name Value Range Interpretation Code Description Data Suki rce(s) Supporting Document(s) C-Reactive Protein (Non-Cardiac) 22.10 mg/L 0.00-3.00 Above high nor mal [facility] The above 1 analytes were performed by T[facility] [id number], ,[place] [address] ID Date Data Source [id number] 03/15/2020 10:51:00 AM EST [facility] Name Value Range Interpretation Code Description Data Suki rce(s) Supporting Document(s) Anti-Xa, UFH 0.35 IU/ml 0.30-0.70 Normal (applies to non-numeric res ults) [facility] Discrepant results may occur due to anti coagulant effects such as directthrombin inhibitors; argatroban (Acova), bivalirudin (Angiomax) ordabigatran (Pradaxa) or direct factor Xa inhibitors; rivaroxaban(Xarelto), apixaban (Eliquis) and edoxaban (Savaysa).The above 1 analytes were performed by [facility] [id number], ,[place] [address] ID Date Data Source [id number] 03/15/2020 10:51:00 AM EST [facility] Name Value Range Interpretation Code Description Data Suki rce(s) Supporting Document(s) PT, No Coag Tx/Coag Tx Unk 12.1 Seconds 10.2-12.9 Tamy l (applies to non-numeric results) [facility] Attention: Effeciive 08/24/2019 The nor mal range for PT (No Coag) has changed:Previous normal range: 10.0-11.4New normal range: 10.2-12.9PT referenence range reflects values for patients not on antic oagulanttherapy.Discrepant results may occur due to anticoagulant effects such ascoumadin, direct thrombin inhibitors; argatroban (Acova), bivalirudin(Angiomax) or dabigatran (Pradaxa) or direct factor Xa inhibitors;rivaroxaban (Xarelto), apixaban (Eliquis) and edoxaban (Savaysa). INR (No Coag Tx/Coag Tx Unk) 1.0 0.9-1.1 Nor mal (applies to non-numeric results) [facility] Suggested therapeutic INR ranges for ora l anticoagulant therapy: Indication:INRPrevention and treatment of DVT and PE2.0 - 3.0Prevention of systemic embolism with atrial fib., acute TN and 2.0 -3.0 tissue prosthetic heart valves.Prevention of systemic embolism in patients with mechanical heart2.5 -3.5 valves.NOTE: The INR is only valid for patients on stable oral anticoagulanttherapy. The above 2 analytes were performed by [facility]'s [id number], ,[place] [address] ID Date Data Source [id number] 03/15/2020 10:51:00 AM EST [facility] Name Value Range Interpretation Code Description Data Suki rce(s) Supporting Document(s) PTT, No Coag Tx/Coag Tx Unk 26.8 Seconds 25.1-36.5 Norm al (applies to non- numeric results) [facility] Attention: Effective 08/24/2019Please no te the change in reference range for PTT (No Coag Tx/Coag TxUnk) ResultsPrevious Reference Range: 24.9-30.6 secondsNew Reference Range: 25.1-36.5 secondsDiscrepant results may occur due to anticoagulant effects such asheparin, direct thrombin inhibitors; argatroban (Acova), bivalirudin(Angiomax) or dabigatran (Pradaxa) or direct factor Xa inhibitors;rivaroxaban (Xarelto), apixaban (Eliquis) and edoxaban (Savaysa).The above 1 analytes were performed by [facility]'s [id number], ,[place] [address] ID Date Data Source [id number] 03/15/2020 10:39:00 AM EST [facility] Name Value Range Interpretation Code Description Data Suki rce(s) Supporting Document(s) WBC 6.83 x1000/ul 4.80-10.00 Normal (applies to non-numeric re sults) [facility] RBC 4.73 x1Mil/ul 4.20-5.40 Normal (applies to non-numeric re sults) [facility] Hemoglobin 13.8 g/dl 12.0-16.0 Normal (applies to non-numeric resul ts) [facility] Hematocrit 43.7 % 37.0-47.0 Normal (applies to non-numeric resul ts) [facility] MCV 92.4 fL 81.0-99.0 Normal (applies to non-numeric resul ts) [facility] MCH 29.2 pg 27.0-31.0 Normal (applies to non-numeric resul ts) [facility] MCHC 31.6 g/dl 32.2-37.0 Below low normal [facility] RDW 14.4 % 11.5-14.5 Normal (applies to non-numeric resul ts) [facility] Platelet Count 226 x1000/ul 130-400 Normal (applies to non-numeric results) [facility] MPV 10.4 fL 9.4-12.4 Normal (applies to non-numeric resul ts) [facility] Neutrophils 80.1 % 40.0-74.0 Above high normal [facility] Lymphocytes 12.4 % 19.0-48.0 Below low normal [facility] Monocytes 7.0 % 3.4-9.0 Normal (applies to non-numeric resul ts) [facility] Eosinophils 0.1 % 0.0-7.0 Normal (applies to non-numeric resu lts) [facility] Basophils 0.3 % 0.0-2.0 Normal (applies to non-numeric resul ts) [facility] Immature Granulocytes 0.1 % 0.0-0.5 Normal (applies to non-nu meric results) [facility] Nucleated RBCs 0.00 % 0.00-0.20 Normal (applies to non-numeric r esults) [facility] Abs. Neutrophils 5.46 x1000/ul 1.92-8.31 Normal (applies to non-numeric results) [facility] Abs. Lymphocyte 0.85 x1000/ul 1.20-3.70 Below low normal [facility] Abs. Monocytes 0.48 x1000/ul 0.14-0.97 Normal (applies to non-nu meric results) [facility] Abs. Eosinophils 0.01 x1000/ul 0.00-0.76 Normal (applie s to non-numeric results) [facility] Abs. Basophils 0.02 x1000/ul 0.00-0.22 Normal (applies to non-n umeric results) [facility] Abs. Immature Gran. 0.01 x1000/ul 0.00-0.02 Normal (appl ies to non-numeric results) [facility] Abs. Nucleated RBCs 0.00 x1000/ul 0.00-0.02 Normal (appl ies to non-numeric results) [facility] The above 24 analytes were performed by [facility] [id number], ,[place] [address] ID Date Data Source [id number] 03/15/2020 09:14:00 AM EST [facility] Name Value Range Interpretation Code Description Data Suki rce(s) Supporting Document(s) Glucose, Fingerstick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 in Current Weight: 294 lb 12.8 oz Body Mass Index (BMI): 52.2 Influenza Immunization Hx/Date of Influenza Vaccination (from nursing Hx): Yes Safety Two or more falls in last year? (Future fall risk): No Fall with injury in last year (Future fall risk): No Future fall risk?: Patient screened as not a future fall risk at this time Diabetes Care Measures Glucose/POC Glucose: Glucose last 48 hrs 10/11/19 10/12/19 05:25 07:37 Glucose 85 103 Discharge Plan Admission/Discharge Dx Primary DC Diagnosis: Small bowel obstruction Condition Condition: Stable Discharge Detail Disposition: Home, Self-Care Med Rec New Prescriptions: Continued polyethylene glycol 3350 [Miralax] 17 gram/dose powder 17 gm PO QDAY PRN (Reason: constipation) Qty: 850 RF: 5 pantoprazole 40 mg tablet,delayed release (DR/EC) 40 mg PO BID Qty: 180 RF: 3 Eliquis 5 mg tablet 5 mg PO BID Qty: 180 RF: 3 docusate sodium [Colace] 100 mg capsule 100 mg PO BID RF: 0 nystatin 100,000 unit/gram cream 1 applic TOP BID RF: 0 Trazodone Hcl 50 MG tablet 1 tab PO DAILY Qty: 60 RF: 11 sertraline 50 MG tablet 50 mg PO DAILY Qty: 30 RF: 11 cholecalciferol (vitamin D3) [Vitamin D3] 25 mcg (1,000 unit) capsule 1,000 unit PO QDAY Qty: 30 RF: 5 gabapentin 300 mg capsule 300 mg PO BID Qty: 60 RF: 5 Discharge Education Printouts: Apixaban (By mouth), Abdominal Pain (ED) Follow Up Visit/Referrals: Hillary Woods DO [Primary Care Provider] - 10/28/19 9:40 am Diet:: Clear liquid/cardiac diet and advance as tolerated Medications Medication reconciliation performed by provider at discharge: Yes Follow Up Care/Instructions Diet/Activity/Wound Care..: 1. Follow-up with primary care doctor in 5 to 7 days 2. Cardiac diet, clear liquid and advance as tolerated 3. Activity as tolerated 4. surgery follow-up in 5 to 7 days *Discharge Patient* Discharge Orders: Discharge Order (Routine); Ordered 10/12/19 Ordered By: Umu Butler Dictated by: <Electronically signed by Umu Butler MD> Umu Butler MD 10/12/19 0853 Umu Butler MD SIGNATURE DA Report Cosigners: D: ZACH 10/12/1947 T: STRAL 10/12/1947 CC: Name Value Range Interpretation Code Description Data Suki rce(s) Supporting Document(s) ID Date Data Source [id number] 10/12/2019 07:46:00 AM EDT [facility] Name Value Range Interpretation Code Description Data Suki rce(s) Supporting Document(s) Leukocytes [#/volume] in Blood by Automated count 6.9 10*3/uL 4.45-10 .71 N [facility] Erythrocytes [#/volume] in Blood by Automated count 4.09 10*6/uL 4.20-5.40 Below low normal [facility] Hemoglobin [Moles/volume] in Blood 12.1 g/dL 10.7-15.4 N [facility] Hematocrit [Volume Fraction] of Blood by Automated count 36.9 % 37-47 Below low normal [facility] Erythrocyte mean corpuscular volume [Ent itic volume] in Cord blood by Automated count 90.2 fL 80-96 N [facility] Erythrocyte mean corpuscular hemoglobin [Entitic mass] by Automated count 29.6 pg 27-31 N [facility] Erythrocyte mean corpuscular hemoglobin concentration [Mass/volume] in Cord blood 32.8 g/dL 33-37 Below low normal [facility] Erythrocyte distribution width [Entitic volume] by Automated count 14 % 11-15 N [facility] Platelets [#/volume] in Blood by Automated count 153 10*3/uL 130-472 N [facility] Platelet mean volume [Entitic volume] in Blood 9.8 fL 9.1-13.1 N [facility] Neutrophils/100 leukocytes in Blood by Automated count 73.0 % 41- 77 N [facility] Neutrophils [#/volume] in Blood by Automated count 5.0 U 1.7-7.6 N [facility] Lymphocytes/100 leukocytes in Blood by Automated count 17.7 % 14- 46 N [facility] Lymphocytes [#/volume] in Blood by Automated count 1.2 U 0.6-4.6 N [facility] Monocytes/100 leukocytes in Blood by Automated count 7.4 % 4-12 N [facility] Monocytes [#/volume] in Blood by Automated count 0.5 U 0.2-1.2 N [facility] Eosinophils/100 leukocytes in Blood by Automated count 1.3 % 0-7 N [facility] Eosinophils [#/volume] in Blood by Automated count 0.1 U 0.0-0.5 N [facility] Basophils/100 leukocytes in Blood by Automated count 0.3 % 0.4-1.3 Below low normal [facility] Basophils [#/volume] in Blood by Automated count 0.0 U 0.0-0.2 N [facility] NUCLEATED RED BLOOD CELL 0 % [facility] NUCLEATED RED BLOOD CELL# 0 U [facility] Immature granulocytes [Presence] in Blood by Automated count 0-2 N [facility] Immature granulocytes [#/volume] in Blood by Automated count 0.0 U 0-0.1 N [facility] Manual Differential panel - Blood NO [facility] ID Date Data Source [id number] 10/12/2019 08:29:00 AM EDT [facility] Name Value Range Interpretation Code Description Data Suki rce(s) Supporting Document(s) Urea nitrogen [Mass/volume] in Serum or Plasma 9 mg/dL 9-23 N [facility] Sodium [Moles/volume] in Serum or Plasma 144 mmol/L 132-146 [facility] Potassium [Moles/volume] in Serum or Plasma 3.4 mmol/L 3.5-5.5 Below low normal [facility] Chloride [Moles/volume] in Serum or Plasma 114 mmol/L 99-109 Above high normal [facility] Carbon dioxide, total [Moles/volume] in Serum or Plasma 23 mmol/L 20 -31 N [facility] Anion gap in Serum or Plasma 10 mmol/L 8-16 N [facility] Glucose [Mass/volume] in Serum or Plasma 103 mg/dL 74-106 N [facility] Creatinine 0.7 mg/dL 0.5-1.1 N [facility] Glomerular filtration rate/1.73 sq M.pre dicted [Volume Rate/Area] in Serum or Plasma Greater Than 60 ABOVE 60 [facility] Alanine aminotransferase [Enzymatic acti vity/volume] in Serum or Plasma by With P-5'-P 38 U/L 10-[address] [facility] ital Aspartate aminotransferase [Enzymatic ac tivity/volume] in Serum or Plasma by With P-5'-P 39 U/L 0-33 Above high normal [facility] Alkaline phosphatase [Enzymatic activity/volume] in Serum or Plasma 74 U/L 45-129 N [facility] Calcium [Mass/volume] in Serum or Plasma 8.6 mg/dL 8.5-10.1 [facility] Bilirubin.total [Mass/volume] in Serum or Plasma 0.8 mg/dL 0.3-1.2 N [facility] Albumin [Mass/volume] in Serum or Plasma by Bromocresol purple (BCP) dye binding method 3.1 g/dL 3.2-4.8 Below low normal [facility] Protein [Mass/volume] in Serum or Plasma 6.0 g/dL 5.7-8.2 [facility] ID Date Data Source [id number] 10/11/2019 10:14:00 AM EDT [facility] [address] [id number] [phone] NAME SEX PT STATUS ACCOUNT NUMBER M[employer] ADM IN [id number] ORDERING PHYSICIAN LOCATION MEDICAL RECORD NO. Derrick Koch MD EW [id number] ATTENDING PHYSICIAN DATE OF DATE OF EXAM/TIME Hillary Woods DO 1965 10/09/19 / 1337 TYPE / EXAM Xray Abdomen 1 View (KUB) REASON FOR EXAM SBO COMPARISON: None available. FINDINGS: No free intraperitoneal air is seen. A nasogastric tube is in position. Dilated loops of small bowel are seen in the left upper quadrant. IMPRESSION: 1. Small bowel obstruction seen. Nasogastric tube seen in the stomach. 2. No free intraperitoneal air. Reported By José Luis De Leon MD on 10/11/19 1014 Signed By José Luis De Leon MD on 10/11/19 1016 Date Time CC: José Luis De Leon MD; Hillary Woods DO Techn: MORSA Trans Dt/Tm: Trans by: DT Prt Dt/Tm: : Total DLP = 0.00 mGy-cm Fluoroscopy Time (in secs): Name Value Range Interpretation Code Description Data Suki rce(s) Supporting Document(s) ID Date Data Source [id number] 10/11/2019 09:59:00 AM EDT [facility] [address] [place] [id number] [phone] NAME SEX PT STATUS ACCOUNT NUMBER M[employer]ON [employer] F ADM IN [id number] ORDERING PHYSICIAN LOCATION MEDICAL RECORD NO. Umu Butler MD EW [id number] ATTENDING PHYSICIAN DATE OF DATE OF EXAM/TIME Hillary Woods DO 1965 10/11/19916 TYPE / EXAM Xray Abdomen 2V (Flat/Upright) REASON FOR EXAM f/u obstruction COMPARISON: October 10, 2019 FINDINGS: A nasogastric tube is seen in the stomach. No pathologically dilated loop of large or bowel is seen. There is no free intraperitoneal air. IMPRESSION: . 1. Nasogastric tube. 2. No pathologically dilated loop of large or small bowel. No free intraperitoneal air Reported By José Luis De Leon MD on 10/11/19958 Signed By José Luis De Leon MD on 10/11/19 1000 Date Time CC: José Luis De Leon MD; Hillary Woods DO Techn: EBEBR Trans Dt/Tm: Trans by: DT Prt Dt/Tm: 14: Total DLP = 0.00 mGy-cm Fluoroscopy Time (in secs): Name Value Range Interpretation Code Description Data Suki rce(s) Supporting Document(s) ID Date Data Source [id number] 10/11/2019 09:13:00 AM EDT [facility] Name: MADDISON BLANKENSHIP : 1965 Age: 53 MR#: [id number] Admit Date: 10/08/19 Provider: Umu Butler MD Room #: 294 Consulting Provider: Derrick Koch MD Dictation Date: ProgressNote Subjective-ROS Date of service Date of service:: 10/11/19 Review of Systems ROS (Free Text/Narrative):: Passing flatus, stool, feels much better. Patient is hungry General: Denies Fever and Chills HEENT: Denies Headaches Endocrine: Denies Excessive sweating Cardiovascular: Denies Chest Pain Pulmonary: Denies Dyspnea Gastrointestinal: Reports abdominal pain (Mild abdominal pain improved); Denies nausea and vomiting Genitourinary: Denies Dysuria Musculoskeletal: Denies Muscle Pain Neurological: Denies Weakness Psych: Denies anxiety and feelings of guilt Hematological/Lymphatic: Denies easy bleeding Allergic/Immunologic: Denies rash Attestation/Length Of Stay: 10/08/19 23:36 Admit to Inpatient, Acute [STATUS] Routine Location: [facility] Primary diagnosis: Small bowel obstruction Isolation: Standard precautions Admitting Provider: Umu Butler Attending Provider: Umu Butler Status: Inpatient Admission Anticipated Length of stay:: 3-4 Midnights Vital Signs and I O Vitals and I O: Intake Output Last 24 Hours 10/09/19 10/10/19 10/11/19 23:59 23:59 23:59 Intake Total 3000 / 3000 2900 / 2900 1000 / 1000 Output Total 800 / 800 1335 / 1335 150 / 150 Balance 2200 / 2200 1565 / 1565 850 / 850 Current Weight 294 lb 12.8 oz Results Results: 10/11/19 05:25 10/11/19 05:25 Laboratory Results Last 24 hours 10/11/19 05:25: WBC 7.4, RBC 4.26, Hgb 12.5, Hct 39.8, MCV 93.4, MCH 29.3, MCHC 31.4 L, RDW 14, Plt Count 170, MPV 10.4, Immature Gran % (Auto) 0.3, Neut % (Auto) 68.6, Lymph % (Auto) 21.9, [place] % (Auto) 7.7, Eos % (Auto) 1.1, Baso % (Auto) 0.4, Lymph # (Auto) 1.6, Abs Immat Gran (auto) 0.0, Add Manual Diff No, Absolute Neutrophils 5.1, Monocytes # 0.6, Absolute Eosinophils 0.1, Absolute Basophils 0.0 10/11/19 05:25: Sodium 144, Potassium 3.6, Chloride 115 H, Carbon Dioxide 22, Anion Gap 11, BUN 10, Creatinine 0.6, GFR Calculation Greater than 60, Glucose 85, Calcium 7.7 L, Total Bilirubin 1.3 H, AST 22, ALT 26, Alkaline Phosphatase 74, Serum Total Protein 5.6 L, Albumin 2.8 L Exam Orientation: Alert HEENT: Atraumatic, PERRLA and EOMI Lungs: normal lung sounds bilaterally Cardiovascular Exam: regular rate and normal rhythm Abdomen: Other (Decreased tenderness generalized, bowel sounds present, no rebound no rigidity) Extremities: normal inspection Skin: Skin warm and dry, Mucus membranes moist Neurological: Normal speech Psych/Mental Status: normal affect Assessment/Plan A P Free Text/Narrative :: Impression: 1. Small bowel obstruction 2. 2.7 x 1.6 cm hypodense lesion right lobe liver 3. DJD lumbar spine 4. Hemangioma L1 vertebral body 5. History of PE April 2019 Plan: Will discontinue NG tube and start clear liquid diet repeat x-ray abdomen. Patient may follow-up as outpatient regarding liver lesion. Appreciate Dr. Loyola's expertise. Patient is full code Dictated by: <Electronically signed by Umu Butler MD> Umu Butler MD 10/11/19915 Umu Butler MD SIGNATURE DA Report Cosigners: D: STRAL 10/11/19912 T: STRAL 10/11/19912 CC: Name Value Range Interpretation Code Description Data Suki rce(s) Supporting Document(s) ID Date Data Source [id number] 10/11/2019 06:00:00 AM EDT [facility] Name Value Range Interpretation Code Description Data Suki rce(s) Supporting Document(s) Leukocytes [#/volume] in Blood by Automated count 7.4 10*3/uL 4.45-10 .71 N [facility] Erythrocytes [#/volume] in Blood by Automated count 4.26 10*6/uL 4.20 -5.40 N [facility] Hemoglobin [Moles/volume] in Blood 12.5 g/dL 10.7-15.4 N [facility] Hematocrit [Volume Fraction] of Blood by Automated count 39.8 % 3 7-47 N [facility] Erythrocyte mean corpuscular volume [Ent itic volume] in Cord blood by Automated count 93.4 fL 80-96 N [facility] Erythrocyte mean corpuscular hemoglobin [Entitic mass] by Automated count 29.3 pg 27-31 N [facility] Erythrocyte mean corpuscular hemoglobin concentration [Mass/volume] in Cord blood 31.4 g/dL 33-37 Below low normal [facility] Erythrocyte distribution width [Entitic volume] by Automated count 14 % 11-15 N [facility] Platelets [#/volume] in Blood by Automated count 170 10*3/uL 130-472 N [facility] Platelet mean volume [Entitic volume] in Blood 10.4 fL 9.1-13.1 N [facility] Neutrophils/100 leukocytes in Blood by Automated count 68.6 % 41- 77 N [facility] Neutrophils [#/volume] in Blood by Automated count 5.1 U 1.7-7.6 N [facility] Lymphocytes/100 leukocytes in Blood by Automated count 21.9 % 14- 46 N [facility] Lymphocytes [#/volume] in Blood by Automated count 1.6 U 0.6-4.6 N [facility] Monocytes/100 leukocytes in Blood by Automated count 7.7 % 4-12 N [facility] Monocytes [#/volume] in Blood by Automated count 0.6 U 0.2-1.2 N [facility] Eosinophils/100 leukocytes in Blood by Automated count 1.1 % 0-7 N [facility] Eosinophils [#/volume] in Blood by Automated count 0.1 U 0.0-0.5 N [facility] Basophils/100 leukocytes in Blood by Automated count 0.4 % 0.4-1 .3 N [facility] Basophils [#/volume] in Blood by Automated count 0.0 U 0.0-0.2 N [facility] NUCLEATED RED BLOOD CELL 0 % [facility] NUCLEATED RED BLOOD CELL# 0 U [facility] Immature granulocytes [Presence] in Blood by Automated count 0-2 N [facility] Immature granulocytes [#/volume] in Blood by Automated count 0.0 U 0-0.1 N [facility] Manual Differential panel - Blood NO [facility] ID Date Data Source [id number] 10/11/2019 06:46:00 AM EDT [facility] Name Value Range Interpretation Code Description Data Suki rce(s) Supporting Document(s) Urea nitrogen [Mass/volume] in Serum or Plasma 10 mg/dL 9-23 N [facility] Sodium [Moles/volume] in Serum or Plasma 144 mmol/L 132-146 N [facility] Potassium [Moles/volume] in Serum or Plasma 3.6 mmol/L 3.5-5.5 [facility] Chloride [Moles/volume] in Serum or Plasma 115 mmol/L 99-109 Above high normal [facility] Carbon dioxide, total [Moles/volume] in Serum or Plasma 22 mmol/L 20 -31 N [facility] Anion gap in Serum or Plasma 11 mmol/L 8-16 N [facility] Glucose [Mass/volume] in Serum or Plasma 85 mg/dL 74-106 N [facility] Creatinine 0.6 mg/dL 0.5-1.1 [facility] Glomerular filtration rate/1.73 sq M.pre dicted [Volume Rate/Area] in Serum or Plasma Greater Than 60 ABOVE 60 [facility] Alanine aminotransferase [Enzymatic acti vity/volume] in Serum or Plasma by With P-5'-P 26 U/L 10-[address] [facility] ital Aspartate aminotransferase [Enzymatic ac tivity/volume] in Serum or Plasma by With P-5'-P 22 U/L 0-33 N [facility] pital Alkaline phosphatase [Enzymatic activity/volume] in Serum or Plasma 74 U/L 45-129 N [facility] Calcium [Mass/volume] in Serum or Plasma 7.7 mg/dL 8.5-10.1 Below low normal [facility] Bilirubin.total [Mass/volume] in Serum or Plasma 1.3 mg/dL 0.3-1.2 Above high normal [facility] Albumin [Mass/volume] in Serum or Plasma by Bromocresol purple (BCP) dye binding method 2.8 g/dL 3.2-4.8 Below low normal [facility] Protein [Mass/volume] in Serum or Plasma 5.6 g/dL 5.7-8.2 Below low normal [facility] ID Date Data Source [id number] 10/10/2019 06:01:00 PM EDT [facility] [address] [place] [id number] [phone] NAME SEX PT STATUS ACCOUNT NUMBER [employer] ADM IN [id number] ORDERING PHYSICIAN LOCATION MEDICAL RECORD NO. Umu Butler MD [id number] ATTENDING PHYSICIAN DATE OF DATE OF EXAM/TIME Hillary Woods DO 1965 10/10/19943 TYPE / EXAM Xray Abdomen 1 View (KUB) REASON FOR EXAM please check for NG tube placement Clinical History/Indication for Exam: please check for NG tube placement RADIOGRAPH OF THE ABDOMEN 1 VIEW INDICATION: please check for NG tube placement COMPARISON: Previous x-ray abdomen from 10/09/2019. FIN DINGS: Gastrointestinal tract: Unremarkable. No dilation. Bones/joints: Unremarkable. Tubes, lines and devices: NG tube terminates just beyond the gastroesophageal junction. This could be advanced 8 cm. IMPRESSION: NG tube terminates just beyond the gastroesophageal junction. This could be advanced 8 cm. REPORT SIGNATURE ON FILE 10/10/2019 (18:01 Eastern Time ) Signed by: Elina Jack M.D., [facility] Reported By Elina Jack MD on 10/10/191800 Signed By Elina Jack MD on 10/10/191800 Date Time CC: Elina Jack MD; Hillary Woods DO Techn: FROSA Trans Dt/Tm: Trans by: DT Prt Dt/Tm: : Total DLP = 0.00 mGy-cm Fluoroscopy Time (in secs): Name Value Range Interpretation Code Description Data Suki rce(s) Supporting Document(s) ID Date Data Source [id number] 10/10/2019 12:33:00 PM EDT [facility] Name: MADDISON BLANKENSHIP : 1965 Age: 53 MR#: [id number] Admit Date: 10/08/19 Provider: Jaime Loyola MD Room #: 294 Consulting Provider: Derrick Koch MD Dictation Date: ProgressNote Subjective-ROS Date of service Date of service:: 10/10/19 Review of Systems ROS (Free Text/Narrative):: The symptoms which brought her to the emergency room specifically sharp severe abdominal pain nausea and vomiting have subsided completely. She had a large bowel movement. Attestation/Length Of Stay: 10/08/19 23:36 Admit to Inpatient, Acute [STATUS] Routine Location: [facility] Primary diagnosis: Small bowel obstruction Isolation: Standard precautions Admitting Provider: Umu Butler Attending Provider: Umu Butler Status: Inpatient Admission Anticipated Length of stay:: 3-4 Midnights Vital Signs and I O Vitals and I O: Vital Signs last 12 hours Temp Pulse Resp BP Pulse Ox 10/10/19 08:00 98.8 F 86 18 133/70 96 10/10/19 07:01 82 10/10/19 04:00 98.5 F 69 18 131/72 98 Intake Output Last 24 Hours 10/08/19 10/09/19 10/10/19 23:59 23:59 23:59 Intake Total 3000 / 3000 1000 / 1000 Output Total 800 / 800 350 / 350 Balance 2200 / 2200 650 / 650 Current Weight 295 lb 294 lb 12.8 oz Results Results: 10/10/19 05:30 10/10/19 05:30 Laboratory Results Last 24 hours 10/09/19 12:47: Troponin I Less than 0.015 10/10/19 05:30: WBC 6.7, RBC 4.41, Hgb 13.1, Hct 41.4, MCV 93.9, MCH 29.7, MCHC 31.6 L, RDW 15, Plt Count 194, MPV 10.5, Immature Gran % (Auto) 0.1, Neut % (Auto) 70.2, Lymph % (Auto) 19.2, [place] % (Auto) 9.4, Eos % (Auto) 0.7, Baso % (Auto) 0.4, Lymph # (Auto) 1.3, Abs Immat Gran (auto) 0.0, Add Manual Diff No, Absolute Neutrophils 4.7, Monocytes # 0.6, Absolute Eosinophils 0.1, Absolute Basophils 0.0 10/10/19 05:30: Sodium 145, Potassium 4.5, Chloride 115 H, Carbon Dioxide 26, Anion Gap 9, BUN 15, Creatinine 0.9, GFR Calculation Greater than 60, Glucose 103, Calcium 8.5, Total Bilirubin 1.0, AST 24, ALT 26, Alkaline Phosphatase 77, Serum Total Protein 5.9, Albumin 3.0 L Exam Orientation: Alert, Oriented x3, Cooperative and No acute distress Lungs: normal lung sounds bilaterally Cardiovascular Exam: regular rate and normal rhythm Abdomen: Normal bowel sounds and Soft; negative for Tenderness and Masses Extremities: negative for calf tenderness Assessment/Plan A P Free Text/Narrative :: 53-year-old female admitted with clinical small bowel obstruction. Currently her symptoms of abdominal pain nausea and vomiting have subsided completely. She is moving her bowels with liquid stool. There is no blood in her stool. Her clinical exam is benign. Overall she is much improved. There is no need for surgical intervention. I recommend continuing her NG for today. If she has no recurrence of her abdominal pain nausea or vomiting I believe it can be removed tomorrow and she can be started on a clear liquid diet. I discussed this with her. I reviewed her case with the hospital medical service as well. Dic tated by: <Electronically signed by Jaime Loyola MD> Jaime Loyola MD 10/10/19 1236 B Jaime sanders MD SIGNATURE DA Report Cosigners: D: PURNIMA 10/10/19 1233 T: PURNIMA 10/10/19 1233 CC: Name Value Range Interpretation Code Description Data Suki rce(s) Supporting Document(s) ID Date Data Source [id number] 10/10/2019 08:39:00 AM EDT [facility] Name: MADDISON BLANKENSHIP : 1965 Age: 53 MR#: [id number] Admit Date: 10/08/19 Provider: Umu Butler MD Room #: 294 Consulting Provider: Derrick Koch MD Dictation Date: ProgressNote Subjective-ROS Date of service Date of service:: 10/10/19 Review of Systems ROS (Free Text/Narrative):: Patient had bowel movement last evening. Abdominal pain improved. Patient feels better General: Denies Fever and Chills HEENT: Denies Headaches Endocrine: Denies Excessive sweating Cardiovascular: Denies Chest Pain Pulmonary: Denies Dyspnea Gastrointestinal: Reports nausea and abdominal pain Genitourinary: Denies Dysuria Musculoskeletal: Denies Muscle Pain Neurological: Denies Weakness Psych: Denies anxiety and feelings of guilt Hematological/Lymphatic: Denies easy bleeding Allergic/Immunologic: Denies rash Attestation/Length Of Stay: 10/08/19 23:36 Admit to Inpatient, Acute [STATUS] Routine Location: [facility] Primary diagnosis: Small bowel obstruction Isolation: Standard precautions Admitting Provider: Umu Butler Attending Provider: Umu Butler Status: Inpatient Admission Anticipated Length of stay:: 3-4 Midnights Vital Signs and I O Vitals and I O: Vital Signs last 12 hours Temp Pulse Resp BP Pulse Ox 10/10/19 07:01 82 10/10/19 04:00 98.5 F 69 18 131/72 98 10/10/19 00:00 98.5 F 89 16 131/72 95 Intake Output Last 24 Hours 10/08/19 10/09/19 10/10/19 23:59 23:59 23:59 Intake Total 3000 / 3000 1000 / 1000 Output Total 800 / 800 350 / 350 Balance 2200 / 2200 650 / 650 Current Weight 295 lb 294 lb 12.8 oz Results Results: 10/10/19 05:30 10/10/19 05:30 Laboratory Results Last 24 hours 10/09/19 10:20: Urine Color Yellow, Urine Appearance Clear, Urine pH 5.0, Ur Specific Whitetail >1.045 A, U Specif Grav (Refrac) 1.090 H, Urine Protein Trace, Urine Ketones Negative, Urine Blood Negative, Urine Nitrate Negative, Urine Bilirubin Negative, Urine Urobilinogen 1 eu/dl, Ur Leukocyte Esterase Negative, Add Ur Microanalysis No, Urine Glucose Negative 10/09/19 12:47: Troponin I Less than 0.015 10/10/19 05:30: WBC 6.7, RBC 4.41, Hgb 13.1, Hct 41.4, MCV 93.9, MCH 29.7, MCHC 31.6 L, RDW 15, Plt Count 194, MPV 10.5, Immature Gran % (Auto) 0.1, Neut % (Auto) 70.2, Lymph % (Auto) 19.2, [place] % (Auto) 9.4, Eos % (Auto) 0.7, Baso % (Auto) 0.4, Lymph # (Auto) 1.3, Abs Immat Gran (auto) 0.0, Add Manual Diff No, Absolute Neutrophils 4.7, Monocytes # 0.6, Absolute Eosinophils 0.1, Absolute Basophils 0.0 10/10/19 05:30: Sodium 145, Potassium 4.5, Chloride 115 H, Carbon Dioxide 26, Anion Gap 9, BUN 15, Creatinine 0.9, GFR Calculation Greater than 60, Glucose 103, Calcium 8.5, Total Bilirubin 1.0, AST 24, ALT 26, Alkaline Phosphatase 77, Serum Total Protein 5.9, Albumin 3.0 L Exam Orien tation: Alert HEENT: Atraumatic, PERRLA and EOMI Lungs: normal lung sounds bilaterally Cardiovascular Exam: regular rate and normal rhythm Abdomen: Tenderness and Other (Improved bowel sounds hypoactive, generalized tenderness no rebound or rigidity no pulsatile mass no audible bruits) Extremities: normal inspection Skin: Skin warm and dry, Mucus membranes moist Neurological: Normal speech Psych/Mental Status: normal affect Assessment/Plan A P Free Text/Narrative :: Impression: 1. Small bowel obstruction 2. 2.7 x 1.6 cm hypodense lesion right lobe liver 3. DJD lumbar spine 4. Hemangioma L1 vertebral body 5. History of PE April 2019 Plan: Patient clinically improved. Appreciate surgical expertise. Continue NG tube IV fluids and follow metabolic parameters. Patient will need outpatient follow-up regarding liver lesion. Patient full code Dictated by: <Electronically signed by Umu Butler MD> Umu Butler MD 10/10/19 0841 Umu Butler MD SIGNATURE DA Report Cosigners: D: STRAL 10/10/19838 T: STRAL 10/10/19838 CC: Name Value Range Interpretation Code Description Data Suki rce(s) Supporting Document(s) ID Date Data Source [id number] 10/10/2019 05:55:00 AM EDT [facility] Name Value Range Interpretation Code Description Data Suki rce(s) Supporting Document(s) Leukocytes [#/volume] in Blood by Automated count 6.7 10*3/uL 4.45-10 .71 N [facility] Erythrocytes [#/volume] in Blood by Automated count 4.41 10*6/uL 4.20 -5.40 N [facility] Hemoglobin [Moles/volume] in Blood 13.1 g/dL 10.7-15.4 N [facility] Hematocrit [Volume Fraction] of Blood by Automated count 41.4 % 3 7-47 N [facility] Erythrocyte mean corpuscular volume [Ent itic volume] in Cord blood by Automated count 93.9 fL 80-96 N [facility] Erythrocyte mean corpuscular hemoglobin [Entitic mass] by Automated count 29.7 pg 27-31 N [facility] Erythrocyte mean corpuscular hemoglobin concentration [Mass/volume] in Cord blood 31.6 g/dL 33-37 Below low normal [facility] Erythrocyte distribution width [Entitic volume] by Automated count 15 % 11-15 N [facility] Platelets [#/volume] in Blood by Automated count 194 10*3/uL 130-472 N [facility] Platelet mean volume [Entitic volume] in Blood 10.5 fL 9.1-13.1 N [facility] Neutrophils/100 leukocytes in Blood by Automated count 70.2 % 41- 77 N [facility] Neutrophils [#/volume] in Blood by Automated count 4.7 U 1.7-7.6 N [facility] Lymphocytes/100 leukocytes in Blood by Automated count 19.2 % 14- 46 N [facility] Lymphocytes [#/volume] in Blood by Automated count 1.3 U 0.6-4.6 N [facility] Monocytes/100 leukocytes in Blood by Automated count 9.4 % 4-12 N [facility] Monocytes [#/volume] in Blood by Automated count 0.6 U 0.2-1.2 N [facility] Eosinophils/100 leukocytes in Blood by Automated count 0.7 % 0-7 N [facility] Eosinophils [#/volume] in Blood by Automated count 0.1 U 0.0-0.5 N [facility] Basophils/100 leukocytes in Blood by Automated count 0.4 % 0.4-1 .3 N [facility] Basophils [#/volume] in Blood by Automated count 0.0 U 0.0-0.2 N [facility] NUCLEATED RED BLOOD CELL 0 % [facility] NUCLEATED RED BLOOD CELL# 0 U [facility] Immature granulocytes [Presence] in Blood by Automated count 0-2 [facility] Immature granulocytes [#/volume] in Blood by Automated count 0.0 U 0-0.1 [facility] Manual Differential panel - Blood NO [facility] ID Date Data Source [id number] 10/10/2019 07:20:00 AM EDT [facility] Name Value Range Interpretation Code Description Data Suki rce(s) Supporting Document(s) Urea nitrogen [Mass/volume] in Serum or Plasma 15 mg/dL 9-23 [facility] Sodium [Moles/volume] in Serum or Plasma 145 mmol/L 132-146 [facility] Potassium [Moles/volume] in Serum or Plasma 4.5 mmol/L 3.5-5.5 [facility] Chloride [Moles/volume] in Serum or Plasma 115 mmol/L 99-109 Above high normal [facility] Carbon dioxide, total [Moles/volume] in Serum or Plasma 26 mmol/L 20 -31 N [facility] Anion gap in Serum or Plasma 9 mmol/L 8-16 [facility] Glucose [Mass/volume] in Serum or Plasma 103 mg/dL 74-106 [facility] Creatinine 0.9 mg/dL 0.5-1.1 [facility] Glomerular filtration rate/1.73 sq M.pre dicted [Volume Rate/Area] in Serum or Plasma Greater Than 60 ABOVE 60 [facility] Alanine aminotransferase [Enzymatic acti vity/volume] in Serum or Plasma by With P-5'-P 26 U/L 10-[address] [facility] ital Aspartate aminotransferase [Enzymatic ac tivity/volume] in Serum or Plasma by With P-5'-P 24 U/L 0-33 N [facility] pital Alkaline phosphatase [Enzymatic activity/volume] in Serum or Plasma 77 U/L 45-129 [facility] Calcium [Mass/volume] in Serum or Plasma 8.5 mg/dL 8.5-10.1 [facility] Bilirubin.total [Mass/volume] in Serum or Plasma 1.0 mg/dL 0.3-1.2 [facility] Albumin [Mass/volume] in Serum or Plasma by Bromocresol purple (BCP) dye binding method 3.0 g/dL 3.2-4.8 Below low normal [facility] Protein [Mass/volume] in Serum or Plasma 5.9 g/dL 5.7-8.2 [facility] ID Date Data Source [id number] 10/09/2019 01:13:00 PM EDT [facility] Name Value Range Interpretation Code Description Data Suki rce(s) Supporting Document(s) Troponin I.cardiac [Mass/volume] in Serum or Plasma Less Than 0.015 0.00-0.09 [facility] Less than 0.09 NG/ML Negative0.10 - 0.77 NG/ML High Risk0.78 NG/ML or Greater PositiveThe WHO defined the cutoff (definition for diagnosis of [place])for this method as 0.78 ng/ml. ID Date Data Source [id number] 10/09/2019 11:00:00 AM EDT [facility] Name: MADDISON BLANKENSHIP : 1965 Age: 53 MR#: [id number] Admit Date: 10/08/19 Provider: Umu Butler MD Room #: 294 Consulting Provider: Derrick Koch MD Dictation Date: 03/18 ProgressNote Subjective-ROS Date of service Date of service:: 10/09/19 Review of Systems ROS (Free Text/Narrative):: Patient states she feels better with the NG tube in place. Denies chestpain. Denies melena nor hematochezia. Nausea improved General: Denies Fever and Chills HEENT: Denies Headaches Endocrine: Denies Excessive sweating Cardiovascular: Denies Chest Pain Pulmonary: Denies Dyspnea Gastrointestinal: Reports nausea and abdominal pain; Denies vomiting, diarrhea, hematochezia and coffee grounds emesis Genitourinary: Denies Dysuria Musculoskeletal: Denies Muscle Pain Neurological: Denies Weakness Psych: Denies anxiety and feelings of guilt Hematological/Lymphatic: Denies easy bleeding Allergic/Immunologic: Denies rash Attestation/Length Of Stay: 10/08/19 23:36 Admit to Inpatient, Acute [STATUS] Routine Location: [facility] Primary diagnosis: Small bowel obstruction Isolation: Standard precautions Admitting Provider: Umu Butler Attending Provider: Umu Butler Status: Inpatient Admission Anticipated Length of stay:: 3-4 Midnights Vital Signs and I O Vitals and I O: Vital Signs last 12 hours Temp Pulse Pulse Resp BP BP Pulse Ox 10/09/19 08:00 97.5 F L 67 18 125/84 94 L 10/09/19 06:05 76 10/09/19 04:59 97.4 F L 62 18 137/73 98 10/09/19 03:50 97.1 F L 60 18 112/59 98 10/09/19 02:28 97.4 F L 62 18 113/59 98 10/09/19 01:48 97.4 F L 55 L 18 114/67 97 10/09/19 01:18 70 10/08/19 23:41 97.7 F 61 18 113/62 95 Intake Output Last 24 Hours 10/07/19 10/08/19 10/09/19 23:59 23:59 23:59 Intake Total 1999 / 1999 Output Total 425 / 425 Balance 1575 / 1575 Current Weight 295 lb 294 lb 12.8 oz Results Results: 10/09/19 06:54 10/09/19 06:54 Laboratory Results Last 24 hours 10/08/19 18:35: WBC 9.1, RBC 5.07, Hgb 15.2, Hct 46.2, MCV 91.1, MCH 30.0, MCHC 32.9 L, RDW 14, Plt Count 220, MPV 10.3, Immature Gran % (Auto) 0.1, Neut % (Auto) 79.2 H, Lymph % (Auto) 13.9 L, [place] % (Auto) 4.6, Eos % (Auto) 1.8, Baso % (Auto) 0.4, Lymph # (Auto) 1.3, Abs Immat Gran (auto) 0.0, Add Manual Diff No, Absolute Neutrophils 7.2, Monocytes # 0.4, Absolute Eosinophils 0.2, Absolute Basophils 0.0 10/08/19 18:35: Sodium 143, Potassium 4.0, Chloride 111 H, Carbon Dioxide 25, Anion Gap 11, BUN 15, Creatinine 1.0, GFR Calculation 58, Glucose 107 H, Calcium 9.4, Total Bilirubin 0.6, AST 24, ALT 33, Alkaline Phosphatase 103, Serum Total Protein 7.9, Albumin 4.0, Amylase 50, Lipase 142 10/09/19 01:20: Troponin I Less than 0.015 10/09/19 06:54: Sodium 143, Potassium 4.0, Chloride 112 H, Carbon Dioxide 26, Anion Gap 9, BUN 17, Creatinine 1.0, GFR Calculation 58, Glucose 110 H, Calcium 8.9, Total Bilirubin 0.6, AST 25, ALT 30, Alkaline Phosphatase 96, Troponin I Less than 0.015, Serum Total Protein 7.3, Albumin 3.6 10/09/19 06:54: WBC 9.9, RBC 5.02, Hgb 14.8, Hct 46.0, MCV 91.6, MCH 29.5, MCHC 32.2 L, RDW 14, Plt Count 201, MPV 10.4, Immature Gran % (Auto) 0.2, Neut % (Auto) 82.2 H, Lymph % (Auto) 11.[address] L, [place] % (Auto) 5.1, Eos % (Auto) 1.1, Baso % (Auto) 0.4, Lymph # (Auto) 1.1, Abs Immat Gran (auto) 0.0, Add Manual Diff No, Absolute Neutrophils 8.1 H, Monocytes # 0.5, Absolute Eosinophils 0.1, Absolute Basophils 0.0 10/09/19 10:20: Urine Color Yellow, Urine Appearance Clear, Urine pH 5.0, Ur Specific [place] >1.045 A, U Specif Grav (Refrac) 1.090 H, Urine Protein Trace, Urine Ketones Negative, Urine Blood Negative, Urine Nitrate Negative, Urine Bilirubin Negative, Urine Urobilinogen 1 eu/dl, Ur Leukocyte Esterase Negative, Add Ur Microanalysis No, Urine Glucose Negative Exam Orientation: Alert HEENT: Atraumatic, PERRLA and EOMI Lungs: normal lung sounds bilaterally Cardiovascular Exam: regular rate and normal rhythm Abdomen: Normal bowel sounds and Soft; negative for Tenderness Extremities: normal inspection Skin: Skin warm and dry, Mucus membranes moist Neurological: Normal speech Psych/Mental Status: normal affect Assessment/Plan A P Free Text/Narrative :: Impression: 1. Small bowel obstruction 2. 2.7 x 1.6 cm hypodense lesion right lobe liver 3. DJD lumbar spine 4. Hemangioma L1 vertebral body 5. History of PE April 2019 Plan: Appreciate surgical expertise. We will continue anticoagulation Lovenox therapeutic dosing as patient is n.p.o. IV Protonix. Follow metabolic parameter. Patient will need outpatient follow-up regarding the liver lesion noted by CAT scan. Patient is full code Dictated by: <Electronically signed by Umu Butler MD> Umu Butler MD 10/09/19 1110 Umu Butler MD SIGNATURE DA Report Cosigners: D: STRAL 10/09/19 1100 T: STRAL 10/09/19 1100 CC: Name Value Range Interpretation Code Description Data Suki rce(s) Supporting Document(s) ID Date Data Source [id number] 10/09/2019 10:44:00 AM EDT [facility] Name: MADDISON BLANKENSHIP : 1965 Age: 53 MR#: [id number] Admit Date: 10/08/19 Provider: Derrick Koch MD Room #: 294 Consulting Provider: Derrick Koch MD Dictation Date: 03/18 ProgressNote Subjective-ROS Date of service Date of service:: 10/09/19 Review of Systems ROS (Free Text/Narrative):: The patient feels more comfortable since I placed the NGT. She says her pain has improved. She also reports passing a little gas this a.m. Attestation/Length Of Stay: 10/08/19 23:36 Admit to Inpatient, Acute [STATUS] Routine Location: [facility] Primary diagnosis: Small bowel obstruction Isolation: Standard precautions Admitting Provider: Umu Butler Attending Provider: Umu Butler Status: Inpatient Admission Anticipated Length of stay:: 3-4 Midnights Vital Signs and I O Vitals and I O: Vital Signs last 12 hours Temp Pulse Pulse Resp BP BP Pulse Ox 10/09/19 08:00 97.5 F L 67 18 125/84 94 L 10/09/19 06:05 76 10/09/19 04:59 97.4 F L 62 18 137/73 98 10/09/19 03:50 97.1 F L 60 18 112/59 98 10/09/19 02:28 97.4 F L 62 18 113/59 98 10/09/19 01:48 97.4 F L 55 L 18 114/67 97 10/09/19 01:18 70 10/08/19 23:41 97.7 F 61 18 113/62 95 Intake Output Last 24 Hours 10/07/19 10/08/19 10/09/19 23:59 23:59 23:59 Intake Total 1999 / 1999 Output Total 425 / 425 Balance 1575 / 1575 Current Weight 295 lb 294 lb 12.8 oz Results Results: 10/09/19 06:54 10/09/19 06:54 Laboratory Results Last 24 hours 10/08/19 18:35: WBC 9.1, RBC 5.07, Hgb 15.2, Hct 46.2, MCV 91.1, MCH 30.0, MCHC 32.9 L, RDW 14, Plt Count 220, MPV 10.3, Immature Gran % (Auto) 0.1, Neut % (Auto) 79.2 H, Lymph % (Auto) 13.9 L, [place] % (Auto) 4.6, Eos % (Auto) 1.8, Baso % (Auto) 0.4, Lymph # (Auto) 1.3, Abs Immat Gran (auto) 0.0, Add Manual Diff No, Absolute Neutrophils 7.2, Monocytes # 0.4, Absolute Eosinophils 0.2, Absolute Basophils 0.0 10/08/19 18:35: Sodium 143, Potassium 4.0, Chloride 111 H, Carbon Dioxide 25, Anion Gap 11, BUN 15, Creatinine 1.0, GFR Calculation 58, Glucose 107 H, Calcium 9.4, Total Bilirubin 0.6, AST 24, ALT 33, Alkaline Phosphatase 103, Serum Total Protein 7.9, Albumin 4.0, Amylase 50, Lipase 142 10/09/19 01:20: Troponin I Less than 0.015 10/09/19 06:54: Sodium 143, Potassium 4.0, Chloride 112 H, Carbon Dioxide 26, Anion Gap 9, BUN 17, Creatinine 1.0, GFR Calculation 58, Glucose 110 H, Calcium 8.9, Total Bilirubin 0.6, AST 25, ALT 30, Alkaline Phosphatase 96, Troponin I Less than 0.015, Serum Total Protein 7.3, Albumin 3.6 10/09/19 06:54: WBC 9.9, RBC 5.02, Hgb 14.8, Hct 46.0, MCV 91.6, MCH 29.5, MCHC 32.2 L, RDW 14, Plt Count 201, MPV 10.4, Immature Gran % (Auto) 0.2, Neut % (Auto) 82.2 H, Lymph % (Auto) 11.[address] L, [place] % (Auto) 5.1, Eos % (Auto) 1.1, Baso % (Auto) 0.4, Lymph # (Auto) 1.1, Abs Immat Gran (auto) 0.0, Add Manual Diff No, Absolute Neutrophils 8.1 H, Monocytes # 0.5, Absolute Eosinophils 0.1, Absolute Basophils 0.0 10/09/19 10:20: Urine Color Yellow, Urine Appearance Clear, Urine pH 5.0, Ur Specific [place] >1.045 A, U Specif Grav (Refrac) 1.090 H, Urine Protein Trace, Urine Ketones Negative, Urine Blood Negative, Urine Nitrate Negative, Urine Bilirubin Negative, Urine Urobilinogen 1 eu/dl, Ur Leukocyte Esterase Negative, Add Ur Microanalysis No, Urine Glucose Negative Exam Abdomen: Soft and Other (NGT in place, has drained at least 350cc since it was placed (some spilled out); initially feculent, but less so now); negative for Tenderness and Masses Extremities: pedal edema Assessment/Plan A P Free Text/Narrative :: A: pSBO, hx of PE in 04/2019 (6 months of anticoaguation initially recommended) P-NGT -NPO -AXR to evaluate bowel distention -IV protonix -minimize meds given orally -Give anticoagulant now, hold in evening then speak with surgery in the morning about restarting; or consider heparin drip. If continues to improve, would continue oral anticoagulation unless surgery planned -new surgeon will be covering starting at 7pm Dictated by: <Electronically signed by DERRICK KOCH MD> DERRICK KOCH MD 10/09/19 1051 DERRICK KOCH MD SIGNATURE DA Report Cosigners: D: RU 10/09/19 1044 T: RU 10/09/19 1044 CC: Name Value Range Interpretation Code Description Data Suki rce(s) Supporting Document(s) ID Date Data Source [id number] 10/09/2019 10:29:00 AM EDT [facility] Reason for ordering culture: Abnormal fi ndings UA@ INO DATE was changed from 10/08/19 to 10/09/19@ by DRE. Old specimen was [id number].Method of Collection:: Voided Reason for ordering culture: Abnormal fi ndings UA@ INO DATE was changed from 10/08/19 to 10/09/19@ by DRE. Old specimen was [id number].Method of Collection:: Voided1.090@[facility] manual test result: 1.090@by Abida Lomeli at 10/09/19 1029. Name Value Range Interpretation Code Description Data Suki rce(s) Supporting Document(s) Color of Urine [facility] Appearance of Urine CLEAR [facility] pH of Urine by Test strip 5.0 5-8 [facility] >1.045 Specific gravity of Urine by Refractometry >1.045 1.005 -1.030 Abnormal (applies to non-numeric results) [facility] Leukocyte esterase [Presence] in Urine by Test strip NEGAT DELIA [facility] Nitrite [Presence] in Urine by Test strip NEGATIVE [facility] Protein [Presence] in Urine by Test strip NEGATIVE [facility] Glucose [Mass/volume] in Urine by Automated test strip NEGATIVE NEG ATIVE [facility] Ketones [Presence] in Urine by Test strip NEGATIVE [facility] Urobilinogen [Presence] in Urine 0.2-1 EU/dl [facility] Bilirubin.total [Presence] in Urine by Automated test strip NEGATIVE [facility] Erythrocytes [#/volume] in Urine by Test strip NEGATIVE NEGATIVE [facility] URINE MICROSCOPIC? (CIF) NO [facility] ID Date Data Source [id number] 10/09/2019 10:29:00 AM EDT [facility] Reason for ordering culture: Abnormal fi ndings UA@ INO DATE was changed from 10/08/19 to 10/09/19@ by DRE. Old specimen was [id number].Method of Collection:: Voided Reason for ordering culture: Abnormal fi ndings UA@ INO DATE was changed from 10/08/19 to 10/09/19@ by DRE. Old specimen was [id number].Method of Collection:: Voided1.090@[facility] manual test result: 1.090@by Abida oLmeli at 10/09/19 1029. Name Value Range Interpretation Code Description Data Suki rce(s) Supporting Document(s) ID Date Data Source [id number] 10/09/2019 07:34:00 AM EDT [facility] Name Value Range Interpretation Code Description Data Suki rce(s) Supporting Document(s) Urea nitrogen [Mass/volume] in Serum or Plasma 17 mg/dL 9-23 N [facility] Sodium [Moles/volume] in Serum or Plasma 143 mmol/L 132-146 [facility] Potassium [Moles/volume] in Serum or Plasma 4.0 mmol/L 3.5-5.5 N [facility] Chloride [Moles/volume] in Serum or Plasma 112 mmol/L 99-109 Above high normal [facility] Carbon dioxide, total [Moles/volume] in Serum or Plasma 26 mmol/L 20 -31 N [facility] Anion gap in Serum or Plasma 9 mmol/L 8-16 N L [facility] Glucose [Mass/volume] in Serum or Plasma 110 mg/dL 74-106 Above high normal [facility] Creatinine 1.0 mg/dL 0.5-1.1 [facility] Glomerular filtration rate/1.73 sq M.pre dicted [Volume Rate/Area] in Serum or Plasma 58 ml/min ABOVE [address] [facility] ital Alanine aminotransferase [Enzymatic acti vity/volume] in Serum or Plasma by With P-5'-P 30 U/L 10-[address] [facility] ital Aspartate aminotransferase [Enzymatic ac tivity/volume] in Serum or Plasma by With P-5'-P 25 U/L 0-33 N [facility] pital Alkaline phosphatase [Enzymatic activity/volume] in Serum or Plasma 96 U/L 45-129 N [facility] Calcium [Mass/volume] in Serum or Plasma 8.9 mg/dL 8.5-10.1 [facility] Bilirubin.total [Mass/volume] in Serum or Plasma 0.6 mg/dL 0.3-1.2 [facility] Albumin [Mass/volume] in Serum or Plasma by Bromocresol purple (BCP) dye binding method 3.6 g/dL 3.2-4.[address] [facility] ital Protein [Mass/volume] in Serum or Plasma 7.3 g/dL 5.7-8.2 [facility] ID Date Data Source [id number] 10/09/2019 07:34:00 AM [facility] Name Value Range Interpretation Code Description Data Suki rce(s) Supporting Document(s) Troponin I.cardiac [Mass/volume] in Serum or Plasma Less Than 0.015 0.00-0.09 [facility] Less than 0.09 NG/ML Negative0.10 - 0.77 NG/ML High Risk0.78 NG/ML or Greater PositiveThe WHO defined the cutoff (definition for diagnosis of [place])for this method as 0.78 ng/ml. ID Date Data Source [id number] 10/09/2019 07:04:00 AM [facility] Name Value Range Interpretation Code Description Data Suki rce(s) Supporting Document(s) Leukocytes [#/volume] in Blood by Automated count 9.9 10*3/uL 4.45-10 .71 [facility] Erythrocytes [#/volume] in Blood by Automated count 5.02 10*6/uL 4.20 -5.40 N [facility] Hemoglobin [Moles/volume] in Blood 14.8 g/dL 10.7-15.4 N [facility] Hematocrit [Volume Fraction] of Blood by Automated count 46.0 % 3 7-47 N [facility] Erythrocyte mean corpuscular volume [Ent itic volume] in Cord blood by Automated count 91.6 fL 80-96 N [facility] Erythrocyte mean corpuscular hemoglobin [Entitic mass] by Automated count 29.5 pg 27-31 N [facility] Erythrocyte mean corpuscular hemoglobin concentration [Mass/volume] in Cord blood 32.2 g/dL 33-37 Below low normal [facility] Erythrocyte distribution width [Entitic volume] by Automated count 14 % 11-15 N [facility] Platelets [#/volume] in Blood by Automated count 201 10*3/uL 130-472 N [facility] Platelet mean volume [Entitic volume] in Blood 10.4 fL 9.1-13.1 N [facility] Neutrophils/100 leukocytes in Blood by Automated count 82.2 % 41-77 Above high normal [facility] Neutrophils [#/volume] in Blood by Automated count 8.1 U 1.7-7.6 Above high normal [facility] Lymphocytes/100 leukocytes in Blood by Automated count 11.0 % 14-46 Below low normal [facility] Lymphocytes [#/volume] in Blood by Automated count 1.1 U 0.6-4.6 N [facility] Monocytes/100 leukocytes in Blood by Automated count 5.1 % 4-12 N [facility] Monocytes [#/volume] in Blood by Automated count 0.5 U 0.2-1.2 N [facility] Eosinophils/100 leukocytes in Blood by Automated count 1.1 % 0-7 N [facility] Eosinophils [#/volume] in Blood by Automated count 0.1 U 0.0-0.5 N [facility] Basophils/100 leukocytes in Blood by Automated count 0.4 % 0.4-1 .3 N [facility] Basophils [#/volume] in Blood by Automated count 0.0 U 0.0-0.2 N [facility] NUCLEATED RED BLOOD CELL 0 % [facility] NUCLEATED RED BLOOD CELL# 0 U [facility] Immature granulocytes [Presence] in Blood by Automated count 0-2 N [facility] Immature granulocytes [#/volume] in Blood by Automated count 0.0 U 0-0.1 N [facility] Manual Differential panel - Blood NO [facility] ID Date Data Source [id number] 10/09/2019 01:58:00 AM EDT [facility] Name Value Range Interpretation Code Description Data Suki rce(s) Supporting Document(s) Troponin I.cardiac [Mass/volume] in Serum or Plasma Less Than 0.015 0.00-0.09 N [facility] Less than 0.09 NG/ML Negative0.10 - 0.77 NG/ML High Risk0.78 NG/ML or Greater PositiveThe WHO defined the cutoff (definition for diagnosis of TN)for this method as 0.78 ng/ml. ID Date Data Source [id number] 10/09/2019 12:30:00 AM EDT [facility] Name: MADDISON BLANKENSHIP : 1965 Age: 53 MR#: [id number] Admit Date: 10/08/19 Provider: Jr Curry Room #: 294 Consulting Provider: Derrick Koch MD Dictation Date: 03/18 History Physical HPI Date of service Date of service:: 10/09/19 History of Present Illness Nurse screening for coronavirus: Recent Travel outside the country (where) Has patient experienced No coronavirus symptoms Chief Complaint: abdominal pain, nausea, vomiting Emergency Room stated complaint: GI Primary (Admitting) Diagnosis: Small bowel obstruction Source of information: Patient HPI Free Text/Narrative:: 53 year old white female with history of PE (05/09/19), intestinal adhesions, GERD, obesity, peripheral neuropathy, hyperlipidemia, MOSES, depression, spinal stenosis ofthe lumbar region, 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 She also reports having reproducible chest pain and tenderness after exercise or house work, denies sweating,headache, light headedness, back pain, any change in bowel movements or urinary symptoms. The work up in the ER by the ER physician reveals unremarkable vitals and labs, CT scan of the abdomen without contrast reveals: Impression: 1 There are dilated loops of small bowel with mild surrounding fluid extending into the pelvis. The distal small bowel loops relatively decompressed. This is likely due to small bowel obstruction. A follow-up CT scan with oral contrast for small bowel series may be helpful for further evaluation. 2 There is a 27 x 16 mm hypodense lesion within the right lobe of the liver. A follow-up triple phase CT scan or a multiphasic MRI may be helpful for further evaluation. 3 There is degenerative changes within the lumbar spine 4 There is a hemangioma within t he L1 vertebral body The patient was given IV fluids, in the ER. I discussed the case with Dr. Koch the general surgeon who saw the patient and placed NG tube. Thanks to his surgical expertise. 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 Lin Medication noncompliance due to cognitive impairment (Medical) Z91.14 Mild cognitive impairment (Medical) Mixed hyperlipidemia (Medical 03/26/18) E78.2 WAS On simvastatin-LDL down from 195-117 -2018 and off statin so just monitor Non- cardiac chest pain (Medical) R07.89 PE due to premarin patch Obesity (BMI 30- 39.9) (Medical) Obstructive sleep apnea hypopnea, severe (Medical) G47.33 CPAP 14CM ADVISED 2017 BUT SHE REFUSED Obstructive sleep apnea syndrome (Medical) G47.33 Peripheral neuropathy (Medical 05/10/18) Mild sensory axonal peripheral neuropathy-confirmed on E MG with Dr. Schreiber also has chronic left L5 radiculo simon Postmenopausal (Medical 03/26/18) Z78.0 On estradiol patch-stopped due to PE Pulmonary embolism (Medical) I26.99 numerous-continue eliquis until Anshul says ok to quit Rectal bleeding (Medical) K62.5 negative 2016 colonoscopy clear-likely anal fissure or hemmrhoids from constipation Severe major depression with psychotic features (Medical) Admitted inpatient December 2017.-Has transitional care services through mental health Spinal stenosis, lumbar region, with neurogenic claudication (Medical) Tingling of both feet (Medical) Occurs only in feet with exercise could be early diabetic neuropathy Vitamin D deficiency (Medical) Weight gain (Medical) Surgical History Appendectomy (Surgical) 04/2015 Dr [place] Biopsy of breast (Surgical) Cholecystectomy (Surgical) 03/[address] Cee History of hysterectomy (Surgical) 03/2008 Dr Platt Status post colonoscopy (Surgical) Z98.890 Dr. Roca 08/19/2016 completely clear recheck 10 years Status post oophorectomy (Surgical) Social History: Former smoker (smoked for 10 years, quite many years ago), drinks alcohol occasionally, denies illicit drug use Family History: Father: at age 79 due to colon cancer complications. Mother: alive, 74 yearold, HTN Code status: Full code. Allergies/Home Meds Allergies Allergy/AdvReac Type Severity Reaction Status Date / Time Penicillins Allergy Intermediate Rash Verified 10/08/19 17:57 estrogens, conjugated AdvReac Severe Other, not Verified 10/08/19 17:57 [From Premarin] listed morphine AdvReac Intermediate Chest pain Verified 10/08/19 17:57 01/06 omeprazole AdvReac Myalgia Verified 10/08/19 17:57 Home Medications Medication Instructions Recorded Confirmed Last Taken Type Trazodone Hcl 1 tab PO DAILY #60 tab 03/26/18 09/14/19 05/11/19 08:15 History sertraline 50 mg PO DAILY #30 tab 05/28/18 09/14/19 05/11/19 08:15 History polyethylene glycol 3350 17 17 gm PO QDAY PRN #850 gm 06/24/19 10/09/19 Unknown Rx gram/dose oral powder cholecalciferol (vitamin D3) 25 1,000 unit PO QDAY #30 cap 07/10/19 10/09/19 10/08/19 09:00 Rx mcg (1,000 unit) capsule gabapentin 300 mg capsule 300 mg PO BID #60 cap 09/05/19 10/09/19 10/08/19 09:00 Rx apixaban 5 mg tablet 5 mg PO BID #180 tab 09/14/19 10/09/19 10/09/19 02:00 Rx nystatin 100,000 unit/gram topical 1 applic TOP BID #30 gm 09/14/19 09/14/19 Unknown Rx cream pantoprazole 40 mg tablet,delayed 40 mg PO BID #180 tab 09/14/19 10/09/19 10/08/19 09:00 Rx release docusate sodium [Colace] 100 mg PO BID 10/09/19 10/09/19 Unknown History PFS Medical History Adhesion of intestine (03/26/18) Carpal tunnel syndrome, bilateral Chest pain Elevated liver enzymes Epistaxis Gastro-esophageal reflux disease without esophagitis Glucose intole susan Hemangioma of spine (05/28/18) 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 (05/10/18) Medication noncompliance due to cognitive impairment Mild cognitive impairment Mixed hyperlipidemia (03/26/18) Non-cardiac chest pain Obesity (BMI 30-39.9) Obstructive sleep apnea hypopnea, severe Obstructive sleep apnea syndrome Peripheral neuropathy (05/10/18) Postmenopausal (03/26/18) Pulmonary embolism Rectal bleeding Severe major depression with psychotic features Spinal stenosis, lumbar region, with neurogenic claudication Tingling of both feet Vitamin D deficiency Weight gain Surgical History Appendectomy Biopsy of breast Cholecystectomy History of hysterectomy Status post colonoscopy Status post oophorectomy Family History Mother No problems noted. Father Colon cancer Lung cancer, Onset Age: 60 Other Alcoholism Social History Does the Patient have a Healthcare Proxy: Yes Does Patient have a DNR?: No Does Patient have a Living Will?: No Does the Patient have a MOLST?: No Advance Directives on File or in chart?: No household members: none housing: house lives independently: Yes highest education level completed: high school graduate service: No fci: No current occupational status: disabled Hx Recent Travel (where): No Smoking Status: Former smoker how long ago did patient quit smokin alcohol intake: never substance use type: does not use seatbelt use: always do you feel safe at home: Yes ROS Const All systems reviewed are unremarkable except as noted in HPI and below and other (All ten points of ROS are rviewed. all are negative except what is in HPI) Vital Signs and I O Vitals and I O: Vital Signs last 12 hours Temp Pulse Resp BP Pulse Ox 10/08/19 23:41 97.7 F 61 18 113/62 95 10/08/19 20:53 20 97 10/08/19 17:33 97.1 F L 77 20 142/80 97 Intake Output Last 24 Hours 10/07/19 10/08/19 10/09/19 23:59 23:59 23:59 Current Weight 295 lb Height,Weight BMI: Ht Wt BMI Current Height 5 ft 3 in Current Weight 295 lb Results Results: 10/08/19 18:35 10/08/19 18:35 Laboratory Results Last 24 hours 10/08/19 18:35: WBC 9.1, RBC 5.07, Hgb 15.2, Hct 46.2, MCV 91.1, MCH 30.0, MCHC 32.9 L, RDW 14, Plt Count 220, MPV 10.3, Immature Gran % (Auto) 0.1, Neut % (Auto) 79.2 H, Lymph % (Auto) 13.9 L, [place] % (Auto) 4.6, Eos % (Auto) 1.8, Baso % (Auto) 0.4, Lymph # (Auto) 1.3, Abs Immat Gran (auto) 0.0, Add Manual Diff No, Absolute Neutrophils 7.2, Monocytes # 0.4, Absolute Eosinophils 0.2, Absolute Basophils 0.0 10/08/19 18:35: Sodium 143, Potassium 4.0, Chloride 111 H, Carbon Dioxide 25, Anion Gap 11, BUN 15, Creatinine 1.0, GFR Calculation 58, Glucose 107 H, Calcium 9.4, Total Bilirubin 0.6, AST 24, ALT 33, Alkaline Phosphatase 103, Serum Total Protein 7.9, Albumin 4.0, Amylase 50, Lipase 142 Assessment/Plan A P Free Text/Narrative :: Impression: Small bowel obstruction Recent PE (May 09) (On Eliquis for that) history of intestinal adhesions (probably due to previous surgeries) Hemangioma of the spine L1 through L5 Memory loss following encephalitis peripheral neuropathy hyperlipidemia mild cognitive impairment MOSES peripheral neuropathy Obesity Hypodense lesion in the right hepatic lobe (27X16 mm, needs follow up with triple phase CT scan or multiphasic MRI Plan: Surgical consult. The attending surgeon follow up with the patient. He placed NG tube in the ER. The plan will be the medical trial, otherwise surgical intervention might be needed if the medical management failed. anticoagulation might need to be stopped if she does not improve after 24 hours. ( in patient follow up with the attending surgeon) IV fluids, IV Zofran Continue home meds Eliquis, Zoloft, Trazodone, Pantoprazole, vitamin D GI prophylaxis she is on Pantoprazole DVT prophylaxis: she is on Eliquis therapeutic The patient will need follow up as outpatient (with [employer]) for her hepatic lesion that showed on the CT scan. She might need follow up for her spinal hemangioma too. Time spent 40 minutes Attending physician: Dr. Butler Care plan: Plan of care discussed with patient and or family, Patient encouraged to ask questions about plan and Patient agrees with plan of care Exam Const General: cooperative, healthy appearing and comfortable Nutritional Appearance: overweight Orientation: alert [facility] Head: normal to inspection and normocephalic Face and sinus: face symmetric Mouth: other (dry mm) Eyes Conjunctivae: conjunctivae normal Sclera: sclerae normal Pupils: PERRL EOM: EOM intact bilaterally Neck Neck: normal visual inspection Resp Effort Inspection: normal respiratory effort and symmetric chest movement Auscultation: clear to auscultation bilaterally, no crackles, no rales, no rhonchi and no wheezes Cardio Rate: regular rate Rhythm: regular rhythm GI Inspection: Yes normal to inspection Palpation: soft, not firm, no guarding, no hepatosplenomegaly, not rigid and tender in the epigastrum; with no rebound tenderness Auscultation: normal bowel sounds Skin Lesions: no lesion s Rashes: no rashes Hair: normal Nails: normal Neuro General: patient alert and patient awake Cranial Nerves: CN's II-XII intact bilaterally and PERRL Speech: speech normal Motor: muscle tone normal throughout and strength 5/5 throughout Sensory Exam: no sensory deficits noted Extrem General: full ROM, capillary refill normal, no joint enlargement and no pedal edema Psych Mental Status: mental status grossly normal Mood: congruent mood Affect: normal affect Dictated by: <Electronically signed by Jr GROVE> Jr GROVE 10/09/19 1041 Jr Curry SIGNATURE DA Report Cosigners: <<Signature on File>> Umu Butler MD 10/09/191724 <Electronically signed by Umu Butler MD> Umu Butler MD 10/09/191724 D: ALBIB 10/09/19 0030 T: ALBIB 10/09/19 0030 CC: Name Value Range Interpretation Code Description Data Suki rce(s) Supporting Document(s) ID Date Data Source [id number] 10/09/2019 12:01:00 AM EDT [facility] [address] [id number] [phone] NAME SEX PT STATUS ACCOUNT NUMBER MADDISON BLANKENSHIP ADM IN [id number] ORDERING PHYSICIAN LOCATION MEDICAL RECORD NO. Jr Curry EW [id number] ATTENDING PHYSICIAN DATE OF DATE OF EXAM/TIME Hillary Woods DO 1965 10/08/192355 TYPE / EXAM Xray Chest One View REASON FOR EXAM for NG tube placement Clinical History/Indication for Exam: for NG tube placement Study: 1 view chest Indication: NG tube confirmation Technique: Single view of the chest is performed Comparison: [place] 2019 Findings: The NG tube terminates in the stomach The remaining tubes and lines are stable The heart and lungs are stable in appearance There is no pneumothorax The bony structures are intact Impression: 1. The NG tube terminates in the stomach REPORT SIGNATURE ON FILE 10/09/2019 (00:01 Eastern Time ) Signed by: Silas Wheatley M.D. Reported By Silas Wheatley MD on 10/09/19 0001 Signed By Silas Wheatley MD on 10/09/19 0001 Date Time CC: Silas Wheatley MD; Hillary Woods DO Techn: SNJ CARLOSU Trans Dt/Tm: Trans by: DT Prt Dt/Tm: [id number]: Total DLP = 0.00 mGy-cm Fluoroscopy Time (in secs): Name Value Range Interpretation Code Description Data Suki rce(s) Supporting Document(s) ID Date Data Source [id number] 10/08/2019 11:37:00 PM EDT [facility] Name: MADDISON BLANKENSHIP : 1965 Age: 53 MR#: [id number] Admit Date: 10/08/19 Provider: Derrick Koch MD Room #: Consulting Provider: Dictation Date: 10/08/19 Consultation HPI Date of Service Date of service:: 10/08/19 History of Present Illness Chief Complaint: abdominal pain HPI Free Text/Narrative:: 53y/o f w/hx of PE, HSV, obesity, and hysterectomy who comes in for abdominal pain for 1 day. She also has N/V which she has had before, but worsened today. She says she gets occasional blood with BMs as well as altered bowel habits. She has had an EGD and colonoscopy in the past, but no worrisome findings per her. She also has "spots" in her lung for which she takes Eliquis. Allergies/Home Meds Allergies Allergy/AdvReac Type Severity Reaction Status Date / Time Penicillins Allergy Intermediate Rash Verified 10/08/19 17:57 estrogens, conjugated AdvReac Severe Other, not Verified 07/11/20 17:57 [From Premarin] listed morphine AdvReac Intermediate Chest pain Verified 10/08/19 17:57 1010 omeprazole AdvReac Myalgia Verified 10/08/19 17:57 Home Medications Medication Instructions Recorded Confirmed Last Taken Type Trazodone Hcl 1 tab PO DAILY #60 tab 03/26/18 09/14/19 05/11/19 08:15 History sertraline 50 mg PO DAILY #30 tab 05/28/18 09/14/19 05/11/19 08:15 History docusate sodium 100 mg capsule 100 mg PO BID #60 cap 06/24/19 09/14/19 Unknown Rx polyethylene glycol 3350 17 17 gm PO QDAY PRN #850 gm 06/24/19 09/14/19 Unknown Rx gram/dose oral powder cholecalciferol (vitamin D3) 25 1,000 unit PO QDAY #30 cap 07/10/19 09/14/19 Unknown Rx mcg (1,000 unit) capsule gabapentin 300 mg capsule 300 mg PO BID #60 cap 09/05/19 09/14/19 Unknown Rx apixaban 5 mg tablet 5 mg PO BID #180 tab 09/14/19 09/14/19 Unknown Rx nystatin 100,000 unit/gram topical 1 applic TOP BID #30 gm 09/14/19 09/14/19 Unknown Rx cream pantoprazole 40 mg tablet,delayed 40 mg PO BID #180 tab 09/14/19 09/14/19 Unknown Rx release Past History Surgical History Past Surgical History: Appendectomy, Cholecystectomy and Hysterectomy Family History Family Hx: Alive: MOM and DAD and : DAD Other Family Hx: positive family h/o abdominal cancer in her mother. Social History Hx Alcohol Use: Yes Subjective-ROS (Surgical) Review of Systems General: Reports Fatigue HEENT: Reports Sinus Congestion Endocrine: Reports No Symptoms/Complaints Cardiovascular: Reports No Symptoms/Complaints Pulmonary: Reports No Symptoms/Complaints Gastrointestinal: Reports vomiting and abdominal pain (Generalized in location) Genitourinary: Reports No Symptoms/Complaints Musculoskeletal: Reports No Symptoms/Complaints Neurological: Reports Numbness Psych: Reports anxiety and depression Hematological/Lymphatic: Reports No Symptoms/Complaints Allergic/Immunologic: Reports No Symptoms/Complaints General: obese Height(from nursing assessment): 5 ft 3 in Weight (from nursing assessment): 295 lb Objective VS and I O Vitals and I O: Vital Signs last 12 hours Temp Pulse Resp BP Pulse Ox 10/08/19 20:53 20 97 10/08/19 17:33 97.1 F L 77 20 142/80 97 Intake Output Last 24 Hours 10/06/19 10/07/19 10/08/19 23:59 23:59 23:59 Current Weight 295 lb Results Results: 10/08/19 18:35 10/08/19 18:35 Laboratory Results Last 24 hours 10/08/19 18:35: WBC 9.1, RBC 5.07, Hgb 15.2, Hct 46.2, MCV 91.1, MCH 30.0, MCHC 32.9 L, RDW 14, Plt Count 220, MPV 10.3, Immature Gran % (Auto) 0.1, Neut % (Auto) 79.2 H, Lymph % (Auto) 13.9 L, [place] %(Auto) 4.6, Eos % (Auto) 1.8, Baso % (Auto) 0.4, Lymph # (Auto) 1.3, Abs Immat Gran (auto) 0.0, Add Manual Diff No, Absolute Neutrophils 7.2, Monocytes # 0.4, Absolute Eosinophils 0.2, Absolute Basophils 0.0 10/08/19 18:35: Sodium 143, Potassium 4.0, Chloride 111 H, Carbon Dioxide 25, Anion Gap 11, BUN 15, Creatinine 1.0, GFR Calculation 58, Glucose 107 H, Calcium 9.4, Total Bilirubin 0.6, AST 24, ALT 33,Alkaline Phosphatase 103, Serum Total Protein 7.9, Albumin 4.0, Amylase 50, Lipase 142 CBC/BMP: 10/08/19 18:35 10/08/19 18:35 General General: Alert and Cooperative HEENT HEENT: Atraumatic Respiratory Lungs: normal lung sounds bilaterally Cardiovascular Cardiovascular: regular rate GI/Abdominal Abdomen: Abd soft, bowel sounds present all quadrents Other Other exam information: Physical Exam HEENT: sclerae anicteric, nares a bit narrow CVS: S1S2 RRR Lungs: CTAB Abd: +RLQ and low midline scars, mild low midline incisional TTP w/some distention here, no guarding Ext: +b/l ankle edema and prominent veins MSK: no abnormalities; obese Neuro: CNII-XII grossly intact Pelv: deferred Assessment/Plan Impression/Plan Narrative .: A: Pt w/pSBO, no signs of sepsis, likely from adhesions. Also w/liver lesion on CT A/P P:-NPO -IVF -monitor u/o -NGT placed in ER -serial abdominal exams - continue anticoagulation for recent PE; may stop if she does not improve after 24 hours -if decompensates, may need surgery Plan:: Recommendation at this time is to continue monitoring the patient. and Rehydrate the patient. Discussed:: Discussed plan of care with patient Report Signers: <Electronically signed by DERRICK KOCH MD> DERRICK KOCH MD 10/08/19 2353 DERRICK KOCH MD SIGNATURE DA Report Cosigners: D: RU 10/08/192336 T: RU 10/08/192336 CC: Name Value Range Interpretation Code Description Data Suki rce(s) Supporting Document(s) ID Date Data Source [id number] 10/08/2019 08:56:00 PM EDT [facility] [address] [place] [address] [phone] NAME SEX PT STATUS ACCOUNT NUMBER MADDISON BLANKENSHIP [facility] ER [id number] ORDERING PHYSICIAN LOCATION MEDICAL RECORD NO. Anaya Baer MD ER [id number] ATTENDING PHYSICIAN DATE OF DATE OF EXAM/TIME Hillary Woods DO 1965 10/08/192033 TYPE / EXAM CT Abd/pel w/ contrast REASON FOR EXAM generalized abd pain Clinical History/Indication for Exam: generalized abd pain Clinical history: Abdominal pain Technique: CT Scan of the abdomen and pelvis with the use of 100 cc of intravenous contrast is performed. Sagittal and coronal reconstruction images are obtained and reviewed on the independent workstation. Findings: The lung bases are clear. The heart is normal in size. The gallbladder has been surgically removed There is degenerative changes within the lumbar spine There is a 27 x 16 mm hypodense lesion within the right lobe of the liver. A follow-up triple phase CT scan or a multiphasic MRI may be helpful for further evaluation. The spleen is normal. The pancreas is normal. The adrenals are normal. The kidneys are normal. There are dilated loops of small bowel with mild surrounding fluid extending into the pelvis. The distal small bowel loops relatively decompressed. This is likely due to small bowel obstruction. A follow-up CT scan with oral contrast for small bowel series may be helpful for further evaluation. There is a hemangioma within the L1 vertebral body There is no lymphadenopathy There are no fluid collections The appendix is nonvisualized The pelvic structures are otherwise unremarkable without evidence for acute inflammatory or traumatic changes. Impression: 1 There are dilated loops of small bowel with mild surrounding fluid extending into the pelvis. The distal small bowel loops relatively decompressed. This is likely due to small bowel obstruction. A follow-up CT scan with oral contrast for small bowel series may be helpful for further sabina luation. 2 There is a 27 x 16 mm hypodense lesion within the right lobe of the liver. A follow-up triple phase CT scan or a multiphasic MRI may be helpful for further evaluation. 3 There is degenerative changes within the lumbar spine 4 There is a hemangioma within the L1 vertebral body Automatic exposure control was used as a dose lowering technique. Contrast Type: isovue 300. Contrast Volume: 100cc REPORT SIGNATURE ON FILE 10/08/2019 (20:56 Eastern Time ) Signed by: Josh Wooten M.D. Reported By Josh Wooten MD on 10/08/192055 Signed By Josh Wooten MD on 10/08/192055 Date Time CC: Hillary Woods DO; Josh Wooten MD Techn: YULISA Trans Dt/Tm: Trans by: DT Prt Dt/Tm: : Total DLP = 1861.00 mGy-cm : Total Radiation Dose = 27.9150 mSv Lifetime Dose: 30.4697 mSv Name Value Range Interpretation Code Description Data Suki rce(s) Supporting Document(s) ID Date Data Source [id number] 10/08/2019 06:37:00 PM EDT [facility] ED Physician Documentation NAME: MADDISON BLANKENSHIP : 1965 AGE: 53 MR#: [id number] SERVICE DATE: 10/08/[address]: Caden Liu MD PRIMARY CARE DR: Hillary Mcneil DO ROOM#: [id number] HPI (Adult, General) General Chief Complaint: GI Stated Complaint: ADB PAIN, VOMITING Resident LT, travel outisde home, exposure to hot tubs:: No Time Seen by Provider: 10/08/19 17:55 Source: patient Exam Limitations: no limitations History of Present Illness Narrative: This is a 53-year-old morbidly obese white female comes in complaining of having generalized abdominal pain that began earlier this afternoon after she was doing the patient states she has had intermittent abdominal pains and has been seen by her primary care several times but never had any type of in detail work-up. With that being said she then reported to me that she did have an upper endoscopy at one point showing GERD. Today she has had vomiting at least x4 episodes she states. No diarrhea. She has in the past occasionally had some blood in her stools but nothing recently. The patient is a poor historian and is not sure if she isever had any other operations other than possibly some type of a surgery for ovarian problems. She is on chronic pain medication Neurontin. She is also taking Eliquis and is uncertain why. Past Medical History Past Medical History: Nursing Past Medical History Has Been Reviewed Allergies/Home Meds Allergies Allergy/AdvReac Type Severity Reaction Status Date / Time Penicillins Allergy Intermediate Rash Verified 10/08/19 17:57 estrogens, conjugated AdvReac Severe Other, not Verified 10/08/19 17:57 [From Premarin] listed morphine AdvReac Intermediate Chest pain Verified 10/08/19 17:57 1010 omeprazole AdvReac Myalgia Verified 10/08/19 17:57 Home Medications Medication Instructions Recorded Confirmed Last Taken Type Trazodone Hcl 1 tab PO DAILY #60 tab 03/26/18 09/14/19 05/11/19 08:15 History sertraline 50 mg PO DAILY #30 tab 05/28/18 09/14/19 05/11/19 08:15 History polyethylene glycol 3350 17 17 gm PO QDAY PRN #850 gm 06/24/19 10/09/19 Unknown Rx gram/dose oral powder cholecalciferol (vitamin D3) 25 1,000 unit PO QDAY #30 cap 07/10/19 10/09/19 10/08/19 09:00 Rx mcg (1,000 unit) capsule gabapentin 300 mg capsule 300 mg PO BID #60 cap 09/05/19 10/09/19 10/08/19 09:00 Rx apixaban 5 mg tablet 5 mg PO BID #180 tab 09/14/19 10/09/19 10/09/19 02:00 Rx nystatin 100,000 unit/gram topical 1 applic TOP BID #30 gm 09/14/19 09/14/19 Unknown Rx cream pantoprazole 40 mg tablet,delayed 40 mg PO BID #180 tab 09/14/19 10/09/19 10/08/19 09:00 Rx release docusate sodium [Colace] 100 mg PO BID 10/09/19 10/09/19 Unknown History Medication list updated and reviewed:: Yes Pain Assessment Pain Location: Generalized abdominal area Pain Description: Dull, Acute and Aching Pain Intensity: 3 Pain Scale Used: Numeric Scale Pain Radiation Location: No radiation ER plan Plan of care and ER treatment: An ER treatment plan was discussed with patient and family, Patient encouraged to ask questions about plan and ER treatments and Patient agrees with ER plan of care PMH (from Triage) Patient Medical History PMH Reviewed/Updated as Needed: Yes PMH/PSH from Triage: Medical History (Updated 09/14/19 @ 19:34 by Hillary Woods DO) Adhesion of intestine (Medical 03/26/18) K66.0 Carpal tunnel syndrome, bilateral (Medical) G56.03 on EMG with DrLatif Chest pain (Medical) R07.9 Negative nuclear stress test 06/29/2019 normal perfusion in all segments Elevated liver enzymes (Medical) Epistaxis (Medical) R04.0 Gastro-esophageal reflux disease without esophagitis (Medical) DrBlom scope 2017-HH and GERD Glucose intolerance (Medical) E74.39 mild neuropathy on EMG Hemangioma of spine (Medical 05/28/18) D18.09 L1 through L5 seen on MRI of spine-bone scan negative Herpes simplex complication (Medical) Memory loss is from encephalitis complication Herpes simplex encephalitis (Medical) 1992 left l5 lumbar radiculopathy (Medical 05/10/18) Confirmed on EMG with Dr. Lni Medication noncompliance due to cognitive impairment (Medical) Z91.14 Mild cognitive impairment (Medical) Mixed hyperlipidemia (Medical 03/26/18) E78.2 WAS On simvastatin-LDL down from 195-117 -2018 and off statin so just monitor Non-cardiac chest pain (Medical) R07.89 PE due to premarin patch Obesity (BMI 30-39.9) (Medical) Obstructive sleep apnea hypopnea, severe (Medical) G47 .33 CPAP 14CM ADVISED 2018 BUT SHE REFUSED Obstructive sleep apnea syndrome (Medical) G47.33 Peripheral neuropathy (Medical 05/10/18) Mild sensory axonal peripheral neuropathy-confirmed on E MG with Dr. Schreiber also has chronic left L5 radiculopathy Postmenopausal (Medical 03/26/18) Z78.0 On estradiol patch-stopped due to PE Pulmonary embolism (Medical) I26.99 numerous-continue eliquis until Anshul says ok to quit Rectal bleeding (Medical) K62.5 negative 2016 colonoscopy clear-likely anal fissure or hemmrhoids from constipation Severe major depression with psychotic features (Medical) Admitted inpatient December 2017.-Has transitional care services through mental health Spinal stenosis, lumbar region, with neurogenic claudication (Medical) Tingling of both feet (Medical) Occurs only in feet with exercise could be early diabetic neuropathy Vitamin D deficiency (Medical) Weight gain (Medical) Surgical History (Updated 02/18/19 @ 15:52 by Hillary Woods DO) Appendectomy (Surgical) 04/2015 Dr Alamo Biopsy of breast (Surgical) Cholecystectomy (Surgical) 03/[address] Cee History of hysterectomy (Surgical) 03/2008 Dr Platt Status post colonoscopy (Surgical) Z98.890 Dr. Roca 08/19/2016 completely clear recheck 10 years Status post oophorectomy (Surgical) Female History : No Hx Drug Resistant Infections Hx MRSA: (Methicillin-resistant Staphylococcus aureus): No Hx VRE (Vancomycin-resistant enterococci): No Hx C.Diff: No Hx CRKP: No Hx Other Resistant Infection?: No Isolation: Standard precautions Hx Recent Travel Out of the country within 10 days (where): No Hx Fever: No Hx Fever with a rash?: No Nurse screening for coronavirus: Recent Travel outside the No country (where) Has patient experienced No coronavirus symptoms Social History Does patient have suicidal/homicidal thoughts or ideation?: No Are you in a relationship with/Does anyone hit you, yell/swear at you, steal from you?: No Substance Use Hx Alcohol Use: Yes (social) Hx Substance Use: No Hx Substance Use Treatment: No Smoking Status: Never smoker Tobacco Use Years smoked:: 10 Vaccination History Hx/Date of Tetanus, Diphtheria Vaccination: Yes Hx/Date of Influenza Vaccination: Yes Hx/Date of Pneumococcal Vaccination: No Immunizations Up to Date: Yes [facility] Medical History Adhesion of intestine (03/26/18) Carpal tunnel syndrome, bilateral Chest pain Elevated liver enzymes Epistaxis Gastro-esophageal reflux disease without esophagitis Glucose intolerance Hemangioma of spine (05/28/18) 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 (05/10/18) Medication noncompliance due to cognitive impairment Mild cognitive impairment Mixed hyperlipidemia (03/26/18) Non- cardiac chest pain Obesity (BMI 30-39.9) Obstructive sleep apnea hypopnea, severe Obstructive sleep apnea syndrome Peripheral neuropathy (05/10/18) Postmenopausal (03/26/18) Pulmonary embolism Rectal bleeding Severe major depression with psychotic features Spinal stenosis, lumbar region, with neurogenic claudication Tingling of both feet Vitamin D deficiency Weight gain Surgical History Appendectomy Biopsy of breast Cholecystectomy History of hysterectomy Statu s post colonoscopy Status post oophorectomy Family History Mother No problems noted. Father Colon cancer Lung cancer, Onset Age: 60 Other Alcoholism Social History Does the Patient have a Healthcare Proxy: Yes Does Patient have a DNR?: No Does Patient have a Living Will?: No Does the Patient have a MOLST?: No Advance Directives on File or in chart?: No household members: none housing: house lives independently: Yes highest education level completed: high school graduate service: No fci: No current occupational status: disabled Hx Recent Travel (where): No Smoking Status: Former smoker how long ago did patient quit smokin alcohol intake: never substance use type: does not use seatbelt use: always do you feel safe at home: Yes ROS Review of Systems Constitutional: Denies fever, chills, sweats, weakness, malaise, weight loss, weight gain and other Eyes: Denies vision change, eye discharge/drng, redness, eye pain, descr of pain, conjunctiva inflammation, eyelid inflammation, eyelid issues, floaters, foreign body, r/t accident, contact lens user, wears glasses and other ENT: Denies mouth pain, mouth swelling, dental pain, dry mouth, bleeding gums, ear pain, hearing loss, tinnitis, ear discharge, nasal pain, nasal discharge, nasal congestion, post nasal drip, epistaxis, throat pain, throat swelling, hoarseness, constant throat clearing, pain upon swallowing, recent head trauma, recent airplane travel, recent swimming/diving, uses hearing aid/ear plugs, pain worse with motion, prolonged use of topical meds and other Respiratory: Denies cough, sputum, orthopnea, SOB w/exertion rest, SOB with excertion, SOB at rest, SOB, stridor, wheezing, hemoptysis, pleuritic pain, exposures and other Cardiovascular: Denies chest pain, palpitations, orthopnea, hypertension, paroxysmal noc dyspnea, edema, light headedness, dyspnea on exertion, syncope, known heart murmurs, leg cramps w/walking, pain in feet/toes at night, varicose veins and other Gastroi ntestinal: Reports vomiting and abdominal pain (Generalized in location) Genitourinary-Female: Denies dysuria, frequency, incontinence, stress incontinence, hematuria, retention, cloudy or smoky urine, nocturia, kidney stones, over-active bladder, urgency, rash or ulcers, h/o STDs and other Musculoskeletal: Reports other (Chronic generalized muscle pain) Skin/Breasts: Denies rash, lesions, hives, pruritus, bruising, change in color, color changes w/cold, sensitivity to sun, change in hair/nails, breast pain, breast lump, nipple discharge, other, tightness, nodules or bumps and hair loss Psychiatric: Reports anxiety and depression Endocrine: Denies No Symptoms/Complaints, Excessive sweating, Loss of appetite, Increased appetite, Intolerance to cold, Intolerance to heat, Flushing, Polydipsia, Polyuria, Increased salt intake, Fingernail changes, Unexplained weight gain, Unexplained weight loss, Decreased sexual desire and Other Physical Exam General Physical Exam Narrative: Is a well-developed morbidly obese white female is awake alert [place] x3 in no acute distress but certainly uncomfortable secondary to her generalized abdominal pain. Head Head exam: Present atraumatic, normocephalic and normal inspection Eye Eye exam: Present normal apperance, PERRL and EOMI; Absent scleral icterus and conjunctival injection ENT ENT exam: Present normal exam Neck Neck exam: Present normal inspection, full ROM and supple; Absent tenderness and meningismus Respiratory Respiratory exam: Present normal lung sounds bilaterally Cardiovascular Cardiovascular Exam: Present regular rate and n ormal rhythm GI/Abdominal GI/Abdominal exam: Present Abd soft, bowel sounds present all quadrents and tenderness (Neurolysed, poorly localized, hint of involuntary guarding with deep palpation over the mid abdominal area.); Absent distended Rectal Rectal exam: Present deferred Extremities Exam Extremities exam: Present normal inspection and Full ROM without tenderness, capillary refill brisk; Absent pedal edema Back Exam Back exam: Present normal inspection and full ROM; Absent tenderness, CVA tenderness (R), CVA tenderness (L) and muscle spasm Psychiatric Psychiatric exam: Present normal affect and normal mood Skin Skin exam: Present warm, dry and intact Vital Signs Vital Signs: Vital Signs 10/08/19 17:33 10/08/19 20:53 10/08/19 23:41 Temperature 97.1 F L 97.7 F Pulse Rate 77 61 Respiratory Rate 20 20 18 Blood Pressure 142/80 113/62 O2 Sat by Pulse Oximetry 97 97 95 MDM (comprehensive) Lab Data Labs: 10/08/19 18:35 10/08/19 18:35 Laboratory Results Last 24 hours 10/08/19 18:35: WBC 9.1, RBC 5.07, Hgb 15.2, Hct 46.2, MCV 91.1, MCH 30.0, MCHC 32.9 L, RDW 14, Plt Count 220, MPV 10.3, Immature Gran % (Auto) 0.1, Neut % (Auto) 79.2 H, Lymph % (Auto) 13.9 L, [place] % (Auto) 4.6, Eos % (Auto) 1.8, Baso % (Auto) 0.4, Lymph # (Auto) 1.3, Abs Immat Gran (auto) 0.0, Add Manual Diff No, Absolute Neutrophils 7.2, Monocytes # 0.4, Absolute Eosinophils 0.2, Absolute Basophils 0.0 10/08/19 18:35: Sodium 143, Potassium 4.0, Chloride 111 H, Carbon Dioxide 25, Anion Gap 11, BUN 15, Creatinine 1.0, GFR Calculation 58, Glucose 107 H, Calcium 9.4, Total Bilirubin 0.6, AST 24, ALT 33, Alkaline Phosphatase 103, Serum Total Protein 7.9, Albumin 4.0, Amylase 50, Lipase 142 Labs reviewed no significant abnormalities Radiology Data Radiology results: report reviewed Radiology impressions: CT scan report reviewed dilated loops of small bowel consistent with small bowel obstruction there is also a hypodense lesion in the right lobe of the liver recommend follow-up triple phase CT scan Medical Decision Making Free Text/Narative:: At this point time all laboratories as well as CT and urinalysis are pending. The patient will be endorsed to Dr. Liu at shift change. Final disposition will be with his discretion pending results of laboratory evaluations. 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 Discharge Plan Admission/Discharge Dx Primary (Admit) Diagnosis: Small bowel obstruction ED Provider: Caden Liu ED Status: Discharge to ADM Time Seen by Provider: 10/08/19 17:55 Triaged At: 10/08/19 17:33 Condition Condition: Stable Discharge Detail Disposition: Admitted to Inpatient *Discharge Patient* Discharge Orders: Provider hand off (NOW); Ordered 10/08/19 Ordered By: Caden Liu Discharge Date/Time: 10/09/19 01:14 Interventions Interventions: ED Admission/Handoff Last Done: 10/09/19 01:13 ED GI Gastrointestinal Last Done: 10/08/19 17:38 Report Signers: <Electronically signed by Anaya Baer > Anaya Baer 10/09/19 0924 Anaya Baer SIGNATURE DA Report Cosigners: <Electronically signed by Caden Liu MD> Caden Liu MD 10/09/19 0454 D: FIDE 10/08/191836 T: FIDE 10/08/191836 CC: Hillary Jorgensen DO Name Value Range Interpretation Code Description Data Suki rce(s) Supporting Document(s) ID Date Data Source [id number] 10/08/2019 06:45:00 PM EDT [facility] Name Value Range Interpretation Code Description Data Suki rce(s) Supporting Document(s) Leukocytes [#/volume] in Blood by Automated count 9.1 10*3/uL 4.45-10 .71 N [facility] Erythrocytes [#/volume] in Blood by Automated count 5.07 10*6/uL 4.20 -5.40 N [facility] Hemoglobin [Moles/volume] in Blood 15.2 g/dL 10.7-15.4 N [facility] Hematocrit [Volume Fraction] of Blood by Automated count 46.2 % 3 7-47 N [facility] Erythrocyte mean corpuscular volume [Ent itic volume] in Cord blood by Automated count 91.1 fL 80-96 N [facility] Erythrocyte mean corpuscular hemoglobin [Entitic mass] by Automated count 30.0 pg 27-31 N [facility] Erythrocyte mean corpuscular hemoglobin concentration [Mass/volume] in Cord blood 32.9 g/dL 33-37 Below low normal [facility] Erythrocyte distribution width [Entitic volume] by Automated count 14 % 11-15 N [facility] Platelets [#/volume] in Blood by Automated count 220 10*3/uL 130-472 N [facility] Platelet mean volume [Entitic volume] in Blood 10.3 fL 9.1-13.1 N [facility] Neutrophils/100 leukocytes in Blood by Automated count 79.2 % 41-77 Above high normal [facility] Neutrophils [#/volume] in Blood by Automated count 7.2 U 1.7-7.6 N [facility] Lymphocytes/100 leukocytes in Blood by Automated count 13.9 % 14-46 Below low normal [facility] Lymphocytes [#/volume] in Blood by Automated count 1.3 U 0.6-4.6 N [facility] Monocytes/100 leukocytes in Blood by Automated count 4.6 % 4-12 N [facility] Monocytes [#/volume] in Blood by Automated count 0.4 U 0.2-1.2 N [facility] Eosinophils/100 leukocytes in Blood by Automated count 1.8 % 0-7 N [facility] Eosinophils [#/volume] in Blood by Automated count 0.2 U 0.0-0.5 N [facility] Basophils/100 leukocytes in Blood by Automated count 0.4 % 0.4-1 .3 N [facility] Basophils [#/volume] in Blood by Automated count 0.0 U 0.0-0.2 N [facility] NUCLEATED RED BLOOD CELL 0 % [facility] NUCLEATED RED BLOOD CELL# 0 U [facility] Immature granulocytes [Presence] in Blood by Automated count 0-2 N [facility] Immature granulocytes [#/volume] in Blood by Automated count 0.0 U 0-0.1 N [facility] Manual Differential panel - Blood NO [facility] ID Date Data Source [id number] 10/08/2019 07:04:00 PM EDT [facility] Name Value Range Interpretation Code Description Data Suki rce(s) Supporting Document(s) Urea nitrogen [Mass/volume] in Serum or Plasma 15 mg/dL 9-23 N [facility] Sodium [Moles/volume] in Serum or Plasma 143 mmol/L 132-146 N [facility] Potassium [Moles/volume] in Serum or Plasma 4.0 mmol/L 3.5-5.5 N [facility] Chloride [Moles/volume] in Serum or Plasma 111 mmol/L 99-109 Above high normal [facility] Carbon dioxide, total [Moles/volume] in Serum or Plasma 25 mmol/L 20 -31 N [facility] Anion gap in Serum or Plasma 11 mmol/L 8-16 N [facility] Glucose [Mass/volume] in Serum or Plasma 107 mg/dL 74-106 Above high normal [facility] Creatinine 1.0 mg/dL 0.5-1.1 N [facility] Glomerular filtration rate/1.73 sq M.pre dicted [Volume Rate/Area] in Serum or Plasma 58 ml/min ABOVE [address] [facility] ital Alanine aminotransferase [Enzymatic acti vity/volume] in Serum or Plasma by With P-5'-P 33 U/L 10-[address] [facility] ital Aspartate aminotransferase [Enzymatic ac tivity/volume] in Serum or Plasma by With P-5'-P 24 U/L 0-33 N [facility] pital Alkaline phosphatase [Enzymatic activity/volume] in Serum or Plasma 103 U/L 45-129 N [facility] Calcium [Mass/volume] in Serum or Plasma 9.4 mg/dL 8.5-10.1 [facility] Bilirubin.total [Mass/volume] in Serum or Plasma 0.6 mg/dL 0.3-1.2 N [facility] Albumin [Mass/volume] in Serum or Plasma by Bromocresol purple (BCP) dye binding method 4.0 g/dL 3.2-4.[address] [facility] ital Protein [Mass/volume] in Serum or Plasma 7.9 g/dL 5.7-8.2 N [facility] ID Date Data Source [id number] [facility] Value Range Interpretation Code Description Data Suki rce(s) Supporting Document(s) Amylase [Enzymatic activity/volume] in Serum or Plasma 50 U/L 30- 118 N [facility] ID Date Data Source [id number] 10/08/2019 [facility]:04[facility] Value Range Interpretation Code Description Data Suki rce(s) Supporting Document(s) Lipase [Enzymatic activity/volume] in Serum or Plasma 142 U/L 73-3 93 N [facility] ID Date Data Source [id number] [facility]14[facility]2019 11:44[facility] Name: MADDISON BLANKENSHIP DO B: 1965 Sex: F Pt Unit #: [id number] Location:[facility] Provider: Visit Date/Time: 09/14/19 Primary Insurance: [facility] Secondary Insurance: Self Pay Intake Vital Signs 09/14/19 11:44 Current Height 5 ft 4 in Current Weight 294 lb Weight Measurement Method Standing Scale BMI 50.4 BP 138/78 Blood Pressure Location Lt brachial Position Sitting Respiration 20 Pulse 77 Pulse Strength Normal Pulse Source Pulse Oximeter Temp 98.4 F Temp Source Oral Pulse Oximetry (%) 97 Oxygen Delivery Method room air Intake Visit Reasons: Rash Nurse Note: patient states that on Thursday she was napping and she was incontinent of diarrhea. she noted a rash in her buttock area that night. the rash is red and painful only when she washes it. patient states that she has been putting lotion on this area. patient states that she has never had been incontinent of her bowel before, however is frequently incontinent of her urine. she states that she has gone to see her [employer] for this but does not recall what they said. patient scored a 6 on her PHQ-9 today. Vacuum Form Operator Required: No Accompanied by: self Is patient in pain?: No Allergies Penicillins Allergy (Intermediate, Verified 09/14/18 10:21) Rash estrogens, conjugated [From Premarin] Adverse Reaction (Severe, Verified 06/24/19 12:39) Other, not listed morphine Adverse Reaction (Intermediate, Verified 09/14/18 10:21) Chest pain 01/06 omeprazole Adverse Reaction (Verified 09/14/18 10:21) Myalgia Medications apixaban (Eliquis) 5 mg PO BID cholecalciferol (vitamin D3) (Vitamin D3) 1,000 units PO QDAY docusate sodium (Colace) 100 mg PO BID gabapentin 300 mg PO BID nystatin 1 applic topical BID pantoprazole 40 mg PO BID polyethylene glycol 3350 (Miralax) 17 grams PO QDAY PRN sertraline 50 mg PO DAILY [Trazodone Hcl 1 tab PO DAILY] Is last menstrual period known: No Post menopausal: Yes (hysterectomy five years ago) Patient : No Fall Risk History of falls: No Ambulatory Aid:: None Gait/Transferring:: Normal PHQ-2/9 Over the last 2 weeks, how often have you been bothered by any of the following problems? 1. Little interest or pleasure in doing things: not at all 2. Feeling down, depressed, or hopeless: several days Total score: 1 3. Trouble falling or staying asleep, or sleeping too much: not at all 4. Feeling tired or having little energy: not at all 5. Poor appetite or overeating: not at all 6. Feeling bad about yourself - or that you are a failure or have let yourself and your family down:several days 7. Trouble concentrating on things, such as reading the newspaper or watching television: nearly every day 8. Moving or speaking so slowly that other people could have noticed? - Or the opposite - being so fidgety or restless that you have been moving around a lot more than usual: not at all 9. Thoughts that you would be better off or of hurting yourself in some way: several days Total score: 6 If you checked off any problems, how difficult have these problems made it for you to do your work, take care of things at home, or get along with other people?: not difficult at all Source: Developed by Drs. Justin Hernandez, Heidi Smith, Chriss Marquez and colleagues, with an educational dee from [employer]. HIV Testing Offer - ages 13-64 Requirement for HIV testing offer been met?: Declines today. Pretest education received and acknowledged SBIRT Annual Questionnaire Are you currently in recovery for alcohol or substance use?: No How many times in the past year have you had 4 or more drinks in a day?: None How many times in the past year have you used a recreational drug or used a prescription medication for nonmedical reasons?: None Do you need a note to return Do you need a note to return to daycare/school/sports/work: No Coronavirus Screening Screening Have you traveled outside of [facility] or [facility] in the last 14 days.: No Has patient experienced coronavirus symptoms: No [facility] Medical History (Updated 09/14/19 @ 19:34 by Hillary Woods DO) Adhesion of intestine (Inactive 03/26/18) Carpal tunnel syndrome, bilateral (Acute) Chest pain (Inactive) Elevated liver enzymes Epistaxis (Acute) Gastro-esophageal reflux disease without esophagitis Glucose intolerance (Chronic) Hemangioma of spine (Inactive 05/28/18) 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 (05/10/18) Medication noncompliance due to cognitive impairment (Acute) Mild cognitive impairment Mixed hyperlipidemia (Inactive 03/26/18) Non-cardiac chest pain (Ruled-out) Obesity (BMI 30-39.9) Obstructive sleep apnea hypopnea, severe (Acute) Obstructive sleep apnea syndrome (Inactive) Peripheral neuropathy (05/10/18) Postmenopausal (Inactive 03/26/18) Pulmonary embolism (Acute) Rectal bleeding (Resolved) Severe major depression with psychotic features Spinal stenosis, lumbar region, with neurogenic claudication Tingling of both feet Vitamin D deficiency Weight gain Surgical History Appendectomy Biopsy of breast Cholecystectomy History of hysterectomy Status post colonoscopy (Acute) Status post oophorectomy Social History (Updated 06/24/19 @ 11:34 by Rachelle Marie) Does the Patient have a Healthcare Proxy: Yes Does Patient have a DNR?: No Does Patient have a Living Will?: No Does the Patient have a MOLST?: No A dvance Directives on File or in chart?: No household members: none housing: house lives independently: Yes highest education level completed: high school graduate service: No fci: No current occupational status: disabled Hx Recent Travel (where): No how long ago did patient quit smokin alcohol intake: never substance use type: does not use seatbelt use: always do you feel safe at home: Yes HPI Additional HPI HPI Details: Patient is here with acute complaint of rash. She states she has had it 3 days. She says she had taken her bowel medication and maybe took too much of it because she woke up from nap and before she could get to the bathroom she had loose bowels and she had to clean herself up and she feels the diarrhea contributed to rash on her buttocks. She thinks some might have leaked out even while she was napping and caused irritation in her gluteal crease. She says she had no rash until after this episode of diarrhea. She says she showered and cleaned up and put on some just moisturizing lotion and it has not seemed to help. She says she cannot think of anything else that would have caused it. She has not had rash like this before in her gluteal crease she has had similar rash under her breast and in her groin which seems consistent with candidiasis. She also continues to complain of fatigue. She says some days it is worse than others she says some days shehas the energy to walk around the block other days she just is completely exhausted and does not have energy to do anything at all. She has not had her sleep study rescheduled yet. I ordered at last month when I saw her. She says she has not gotten a call from anyone. She admits her memory is bad but she does not remember anyone setting it up and I do not see that it was set up any place in the chart. She has history of sleep apnea. She had AHI of 10 in 2018 sleep efficiency was poor. Her events disappeared with CPAP 14 cm of water pressure. Her desaturations to 85 disappeared withCPAP 14 and she stayed consistently above 91% with her CPAP 14 however she just absolutely would notuse it she did not ever use it consistently she cannot say if it helped or not because she just simply refuses to use it she is had stress test PFTs echo and the only thing remaining to really work-up her fatigue is the sleep study. Stress echo was done earlier this year and normal. Plain echocardiogram was done in April and was normal. She does have history of PE. She had repeat CTof her chest about a month after the initial CT angiogram. The repeat CT angiograms showed that thepulmonary embolus had already resolved. Receiver Stocker Dr. Bee did PFTs which were normal. He recommended 6 months of anticoagulation and then to complete a hypercoagulable work-up. She tells me that she is taking her Eliquis. However it looks like she has not filled it since April she did at that time get a 3- month supply but it looks to me like she should have filled it about a month ago. After she left I did call the pharmacy and they confirmed she was given 90 days on May 12 and would have been due for refill August 09 and did not pick it up I called patient at home and instructed her to go and get this explained to her this is something life-threatening if the blood clots come back at something that can kill her she did not have just one she had several she needs to start taking it twice a day again she voiced understanding I also sent a message to my nurse to call and check and make sure she has done this on Thursday if she has not I will make a adultprotective referral. Pharmacist also confirm she has not filled Protonix since January I sent a refill on that and instructed her to start taking that again as well. Also noted she has not been refilling her trazodone or her sertraline has not filled either 1 in several months. Kya from [facility] tells me that they have specifically asked her if she wants it filled because they do keep getting refills from mental health provider she is told them she does not need it anymore and not tofill it I have sent task to my nurse to please communicate this to her mental health provider that they are aware she is not taking the medicine as prescribed. Rash Current symptoms: Reports erythema and pruritus Associated symptoms: Reports lethargy; Denies abdominal pain, cough, sore throat, fever(s), headache(s) or nausea Review of Systems Const Denies chills, Reports daytime sleepiness, Reports difficulty sleeping, Reports fatigue, Denies fever(s), Denies frequent falls, Denies headache(s), Reports lethargy, Denies night sweats and Denies weight gain Eyes Denies blurry vision, Denies diplopia, Denies dry eyes, Denies irritation, Reports itchy eyes and Reports requires corrective lenses ENT Denies dysphagia, Denies ear discharge, Denies otalgia, Denies headache(s), Reports nasal congestion, Reports nasal discharge, Denies neck pain, Denies odynophagia, Reports post nasal drip, Denies tinnitus, Denies sinus pressure and Denies sore throat Card Denies chest pain, Denies chest pain at rest, Denies chest pain with activity, Denies diaphoresis, Denies syncope, Denies pedal edema, Denies claudication, Denies leg edema, Denies lightheadedness, Denies palpitations, Denies dyspnea, Reports dyspnea on exertion, Denies orthopnea and Denies paroxysmal nocturnal dyspnea Resp Reports as per HPI, Denies change in phlegm color, Denies chest congestion, Denies cough, Denies hemoptysis, Denies excessive phlegm production, Denies pain with cough, Denies dyspnea, Reports dyspnea on exertion and Denies wheezing GI Denies abdominal pain, Denies belching, Denies melena, Denies bloating, Denies hematochezia, Denies change in stool character, Denies dysphagia, Denies excessive flatus, Reports heartburn, Reports fecal incontinence, Reports diarrhea, Reports loose stools, Denies nausea and Denies odynophagia Details: Feels episode of diarrhea Thursday may have been related to taking too much of her bowel softener/MiraLAX Genitourinary: Reports post void dribbling, nocturia, hot flashes, urinary incontinence and urinary urgency; Denies abnormal vaginal bleeding, hematuria, difficulty voiding, dysuria or urinary hesitancy Musc Reports abnormal gait, Denies neck pain, Reports numbness, Reports stiffness and Reports tingling Details: No change in numbness and tingling in her legs does not think she has been back to the neurologist Skin/Breast Reports as per HPI, Reports pruritus, Reports erythema and Reports rash Neuro Reports as per HPI, Reports abnormal gait, Denies syncope, Denies frequent falls, Denies headache(s), Reports numbness, Reports tingling, Reports paresthesias and Denies tremor(s) Psych Reports abnormal sleep pattern, Reports anxiety and Reports depression Details: Not taking medications as prescribed Endo Reports fatigue, Reports heat intolerance and Denies palpitations Cesar/Lymph Reports system reviewed and no additional complaints, except as documented Aller/Immun Reports GI upset with certain foods, Denies urticaria, Reports itchy eyes, Reports seasonal rhinorrhea and Denies wheezing Exam Const General: comfortable, well developed and well groomed Nutritional Appearance: obese Orientation: alert, awake, oriented to person and oriented to place Neck Neck: nontender Neck mass: No Thyroid: thyroid normal Lymphatic: no lymphadenopathy noted Resp Effort Inspection: normal respiratory effort Auscultation: clear to auscultation bilaterally, no rales, no rhonchi and no wheezes Cardio Rate: regular rate Rhythm: regular rhythm Heart Sounds: S1 normal, S2 normal and no murmurs GI Inspection: Yes obesity Palpation: no hernias and nontender Auscultation: normal bowel sounds Skin Other: Brownish- red rash gluteal crease consistent with candidiasis Neuro General: oriented Patient Orientation: Person and Place Speech: speech normal Gait: normal gait Motor: muscle tone normal throughout and strength 5/5 throughout Extrem General: no clubbing, cyanosis or edema Psych Appearance: well kempt Speech and Movement: speech and movement normal Mood: anxious mood Affect: anxious affect Attitude: cooperative Thought Process: normal Thought Content: normal Insight: limited Judgment: limited Quality Reporting Depression/Bipolar (159/160/161/169/177) Total score: 6 Assessment Plan Assessment Plan (1) Mild cognitive impairment: Status: Chronic Onset Date: 03/26/18 Comment: As complication of herpes encephalitis Code(s): G31.84 - Mild cognitive impairment, so stated SNOMED Code(s): 346746013 Category: Medical Plan - Hillary Woods DO: Patient has complication of herpes encephalitis has very poor short-term memory and I am not at all convinced that she is deliberately not taking her medications I think she just does not remember them I have called her and told her to get back on the Eliquis immediately. I have told her she should restart pantoprazole for her reflux hiatal hernia. But that getting back on Eliquis is something that is potentially life-threatening if she does not follow through. She voices understanding. I have personally spoke with Kya at the pharmacy. She will get it filled immediately. I will have my nurse follow through tomorrow to make sure that she has filled it and started taking it. If she has not I will make adult protective referral Orders: Orders: CMP 5 Months LIPID PANEL 5 Months Vitamin D 25-OH 5 Months HGBA1C + EAG 5 Months (2) Pulmonary embolism: Status: Acute Comment: numerous- continue eliquis until Anshul says ok to quit Code(s): I26.99 - Other pulmonary embolism without acute cor pulmonale SNOMED Code(s): 35157024 Category: Medical Plan - Hillary Woods, DO: On medicine reconciliation she has been off her Eliquis about a month should have refill that August 09and did not I will have her restart it she should be on it at least 3 more months and if she does not comply since this is something potentially life- threatening I will make adult protective referral I am not sure she completely understands how serious this is she is had cognitive impairment she is applied for disability has been denied she does not have a guardian I am not at all convinced she understands how serious some of her medical conditions are this is part of why I have been reluctant to take over her mental health care (3) Obstructive sleep apnea hypopnea, severe: Status: Acute Comment: CPAP 14CM ADVISED 2017 BUT SHE REFUSED Code(s): G47.33 - Obstructive sleep apnea (adult) (pediatric) SNOMED Code(s): 24482420 Category: Medical Plan - Hillary Woods, DO: I ordered sleep study on paper last visit a month ago. It still has not been done I will order it electronically today. This is simply a re-titration. We know she has sleep apnea. She had desaturations documented in 2018 sleep study down to 85. Her AHI in 2018 was 10. She continues to complain of severe fatigue. She was titrated to 14 cm water pressure in June 2017 she simply refused to use it her weight got up to 330 she is down to 294 she may need a little less or a littlemore but she needs an up-to-date sleep study to figure that out she has impaired cognition she most definitely cannot follow instructions for home study she needs it in the hospital study will have staff follow through on this. Orders: Orders: Sleep Study 1 Week CMP 5 Months LIPID PANEL 5 Months Vitamin D 25-OH 5 Months HGBA1C + EAG 5 Months (4) Medication noncompliance due to cognitive impairment: Status: Acute Code(s): Z91.14 - Patient's other noncompliance with medication regimen SNOMED Code(s): 797976857 Category: Medical Plan - Hillary Woods, DO: Although she came in for a simple rash I reconciled her medicines and discovered she has not filled her mental health medicines for anxiety and depression in several months. Discovered she has not filled her Protonix for [...] it ready I called the patient and discussed this she says she did not intentionally stop anything I believe her I think these are medication errors because ofher cognitive impairment hopefully with her pillboxes and some support from my office staff and myself we can get her back on track if not I will have to do an adult protective referral (5) Candidiasis: Code(s): B37.9 - Candidiasis, unspecified Rubi - Hillary Jorgensen DO: Main reason she came in was rash it ends up being the most minor issue addressed today. It is a simple candidiasis that should with hygiene to the area twice a day and nystatin cream twice a day to the area clear up. However multiple other more pressing issues discussed with her including follow- up phone call to make sure she gets back on her blood thinner. Orders Other Medications: New: nystatin-triamcinolone 100,000-0.1 unit/g-% use on buttocks rash BID x2 weeks,then prn 1 applic topical BID 60 grams 2RF candiasis MDD 2x Refilled: pantoprazole 40 mg PO BID 180 tabs 3RF apixaban (Eliquis) 5 mg PO BID 180 tabs 3RF Other Orders: Orders: 3D DIG MAMMO SCREEN BILAT 1 Month Z12.31 CMP 5 Months E55.9, E74.39, E78.2, G62.89, K76.0 LIPID PANEL 5 Months E55.9, E74.39, E78.2, G62.89, K76.0 Vitamin D 25-OH 5 Months E55.9, E74.39, E78.2, G62.89, K76.0 HGBA1C + EAG 5 Months E55.9, E74.39, E78.2, G62.89, K76.0 Electronically Signed By: <Electronically signed by Hillary Jorgensen DO> Date/Time Signed: 09/14/191940 Name Value Range Interpretation Code Description Data Suki rce(s) Supporting Document(s) ID Date Data Source [id number] 08/16/2019 03:16:00 PM EDT [facility] Patient Name: MADDISON BLANKENSHIP DO B: 1965 Sex: F Pt Unit #: [id number] Location:[facility] Provider: Visit Date/Time: 08/16/19 Primary Insurance: [facility] Secondary Insurance: Self Pay Intake Vital Signs 08/16/19 15:16 Pulse 79 Temp 98.1 F Temp Source Tympanic Pulse Oximetry (%) 97 Oxygen Delivery Method room air Intake Visit Reasons: Call First Appt Allergies Penicillins Allergy (Intermediate, Verified 09/14/18 10:21) Rash estrogens, conjugated [From Premarin] Adverse Reaction (Severe, Verified 06/24/19 12:39) Other, not listed morphine Adverse Reaction (Intermediate, Verified 09/14/18 10:21) Chest pain 10 omeprazole Adverse Reaction (Verified 09/14/18 10:21) Myalgia Coronavirus Screening Screening Have you traveled outside of [facility] or [facility] in the last 14 days.: No Has patient experienced coronavirus symptoms: Yes Coronavirus symptoms experienced: lower respiratory illness [facility] Medical History (Updated 08/12/19 @ 14:01 by Hillary Woods DO) Adhesion of intestine (Inactive 03/26/18) Carpal tunnel syndrome, bilateral (Acute) Chest pain (Inactive) Elevated liver enzymes Epistaxis (Acute) Gastro-esophageal reflux disease without esophagitis Glucose intolerance (Chronic) Hemangioma of spine (Inactive 05/28/18) 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 (05/10/18) Mild cognitive impairment Mixed hyperlipidemia Non-cardiac chest p ain (Ruled-out) Obesity (BMI 30-39.9) Obstructive sleep apnea hypopnea, severe (Acute) Obstructive sleep apnea syndrome (Inactive) Peripheral neuropathy (05/10/18) Postmenopausal (Inactive 03/26/18) Pulmonary embolism (Acute) Rectal bleeding (Resolved) Severe major depression with psychotic features Spinal stenosis, lumbar region, with neurogenic claudication Tingling of both feet Vitamin D deficiency Weight gain Surgical History Appendectomy Biopsy of breast Cholecystectomy History of hysterectomy Status post colonoscopy (Acute) Status post oophorectomy Social History (Updated 06/24/19 @ 11:34 by Rachelle Marie) Does the Patient have a Healthcare Proxy: Yes Does Patient have a DNR?: No Does Patient have a Living Will?: No Does the Patient have a MOLST?: No Advance Directives on File or in chart?: No household members: none housing: house lives independently: Yes highest education level completed: high school graduate service: No fci: No current occupational status: disabled Hx Recent Travel (where): No how long ago did patient quit smokin alcohol intake: never substance use type: does not use seatbelt use: always do you feel safe at home: Yes HPI Additional HPI HPI Details: Maddison presents to the clinic for vomiting, red eyes, SHRESTHA, and sore throat. Respiratory Complaints Current symptoms: Reports headache(s) and Reports vomiting Review of Systems Const All systems reviewed are unremarkable except as noted in HPI and below Reports headache(s) Eyes Reports irritation and Reports other (erythema) ENT Reports headache(s) and Reports sore throat GI Reports vomiting Neuro Reports headache(s) Exam Const General: cooperative, healthy appearing and comfortable Nutritional Appearance: average body habitus and well nourished Eyes General: appearance abnormal, both eyes (eye erythematous, watery) Resp Effort Inspection: normal respiratory effort Assessment Plan Assessment Plan (1) Respiratory illness with fever: Code(s): J98.9 - Respiratory disorder, unspecified; R50.9 - Fever, unspecified Plan: Swabbed for COVID. PH out to quarantine patient. Orders: Orders: 2019 Coronavirus, COVID-19 JUAN Today Electronically Signed By: <Electronically signed by Migdalia Joshi NP> Date/Time Signed: 08/16/19 1519 Name Value Range Interpretation Code Description Data Suki rce(s) Supporting Document(s) ID Date Data Source [id number] 08/17/2019 08:07:00 PM EDT [facility] COVID19 CLINIC SPECIMEN Name Value Range Interpretation Code Description Data Suki rce(s) Supporting Document(s) COVID-19 JUAN (SARS-CoV-2) Not Detected Not Detected [facility] Testing was performed using the ben(R) SARS-CoV-2 test.This test was developed and its performance characteristicsdetermined by [employer]. This test has not beenFDA cleared or approved. This test has been authorized byFDA under an Emergency Use Authorization (EUA). This [...] result in this assay.Per formed at: [facility] [address] [id number] Director: Inga Reyes MD, Phone: [phone] ID Date Data Source [id number] 08/16/2019 03:10:00 PM EDT [facility] Name Value Range Interpretation Code Description Data Suki rce(s) Supporting Document(s) SARS CORONAVIRUS 2 RNA [facility] This lab was ordered by [facility] and reported by [facility]. ID Date Data Source [id number] 08/12/2019 01:16:00 PM EDT [facility] Patient Name: MADDISON BLANKENSHIP DO B: 1965 Sex: F Pt Unit #: [id number] Location:[facility] Provider: Visit Date/Time: 08/12/19 Primary Insurance: [facility] Secondary Insurance: Self Pay Intake Vital Signs 08/12/19 13:16 Current Height 5 ft 4 in Current Weight 296 lb Weight Measurement Method Standing Scale BMI 50.8 BP 130/78 Blood Pressure Location Lt brachial Position Sitting Respiration 16 Pulse 75 Pulse Source Pulse Oximeter Temp 98 F Temp Source Oral Pulse Oximetry (%) 98 Intake Visit Reasons: fatigue, Gastroesophageal reflux disease (GERD) Nurse Note: 53 year old female here for recheck on GERD. States that is improving. C/O her left leg going numb at times. She goes to [facility] in [place] for physical and mental issues. Vacuum Form Operator Required: No Accompanied by: Self / Same as Patient Is patient in pain?: No Allergies Penicillins Allergy (Intermediate, Verified 09/14/18 10:21) Rash estrogens, conjugated [From Premarin] Adverse Reaction (Severe, Verified 06/24/19 12:39) Other, not listed morphine Adverse Reaction (Intermediate, Verified 09/14/18 10:21) Chest pain 10/10 omeprazole Adverse Reaction (Verified 09/14/18 10:21) Myalgia Medications apixaban (Eliquis) 5 mg PO BID cholecalciferol (vitamin D3) (Vitamin D3) 1,000 units PO QDAY docusate sodium (Colace) 100 mg PO BID gabapentin 300 mg PO BID pantoprazole 40 mg PO BID polyethylene glycol 3350 (Miralax) 17 grams PO QDAY PRN sertraline 50 mg PO DAILY [Trazodone Hcl 1 tab PO DAILY] Fall Risk History of falls: No Ambulatory Aid:: None Gait/Transferring:: Weak Medications:: No High Risk Medications PHQ-2/9 Over the last 2 weeks, how often have you been bothered by any of the following problems? 1. Little interest or pleasure in doing things: not at all 2. Feeling down, depressed, or hopeless: several days Total score: 1 3. Trouble falling or staying asleep, or sleeping too much: not at all 4. Feeling tired or having little energy: not at all 5. Poor appetite or overeating: not at all 6. Feeling bad about yourself - or that you are a failure or have let yourself and your family down:several days 8. Moving or speaking so slowly that other people could have noticed? - Or the opposite - being so fidgety or restless that you have been moving around a lot more than usual: not at all 9. Thoughts that you would be better off or of hurting yourself in some way: several days If you checked off any problems, how difficult have these problems made it for you to do your work, take care of things at home, or get along with other people?: somewhat difficult Source: Developed by Drs. Justin Hernandez, Heidi Smith, Chriss Marquez and colleagues, with an educational dee from [employer]. HIV Testing Offer - ages 13-64 HIV testing Offer: No Requirement for HIV testing offer been met?: Declines today. Pretest education received and acknowledged SBIRT Annual Questionnaire Are you currently in recovery for alcohol or substance use?: No How many times in the past year have you had 4 or more drinks in a day?: None How many times in the past year have you used a recreational drug or used a prescription medication for nonmedical reasons?: None Do you need a note to return Do you need a note to return to daycare/school/sports/work: No Coronavirus Screening Screening Have you traveled outside of [facility] or [facility] in the last 14 days.: No Has patient experienced coronavirus symptoms: No [facility] Medical History (Updated 08/12/19 @ 14:01 by Hillary Woods DO) Adhesion of intestine (Inactive 03/26/18) Carpal tunnel syndrome, bilateral (Acute) Chest pain (Inactive) Elevated liver enzymes Epistaxis (Acute) Gastro-esophageal reflux disease without esophagitis Glucose intolerance (Chronic) Hemangioma of spine (Inactive 05/28/18) 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 (05/10/18) Mild cognitive impairment Mixed hyperlipidemia Non-cardiac chest pain (Ruled-out) Obesity (BMI 30-39.9) Obstructive sleep apnea hypopnea, severe (Acute) Obstructive sleep apnea syndrome (Inactive) Peripheral neuropathy (05/10/18) Postmenopausal (Inactive 03/26/18) Pulmonary embolism (Acute) Rectal bleeding (Resolved) Severe major depression with psychotic features Spinal stenosis, lumbar region, with neurogenic claudication Tingling of both feet Vitamin D deficiency Weight gain Surgical History Appendectomy Biopsy of breast Cho lecystectomy History of hysterectomy Status post colonoscopy (Acute) Status post oophorectomy Social History (Updated 06/24/19 @ 11:34 by Rachelle Marie) Does the Patient have a Healthcare Proxy: Yes Does Patient have a DNR?: No Does Patient have a Living Will?: No Does the Patient have a MOLST?: No Advance Directives on File or in chart?: No household members: none housing: house lives independently: Yes highest education level completed: high school graduate service: No fci: No current occupational status: disabled Hx Recent Travel (where): No how long ago did patient quit smokin alcohol intake: never substance use type: does not use seatbelt use: always do you feel safe at home: Yes HPI Additional HPI HPI Details: Patient is here today for further management of her pulmonary embolus and anticoagulation status as well as treatment of her reflux. She had what seems as though a fairly spontaneous pulmonary embolus. She has sedentary lifestyle and is obese but other than these risk factors she had had no specific injury and developed a pulmonary embolus. Her duplex scan of the lower extremities was negative. She had high d-dimer. CT angiogram confirmed multiple bilateral pulmonary emboli. Given this scenario I referred her both to cardiology where in May she had a negative stress test as well as to Dr. Nikolay Bee. Room air sat was 97 pulmonary function tests were completely normal he recommended minimum of 6 months anticoagulation. After 6 months anticoagulation he did suggest a hypercoagulable work-up and if any of that was positive to put her back on anticoagulation. He did not feel any further pulmonary work-up was needed he felt her chronic dyspnea on exertion was likely due to obesity and deconditioning and regular exercise regimen was recommended. Patient is anticoagulated on Eliquis. She does have sleep apnea but not compliant with CPAP. She has been referred to neurologist in terms of her memory issues and her chronic numbness and tingling. She does have some spinal stenosis issues in her back neurologist started her on some gabapentin.. She sees [facility] for her chronic depression she is taking trazodone and sertraline. She does have some constipation issues and is taking MiraLAX. She is taking Protonix for her reflux she also has some vitamin D deficiency she did do blood work she is not anemic chemistries are stable except for her fasting glucose of 133 hemoglobin A1c of 5.5 she remains prediabetic and weight loss has been advised she did start diabetic teaching classes but it was difficult given her history of encephalopathy to comprehend what they were saying she did start them but did not continuethem cholesterol 240 HDL is 49 LDL is 169. Vitamin D is 40. She is very dismayed that her energy has not improved. She is frustrated that when she tries to exercise she has not lost weight. She has actually lost 30 pounds from her maximum. 2013 she weighed 235. By 2019 she was up to 330. Shegained nearly 100 pounds. She is back down to 300 so she actually has lost 30 pounds over the past year she has lost 10% body weight which is excellent she still has 65 pounds to get off to get back down to her weight from 6 years ago but she certainly has a good start she is frustrated that her energy level has not improved she does have ongoing anxiety and depression and follows at mental health she is on low-dose sertraline she does take trazodone but says she is taken that for years she does not feel its her psychiatric medicines in terms of work-up for her dyspnea on exertion and fatigue she has had negative treadmill stress test and echocardiogram she does have a pulmonary embolus but she had had symptoms long before the pulmonary embolus occurred the only risk factor for that we can think of is her estrogen use and she has discontinued her Premarin patch she knows she should never restart estrogen she is not on any other sedating medication other than gabapentin she does not feel that is made her fatigue worse she does think it is helped her neuropathy some she does have untreated sleep apnea that may be why she feels exhausted despite exercising we discussed this she sayestherhe is willing to get another sleep study and try CPAP again she really does want to try to improve her energy level she is not wearing cock-up wrist splints she does get occasional numbness and tingling in her hands it is worse when she is sleeping it occasionally wakes her up. She feels her legsare better but on the left side she does still occasionally get numbness if she sits too long her reflux is much better but she gets breakthrough about once a month she is not actually having back pain it is more of the leg tingling that bothers her she puts her medications out in a pillbox she thinks she is taking them most of the time still has issues with memory has to write things down or shewill forget. GERD History of Present Illness Current symptoms: Reports heartburn (1x a month much better), regurgitation and nighttime cough (maybe couple times weekly); Denies dysphagia, hoarseness, sore throat, dental erosion, abdominal pain, hematemesis, vomiting, wheezing or worsening asthma Timing of symptoms: Reports after meals, intermittent (only about once a week) and lying down or sleeping Frequency: monthly Progression: improved Pertinent history: Reports none Previous treatment: Reports PPI Previous testing: Reports barium swallow Associated symptoms: Reports cough and diarrhea (once in a while); Denies abdominal distension, bloating, anorexia, choking, difficulty breathing, nausea or odynophagia Review of Systems Const All systems reviewed are unremarkable except as noted in HPI and below Reports as per HPI, Denies anor exia, Denies chills, Reports daytime sleepiness, Denies difficulty sleeping, Denies excessive sweating, Reports fatigue, Denies fever(s), Denies frequent falls, Deniesheadache(s), Reports lethargy, Denies malaise, Denies night sweats, Denies weakness, Reports weight gain and Reports weight loss Eyes Denies blurry vision, Denies eye discharge, Denies irritation, Denies itchy eyes, Denies loss of vision, Reports requires corrective lenses, Denies seeing flashes and Denies photophobia ENT Reports as per HPI, Reports abnormal hearing, Denies dysphagia, Denies vertigo, Denies dizziness, Reports dry mouth, Denies headache(s), Denies hoarseness, Denies lip swelling, Denies epistaxis, Denies nasal congestion, Reports nasal discharge, Denies neck pain, Denies odynophagia, Denies disequilibrium, Reports post nasal drip, Reports tinnitus, Denies sinus pain, Denies sinus pressure,Denies sore throat, Denies throat swelling and Denies tongue swelling Card Reports as per HPI, Reports chest pain at rest, Denies chest pain with activity, Denies diaphoresis,Denies syncope, Denies edema, Denies irregular heart rhythm, Denies leg ulcers, Reports leg edema, Denies lightheadedness, Denies dyspnea, Reports dyspnea on exertion, Denies orthopnea and Denies paroxysmal nocturnal dyspnea Resp Reports as per HPI, Denies chest congestion, Reports cough, Denies hemoptysis, Denies excessive phlegm production, Denies dyspnea, Reports dyspnea on exertion and Denies wheezing GI Denies abdominal pain, Reports belching, Denies melena, Denies bloating, Denies hematochezia, Denieschange in bowel habits, Denies change in stool character, Denies coffee ground emesis, Denies constipation, Denies dysphagia, Denies excessive flatus, Reports heartburn (1x a month much better),Reports diarrhea (once in a while), Denies nausea, Denies odynophagia, Denies vomiting and Denies hematemesis Genitourinary: Reports amenorrhea, post void dribbling, nocturia, urinary incontinence and urinary urgency; Denies abnormal menses, hot flashes, dysmenorrhea, dysuria, urinary hesitancy or vaginal discharge Musc Reports as per HPI, Denies abnormal gait, Reports back pain, Denies muscle cramps, Denies muscle weakness, Denies neck pain, Reports numbness, Reports radiating pain into limb, Reports stiffness and Reports tingling Skin/Breast Reports dry skin, Denies alopecia, Denies pruritus, Denies erythema and Denies rash Neuro Reports as per HPI, Reports abnormal hearing, Denies abnormal speech, Denies abnormal gait, Reports confusion, Denies vertigo, Denies dizziness, Denies syncope, Denies frequent falls, Denies headache(s), Denies lack of coordination, Denies loss of vision, Reports memory loss, Reports numbness, Denies other visual disturbances, Denies restless legs, Reports tingling, Reports paresthesias, Denies tremor(s), Denies disequilibrium and Denies weakness Psych Reports abnormal sleep pattern, Reports anxiety, Denies change in appetite, Reports confusion, Reports depression, Reports difficulty concentrating, Denies auditory hallucinations, Denies hopelessness, Reports irritability, Reports anhedonia, Reports memory loss, Reports mood swings, Denies panic attacks, Denies visual hallucinations, Denies halluc inations, Denies tactile hallucinations, Denies homicidal ideation and Denies suicidal ideation Endo Denies cold intolerance, Denies excessive sweating, Reports fatigue, Denies flushing, Denies heat intolerance, Denies polyphagia, Denies polydipsia and Denies polyuria Cesar/Lymph Denies easy bruising Aller/Immun Reports GI upset with certain foods, Denies urticaria, Denies itchy eyes, Denies lip swelling, Reports seasonal rhinorrhea, Denies throat swelling, Denies tongue swelling and Denies wheezing Exam Const General: comfortable, no acute distress and well groomed Nutritional Appearance: obese Orientation: oriented to person and oriented to place [facility] Head: normal to inspection, normocephalic, atraumatic and no scalp tenderness Ears: hearing grossly normal bilaterally, external ears normal, TM's normal bilaterally, EAC's normal and no periauricular adenopathy General nose exam: external nose normal, nares normal, no nasal polyps, septum normal and no nasal discharge Face and sinus: normal facial exam and sinuses nontender Mouth: oral mucosae normal, lip normal, tongue normal, oropharynx normal and moist mucous membranes Throat: posterior oropharynx normal Neck Neck: normal visual inspection, full ROM, no lymphadenopathy, supple, nontender and no JVD present Neck mass: No Thyroid: thyroid normal Carotids: normal carotid upstroke and no bruits Lymphatic: no lymphadenopathy noted Resp Effort Inspection: normal respiratory effort Auscultation: clear to auscultation bilaterally Cardio Rate: regular rate Rhythm: regular rhythm Heart Sounds: S1 normal and S2 normal Pulses: posterior tibial pulses present GI Inspection: No abdominal distension and Yes obesity Palpation: nontender Auscultation: normal bowel sounds Other: Abdomen is morbidly obese soft and nontender Musc Thoracic/Lumbar Spine: thoraco-lumbar spasm on the left greater than right, no thoracic spinal tenderness and no lumbar spinal tenderness Other: Negative straight leg raising 5 out of 5 strength +1 patellar reflex on the left +2 on the right Skin Rashes: no rashes Wounds: no wounds Hair: normal Neuro General: patient alert, patient awake and oriented Patient Orientation: Person, Place and Time (Month day of the week year not exact date) Cranial Nerves: PERRL, no nystagmus, facial strength normal, tongue midline, able to rotate head bilaterally and able to elevate shoulders bilaterally Speech: speech normal Gait: normal gait Motor: muscle tone normal throughout and strength 5/5 throughout Sensory Exam: no sensory deficits noted (No sensory deficits on exam. EMG confirms bilateral carpaltunnel despite negative Tinel's and Phalen EMG confirms left L5 radiculopathy although straight leg raising is negative and strength is intact) Extrem General: no calf tenderness, normal gait, no cyanosis, no edema and no limp Other: Trace pedal edema Psych Appearance: well kempt Speech and Movement: speech clear and slowed movement Mood: anxious mood and irritable mood Affect: anxious affect and irritable affect Attitude: cooperative Thought Process: normal Thought Content: normal Insight: limited Judgment: limited Assessment Plan Assessment Plan (1) Gastro-esophageal reflux disease without esophagitis: Comment: Clara scope 2017-HH and GERD SNOMED Code(s): 912109951 Category: Medical Plan - iHllary Woods, DO: Generally well controlled on pantoprazole twice daily. Last endoscopy 2017 reflux precautions discussed she occasionally forgets her evening pantoprazole but is doing her best to remember to puther pi lls out weekly in her pillbox (2) Carpal tunnel syndrome, bilateral: Status: Acute Comment: on EMG with Mitch Code(s): G56.03 - Carpal tunnel syndrome, bilateral upper limbs SNOMED Code(s): 56852726 Category: Medical (3) Obstructive sleep apnea hypopnea, severe: Status: Acute Comment: CPAP 14CM ADVISED 2018 BUT SHE REFUSED Code(s): G47.33 - Obstructive sleep apnea (adult) (pediatric) SNOMED Code(s): 07470461 Category: Medical Plan - Hillary Woods, DO: 1 of her main complaints today is severe fatigue despite 30 pound weight loss and trying to recondition with exercise. Although she [...] her fatigue to improve she is agreeable. (4) Glucose intolerance: Status: Chronic Comment: mild neuropathy on EMG Code(s): E74.39 - Other disorders of intestinal carbohydrate absorption SNOMED Code(s): 99224262 Category: Medical Plan - Hillary Woods, DO: Although her A1c is still in the 5 range her fasting blood sugar is 133 and she has mild polyneuropathy which is most likely due to prediabetes on EMG with Dr. Wiggins he started her on gabapentin I am reluctant to increase the dose given her complaints of fatigue probably related not to gabapentin but to untreated sleep apnea she has lost 30 pounds over the past year she will continue low-carb diet continue walking on her treadmill recheck labs in 3 months she would like to try to get back down to her previous weight of 235 and I think that is a reasonable goal (5) Peripheral axonal neuropathy: Status: Chronic Onset Date: 05/28/18 Comment: Possibly from early diabetes-does also have lumbar spinal stenosis- repeating EmG Code(s): G60.8 - Other hereditary and idiopathic neuropathies SNOMED Code(s): 733489948 Category: Medical Plan - Hillary Woods, DO: In addition to her peripheral axonal neurop athy and L5 chronic radiculopathy was noted she is on gabapentin for both of these due to complaint of fatigue will leave the dose at 300 twice daily continue to lose weight continue to exercise as tolerated (6) Spinal stenosis of lumbar region with neurogenic claudication: Status: Chronic Onset Date: 05/28/18 Comment: Stenosis is worse at A5-B6-yrjthi range- EMG shows L5 mild stenosis, but there are multiple hemangiomas throughout her lumbar spine that need to be evaluated by surgeon Code(s): M48.062 - Spinal stenosis, lumbar region with neurogenic claudication SNOMED Code(s): 60117149 Category: Medical Plan - Hillary Woods, DO: She is able to walk about 15 minutes on a treadmill she is trying to do that twice a day she is onlygetting worsening back pain if she sits too long or does more than 15 minutes it seems as though herspinal stenosis symptoms are stable she has not had any change in her incontinence she has had urge incontinence and wears a pad but no saddle paresthesias we discussed she could go back to Dr. Wiggins but at this point in time she declines she does not want to try injections she also has carpal tunnel she is not wearing splints we talked about wearing splints she is most concerned today about her fatigue (7) Pulmonary embolism: Status: Acute Comment: numerous-continue eliquis until Anshul says ok to quit Code(s): I26.99 - Other pulmonary embolism without acute cor pulmonale SNOMED Code(s): 11220184 Category: Medical Plan - Hillary Woods DO: Patient had further work-up with senior service aide. Both PFTs stress test with cardiology all additional work-up due to her pulmonary emboli has been negative. PFTs and pulse oximetry normal. Once I see her back in 3 months we will discontinue Eliquis and do hypercoagulable work-up. 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 we will see her back after she has a chance to do her sleep study Orders Other Medications: Discontinued: doxycycline hyclate w/food, avoid dairy Discontinued Reason: Clinically Indicated 100 mg PO BID 20 tabs 0RF J01.00 Follow Up: [facility] GERD PE BMI 50 recheck 3 months 40 minutes (pre) prediabetes repreat sleep study to get back on CPAP Electronically Signed By: <Electronically signed by Hillary Woods DO> Date/Time Signed: 08/12/19 1546 Name Value Range Interpretation Code Description Data Suki rce(s) Supporting Document(s) ID Date Data Source [id number] 08/09/2019 09:38:00 AM EDT [facility] Name Value Range Interpretation Code Description Data Suki rce(s) Supporting Document(s) Leukocytes [#/volume] in Blood by Automated count 5.6 10*3/uL 4.45-10 .71 N [facility] Erythrocytes [#/volume] in Blood by Automated count 4.93 10*6/uL 4.20 -5.40 N [facility] Hemoglobin [Moles/volume] in Blood 14.5 g/dL 10.7-15.4 N [facility] Hematocrit [Volume Fraction] of Blood by Automated count 44.9 % 3 7-47 N [facility] Erythrocyte mean corpuscular volume [Ent itic volume] in Cord blood by Automated count 91.1 fL 80-96 N [facility] Erythrocyte mean corpuscular hemoglobin [Entitic mass] by Automated count 29.4 pg 27-31 N [facility] Erythrocyte mean corpuscular hemoglobin concentration [Mass/volume] in Cord blood 32.3 g/dL 33-37 Below low normal [facility] Erythrocyte distribution width [Entitic volume] by Automated count 14 % 11-15 N [facility] Platelets [#/volume] in Blood by Automated count 244 10*3/uL 130-472 N [facility] Platelet mean volume [Entitic volume] in Blood 10.9 fL 9.1-13.1 N [facility] Neutrophils/100 leukocytes in Blood by Automated count 56.0 % 41- 77 N [facility] Neutrophils [#/volume] in Blood by Automated count 3.2 U 1.7-7.6 N [facility] Lymphocytes/100 leukocytes in Blood by Automated count 35.5 % 14- 46 N [facility] Lymphocytes [#/volume] in Blood by Automated count 2.0 U 0.6-4.6 N [facility] Monocytes/100 leukocytes in Blood by Automated count 5.0 % 4-12 N [facility] Monocytes [#/volume] in Blood by Automated count 0.3 U 0.2-1.2 N [facility] Eosinophils/100 leukocytes in Blood by Automated count 2.8 % 0-7 N [facility] Eosinophils [#/volume] in Blood by Automated count 0.2 U 0.0-0.5 N [facility] Basophils/100 leukocytes in Blood by Automated count 0.7 % 0.4-1 .3 N [facility] Basophils [#/volume] in Blood by Automated count 0.0 U 0.0-0.2 N [facility] NUCLEATED RED BLOOD CELL 0 % [facility] NUCLEATED RED BLOOD CELL# 0 U [facility] Immature granulocytes [Presence] in Blood by Automated count 0-2 N [facility] Immature granulocytes [#/volume] in Blood by Automated count 0.0 U 0-0.1 N [facility] Manual Differential panel - Blood NO [facility] ID Date Data Source [id number] 08/09/2019 10:36:00 AM EDT Health system Name Value Range Interpretation Code Description Data Suki rce(s) Supporting Document(s) Urea nitrogen [Mass/volume] in Serum or Plasma 13 mg/dL 9-23 N [facility] Sodium [Moles/volume] in Serum or Plasma 142 mmol/L 132-146 [facility] Potassium [Moles/volume] in Serum or Plasma 3.8 mmol/L 3.5-5.5 [facility] Chloride [Moles/volume] in Serum or Plasma 111 mmol/L 99-109 Above high normal [facility] Carbon dioxide, total [Moles/volume] in Serum or Plasma 22 mmol/L 20 -31 N [facility] Anion gap in Serum or Plasma 13 mmol/L 8-16 N [facility] Glucose [Mass/volume] in Serum or Plasma 133 mg/dL 74-106 Above high normal [facility] Creatinine 1.0 mg/dL 0.5-1.1 [facility] Glomerular filtration rate/1.73 sq M.pre dicted [Volume Rate/Area] in Serum or Plasma 58 ml/min ABOVE [address] [facility] ital Alanine aminotransferase [Enzymatic acti vity/volume] in Serum or Plasma by With P-5'-P 29 U/L 10-[address] [facility] Aspartate aminotransferase [Enzymatic ac tivity/volume] in Serum or Plasma by With P-5'-P 21 U/L 0-33 N [facility] pital Alkaline phosphatase [Enzymatic activity/volume] in Serum or Plasma 103 U/L 45-129 N [facility] Calcium [Mass/volume] in Serum or Plasma 9.4 mg/dL 8.5-10.1 N [facility] Bilirubin.total [Mass/volume] in Serum or Plasma 0.5 mg/dL 0.3-1.2 N [facility] Albumin [Mass/volume] in Serum or Plasma by Bromocresol purple (BCP) dye binding method 3.9 g/dL 3.2-4.[address] [facility] Protein [Mass/volume] in Serum or Plasma 7.0 g/dL 5.7-8.2 [facility] ID Date Data Source [id number] 08/09/2019 10:48:00 AM EDT Health system Name Value Range Interpretation Code Description Data Suki rce(s) Supporting Document(s) Hemoglobin A1c % 5.5 % 4.0-6.0 [facility] The following ranges may be u sed for interpretation of results: HGBA1C degree of glucose control: Greater than 8%: Action Suggested * Less than 7%: Goal of Diabetic Therapy Less than 6%: NormalFactors such as duration of diabetes, adherence to therapyand the age of the patient should also be considered inassessing the degree of blood glucose control.* High risk of developing intermediate complications such asretinopathy, nephropathy, neuropathy, cardiopathy, etc. Some danger of hypoglycemic reaction in Type I diabetics.Some glucose intolerant individuals and "Sub Clinical"diabetics may demonstrate HGBA1C levels in this area. Glucose mean value [Moles/volume] in Blood Estimated f rom glycated hemoglobin [facility] mg[facility]dL [facility] An A1C of 7% - the goal of diabetic ther apy - is equivalentto an EAG of 154 mg/dl. ID Date Data Source [id number] 08/10/2019 06:06:00 AM EDT Health system Name Value Range Interpretation Code Description Data Suki rce(s) Supporting Document(s) 25-Hydroxyvitamin D2+25-Hydroxyvitamin D3 [Mass/volume ] in Serum or Plasma 40.9 ng/mL 30.0-100.0 [facility] Vitamin D deficiency has been defined by the [place] ofMedicine and an Endocrine Society practice guideline as alevel of serum 25-OH vitamin D less than 20 ng/mL (1,2).The Endocrine Society went on to further define vitamin Dinsufficiency as a level between 21 and 29 ng/mL (2).1. IOM ([place] of Medicine). 2010. Dietary reference intakes for calcium and D. [place]: The National Academies Press.2. Juliet MF, Sahil NC, Brissa SHRESTHA, et al. Evaluation, treatment, and prevention of vitamin D deficiency: an Endocrine Society clinical practice guideline. JCEM. 2010; 96(7):1911- 30.Performed at: RN - [facility] [place] [id number] Director: Inga Reyes MD, Phone: [phone] ID Date Data Source [id number] 08/09/2019 10:36:00 AM EDT Health system Name Value Range Interpretation Code Description Data Suki rce(s) Supporting Document(s) Triglycerides 110 mg/dL 0-150 N [facility] Cholesterol 240 mg/dL 120-200 Above high normal [facility] HDL Cholesterol 49 mg/dL [facility] HDL Less than 40 mg/dL: Major risk for CHDHDL Greater than 59 mg/dL: Low risk for CHD LDL Cholesterol, Calc 169 mg/dL 0-100 Above high normal [facility] ID Date Data Source [id number] 07/20/2019 12:58:00 PM EDT [facility] Patient Name: MADDISON BLANKENSHIP DO B: 1965 Sex: F Pt Unit #: [id number] Location:[facility] Provider: Visit Date/Time: 07/20/19 Primary Insurance: [facility] Secondary Insurance: Self Pay Intake Vital Signs 07/20/19 12:59 Current Height 5 ft 4 in Current Weight 298 lb Weight Measurement Method Standing Scale BMI 51.1 BP 110/74 Blood Pressure Location Lt brachial Position Sitting Respiration 20 Pulse 82 Pulse Strength Normal Pulse Source Pulse Oximeter Temp 97.9 F Temp Source Oral Pulse Oximetry (%) 97 Oxygen Delivery Method room air Intake Visit Reasons: Office visit Nurse Note: Pt states she has had a stuffy nose for 3 weeks. She also has a reddend eye since May.She states she had a bump on her u pper lid that went away and she now has an area that is split on the same lid that she noticed today Vacuum Form Operator Required: No Accompanied by: Self / Same as Patient Is patient in pain?: Yes (Throat) Pain scale (1-10): 2 Allergies Penicillins Allergy (Intermediate, Verified 09/14/18 10:21) Rash estrogens, conjugated [From Premarin] Adverse Reaction (Severe, Verified 06/24/19 12:39) Other, not listed morphine Adverse Reaction (Intermediate, Verified 09/14/18 10:21) Chest pain 10 omeprazole Adverse Reaction (Verified 09/14/18 10:21) Myalgia Medications apixaban (Eliquis) 5 mg PO BID cholecalciferol (vitamin D3) (Vitamin D3) 1,000 units PO QDAY docusate sodium (Colace) 100 mg PO BID doxycycline hyclate 100 mg PO BID gabapentin 300 mg PO BID pantoprazole 40 mg PO BID polyethylene glycol 3350 (Miralax) 17 grams PO QDAY PRN sertraline 50 mg PO DAILY [Trazodone Hcl 1 tab PO DAILY] Post menopausal: Yes HIV Testing Offer - ages 13-64 Requirement for HIV testing offer been met?: Declines today. Pretest education received and acknowledged SBIRT Annual Questionnaire How many times in the past year have you had 4 or more drinks in a day?: None How many times in the past year have you used a recreational drug or used a prescription medication for nonmedical reasons?: None Do you need a note to return Do you need a note to return to daycare/school/sports/work: No [facility] Medical History (Updated 07/20/19 @ 14:00 by ARSH Ryan) Adhesion of intestine (Inactive 03/26/18) Carpal tunnel syndrome, bilateral (Acute) Chest pain (Inactive) Elevated liver enzymes Epistaxis (Acute) Gastro-esophageal reflux disease without esophagitis Glucose intolerance (Chronic) Hemangioma of spine (Inactive 05/28/18) Herniated lumbar intervertebral disc 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 (05/10/18) Mild cognitive impairment Mixed hyperlipidemia Non-cardiac chest pain (Ruled-out) Obesity Obesity (BMI 30-39.9) Obstructive sleep apnea hypopnea, severe (Acute) Obstructive sleep apnea syndrome (Inactive) Peripheral neuropathy (05/10/18) Postmenopausal (Inactive 03/26/18) Pulmonary embolism (Acute) Rectal bleeding (Resolved) Severe major depression with psychotic features Spinal stenosis, lumbar region, with neurogenic claudication Tingling of both feet Vitamin D deficiency Weight gain Surgical History Appendectomy Biopsy of breast Cholecystectomy History of hysterectomy Status post colonoscopy (Acute) Status post oophorectomy Social History (Updated 06/24/19 @ 11:34 by Rachelle Marie) Does the Patient have a Healthcare Proxy: Yes Does Patient have a DNR?: No Does Patient have a Living Will?: No Does the Patient have a MOLST?: No Advance Directives on File or in chart?: No household members: none housing: house lives independently: Yes highest education level completed: high school graduate service: No fci: No current occupational status: disabled Hx Recent Travel (where): No how long ago did patient quit smokin alcohol intake: never substance use type: does not use seatbelt use: always do you feel safe at home: Yes HPI Additional HPI HPI Details: 53yo female with PMH hx PE, hyperlipidemia, GERD, cognitive impairment, allergies, depression who presents with nasal congestion x 3wks. Also has had redness RT eye on and off the last month, now more frequently. Will use her finger to unplug her nose and then it bleed from that nostril. Will plug with tissue and then usually resolved by 1hr. No hx bloody noses. States she has had nasal infections previously and been oral antibiotics. Has not had any recent infections, has been 1yr. Has not had any sinus pressure. Uses oil heat. Does not use a humidifer Has not tried nasal saline Hx rectal bleeding, saw Dr. ARMAS 06/24/19 - was advised likely d/t hemorrhoids/constipation - Dr. Rodrigez not recommend a colonoscopy as she had colonoscopy in 2017. Has not had any rectal bleeding since then. However stool has been small balls. Has been taking miralax daily as well as colace twicedaily. Currently on eliquis 5mg bid d/t recent PE. Has appt today with pulmonology Review of Systems Const Denies chills, Denies fatigue, Denies fever(s), Denies headache(s) and Denies poor appetite Eyes Denies blurry vision, Denies change in vision, Denies eye discharge, Denies dry eyes, Reports irritation, Denies itchy eyes and Reports other (has a black spot that moves with her vision/comes/goes, plans to make appt) ENT Denies vertigo, Denies dizziness, Denies otalgia, Denies headache(s), Denies mouth lesions, Reports nasal congestion, Denies neck mass, Denies post nasal drip, Reports sore throat (on and off) and Reports other (gums sore with eating crunchy foods) Resp Denies chest congestion and Denies cough GI Denies melena, Denies hematochezia, Reports constipation, Denies nausea and Denies vomiting Neuro Denies vertigo, Denies dizziness and Denies headache(s) Endo Denies fatigue Aller/Immun Denies itchy eyes Exam Const General: cooperative, healthy appearing, comfortable, no acute distress, well developed and well groomed Nutritional Appearance: obese HENMT Ears: TM's normal bilaterally and EAC's normal General nose exam: nasal discharge bloody on the left and purulent on the left Face and sinus: sinus tenderness frontal and maxillary Mouth: oral mucosae normal and moist mucous membranes Throat: posterior oropharynx abnormal erythema; no cobblstoning, no edema and no exudates and no postnasal drainage Other: NASALLY CONGESTED Eyes Conjunctivae: conjunctival abnormality bilaterally (injected) Sclera: scleral abnormality bilaterally (injected) EOM: EOM intact bilaterally Neck Neck: no lymphadenopathy Resp Effort Inspection: normal respiratory effort Auscultation: clear to auscultation bilaterally, lung sounds not diminished, no rhonchi and no wheezes Cardio Rhythm: regular rhythm Heart Sounds: S1 normal and S2 normal Neuro Cranial Nerves: CN's II-XII intact bilaterally Psych Mood: congruent mood Affect: normal affect Attitude: cooperative Assessment Plan Assessment Plan (1) Acute non-recurrent maxillary sinusitis: Code(s): J01.00 - Acute maxillary sinusitis, unspecified Plan - ARSH Ryan: Treat with doxycycline 100mg bid x 10days. Advised not to take within 2hrs of eating dairy. Encouraged to take with food. Discussed possible side effects. Recommended nasal saline twice daily. Medications: New: doxycycline hyclate w/food, avoid dairy 100 mg PO BID 20 tabs 0RF (2) Epistaxis: Status: Acute Code(s): R04.0 - Epistaxis SNOMED Code(s): 244049749 Category: Medical Plan - ARSH Ryan: Advised epistaxis could be d/t sinus infection. However is currently on eliquis 5mg bid - has appt today with pulmonology - encouraged to mention this today. Discussed ENT referral if persists. Additional Comments Additional Comments: Rectal bleeding resolved. Encouraged to have repeat CBC done. Recommended adding benefiber to miralax daily as Maddison reports her stools are still hard. Advised to contact office if questions/concerns arise or s/s do not improve/worsen. Has f/u appt with Dr. ARMAS 08/12/19. Electronically Signed By: <Electronically signed by Addis Esteban> Date/Time Signed: 07/20/19 1404 Name Value Range Interpretation Code Description Data Suki rce(s) Supporting Document(s) ID Date Data Source [id number] 07/06/2019 11:40:00 AM EDT [facility] (ELMA Esteban ardiology) Name Value Range Interpretation Code Description Data Suki rce(s) Supporting Document(s) U/S Venous Bilateral <pending> [facility] ([facility] MA Cardiology) ID Date Data Source [id number] 06/28/2019 02:15:00 PM EDT [facility] [address] [place] [address] [phone] NAME SEX PT STATUS ACCOUNT NUMBER MADDISON BLANKENSHIP REG REF [id number] ORDERING PHYSICIAN LOCATION MEDICAL RECORD NO. MAINE HAMSU HANK EKG [id number] ATTENDING PHYSICIAN DATE OF DATE OF EXAM/TIME Hillary Woods DO 1965 06/28/19699 TYPE / EXAM NM Nuclear Stress Test REASON FOR EXAM R07.2 CP, E78.2 HYPERLIPIDEMIA, R06.02 SOB, R00.2 PALPS, Z66.711 DATE OF TEST: 06/28/19 TECHNIQUE: Gaited myocardial perfusion SPECT was performed using rest-stress sequence. Technetium 99m sestamibi; 10.14 millicurie at rest and 31.7 millicurie at peak exercise was injected. EKG was reported separately. FINDINGS: 1. There is normal perfusion of all segment of left ventricular myocardium at rest and with exercise. 2. Significant breast attenuation noted at rest level. 3. Above findings were confirmed with bulls eye SPECT analysis. 4. Gated wall motion analysis showed normal wall motion, ejection fraction of 69%. CONCLUSION: 1. Normal perfusion of all segment of left ventricular myocardium. 2. No evidence of ischemia or infarction. 3. Significant breast attenuation at rest. 4. Normal LV function. Reported By Shane Fajardo MD on 06/28/19 1415 Signed By Shane Fajardo MD on 07/04/19 0971 <<Signature on File>> Date Time CC: Shane Fajardo M.D.; Hillary Woods DO Techn: MARLYN Trans Dt/Tm: 06/28/19 1602 Trans by: MELECIO Judge Dt/Tm: 2355: Total DLP = 0.00 mGy-cm : Total Radiation Dose = 0.0000 mSv Lifetime Dose: 2.5547 mSv Name Value Range Interpretation Code Description Data Suki rce(s) Supporting Document(s) ID Date Data Source [id number] 06/28/2019 10:20:00 AM EDT [facility] ST RES TEST CONSULTATION NAME: MADDISON BLANKENSHIP : 1965 AGE: 53 MR#: [id number] ADMITTING DATE: 06/28/[address]: DISCHARGE DATE: ATTENDING DR: MAINE AYON ROOM#: PRE-TEST EKG Sinus rhythm, nonspecific changes. Patient exercised on Lexiscan protocol, 0.4 mg of Lexiscan given over 20 seconds after which Cardiolite was injected. Resting heart rate 51, resting blood pressure 116/80. Peak heart rate 82,peak blood pressure 106/60. SYMPTOMS WITH STRESS TEST No chest pain. EKG CHANGES WITH EXERCISE No additional ST or T-wave changes at peak exercise or in recovery. ARRHYTHMIAS None. EKG ANALYSIS No ST-T changes after Lexiscan. SUGGESTIONS Pending Cardiolite results, dictated separately. CC: Hillary Woods DO <Electronically signed by Shane Fajardo MD> Shane Fajardo MD 07/04/19 1447 Shane Fajardo M.D. Cosigner: D: STEFAN 06/28/19 1020 T: BEATA 06/28/19 1052 CC: Shane Fajardo M.D.; Hillary Woods DO LAST EDIT: Name Value Range Interpretation Code Description Data Suki rce(s) Supporting Document(s) ID Date Data Source [id number] 06/24/2019 11:25:00 AM EDT [facility] Patient Name: MADDISON BLANKENSHIP DO B: 1965 Sex: F Pt Unit #: [id number] Location:[facility] Provider: Visit Date/Time: 06/24/19 Primary Insurance: [facility] Secondary Insurance: Self Pay Intake Vital Signs 06/24/19 11:30 Current Height 5 ft 4 in Current Weight 296 lb Weight Measurement Method Standing Scale BMI 50.8 BP 118/64 Blood Pressure Location Lt brachial Position Sitting Respiration 20 Pulse 78 Pulse Strength Normal Pulse Source Palpation Temp 97.8 F Temp Source Oral Pulse Oximetry (%) 96 Oxygen Delivery Method room air Intake Visit Reasons: Blood in Stool, Pulmonary embolism Nurse Note: Patient presents for follow up from recent PE. She was hospitalized at [facility], sent home on Eliquis and followed up with Dr Rodriguez initially who referred her to cardiology and pulmonary. Supervisor Boarding note available in chart-mentions pt complaint of some rectal bleeding, noted hx of hemorrhoids, but to f/u with PCP regarding that. She is also scheduled for a stress test on 06/27. She says she has not had in about 10days ago.she says week before last it happened twice.it was bright red and on the stool.no black or tarry stool.stool was brown;she has BMS only every other day.she admits they are hard and she has to strain.she has used a stool softener in the past but notlately.totally clear scope in [address] at age 50 5- 2017she had a slight nose bleed two days ago but did not last long at all.she got it to quickly stop.she has had some nasal congestion.has had no recurrent nasal bleeding in few days.stopped omeperazole and does take the pantoprozale instead. She has no complaints of pain. she did stop the premarin patch from Jenni States medications unchanged but does not have list and unable to recall No new falls. Vacuum Form Operator Required: No Accompanied by: Self / Same as Patient Allergies Penicillins Allergy (Intermediate, Verified 09/14/18 10:21) Rash estrogens, conjugated [From Premarin] Adverse Reaction (Severe, Verified 06/24/19 12:39) Other, not listed morphine Adverse Reaction (Intermediate, Verified 09/14/18 10:21) Chest pain 01/06 omeprazole Adverse Reaction (Verified 09/14/18 10:21) Myalgia Medications apixaban (Eliquis) 5 mg PO BID cholecalciferol (vitamin D3) (Vitamin D3) 1,000 units PO QDAY docusate sodium (Colace) 100 mg PO BID gabapentin 300 mg PO BID pantoprazole 40 mg PO BID polyethylene glycol 3350 (Miralax) 17 grams PO QDAY PRN sertraline 50 mg PO DAILY [Trazodone Hcl 1 tab PO DAILY] Is last menstrual period known: No Post menopausal: Yes Patient : No Fall Risk Ambulatory Aid:: None Gait/Transferring:: Normal HIV Testing Offer - ages 13-64 Requirement for HIV testing offer been met?: Declines today. 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 (05/10/18) Mild cognitive impairment Mixed hyperlipidemia Non-cardiac chest pain (Ruled-out) Obesity Obesity (BMI 30-39.9) Obstructive sleep apnea hypopnea, severe (Acute) Obstructive sleep apnea syndrome (Inactive) Peripheral neuropathy (05/10/18) Postmenopausal (Inactive 03/26/18) Pulmonary embolism (Acute) Rectal bleeding (Chronic) Severe major depression with psychotic features Spinal stenosis, lumbar region, with neurogenic claudication Tingling of both feet Vitamin D deficiency Weight gain Surgical History Appendectomy Biopsy of breast Cholecystectomy History of hysterectomy Status post colonoscopy (Acute) Status post oophorectomy Social History (Updated 06/24/19 @ 11:34 by Rachelle Marie) Does the Patient have a Healthcare Proxy: Yes Does Patient have a DNR?: No Does Patient have a Living Will?: No Does the Patient have a MOLST?: No Advance Directives on File or in chart?: No household members: none housing: house marital status: lives independently: Yes [facility] education level completed: high school graduate service: No fci: No current occupational status: disabled Hx Recent Travel (where): No Smoking Status: Former smoker alcohol intake: never substance use type: does not use do you feel safe at home: Yes HPI Additional HPI HPI Details: Patient comes in today and has disability form from [employer]. She tells me she was again denied Social Security disability. Given her memory issues I have very hard time believing she was denied. Some days she does not even know the date. Today she said June 23 and then quickly ask if that was correct. I did tell her it was correct so I am she does not know the date she did know my name she could not remember the name of the doctor that saw her last month in my absence she just remembered he was a man she could not remember his name. She remembered she had seen both a epic cadence specialists and a lung specialist. She did not remember deta ils of either visit. She could not tell me who prescribed her Premarin patch. [facility]. She says she did remember me calling and giving her strict instructions to stop it. She says it scared her when I told her if she kept taking it it could kill her and the nurse called and told herthe same thing and she threw the box in the garbage. I have listed it as an allergy as it is likelythe cause of her pulmonary emboli. She refers to them as spots on her lung. I told her it is in a spot it is a clot and they were numerous. I explained to her that unless she has a lot of bleeding she needs to keep taking her Eliquis I reconciled her medicines it looks like she is taking Eliquis. She says she uses pillbox like I recommended and she sabillon off on a sheet of paper when she takes morning and night. She fills it once a week and then she keeps track on a sheet of paper whether she is taking it morning and night so she does not forget. She definitely has memory issues. She is spelled world backwards DL DWAYNELD. I gave her ball flag and tree and about 5 minutes later askedher to recall the 3 objects. Immediate recall was fine but 5 minutes later she could only remember the tree. She definitely has memory and concentration issues. She has consistently reported that this happened after a bout of herpes encephalitis. She is concerned that she had a nosebleed last week. She reports she held a washcloth over it and within just a couple minutes it stopped she has not had another one. She admits at the time she had some nasal congestion. That comes and goes with allergies. Last time I saw her she was concerned about tinnitus she had the hearing test.. Tinnitus comes and goes. She denies any ear pain. She denies any ear drainage. She is limited with what she can do with her hands because they will get numb and tingly after use but she does notwant to have carpal tunnel surgery she does wear bracing. At night and that does help some she is had EMG nerve conduction that confirms carpal tunnel. She also admits she has had some rectal bleeding. She mentioned it to the voltage regulator assembler. That is part of why I called her in today for follow-up sooner than planned. Ho wever she says it is only very small amount it is like streaks on the poop.. The stool is normal brown color. It has happened twice in the last month. Last time about 10 days ago. But she says it has happened before she was on the blood thinner. She admits she moves her bowels only about every other day. She has tried to lose weight but is been very difficult. She has had no unexplained weight loss. She is instead battled with weight gain. Appetite is normal. She continues to follow at mental health monthly. She is filling her trazodoneand sertraline and is taking them daily. Her heaviness in the chest has improved. I reviewed Dr. Bee is worried about sleep apnea. She did not convey to him that she does have sleep apnea diagnosed in 2018 and that she refuses to wear her CPAP. We will fax Dr. Bereket Romeo's report to him so he is aware she does carry the diagnosis. He is going to have her come back for some PFTs. 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 Colonoscopy in 2017 it was completely clear. She admits she has had some intermittent rectal bleeding long before shewas on Eliquis. She was not anemic during her admission I think reasonable approach is recheck her CBC. If she still is not anemic given Covid 19 pandemic probably should postpone any.. colonoscopy for the immediate future unless she has become anemic. She agrees. She will continue her Eliquis we discussed there is difference between a few streaks of blood on the stool and toilet full of blood. Should she have toilet full of blood she should call 911 and get to the ER same with a nosebleedif she within 5 minutes can get it stopped with pressure not to worry if she has a gusher that she cannot control it and obviously she should call 911 last visit I put her on Protonix twice a day forher refractory reflux and that has been stable no trouble swallowing she was supposed to get follow-up labs for her fatty liver her chemistries in the hospital liver test looked good she still needs to do her vitamin D and her lipids she has not been back to the neurologist she does still have somenumbness in her toes if she does more than about 15 or 20 minutes walking but that is the only time never gets it just plain sitting. Review of Systems Const Denies anorexia, Denies body aches, Reports daytime sleepiness, Reports difficulty sleeping, Denies excessive sweating, Reports fatigue, Denies fever(s), Denies frequent falls, Reports headache(s), Reports increased appetite, Denies malaise, Denies night sweats, Denies poor appetite, Denies weakness and Reports weight gain Eyes Denies blurry vision, Denies diplopia, Denies eye discharge, Denies dry eyes, Denies irritation and Reports requires corrective lenses ENT Reports abnormal hearing, Denies dysphagia, Denies vertigo, Denies dizziness, Reports dry mouth, Denies ear discharge, Denies otalgia, Denies facial pain, Reports headache(s), Denies hoarseness, Reports epistaxis, Denies mouth lesions, Denies mouth pain, Denies nasal congestion, Reports nasal discharge, Denies nasal trauma, Denies neck pain, Denies odynophagia, Reports disequilibrium, Reportspost nasal drip, Reports tinnitus, Denies sinus pressure, Denies sore throat and Denies throat swelling Card Reports as per HPI, Reports chest pain (Had chest pressure and was diagnosed with pulmonary embolus and continuing work-up with both cardiology and pulmonary she does tell me the chest pressure is gone still short of breath with exertion shortness of breath at rest has resolved), Denies chest pain at rest, Denies chest pain with activity, Denies diaphoresis, Denies syncope, Denies rapid heart rate, Denies pedal edema, Denies edema, Denies irregular heart rhythm, Denies claudication, Denies leg edema, Denies lightheadedness, Denies palpitations, Reports dyspnea, Reports dyspnea on exertion, Denies orthopnea and Denies paroxysmal nocturnal dyspnea Resp Reports as per HPI, Denies change in phlegm color, Denies chest congestion, Denies cough, Denies hemoptysis, Denies pain on inspiration, Denies pain with cough, Reports dyspnea, Reports dyspnea on exertion and Denies wheezing GI Reports as per HPI, Denies abdominal pain, Denies melena, Reports hematochezia (Not in the stool buton the stool see HPI), Denies change in bowel habits, Denies tenesmus, Denies change in stool character, Reports constipation, Denies dysphagia, Denies dyspepsia, Denies heartburn, Denies diarrhea, Denies loose stools, Denies nausea, Denies odynophagia, Denies vomiting and Denies hematemesis Denies abnormal vaginal bleeding, Denies hematuria, Denies urinary frequency, Denies difficulty voiding, Denies post void dribbling, Denies nocturia, Reports hot flashes, Denies urinary incontinence, Denies urinary hesitancy, Denies urinary urgency and Denies vaginal dryness Musc Reports back pain, Denies myalgias, Denies atrophy, Denies deformity, Reports arthralgias, Denies muscle weakness, Denies neck pain, Reports numbness, Reports radiating pain into limb, Reports stiffness and Reports tingling Skin/Breast Denies new lesions, Denies rash, Denies skin pain, Denies unusual bruising and Denies wounds Neuro Reports as per HPI, Reports abnormal hearing, Denies vertigo, Denies dizziness, Denies syncope, Denies frequent falls, Reports headache(s), Reports memory loss, Reports numbness, Denies convulsions, Denies seizure-like activity, Reports tingling, Reports paresthesias, Reports disequilibrium and Denies weakness Psych Reports as per HPI, Reports anxiety, Reports depression, Reports difficulty concentrating, Denies irritability, Reports memory loss, Denies panic attacks, Denies homicidal ideation and Denies suicidal ideation Endo Reports as per HPI, Denies cold intolerance, Denies excessive sweating, Reports fatigue, Reports heat intolerance and Denies palpitations Cesar/Lymph Reports easy bleeding and Reports easy bruising Aller/Immun Denies GI upset with certain foods, Denies urticaria, Reports seasonal rhinorrhea, Denies throat swelling and Denies wheezing Exam Const General: cooperative, comfortable, well groomed and anxious Orientation: alert, awake, oriented to person (Called me by my appropriate name), not oriented to place (knew she was in my office but not exact location, knows it was in [facility] and [facility] but not the town) and oriented to time (Knew it was June 24, 2019 did not know who the president was could not spell world backwards remembered just 1 object out of 3 on recall) [facility] Ears: TM's normal bilaterally General nose exam: external nose normal and nares normal; no epistaxis and no nasal discharge noted Face and sinus: sinuses nontender and face symmetric Mouth: oral mucosae normal Neck Neck: normal visual inspection, full ROM, no lymphadenopathy, trachea midline, supple, nontender andno JVD present Neck mass: No Thyroid: thyroid normal Carotids: normal carotid upstroke and no bruits Lymphatic: no lymphadenopathy noted Resp Effort Inspection: normal respiratory effort Auscultation: clear to auscultation bilaterally Cardio Rate: regular rate Rhythm: regular rhythm Heart Sounds: S1 normal, S2 normal and no murmurs Pulses: posterior tibial pulses present GI Inspection: Yes obesity Palpation: soft, no hernias, no masses and tender (Generalized tenderness without rebound or guarding) Auscultation: normal bowel sounds Musc Thoracic/Lumbar Spine: straight leg raise negative bilaterally, paraspinal muscle tenderness, no thoracic spinal tenderness and no lumbar spinal tenderness Pelvis: sciatic notch tenderness Skin Rashes: no rashes Neuro General: tone normal, moves all extremities and no focal motor deficits Cognition: abnormal cognition (Limited concentration limited short-term memory) Speech: speech normal Motor: muscle tone normal throughout Extrem General: no clubbing, cyanosis or edema Psych Appearance: grossly normal Speech and Movement: speech clear and slowed movement Mood: anxious mood Affect: anxious affect Attitude: cooperative Thought Process: normal Thought Content: normal Insight: limited Judgment: limited Assessment Plan Assessment Plan (1) Pulmonary embolism: Status: Acute Comment: numerous-continue eliquis until Anshul says ok to quit Code(s): I26.99 - Other pulmonary embolism without acute cor pulmonale SNOMED Code(s): 55806345 Category: Medical Plan - Hillary Woods, DO: Waiting further input from both cardiology and pulmonology in terms of length of treatment unless there is significant bleeding to the point she ends up in the ER or has severe anemia she needs to continue Eliquis and we discussed this at length. If she has rectal bleeding that fills the toilet she is to go to the ER and call 911. She admits she had rectal bleeding prior to hospitalization. She was not anemic in the hospital she is to continue Eliquis and I will make general surgery referral.. We discussed that although we will follow through if she is not anemic likely and a repeat colonoscopy will either be deferred or possibly not even happen at all. Likelihood as she has hemorrhoids and constipation I am going to treat those with Colace and MiraLAX. If that takes care of it and [...] CPAP. So we will fax her 2018 studies to him. Orders: Orders: CBC W AUTO DIFF 1 Week (2) Blood present in stool: Status: Chronic Code(s): K92.1 - Melena SNOMED Code(s): 215958449 Category: Medical Plan - Hillary Woods, DO: This is been a chronic issue for her. Colonoscopy was clear in 2017. She was not anemic in April. It is just more worrisome now that she is on Eliquis her pattern of bleeding has not changed it is scant amounts on the stool not in the stool she is not anemic. Will recheck her CBC. Dr. Nunze no longer is here at the hospital. Offered her GI referral but she declines. Unless she becomes anemic risk in the face of acute PE is really not outweighed unless she becomes anemic wouldfavor postp oning a repeat colonoscopy. I have done a detailed letter to Dr. Loyola and ask his second opinion if he feels otherwise certainly will proceed as he suggest but my opinion is to watchher CBC monthly and unless she becomes anemic to stay conservative until the pandemic is over with and cardiology and pulmonary consults have completed there necessary testing and patient agrees. Orders: Referrals: General Surgery Referral (3) GERD (gastroesophageal reflux disease): Status: Chronic Comment: FLARE diagnosed with hiatal hernia on upper GI in 2016 Code(s): K21.9 - Gastro-esophageal reflux disease without esophagitis SNOMED Code(s): 350629874 Category: Medical Plan - Hillary Woods, DO: This was her main complaint last visit in January and since starting on pantoprazole she admits it is much better (4) Obstructive sleep apnea hypopnea, severe: Status: Acute Comment: CPAP 14CM ADVISED 2018 BUT SHE REFUSED Code(s): G47.33 - Obstructive sleep apnea (adult) (pediatric) SNOMED Code(s): 41839856 Category: Medical Plan - Hillary Woods DO: She has sleep apnea and refuses to use CPAP this is a risk in terms of anesthesia for colonoscopy faxed previous [address] Bee and I think he wants her to have an up-to-date 1 will defer to his work-up but did discuss risk with her and why she should cooperate with him (5) Mild cognitive impairment: Status: Chronic Onset Date: 03/26/18 Comment: As complication of herpes encephalitis Code(s): G31.84 - Mild cognitive impairment, so stated SNOMED Code(s): 260998252 Category: Medical Plan - Hillary Woods DO: This is 1 of the reasons I feel she is disabled. She is not fully oriented. She cannot spell worldbackwards. Her concentration is impaired. Her memory is impaired she could not recall 3 objects. At 5 minutes she could recall only 1. I write thin gs down for her. Just the simple addition of Colace and MiraLAX she could not remember at the end of the visit. I always write things down for her. I do not see how any pluck trimmer could think she has employable with these memory issues. She has depression and anxiety. She might physically be able to work but in terms of being able to keeppace follow directions I think she has significant impairment she additionally now has other medicalissues as addressed above Orders Other Medications: New: docusate sodium (Colace) 100 mg PO BID 60 caps 5RF polyethylene glycol 3350 (Miralax) 1 scoop with water 17 grams PO QDAY PRN 850 grams 5RF constipation Other Orders: Orders: CBC W AUTO DIFF 1 Week K62.5 Follow Up: labs now 2months 40 minutes general surgery referral rectal bleeding Electronically Signed By: <Electronically signed by Hillary Woods DO> Date/Time Signed: 06/24/19 1414 Name Value Range Interpretation Code Description Data Suki rce(s) Supporting Document(s) ID Date Data Source [id number] 05/16/2019 02:15:[address] [facility] Patient Name: MADDISON BLANKENSHIP B: 1965 Sex: F Pt Unit #: [id number] Location:[facility] Provider: Visit Date/Time: 05/16/19 Primary Insurance: [facility] Secondary Insurance: Self Pay Intake Vital Signs 05/16/19 14:18 Current Weight 194 lb 8 oz BP 112/64 Blood Pressure Location Lt brachial Position Sitting Respiration 18 Pulse 86 Pulse Source Pulse Oximeter Temp 98.3 F Temp Source Oral Pulse Oximetry (%) 95 Oxygen Delivery Method room air Intake Visit Reasons: Hospital Discharge Follow-up Is patient in pain?: Yes (chest pain) Pain scale (1-10): 4 Allergies Penicillins Allergy (Intermediate, Verified 09/14/18 10:21) Rash morphine Adverse Reaction (Intermediate, Verified 09/14/18 10:21) Chest pain 01/06 omeprazole Adverse Reaction (Verified 09/14/18 10:21) Myalgia HIV Testing Offer - ages 13-64 Requirement for HIV testing offer been met?: Declines today. Pretest education received and acknowledged [facility] Social History (Updated 05/16/19 @ 14:19 by Ana eHrrera) Does the Patient have a Healthcare Proxy: Yes Does Patient have a DNR?: No Does Patient have a Living Will?: No Does the Patient have a MOLST?: No Advance Directives on File or in chart?: No household members: none housing: house lives independently: Yes highest education level completed: high school graduate service: No fci: No current occupational status: disabled Hx Recent Travel (where): No Smoking Status: Former smoker alcohol intake: never substance use type: does not use do you feel safe at home: Yes HPI Additional HPI HPI Details: 53 YO female patient of Dr. Woods's is here for hospital f/u. PMH reviewed, meds reviewed, hospital notes reviewed. She was hospitalized for chest pain and she had Bl PE's. She was started on Eliquis 10mg BID x 7 days and then was to use 5mg BID. She has had some memory issues. The hospitalist encouraged a Cardiology consult. She had two days of uncontrollable stool and urine. The stool had small blood in it, maybe a tablespoon. She has external hemorrhoids. Herbowel issues have resolved. 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 She lives by herself. Review of Systems Const Denies weight gain and Denies weight loss Card Denies chest pain, Denies irregular heart rhythm and Denies dyspnea on exertion Resp Denies cough and Denies dyspnea on exertion Exam Const General: cooperative, healthy appearing and comfortable Neck Thyroid: abnormal thyroid Carotids: no bruits Lymphatic: lymphadenopathy noted Chest Chest: normal inspection of the chest Resp Auscultation: clear to auscultation bilaterally, no rales, no rhonchi and no wheezes Other: pulse ox 98%RA and 99%RA after walking 50 feet with HR 103 Cardio Rhythm: regular rhythm Heart Sounds: S1 normal, S2 normal, no gallops, no murmurs and no rubs Extrem General: normal to inspection and no edema Assessment Plan Assessment Plan (1) Hospital discharge follow-up: Code(s): Z09 - Encounter for follow-up examination after completed treatment for conditions other than malignant neoplasm Plan - Guy Rodriguez, DO: Hospital Discharge F/u for large PE R and some on L. She did not take Eliquis today. Go to [facility] and take Eliquis 5mg immediately and then another one tonight and then BID. She will stay on for a year. Consult Pulmonology. I will place consult to [facility] Cardiology because that is what Dr. Corea had wanted. She is on Estradiol Patch weekly for awful menopause symptoms. F/u [address] Woods can make that determination to keep her on or take her off. She will needa work up after done Elliquis for coagulation factors. Electronically Signed By: <Electronically signed by Guy Rodriguez DO> Date/Time Signed: 05/16/19 1453 Name Value Range Interpretation Code Description Data Suki rce(s) Supporting Document(s) ID Date Data Source [id number] 05/11/2019 08:19:[address] [facility] Name: MADDISON BLANKENSHIP : 1965 Age: 53 MR#: [id number] Admit Date: 05/09/19 Provider: Umu Butler MD Room #: 292 Consulting Provider: Dictation Date: 05/11/19 Discharge Summary Discharge Summary Admit Info/Diagnoses/Course Date of service:: 05/11/19 Admission Information: Patient, MADDISON BLANKENSHIP, a 53 year old F, admitted on 05/09/19 17:40 by Umu Butler MD for CHEST PAIN Family Hillary Nair D.O. Discharge Date: 05/11/19 Most Recent Lab Results: 05/11/19 05:55 05/11/19 05:55 Laboratory Results Last 24 hours 02/11/20 08:23: Urine Color Yellow, Urine Appearance Clear, Urine pH 6.0, Ur Specific Whitetail 1.015,Urine Protein Negative, Urine Ketones Negative, Urine Blood Negative, Urine Nitrate Negative, Urine Bilirubin Negative, Urine Urobilinogen 0.2 eu/dl, Ur Leukocyte Esterase Negative, Add Ur Microanalysis No, Urine Gluco se Negative 05/11/19 05:55: WBC 4.7, RBC 4.44, Hgb 13.1, Hct 40.4, MCV 91.0, MCH 29.5, MCHC 32.4 L, RDW 14, Plt Count 180, MPV 10.2, Immature Gran % (Auto) 0.0, Neut % (Auto) 46.8, Lymph % (Auto) 42.1, [place] Johns % (Auto) 6.4, Eos % (Auto) 3.6, Baso % (Auto) 1.1, Lymph # (Auto) 2.0, Abs Immat Gran (auto) 0.0, Add Manual Diff No, Absolute Neutrophils 2.2, Monocytes # 0.3, Absolute Eosinophils 0.2, Absolute Basophils 0.1 05/11/19 05:55: Sodium 143, Potassium 4.3, Chloride 112 H, Carbon Dioxide 25, Anion Gap 10, BUN 13, Creatinine 0.8, GFR Calculation Greater than 60, Glucose 95, Calcium 8.5, Total Bilirubin 0.4, AST 24, ALT 25, Alkaline Phosphatase 80, Serum Total Protein 6.1, Albumin 3.3 INR Results 05/09/19 16:15 INR 1.0 (0.9-1.1) Hospital Course: disCharge diagnosis 1. Bilateral pulmonary emboli 2. Gastroesophageal reflux disease. 3. Degenerative joint disease. 4. Obstructive sleep apnea. 5. Radiculopathy. 6. Depression and anxiety. 7. 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 twice daily x1 week and then will taper down Eliquis 5 mg p.o. twice daily thereafter. Given patient's cognitive impairment and to avoid confusing her she is given the 10 mg p.o. twice daily dosing for 1 week at discharge and as per discussion with her primary care doctor their office will prescribe the 5 mg p.o. twice daily dose thereafter. Patient stable for discharge. Pharmacy was also recruited to help assist patient in her home medication dosing administration Exam Condition Vital Signs - Most Recent: Last Vital Signs Temp 979 F H 05/11/19 07:54 Pulse 72 05/11/19 07:58 Resp 16 05/11/19 07:54 BP 97/58 05/11/19 07:54 Pulse Ox 95 05/11/19 03:30 Ht Wt BMI Current Height 5 ft 4 in Current Weight 291 lb Body Mass Index (BMI) 49.9 Body Mass Index (BMI) Obese Classification General: Alert and Oriented x3 HEENT: Atraumatic, PERRLA and EOMI Neck: Supple, No JVD and No thyromegaly Lungs: Clear to auscultation and Normal air movement Cardiovascular: Regular rate, Normal S1 and Normal S2 Abdomen: Normal bowel sounds and Soft Extremities: No clubbing, No cyanosis and No edema Skin: Skin warm and dry, Mucus membranes moist Neurological: Normal gait and Normal speech Psych/Mental Status: Mental status NL Code Status: Full Code Discharge Plan Free Text/Narrative:: 1. No strenuous activity 2. Follow-up with her primary care doctor on Thursday 3. Cardiac diet 4. Follow-up with voltage regulator assembler and coordinate through your primary care doctor's office Care plan: Plan of care discussed with patient and or family Medications Home Medications Trazodone Hcl 1 tab PO DAILY #60 tab 03/26/18 [History] sertraline 50 mg PO DAILY #30 tab 05/28/18 [History] cholecalciferol (vitamin D3) 25 mcg (1,000 unit) capsule 1,000 unit PO DAILY #30 cap 12/20/18 [Rx] pantoprazole 40 mg tablet,delayed release 40 mg PO BID #180 tab 02/18/19 [Rx] gabapentin 300 mg capsule 300 mg PO BID #60 cap 03/07/19 [Rx] estradiol 0.1 mg/24 hr weekly transdermal patch 1 patch TRANSDERMAL QWEEK #4 patch 04/19/19 [Rx] apixaban [Eliquis] 10 mg PO BID #12 tab 05/11/19 [Rx] Time Spent on Discharge: > 30 Minutes Quality Measures Tobacco Use Smoking Status: Former smoker Smoking Cessation Education: Smoking cessation information given Alcohol screening Alcohol Consumption (from nursing Hx): I nfrequently BMI Screening: Current Height: 5 ft 4 in Current Weight: 291 lb Body Mass Index (BMI): 49.9 Influenza Immunization Hx/Date of Influenza Vaccination (from nursing Hx): Yes Safety Two or more falls in last year? (Future fall risk): No Fall with injury in last year (Future fall risk): No Future fall risk?: Patient screens as a future fall risk Diabetes Care Measures HgAic/Microalbumin: HgA1c Hemoglobin A1c 5.6 % (4.0-6.0) 05/09/19 16:15 Glucose/POC Glucose: Glucose last 48 hrs 05/09/19 05/10/19 05/11/19 16:15 04:00 05:55 Glucose 86 96 95 Chronic Kidney Disease Text1: Fasting Lipid Triglycerides 110 mg/dL (0-150) 05/09/19 16:15 Cholesterol 200 mg/dL (120-200) 05/09/19 16:15 LDL Cholesterol, Calc 136 mg/dL (0-100) H 05/09/19 16:15 HDL Cholesterol 42 mg/dL 05/09/19 16:15 Discharge Plan Admission/Discharge Dx Primary DC Diagnosis: Bilateral pulmonary emboli Condition Condition: Stable Discharge Detail Disposition: Home, Self-Care Med Rec New Prescriptions: New Eliquis 5 mg Tablet 10 mg PO BID Qty: 12 RF: 0 Continued pantoprazole 40 mg tablet,delayed release (DR/EC) 40 mg PO BID Qty: 180 RF: 3 Trazodone Hcl 50 MG tablet 1 tab PO DAILY Qty: 60 RF: 11 sertraline 50 MG tablet 50 mg PO DAILY Qty: 30 RF: 11 cholecalciferol (vitamin D3) [Vitamin D3] 1,000 unit capsule 1,000 unit PO DAILY Qty: 30 RF: 5 gabapentin 300 mg capsule 300 mg PO BID Qty: 60 RF: 5 estradiol 0.1 mg/24 hr patch weekly 1 patch transdermal QWEEK Qty: 4 RF: 2 Discharge Education Printouts: Abdominal Pain (ED) Diet:: Cardiac diet Discharge Problem: Chest pain Medications Medication reconciliation performed by provider at discharge: Yes Follow Up Care/Instructions Diet/Activity/Wound Care..: 1. No strenuous activity 2. Follow-up with her primary care doctor on Thursday 3. Cardiac diet 4. Follow- up with voltage regulator assembler and coordinate through your primary care doctor's office *Discharge Patient* Discharge Orders: Discharge Order (Routine); Ordered 05/11/19 Ordered By: Umu Butler Dictated by: <Electronically signed by Umu Butler MD> Umu Butler MD 05/11/19825 Umu Butler MD SIGNATURE DA Report Cosigners: D: STRAL 05/11/19818 T: STRAL 05/11/19818 CC: Name Value Range Interpretation Code Description Data Suki rce(s) Supporting Document(s) ID Date Data Source [id number] 05/11/2019 06:38:00 AM EST [facility] Name Value Range Interpretation Code Description Data Suki rce(s) Supporting Document(s) Leukocytes [#/volume] in Blood by Automated count 4.7 10*3/uL 4.45-10 .71 N [facility] Erythrocytes [#/volume] in Blood by Automated count 4.44 10*6/uL 4.20 -5.40 N [facility] Hemoglobin [Moles/volume] in Blood 13.1 g/dL 10.7-15.4 N [facility] Hematocrit [Volume Fraction] of Blood by Automated count 40.4 % 3 7-47 N [facility] Erythrocyte mean corpuscular volume [Ent itic volume] in Cord blood by Automated count 91.0 fL 80-96 N [facility] Erythrocyte mean corpuscular hemoglobin [Entitic mass] by Automated count 29.5 pg 27-31 N [facility] Erythrocyte mean corpuscular hemoglobin concentration [Mass/volume] in Cord blood 32.4 g/dL 33-37 Below low normal [facility] Erythrocyte distribution width [Entitic volume] by Automated count 14 % 11-15 N [facility] Platelets [#/volume] in Blood by Automated count 180 10*3/uL 130-472 N [facility] Platelet mean volume [Entitic volume] in Blood 10.2 fL 9.1-13.1 N [facility] Neutrophils/100 leukocytes in Blood by Automated count 46.8 % 41- 77 N [facility] Neutrophils [#/volume] in Blood by Automated count 2.2 U 1.7-7.6 N [facility] Lymphocytes/100 leukocytes in Blood by Automated count 42.1 % 14- 46 N [facility] Lymphocytes [#/volume] in Blood by Automated count 2.0 U 0.6-4.6 N [facility] Monocytes/100 leukocytes in Blood by Automated count 6.4 % 4-12 N [facility] Monocytes [#/volume] in Blood by Automated count 0.3 U 0.2-1.2 N [facility] Eosinophils/100 leukocytes in Blood by Automated count 3.6 % 0-7 N [facility] Eosinophils [#/volume] in Blood by Automated count 0.2 U 0.0-0.5 N [facility] Basophils/100 leukocytes in Blood by Automated count 1.1 % 0.4-1 .3 N [facility] Basophils [#/volume] in Blood by Automated count 0.1 U 0.0-0.2 N [facility] NUCLEATED RED BLOOD CELL 0 % [facility] NUCLEATED RED BLOOD CELL# 0 U [facility] Immature granulocytes [Presence] in Blood by Automated count 0-2 N [facility] Immature granulocytes [#/volume] in Blood by Automated count 0.0 U 0-0.1 N [facility] Manual Differential panel - Blood NO [facility] ID Date Data Source [id number] 05/11/2019 07:15:00 AM EST [facility] Name Value Range Interpretation Code Description Data Suki rce(s) Supporting Document(s) Urea nitrogen [Mass/volume] in Serum or Plasma 13 mg/dL 9-23 N [facility] Sodium [Moles/volume] in Serum or Plasma 143 mmol/L 132-146 N [facility] Potassium [Moles/volume] in Serum or Plasma 4.3 mmol/L 3.5-5.5 N [facility] SLIGHTLY HEMOLYZED Chloride [Moles/volume] in Serum or Plasma 112 mmol/L 99-109 Above high normal [facility] Carbon dioxide, total [Moles/volume] in Serum or Plasma 25 mmol/L 20 -31 N [facility] Anion gap in Serum or Plasma 10 mmol/L 8-16 N [facility] Glucose [Mass/volume] in Serum or Plasma 95 mg/dL 74-106 N [facility] Creatinine 0.8 mg/dL 0.5-1.1 N [facility] Glomerular filtration rate/1.73 sq M.pre dicted [Volume Rate/Area] in Serum or Plasma Greater Than 60 ABOVE 60 [facility] Alanine aminotransferase [Enzymatic acti vity/volume] in Serum or Plasma by With P-5'-P 25 U/L 10-[address] [facility] ital Aspartate aminotransferase [Enzymatic ac tivity/volume] in Serum or Plasma by With P-5'-P 24 U/L 0-33 N [facility] pital Alkaline phosphatase [Enzymatic activity/volume] in Serum or Plasma 80 U/L 45-129 N [facility] Calcium [Mass/volume] in Serum or Plasma 8.5 mg/dL 8.5-10.1 [facility] Bilirubin.total [Mass/volume] in Serum or Plasma 0.4 mg/dL 0.3-1.2 [facility] Albumin [Mass/volume] in Serum or Plasma by Bromocresol purple (BCP) dye binding method 3.3 g/dL 3.2-4.[address] [facility] ital Protein [Mass/volume] in Serum or Plasma 6.1 g/dL 5.7-8.2 [facility] ID Date Data Source [id number] 05/10/2019 02:47:00 PM EST [facility] [address] [id number] [phone] NAME SEX PT STATUS ACCOUNT NUMBER MADDISON BLANKENSHIP DIS TONY [id number] ORDERING PHYSICIAN LOCATION MEDICAL RECORD NO. Umu Butler MD EW [id number] ATTENDING PHYSICIAN DATE OF DATE OF EXAM/TIME [place] 1965 05/10/19 / 3 TYPE / EXAM US Echo complete REASON FOR EXAM bilateral PE DATE OF TEST: 05/10/19 REFERRING PHYSICIAN: Dr. Butler. INDICATION: Chest pain syndrome, bilateral PE (pulmonary embolism). MEASUREMENTS: Left atrium 3.9, aortic root 3.3, left ventricle in diastole 4.4 and systole 2.4. FINDINGS: 1. Normal aortic root. Normal left and right sided atrial and ventricular size. 2. Normal aortic, mitral and tricuspid valve and pulmonic valves. 3. Normal left ventricular systolic function, ejection fraction 50%. 4. No evidence of pericardial effusion. 5. Color flow and spectral Doppler examination was unremarkable. Diastolic function was normal. IMPRESSION: 1. Normal left ventricular systolic function. 2. No evidence of significant Doppler abnormality. Reported By Ortiz Cruz MD on 05/10/19 7207 Signed By Ortiz Cruz MD on 05/17/19 9713 <<Signature on File>> Date Time CC: Ortiz Cruz M.D.; Hillary Woods DO Techn: JEFFERSON Trans Dt/Tm: 05/10/19 1749 Trans by: MELECIO Prt Dt/Tm: : Total DLP = 0.00 mGy-cm : Total Radiation Dose = 0 .0000 mSv Lifetime Dose: 2.5547 mSv Name Value Range Interpretation Code Description Data Suki rce(s) Supporting Document(s) ID Date Data Source [id number] 05/10/2019 11:45:[address] [facility] CONSULTATION REPORT NAME: MADDISON BLANKENSHIP : 1965 AGE: 53 MR#: [id number] ADMITTING DATE: 05/09/[address]: Umu Butler MD DISCHARGE DATE: 05/11/[address]: Umu Butler MD ROOM#: 292 DATE CONSULT DICTATED 05/10/2019 HISTORY AND PRESENTATION This patient is a 53-year-old female with no prior cardiac history. Patient does have history of obesity. Has been in usual state of health. Four days ago patient noticed that in the morning she had blood in the stool. All of a sudden she was unable to control the bowel movement. After that, she noticed some left mammary pain which she describes as mild in nature, nonradiating, constant, and she came here. No associated PND, orthopnea, diaphoresis, dizziness, or any other cardiac symptoms. EKG on admission was unremarkable. Patient is admitted, cardiac evaluation was requested. CORONARY RISK FACTORS Negative for smoking, negative for hypertension, negative for diabetes. Obesity is noted. FAMILY HISTORY Noncontributory. ALLERGIES PENICILLIN. PAST MEDICAL/SURGICAL HISTORY Includes history of hysterectomy, fibroid removed prior to that. Right breast lumpectomy in the past. History of lumbosacral radiculopathy. History of CPAP which apparently she did not need. History of herpes simplex encephalitis in the past with impairment of memory. Status post appendectomy. REVIEW OF SYSTEMS Disabled, at home. No smoking, no drinking. Quit smoking 10 years ago. PHYSICAL EXAMINATION Alert, awake, in no acute distress. Blood pressure 110/70, pulse is 68. Neck is supple, no JVD. Lungs are clear. Heart sounds are S1, S2, no gallop, no murmur. Abdomen is obese. Extremities arewithout any edema. EKG shows sinus rhythm, nonspecific changes. Other lab data are normal. IMPRESSION Precordial discomfort, etiology undetermined. Morbid obesity, history of sleep apnea, questionablenegative. Labile hypertension. PLAN From a cardiac standpoint of view, patient does not have any symptoms or signs suggestive of acute coronary syndrome. Patient can be discharged home. We will evaluate the patient in the office for consideration of an outpatient stress test. In the interim, medical therapy is optimal. Thank you for having us participate in the cardiac care of this pleasant lady. CC: Hillary Woods DO <Electronically signed by Shane Fajardo MD> Shane Fajardo MD 05/17/19 1658 Shane Fajardo M.D. Cosigner: D: STEFAN 05/10/19 1145 T: BEATA 05/10/19 1322 CC: Shane Fajardo M.D.; Hillary Woods DO LAST EDIT: Name Value Range Interpretation Code Description Data Suki rce(s) Supporting Document(s) ID Date Data Source [id number] 05/10/2019 10:56:[address] [facility] Name: MADDISON BLANKENSHIP : 1965 Age: 53 MR#: [id number] Admit Date: 05/09/19 Provider: Umu Butler MD Room #: 292 Consulting Provider: Dictation Date: 05/10/19 ProgressNote Subjective-ROS Date of service Date of service:: 05/10/19 Review of Systems ROS (Free Text/Narrative):: Patient feels better, less chest pain, less shortness of breath General: Denies Fever and Chills HEENT: Denies Headaches and Visual Changes Endocrine: Denies Excessive sweating Cardiovascular: Reports Chest Pain Pulmonary: Reports Dyspnea and Pleuritic Chest Pain; Denies Cough Gastrointestinal: Denies nausea Genitourinary: Denies Dysuria Musculoskeletal: Denies Muscle Pain Neurological: Denies Weakness Psych: Denies anxiety Hematological/Lymphatic: Denies easy bleeding Allergic/Immunologic: Denies rash Attestation/Length Of Stay: 05/09/19 17:40 Observation Order [STATUS] Routine Location: [facility] Primary diagnosis: chest pain Isolation: Standard precautions Admitting Provider: UMU BUTLER Observation Status: OBV less than 1 midnight Anticipated Length of stay:: NA -Observation Patient Vital Signs and I O Vitals and I O: Vital Signs last 12 hours Temp Pulse Pulse Resp BP BP Pulse Ox 05/10/19 09:14 97.6 F 94 18 139/99 97 05/10/19 06:30 75 05/10/19 05:07 97.9 F 69 20 108/64 94 L 05/10/19 01:00 97.4 F L 68 20 109/82 96 05/09/19 23:50 67 16 95 05/09/19 23:00 98.1 F 63 20 110/58 95 Intake Output Last 24 Hours 05/08/19 05/09/19 05/10/19 23:59 23:59 23:59 Intake Total 600 / 600 Balance 600 / 600 Current Weight 291 lb Results Results: 05/10/19 04:00 05/10/19 04:00 Laboratory Results Last 24 hours 05/09/19 16:15: Creatine Kinase 85, CK-MB (CK-2) 1.8, CK-MB (CK-2) % 2.1, Tgy-R-Suznrbksxug Pept 25.00 05/09/19 16:15: WBC 8.1, RBC 4.65, Hgb 14.0, Hct 41.7, MCV 89.7, MCH 30.1, MCHC 33.6, RDW 14, Plt Count 213, MPV 9.8, Immature Gran % (Auto) 0.1, Neut % (Auto) 59.0, Lymph % (Auto) 30.8, [place] % (Auto) 6.2, Eos % (Auto) 3.3, Baso % (Auto) 0.6, Lymph # (Auto) 2.5, Abs Immat Gran (auto) 0.0, Add Manual Diff No, Absolute Neutrophils 4.8, Monocytes # 0.5, Absolute Eosinophils 0.3, Absolute Basophils 0.1 05/09/19 16:15: PT 10.1, INR 1.0, PTT (Ashlie) 23.9 05/09/19 16:15: Sodium 141, Potassium 3.8, Chloride 109, Carbon Dioxide 26, Anion Gap 10, BUN 12, Creatinine 1.0, GFR Calculation 58, Glu cose 86, Calcium 8.8, Magnesium 2.2, Total Bilirubin 0.5, AST 21, ALT 27, Alkaline Phosphatase 89, Troponin I Less than 0.015, Serum Total Protein 7.4, Albumin 3.8 05/09/19 16:15: D-Dimer 9.60 H 05/09/19 16:15: Triglycerides 110, Cholesterol 200, LDL Cholesterol, Calc 136 H, HDL Cholesterol 42 05/09/19 16:15: Hemoglobin A1c 5.6, Estim Average Glucose 114 05/09/19 22:05: Troponin I Less than 0.015 05/10/19 04:00: Sodium 143, Potassium 4.0, Chloride 111 H, Carbon Dioxide 27, Anion Gap 9, BUN 10, Creatinine 0.8, GFR Calculation Greater than 60, Glucose 96, Calcium 8.3 L, Total Bilirubin 0.6, AST 18, ALT 24, Alkaline Phosphatase 81, Troponin I Less than 0.015, Serum Total Protein 6.4, Albumin 3.2 05/10/19 04:00: WBC 5.7, RBC 4.40, Hgb 13.4, Hct 41.2, MCV 93.6, MCH 30.5, MCHC 32.5 L, RDW 14, Plt Count 170, MPV 10.0, Immature Gran % (Auto) 0.2, Neut % (Auto) 52.1, Lymph % (Auto) 37.6, [place] Johns % (Auto) 5.7, Eos % (Auto) 3.7, Baso % (Auto) 0.7, Lymph # (Auto) 2.1, Abs Immat Gran (auto) 0.0, Add Manua l Diff No, Absolute Neutrophils 3.0, Monocytes # 0.3, Absolute Eosinophils 0.2, Absolute Basophils 0.0 05/10/19 08:23: Urine Color Yellow, Urine Appearance Clear, Urine pH 6.0, Ur Specific Whitetail 1.015, Urine Protein Negative, Urine Ketones Negative, Urine Blood Negative, Urine Nitrate Negative, Urine Bilirubin Negative, Urine Urobilinogen 0.2 eu/dl, Ur Leukocyte Esterase Negative, Add Ur Microanalysis No, Urine Glucose Negative Exam Orientation: Alert and Oriented x3 HEENT: Atraumatic, PERRLA and EOMI Lungs: normal lung sounds bilaterally Cardiovascular Exam: regular rate and normal rhythm Abdomen: Normal bowel sounds and Soft; negative for Tenderness Extremities: normal inspection Skin: Skin warm and dry, Mucus membranes moist Neurological: Normal gait Psych/Mental Status: normal affect Assessment/Plan A P Free Text/Narrative :: IMPRESSION 1. Bilateral pulmonary emboli 2. Gastroesophageal reflux disease. 3. Degenerative joint disease. 4. Obstructive sleep apnea. 5. Radiculopathy. 6. Depression and anxiety. 7. 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 Patient clinically stable. Obtain arterial blood gas determine oxygenation. also check echocardiogram to determine RV function. Patient is full code Dictated by: <Electronically signed by Umu Butler MD> Umu Butler MD 05/10/19 1102 Umu Butler MD SIGNATURE DA Report Cosigners: D: STRAL 05/10/19 1056 T: STRAL 05/10/19 1056 CC: Name Value Range Interpretation Code Description Data Suki rce(s) Supporting Document(s) ID Date Data Source [id number] 05/10/2019 10:15:[address] [facility] Therapy Department TJMADDISON OGDEN Ade Roberto OB: 1965 Date: 05/10/19 [id number] Attending: Umu Butler MD Physical Therapy Inpatient [facility] - Therapy Evaluation Date PT Order Received:: 05/10/19 Time:: 07:00 Date Started:: 05/10/19 Time Started:: 09:31 Diagnosis:: chest pain Reason for Evaluation: New Admission Rehab Diagnosis:: difficulty walking - Subjective/History Subjective:: Patient is a 53 y/o female who presents to hospital due to chest pain. She reports 2/10 pain currently which does not increase with activity. Prior Level of Function:: Patient live alone. Independent prior to admission Physical Barriers in Home Environment: One railing - wall is on the other side, Stairs Home Environment:: 3 steps to enter Does the patient have pain?: No - Objective Observations: Alert and oriented x 3 - Transfer Sit<>Stand:: Independent Bed<>Chair:: Independent Supine<>Sit:: Independent Bed Mobility:: Independent - Ambulation Ambulation Assistance:: Independent Assistive Devices: No Devices Distance (ft):: 300 - Assessment Physical Therapy Impressions/Assessment: Patient is a 53 y/o female who presents to hospital due to chest pain. Patient appears at baseline for mobility. Patient reports she has been ambulating about 15 minutes on her treadmill daily. Discussed increasing this time by 1 minute per week to improve her endurance. Also encouraged patient to continue weight training - End Date Ended:: 05/10/19 Time Ended:: 09:39 Elapsed Time (minutes): 8 Elapsed Time Minutes: 8 - PT Orders Current Equipment: No devices Strength - Extremity Strength Extremities: Bilateral Extremities: Leg Muscle Strength (Extremity): Mild Weakness Discharge Recommendations - Instructions (For discharge) Discharged to:: Home with no needs Therapist Zaynab Granados 05/10/19 1015 I certify this plan of care Umu Nguyen MD 05/10/19 1537 Date Time LAST EDIT: Name Value Range Interpretation Code Description Data Suki rce(s) Supporting Document(s) ID Date Data Source [id number] 05/09/2019 05:40:[address] [facility] HISTORY AND PHYSICAL NAME: MADDISON BLANKENSHIP : 1965 AGE: 53 MR#: [id number] ADMITTING DATE: 05/09/[address]: Umu Butler MD DISCHARGE DATE: ATTENDING DR: Umu Butler MD ROOM#: [id number] DATE OF DICTATION 05/09/2019 CHIEF COMPLAINT Chest pain. HISTORY OF PRESENT ILLNESS The patient is a pleasant 53-year-old white female who presents to the ER with complaints of chest pain. Patient states she has memory issues ongoing. She has poor recall, but states since Thursday on and off, vaguely describes left substernal chest pain. The patient denies presyncope. Denies fevers, chills, sweats. Denies cough. Denies change in bowel or urinary habits. Symptom severity: Moderate. Modifying factors: Somewhat improved with rest. Associated symptoms: Mild dyspnea, palpitations at times. Denies change in bowel or urine habits. Denies focal loss of strength or sensation extremity. Context: As above. PAST MEDICAL HISTORY GERD, DJD, carpal tunnel syndrome, radiculopathy, mld left L5 radiculopathy, borderline diabetes, hysterectomy, obstructive sleep apnea patient has declined CPAP, anxiety and depression, history of herpes simplex encephalitis, mild cognitive impairment with memory loss, hyperlipidemia, status postappendectomy. MEDICATION Trazodone, vitamin D, Neurontin. FAMILY HISTORY Mother alive and well, age 68. No chronic health issues. Father at age 72 due to colon cancer. Patient does not recall siblings. REVIEW OF SYSTEMS 10-point review of systems reviewed and negative except as stated above. SOCIAL HISTORY No tobacco. No alcohol. The patient has a daughter who is alive and well. PHYSICAL EXAMINATION Patient pleasant, no acute distress. Vital signs reviewed, stable. HEENT: Extraocular movements intact. NECK: Supple without adenopathy. No carotid bruits. No JVD. No meningismus. NASOPHARYNX/OROPHARYNX: Without lesion or exudate. LUNGS: Positive air movement throughout. Clear through all phelan without crackle or wheeze. HEART: Regular rate and rhythm without S3, no S4. No palpable heaves. No murmurs, clicks, rubs. ABDOMEN: Soft, nontender, positive bowel sounds. No mass or organomegaly. No pulsatile mass or audible bruits. EXTREMITIES: Symmetric without clubbing, cyanosis, or edema. SENSORY: Peripheral neuropathy. ANCILLARY STUDIES EKG: Normal sinus rhythm, nonspecific ST-T wave changes. Chest x-ray: Low lung volumes with no gross focal consolidations. No pneumothorax. Sodium 141, potassium 3.8, chloride 109, CO2 26, BUN 12, creatinine 1.0. GFR 58. Calcium 8.8, magnesium 2.2, total biliru bin 0.5, AST 21, ALT 27, alkaline phosphatase 89. CK 85, troponin less than 0.015. BNP 25. Total protein 7.4, albumin 3.8. LDL cholesterol performed February 18, 2019, 120. White blood cell count today 8.1, hemoglobin 14,hematocrit of 41, platelet count is 213, 59% neutrophils. IMPRESSION 1. Chest pain. 2. Gastroesophageal reflux disease. 3. Degenerative joint disease. 4. Obstructive sleep apnea. 5. Radiculopathy. 6. Depression and anxiety. 7. 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 PLAN Patient will be placed on obs ervation status. Troponin serial. Telemetry. Check D-dimer. Outpatient medications will continue. Lovenox DVT prophylaxis. Check lipid profile and hemoglobin A1c. Patient full code. <Electronically signed by Umu Butler MD> Umu Butler MD 05/10/19 1537 Umu Butler MD Cosigner: D: ZACH 05/09/19 1740 T: BEATA 05/10/19 0912 CC: Umu Butler MD; Hillary Woods DO LAST EDIT: Name Value Range Interpretation Code Description Data Suki rce(s) Supporting Document(s) ID Date Data Source [id number] 05/10/2019 10:01:[address] [facility] Reason for ordering culture: Abnormal fi ndings UAMethod of Collection:: Clean Catch Name Value Range Interpretation Code Description Data Suki rce(s) Supporting Document(s) Color of Urine [facility] Appearance of Urine CLEAR [facility] pH of Urine by Test strip 6.0 5-8 [facility] Specific gravity of Urine by Refractometry 1.015 1.005-1.030 [facility] Leukocyte esterase [Presence] in Urine by Test strip NEGAT DELIA [facility] Nitrite [Presence] in Urine by Test strip NEGATIVE [facility] Protein [Presence] in Urine by Test strip NEGATIVE [facility] Glucose [Mass/volume] in Urine by Automated test strip NEGATIVE NEG ATIVE [facility] Ketones [Presence] in Urine by Test strip NEGATIVE [facility] Urobilinogen [Presence] in Urine 0.2-1 EU/dl [facility] Bilirubin.total [Presence] in Urine by Automated test strip NEGATIVE [facility] Erythrocytes [#/volume] in Urine by Test strip NEGATIVE NEGATIVE [facility] URINE MICROSCOPIC? (CIF) NO [facility] ID Date Data Source [id number] 05/10/2019 05:14:00 AM EST [facility] Name Value Range Interpretation Code Description Data Suki rce(s) Supporting Document(s) Leukocytes [#/volume] in Blood by Automated count 5.7 10*3/uL 4.45-10 .71 N [facility] Erythrocytes [#/volume] in Blood by Automated count 4.40 10*6/uL 4.20 -5.40 [facility] Hemoglobin [Moles/volume] in Blood 13.4 g/dL 10.7-15.4 [facility] Hematocrit [Volume Fraction] of Blood by Automated count 41.2 % 3 7-47 N [facility] Erythrocyte mean corpuscular volume [Ent itic volume] in Cord blood by Automated count 93.6 fL 80-96 N [facility] Erythrocyte mean corpuscular hemoglobin [Entitic mass] by Automated count 30.5 pg 27-31 N [facility] l Erythrocyte mean corpuscular hemoglobin concentration [Mass/volume] in Cord blood 32.5 g/dL 33-37 Below low normal [facility] Erythrocyte distribution width [Entitic volume] by Automated count 14 % 11-15 N [facility] Platelets [#/volume] in Blood by Automated count 170 10*3/uL 130-472 N [facility] Platelet mean volume [Entitic volume] in Blood 10.0 fL 9.1-13.1 N [facility] Neutrophils/100 leukocytes in Blood by Automated count 52.1 % 41- 77 N [facility] Neutrophils [#/volume] in Blood by Automated count 3.0 U 1.7-7.6 N [facility] Lymphocytes/100 leukocytes in Blood by Automated count 37.6 % 14- 46 N [facility] Lymphocytes [#/volume] in Blood by Automated count 2.1 U 0.6-4.6 N [facility] Monocytes/100 leukocytes in Blood by Automated count 5.7 % 4-12 N [facility] Monocytes [#/volume] in Blood by Automated count 0.3 U 0.2-1.2 N [facility] Eosinophils/100 leukocytes in Blood by Automated count 3.7 % 0-7 N [facility] Eosinophils [#/volume] in Blood by Automated count 0.2 U 0.0-0.5 N [facility] Basophils/100 leukocytes in Blood by Automated count 0.7 % 0.4-1 .3 N [facility] Basophils [#/volume] in Blood by Automated count 0.0 U 0.0-0.2 N [facility] NUCLEATED RED BLOOD CELL 0 % [facility] NUCLEATED RED BLOOD CELL# 0 U [facility] Immature granulocytes [Presence] in Blood by Automated count 0-2 N [facility] Immature granulocytes [#/volume] in Blood by Automated count 0.0 U 0-0.1 N [facility] Manual Differential panel - Blood NO [facility] ID Date Data Source [id number] 05/10/2019 04:39:00 AM EST [facility] Name Value Range Interpretation Code Description Data Suki rce(s) Supporting Document(s) Urea nitrogen [Mass/volume] in Serum or Plasma 10 mg/dL 9-23 N [facility] Sodium [Moles/volume] in Serum or Plasma 143 mmol/L 132-146 N [facility] Potassium [Moles/volume] in Serum or Plasma 4.0 mmol/L 3.5-5.5 N [facility] Chloride [Moles/volume] in Serum or Plasma 111 mmol/L 99-109 Above high normal [facility] Carbon dioxide, total [Moles/volume] in Serum or Plasma 27 mmol/L 20 -31 N [facility] Anion gap in Serum or Plasma 9 mmol/L 8-16 N [facility] Glucose [Mass/volume] in Serum or Plasma 96 mg/dL 74-106 N [facility] Creatinine 0.8 mg/dL 0.5-1.1 [facility] Glomerular filtration rate/1.73 sq M.pre dicted [Volume Rate/Area] in Serum or Plasma Greater Than 60 ABOVE 60 [facility] Alanine aminotransferase [Enzymatic acti vity/volume] in Serum or Plasma by With P-5'-P 24 U/L 10-[address] [facility] ital Aspartate aminotransferase [Enzymatic ac tivity/volume] in Serum or Plasma by With P-5'-P 18 U/L 0-33 [facility] pital Alkaline phosphatase [Enzymatic activity/volume] in Serum or Plasma 81 U/L 45-129 N [facility] Calcium [Mass/volume] in Serum or Plasma 8.3 mg/dL 8.5-10.1 Below low normal [facility] Bilirubin.total [Mass/volume] in Serum or Plasma 0.6 mg/dL 0.3-1.2 [facility] Albumin [Mass/volume] in Serum or Plasma by Bromocresol purple (BCP) dye binding method 3.2 g/dL 3.2-4.8 [facility] ital Protein [Mass/volume] in Serum or Plasma 6.4 g/dL 5.7-8.2 [facility] ID Date Data Source [id number] 05/10/2019 04:39:[address] [facility] Name Value Range Interpretation Code Description Data Suki rce(s) Supporting Document(s) Troponin I.cardiac [Mass/volume] in Serum or Plasma Less Than 0.015 0.00-0.09 [facility] Less than 0.09 NG/ML Negative0.10 - 0.77 NG/ML High Risk0.78 NG/ML or Greater PositiveThe WHO defined the cutoff (definition for diagnosis of [place])for this method as 0.78 ng/ml. ID Date Data Source [id number] 05/09/2019 10:39:[address] [facility] Name Value Range Interpretation Code Description Data Suki rce(s) Supporting Document(s) Troponin I.cardiac [Mass/volume] in Serum or Plasma Less Than 0.015 0.00-0.09 [facility] Less than 0.09 NG/ML Negative0.10 - 0.77 NG/ML High Risk0.78 NG/ML or Greater PositiveThe WHO defined the cutoff (definition for diagnosis of TN)for this method as 0.78 ng/ml. ID Date Data Source [id number] 05/09/2019 07:45:00 PM [facility] [address] [place] [address] [phone] NAME SEX PT STATUS ACCOUNT NUMBER MADDISON BLANKENSHIP F ADM TONY [id number] ORDERING PHYSICIAN LOCATION MEDICAL RECORD NO. Umu Butler MD [id number] ATTENDING PHYSICIAN DATE OF DATE OF EXAM/TIME Hillary Woods DO 1965 05/09/191840 TYPE / EXAM CTA Chest non- card W/ or w/o REASON FOR EXAM elevated d dimer MADDISON BLANKENSHIP [id number] 1965 ADDENDUM Clinical History/Indication for Exam: elevated d dimer Called for Critical Findings by Maria Del Carmen Buchanan to Paul GROVE on 05/09/2019 4:54PM [place] Time;Call for Critical Findings Reconstructions Comparison: NONE [...] Date Time CC: Miles Fajardo MD; Hillary Woods DO Techn: PELBU Trans Dt/Tm: Trans by: DT Prt Dt/Tm: 28: Total DLP = 433.00 mGy-cm 2803-4708: Total Radiation Dose = 2.5547 mSv Lifetime Dose: 2.5547 mSv Name Value Range Interpretation Code Description Data Suki rce(s) Supporting Document(s) ID Date Data Source [id number] 05/09/2019 04:26:00 PM [facility] [address] [place] [id number] [phone] NAME SEX PT STATUS ACCOUNT NUMBER MADDISON BLANKENSHIP [facility] ER [id number] ORDERING PHYSICIAN LOCATION MEDICAL RECORD NO. Guy Quispe MD ER [id number] ATTENDING PHYSICIAN DATE OF DATE OF EXAM/TIME Hillary Woods DO 1965 05/09/191616 TYPE / EXAM Xray [...] Date Time CC: Mark Schwartz DO; Hillary Woods DO Techn: PELBU Trans Dt/Tm: Trans by: DT Prt Dt/Tm: : Total DLP = 0.00 mGy-cm Fluoroscopy Time (in secs): Name Value Range Interpretation Code Description Data Suki rce(s) Supporting Document(s) ID Date Data Source [id number] 05/09/2019 09:54:[address] [facility] Name Value Range Interpretation Code Description Data Suki rce(s) Supporting Document(s) Hemoglobin A1c % 5.6 % 4.0-6.0 [facility] The following ranges may be u sed for interpretation of results: HGBA1C degree of glucose control: Greater than 8%: Action Suggested * Less than 7%: Goal of Diabetic Therapy Less than 6%: NormalFactors such as duration of diabetes, adherence to therapyand the age of the patient should also be considered inassessing the degree of blood glucose control.* High risk of developing intermediate manager complications such asretinopathy, nephropathy, neuropathy, cardiopathy, etc. Some danger of hypoglycemic reaction in Type I diabetics.Some glucose intolerant individuals and "Sub Clinical"diabetics may demonstrate HGBA1C levels in this area. Glucose mean value [Moles/volume] in Blood Estimated f rom glycated hemoglobin 114 mg/dL [facility] An A1C of 7% - the goal of diabetic ther apy - is equivalentto an EAG of 154 mg/dl. ID Date Data Source [id number] 05/09/2019 06:16:[address] [facility] Anticoagulant or Thrombolytic medication : HeparinIs test to R/O PE, DVT or VTE? Y@REPEAT THIS TEST Name Value Range Interpretation Code Description Data Suki rce(s) Supporting Document(s) Triglycerides 110 mg/dL 0-150 N [facility] Cholesterol 200 mg/dL 120-200 N [facility] HDL Cholesterol 42 mg/dL [facility] HDL Less than 40 mg/dL: Major risk for CHDHDL Greater than 59 mg/dL: Low risk for CHD LDL Cholesterol, Calc 136 mg/dL 0-100 Above high normal [facility] ID Date Data Source [id number] 05/09/2019 06:25:[address] [facility] Anticoagulant or Thrombolytic medication : HeparinIs test to R/O PE, DVT or VTE? Y@REPEAT THIS TEST Name Value Range Interpretation Code Description Data Suki rce(s) Supporting Document(s) Fibrin D-dimer [Units/volume] in Platelet poor plasma 9.60 mg/L 0.0-0.50 Above high normal [facility] @ Has QC been run for this test today?Re peated by: Abida Loemli 05/09/19 9505.Result Confirmation: 9.6 mg/LPLEASE NOTE: THIS TEST WAS PERFORMED USING A PARTICLE-ENHANCED, IMMUNOTURBIDIMETRIC ASSAY AND HAS A SINGLE,CLINICALLY DERIVED CUTOFF OF 0.50 MG/L. ID Date Data Source [id number] 05/09/2019 04:22:00 PM EST [facility] Anticoagulant or Thrombolytic medication : Heparin Name Value Range Interpretation Code Description Data Suki rce(s) Supporting Document(s) Leukocytes [#/volume] in Blood by Automated count 8.1 10*3/uL 4.45-10 .71 N [facility] Erythrocytes [#/volume] in Blood by Automated count 4.65 10*6/uL 4.20 -5.40 N [facility] Hemoglobin [Moles/volume] in Blood 14.0 g/dL 10.7-15.4 N [facility] Hematocrit [Volume Fraction] of Blood by Automated count 41.7 % 3 7-47 N [facility] Erythrocyte mean corpuscular volume [Ent itic volume] in Cord blood by Automated count 89.7 fL 80-96 N [facility] Erythrocyte mean corpuscular hemoglobin [Entitic mass] by Automated count 30.1 pg 27-31 [facility] l Erythrocyte mean corpuscular hemoglobin concentration [Mass/volume] in Cord blood 33.6 g/dL 33-37 N [facility] Erythrocyte distribution width [Entitic volume] by Automated count 14 % 11-15 N [facility] Platelets [#/volume] in Blood by Automated count 213 10*3/uL 130-472 N [facility] Platelet mean volume [Entitic volume] in Blood 9.8 fL 9.1-13.1 N [facility] Neutrophils/100 leukocytes in Blood by Automated count 59.0 % 41- 77 N [facility] Neutrophils [#/volume] in Blood by Automated count 4.8 U 1.7-7.6 N [facility] Lymphocytes/100 leukocytes in Blood by Automated count 30.8 % 14- 46 N [facility] Lymphocytes [#/volume] in Blood by Automated count 2.5 U 0.6-4.6 N [facility] Monocytes/100 leukocytes in Blood by Automated count 6.2 % 4-12 N [facility] Monocytes [#/volume] in Blood by Automated count 0.5 U 0.2-1.2 N [facility] Eosinophils/100 leukocytes in Blood by Automated count 3.3 % 0-7 N [facility] Eosinophils [#/volume] in Blood by Automated count 0.3 U 0.0-0.5 N [facility] Basophils/100 leukocytes in Blood by Automated count 0.6 % 0.4-1 .3 N [facility] Basophils [#/volume] in Blood by Automated count 0.1 U 0.0-0.2 N [facility] NUCLEATED RED BLOOD CELL 0 % [facility] NUCLEATED RED BLOOD CELL# 0 U [facility] Immature granulocytes [Presence] in Blood by Automated count 0-2 N [facility] Immature granulocytes [#/volume] in Blood by Automated count 0.0 U 0-0.1 N [facility] Manual Differential panel - Blood NO [facility] ID Date Data Source [id number] 05/09/2019 04:48:[address] [facility] Anticoagulant or Thrombolytic medication : Heparin Name Value Range Interpretation Code Description Data Suki rce(s) Supporting Document(s) Prothrombin Time (Patient) 10.1 s 9.6-12.3 N [facility] INR 1.0 0.9-1.1 [facility] THE INR IS OPERATIONALLY DEFINED FOR PHILOMENA SH PLASMA FROMPATIENTS STABILIZED ON ORAL ANTICOAGULANTS.ROUTINE ANTICOAGULANT THERAPY 2.0-3.0RECURRENT SYSTEMIC EMBOLISM/HEART VALVE REPLACEMENT 2.5-3.5 aPTT.lupus sensitive (LA screen) 23.9 s 22.7-31.6 [facility] ID Date Data Source [id number] 05/09/2019 04:55:[address] [facility] Anticoagulant or Thrombolytic medication : Heparin Name Value Range Interpretation Code Description Data Suki rce(s) Supporting Document(s) Urea nitrogen [Mass/volume] in Serum or Plasma 12 mg/dL 9-23 N [facility] Sodium [Moles/volume] in Serum or Plasma 141 mmol/L 132-146 N [facility] Potassium [Moles/volume] in Serum or Plasma 3.8 mmol/L 3.5-5.5 [facility] Chloride [Moles/volume] in Serum or Plasma 109 mmol/L 99-109 N [facility] Carbon dioxide, total [Moles/volume] in Serum or Plasma 26 mmol/L 20 -31 N [facility] Anion gap in Serum or Plasma 10 mmol/L 8-16 N [facility] Glucose [Mass/volume] in Serum or Plasma 86 mg/dL 74-106 N [facility] Creatinine 1.0 mg/dL 0.5-1.1 [facility] Glomerular filtration rate/1.73 sq M.pre dicted [Volume Rate/Area] in Serum or Plasma 58 ml/min ABOVE [address] [facility] ital Alanine aminotransferase [Enzymatic acti vity/volume] in Serum or Plasma by With P-5'-P 27 U/L 10-[address] [facility] ital Aspartate aminotransferase [Enzymatic ac tivity/volume] in Serum or Plasma by With P-5'-P 21 U/L 0-33 N [facility] pital Alkaline phosphatase [Enzymatic activity/volume] in Serum or Plasma 89 U/L 45-129 N [facility] Calcium [Mass/volume] in Serum or Plasma 8.8 mg/dL 8.5-10.1 [facility] Bilirubin.total [Mass/volume] in Serum or Plasma 0.5 mg/dL 0.3-1.2 [facility] Albumin [Mass/volume] in Serum or Plasma by Bromocresol purple (BCP) dye binding method 3.8 g/dL 3.2-4.8 [facility] ital Protein [Mass/volume] in Serum or Plasma 7.4 g/dL 5.7-8.2 [facility] ID Date Data Source [id number] 05/09/2019 04:55:[address] [facility] Anticoagulant or Thrombolytic medication : Heparin Name Value Range Interpretation Code Description Data Suki rce(s) Supporting Document(s) Magnesium [Mass/volume] in Serum or Plasma 2.2 mg/dL 1.3-2.7 [facility] ID Date Data Source [id number] 05/09/2019 04:55:[address] [facility] Anticoagulant or Thrombolytic medication : Heparin Name Value Range Interpretation Code Description Data Suki rce(s) Supporting Document(s) Troponin I.cardiac [Mass/volume] in Serum or Plasma Less Than 0.015 0.00-0.09 [facility] Less than 0.09 NG/ML Negative0.10 - 0.77 NG/ML High Risk0.78 NG/ML or Greater PositiveThe WHO defined the cutoff (definition for diagnosis of TN)for this method as 0.78 ng/ml. ID Date Data Source [id number] 05/09/2019 04:54:[address] [facility] Name Value Range Interpretation Code Description Data Suki rce(s) Supporting Document(s) Creatine kinase [Enzymatic activity/volume] in Serum or Plasma 85 U /L 33-211 N [facility] Creatine kinase.MB [Enzymatic activity/volume] in Serum or P lasma 1.8 ng/mL 0.0-5.0 N [facility] Chemistry studies (set) 2.1 % [facility] ID Date Data Source [id number] 05/09/2019 04:54:[address] [facility] Name Value Range Interpretation Code Description Data Suki rce(s) Supporting Document(s) Natriuretic peptide.B prohormone N-Terminal [Mass/volu me] in Serum or Plasma 25.00 pg/mL 0.00-[address] [facility] ID Date Data Source [id number] 05/09/2019 03:56:[address] [facility] ED Physician Documentation NAME: MADDISON BLANKENSHIP : 1965 AGE: 53 MR#: [id number] SERVICE DATE: 05/09/[address]: Guy Quispe MD PRIMARY CARE DR: Hillary Woods DO ROOM#: HPI (Adult, General) General Chief Complaint: Chest pain Stated Complaint: CHEST PRESSURE Resident LT, travel outisde home, exposure to hot tubs:: No Time Seen by Provider: 05/09/19 15:51 Source: patient Exam Limitations: no limitations History of Present Illness Narrative: intermittent chest pain X 3 days; pain is a central pressure sensation and sometimes radiates to the back; denies fever, chills, dyspnea, diaphoresis, palpitations or light headedness History of Present Illness Timing/Duration: intermittent Place Injury/Event Occurred (if applicable): home Past Medical History Past Medical History: Nursing Past Medical History Has Been Reviewed Allergies/Home Meds Allergies Allergy/AdvReac Type Severity Reaction Status Date / Time Penicillins Allergy Intermediate Rash Verified 09/14/18 10:21 morphine AdvReac Intermediate Chest pain Verified 09/14/18 10:21 10 omeprazole AdvReac Myalgia Verified 09/14/18 10:21 Home Medications Medication Instructions Recorded Confirmed Last Taken Type Trazodone Hcl 1 tab PO DAILY #60 tab 03/26/18 09/14/18 Unknown History Vyvanse 1 cap PO DAILY 05/28/18 09/14/18 Unknown History sertraline 50 mg PO DAILY #30 tab 05/28/18 09/14/18 Unknown History cholecalciferol (vitamin D3) 25 1,000 unit PO DAILY #30 cap 12/20/18 Unknown Rx mcg (1,000 unit) capsule norethindrone 0.5 mg-ethinyl 1 tab PO QDAY #28 tab 12/28/18 Unknown Rx estradiol 35 mcg tablet azithromycin 250 mg tablet See Rx Instructions PO .COMPLEX #6 02/18/19 02/18/19 Unknown Rx tab pantoprazole 40 mg tablet,delayed 40 mg PO BID #180 tab 02/18/19 02/18/19 Unknown Rx release gabapentin 300 mg capsule 300 mg PO BID #60 cap 03/07/19 Unknown Rx estradiol 0.1 mg/24 hr weekly 1 patch TRANSDERMAL QWEEK #4 patch 04/19/19 Unknown Rx transdermal patch PMH (from Triage) Patient Medical History PMH Reviewed/Updated as Needed: Yes PMH/PSH from Triage: Medical History (Updated 02/18/19 @ 15:52 by Hillary Woods DO) Carpal tunnel syndrome, bilateral (Acute Medical) G56.03 Dyspepsia (Medical) Elevated liver enzymes (Medical) Gastro-esophageal reflux disease without esophagitis (Medical) Sees Dr. Roca GERD (gastroesophageal reflux disease) (Chronic Medical) K21.9 FLARE diag nosed with hiatal hernia on upper GI in 2016 Glucose intolerance (Chronic Medical) E74.39 Herniated lumbar intervertebral disc (Medical) Herpes simplex complication (Medical) Memory loss is from encephalitis complication Herpes simplex encephalitis (Medical) 1992 left l5 lumbar radiculopathy (Medical 05/10/18) Confirmed on EMG with Dr. 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 Schreiber also has chronic left L5 radiculopathy Prediabetes (Medical) Severe major depression with psychotic features (Medical) Admitted inpatient December 2017.-Has transitional care services through mental health Spinal stenosis, lumbar region, with neurogenic claudication (Medical) Spondylolysis of lumbosacral region (Medical) Tingli ng of both feet (Medical) Occurs only in feet with exercise could be early diabetic neuropathy Vitamin D deficiency (Medical) Weight gain (Medical) Surgical History (Updated 02/18/19 @ 15:52 by Hillary Jorgensen DO) Appendectomy (Surgical) 04/2015 Dr [place]amo Biopsy of breast (Surgical) Cholecystectomy (Surgical) 03/[address] Cee History of hysterectomy (Surgical) 03/2008 Dr Platt Status post colonoscopy (Acute Surgical) Z98.890 Dr. Roca 08/19/2016 completely clear recheck 10 years Status post oophorectomy (Surgical) Female History : No Hx Drug Resistant Infections Hx MRSA: (Methicillin-resistant Staphylococcus aureus): No Hx VRE (Vancomycin-resistant enterococci): No Hx C.Diff: No Hx CRKP: No Hx Other Resistant Infection?: No Isolation: Standard precautions Hx Recent Travel Out of the country within 10 days (where): No Hx Fever: No Hx Fever with a rash?: No Social History Does patient have suicida l/homicidal thoughts or ideation?: No Are you in a relationship with/Does anyone hit you, yell/swear at you, steal from you?: No Substance Use Hx Alcohol Use: Yes (social) Hx Substance Use: No Hx Substance Use Treatment: No Tobacco Use Years smoked:: 10 Vaccination History Hx/Date of Tetanus, Diphtheria Vaccination: Yes Hx/Date of Influenza Vaccination: Yes Hx/Date of Pneumococcal Vaccination: No ROS Review of Systems Constitutional: Denies fever, chills, weakness and malaise Eyes: Denies vision change ENT: Denies mouth pain, nasal pain, nasal discharge, nasal congestion, throat pain and hoarseness Respiratory: Denies cough and SOB Cardiovascular: Reports chest pain; Denies palpitations Gastrointestinal: Reports No Symptoms/Complaints Genitourinary-Female: Denies dysuria, frequency and urgency Musculoskeletal: Denies neck pain, arm pain and back pain Skin/Breasts: Denies rash, hives and pruritus Neurologic: Denies weakness, headache and lightheadedness Physical Exam General Limitations: no limitations General appearance: alert, in no apparent distress and obese Head Head exam: Present atraumatic, normocephalic and normal inspection Eye Eye exam: Present normal apperance and EOMI ENT ENT exam: Present normal exam, normal orophraynx and mucous membranes moist Neck Neck exam: Present normal inspection, full ROM and supple Respiratory Respiratory exam: Present normal lung sounds bilaterally Cardiovascular Cardiovascular Exam: Present regular rate and normal rhythm Extremities Exam Extremities exam: Present normal inspection, full ROM and tenderness Back Exam Back exam: Present normal inspection and full ROM Neurological Exam Neurological exam: Present alert, oriented X3, normal gait and other (speech normal) Psychiatric Psychiatric exam: Present normal affect and normal mood Skin Skin exam: Present warm, dry, intact and normal color Vital Signs Vital Signs: Vital Signs 05/09/19 15:47 05/09/19 16:30 Pulse Rate 74 68 Respiratory Rate 16 Blood Pressure 144/87 144/87 [facility] (comprehensive) Lab Data Labs: 05/09/19 16:15 05/09/19 16:15 Laboratory Results Last 24 hours 05/09/19 16:15: Creatine Kinase 85, CK-MB (CK-2) 1.8, CK-MB (CK-2) % 2.1, Nvd-L-Klczgyurxaq Pept 25.00 05/09/19 16:15: WBC 8.1, RBC 4.65, Hgb 14.0, Hct 41.7, MCV 89.7, MCH 30.1, MCHC 33.6, RDW 14, Plt Count 213, MPV 9.8, Immature Gran % (Auto) 0.1, Neut % (Auto) 59.0, Lymph % (Auto) 30.8, [place] % (Auto) 6.2, Eos % (Auto) 3.3, Baso % (Auto) 0.6, Lymph # (Auto) 2.5, Abs Immat Gran (auto) 0.0, Add Manual Diff No, Absolute Neutrophils 4.8, Monocytes # 0.5, Absolute Eosinophils 0.3, Absolute Basophils 0.1 05/09/19 16:15: PT 10.1, INR 1.0, PTT ([place]) 23.9 05/09/19 16:15: Sodium 141, Potassium 3.8, Chloride 109, Carbon Dioxide 26, Anio n Gap 10, BUN 12, Creatinine 1.0, GFR Calculation 58, Glucose 86, Calcium 8.8, Magnesium 2.2, Total Bilirubin 0.5, AST21, ALT 27, Alkaline Phosphatase 89, Troponin I Less than 0.015, Serum Total Protein 7.4, Albumin 3.8 EKG Data EKG shows normal: sinus rhythm Rate: normal EKG Data Interpretation: no acute changes Radiology Data Radiology impressions: CXR: IMPRESSION: Low lung volumes, with no gross focal consolidations. No pneumothorax. Medical Decision Making Free Text/Narative:: The patietn was discussed with Dr. Butler, and he will come to the ED to admit the patient Discharge Plan Admission/Discharge Dx Primary (Admit) Diagnosis: chest pain ED Provider: Guy Quispe ED Status: Sign up Time Seen by Provider: 05/09/19 15:51 Triaged At: 05/09/19 15:47 Discharge Detail Disposition: [facility] New Prescriptions: Continued pantoprazole 40 mg tablet,delayed release (DR/EC) 40 mg PO BID Qty: 180 RF: 3 azithromycin 250 mg tablet See Rx Instructions PO .COMPLEX Qty: 6 RF: 0 Trazodone Hcl 50 MG tablet 1 tab PO DAILY Qty: 60 RF: 11 sertraline 50 MG tablet 50 mg PO DAILY Qty: 30 RF: 11 Vyvanse 40 MG capsule 1 cap PO DAILY RF: 0 cholecalciferol (vitamin D3) [Vitamin D3] 1,000 unit capsule 1,000 unit PO DAILY Qty: 30 RF: 5 Nortrel 0.5/35 (28) 0.5-35 mg-mcg tablet 1 tab PO QDAY Qty: 28 RF: 0 gabapentin 300 mg capsule 300 mg PO BID Qty: 60 RF: 5 estradiol 0.1 mg/24 hr patch weekly 1 patch transdermal QWEEK Qty: 4 RF: 2 Discharge Problem: Chest pain Medications Medication reconciliation performed by provider at discharge: Yes *Discharge Patient* Discharge Orders: Provider hand off (NOW); Ordered 05/09/19 Ordered By: Guy Quispe Report Signers: <Electronically signed by Guy Quispe MD> Guy Quispe MD 05/09/19 1719 Guy Quispe MD SIGNATURE DA Report Cosigners: D: COUTH 05/09/19 1556 T: COUTH 05/09/19 155 CC: Hillary Jorgensen DO Name Value Range Interpretation Code Description Data Suki rce(s) Supporting Document(s) Procedure Social History Code Duration Value Status Description Data Source(s ) Smoking 05/23/2020 12:00:00 AM EST Patient is a former smoker completed Patient is a former smoker [facility]) 03/14/2020 02:17:30 PM EST No completed No [facility] 03/14/2020 02:17:30 PM EST Yes completed Yes [facility] 03/14/2020 02:17:30 PM EST Former smoker completed Former smoker [facility] 03/14/2020 02:17:30 PM EST No completed No [facility] 03/14/2020 02:17:30 PM EST Yes completed Yes [facility] 03/14/2020 02:17:30 PM EST Former smoker completed Former smoker [facility] Smoking 03/14/2020 02:17:00 PM EST Former smoker completed Former smoker [facility] Smoking 03/14/2020 02:17:00 PM EST Former smoker completed Former smoker [facility] 01/30/2020 04:49:00 PM EST 1991 completed 1991 [facility] 01/30/2020 04:49:00 PM EST No completed No [facility] 01/30/2020 04:49:00 PM EST 1991 completed 1991 [facility] 01/30/2020 04:49:00 PM EST No completed No [facility] Smoking 11/23/2019 04:45:00 PM EDT Former smoker completed Former smoker [facility] 11/23/2019 03:45:22 PM EDT Former smoker completed Former smoker [facility] 11/23/2019 03:45:22 PM EDT Former smoker completed Former smoker [facility] 11/23/2019 03:45:22 PM EDT Former smoker completed Former smoker [facility] Smoking 11/23/2019 03:45:00 PM EDT Former smoker completed Former smoker [facility] Smoking 11/23/2019 03:45:00 PM EDT Former smoker completed Former smoker [facility] 10/26/2019 01:40:00 PM EDT 1992 completed 1992 [facility] 10/26/2019 01:40:00 PM EDT No completed No [facility] 10/26/2019 01:40:00 PM EDT No completed No [facility] 10/26/2019 01:40:00 PM EDT Yes completed Yes [facility] 10/26/2019 01:40:00 PM EDT 1992 completed 1992 [facility] 10/26/2019 01:40:00 PM EDT No completed No [facility] 10/26/2019 01:40:00 PM EDT No completed No [facility] 10/26/2019 01:40:00 PM EDT Yes completed Yes [facility] 10/26/2019 01:40:00 PM EDT 1992 completed 1992 [facility] 10/26/2019 01:40:00 PM EDT No completed No [facility] 10/26/2019 01:40:00 PM EDT No completed No [facility] 10/26/2019 01:40:00 PM EDT Yes completed Yes [facility] 10/26/2019 01:40:00 PM EDT 1992 completed 1992 [facility] 10/26/2019 01:40:00 PM EDT No completed No [facility] 10/26/2019 01:40:00 PM EDT No completed No [facility] 10/26/2019 01:40:00 PM EDT Yes completed Yes [facility] 10/26/2019 01:40:00 PM EDT 1992 completed 1992 [facility] 10/26/2019 01:40:00 PM EDT No completed No [facility] 10/26/2019 01:40:00 PM EDT No completed No [facility] 10/26/2019 01:40:00 PM EDT Yes completed Yes [facility] 10/18/2019 12:51:03 PM EDT Former smoker completed Former smoker [facility] 10/18/2019 12:51:03 PM EDT Former smoker completed Former smoker [facility] 10/18/2019 12:51:03 PM EDT Former smoker completed Former smoker [facility] 10/18/2019 12:51:03 PM EDT Former smoker completed Former smoker [facility] 10/18/2019 12:51:03 PM EDT Former smoker completed Former smoker [facility] Smoking 10/18/2019 12:51:00 PM EDT Former smoker completed Former smoker [facility] Smoking 10/18/2019 12:51:00 PM EDT Former smoker completed Former smoker [facility] Smoking 10/18/2019 12:51:00 PM EDT Former smoker completed Former smoker [facility] Smoking 10/18/2019 12:51:00 PM EDT Former smoker completed Former smoker [facility] 10/12/2019 08:51:58 AM EDT Former smoker completed Former smoker [facility] 10/12/2019 08:51:58 AM EDT Former smoker completed Former smoker [facility] 10/12/2019 08:51:58 AM EDT Former smoker completed Former smoker [facility] 10/12/2019 08:51:58 AM EDT Former smoker completed Former smoker [facility] 10/12/2019 08:51:58 AM EDT Former smoker completed Former smoker [facility] 10/12/2019 08:51:58 AM EDT Former smoker completed Former smoker [facility] Smoking 10/12/2019 08:51:00 AM EDT Former smoker completed Former smoker [facility] 10/08/2019 11:50:03 PM EDT Yes completed Yes [facility] 10/08/2019 11:50:03 PM EDT Yes completed Yes [facility] 10/08/2019 11:50:03 PM EDT Yes completed Yes [facility] 10/08/2019 11:50:03 PM EDT Yes completed Yes [facility] 10/08/2019 07:27:57 PM EDT No completed No [facility] 10/08/2019 07:27:57 PM EDT No completed No [facility] 10/08/2019 07:27:57 PM EDT No completed No [facility] 10/08/2019 07:27:57 PM EDT No completed No [facility] 10/08/2019 07:27:57 PM EDT Never smoker completed Never s moker [facility] Smoking 10/08/2019 07:27:00 PM EDT Never smoker completed Never s moker [facility] 09/12/2019 10:10:00 AM EDT 1992 completed 1991 [facility] 09/12/2019 10:10:00 AM EDT No completed No [facility] 09/12/2019 10:10:00 AM EDT 1992 completed 1992 [facility] 09/12/2019 10:10:00 AM EDT No completed No [facility] 09/12/2019 10:10:00 AM EDT 1992 completed 1991 [facility] 09/12/2019 10:10:00 AM EDT No completed No [facility] 09/12/2019 10:10:00 AM EDT 1992 completed 1991 [facility] 09/12/2019 10:10:00 AM EDT No completed No [facility] 09/12/2019 10:10:00 AM EDT 1992 completed 1992 [facility] 09/12/2019 10:10:00 AM EDT No completed No [facility] 09/12/2019 10:10:00 AM EDT No completed No [facility] 09/12/2019 10:10:00 AM EDT Yes completed Yes [facility] Smoking 07/20/2019 12:00:00 AM EDT Patient is a former smoker completed Patient is a former smoker [facility] ([facility], ) 06/24/2019 11:34:02 AM EDT Former smoker completed Former smoker [facility] 06/24/2019 11:34:02 AM EDT Former smoker completed Former smoker [facility] 06/24/2019 11:34:02 AM EDT Former smoker completed Former smoker [facility] 06/24/2019 11:34:02 AM EDT Former smoker completed Former smoker [facility] 06/24/2019 11:34:02 AM EDT Former smoker completed Former smoker [facility] 06/24/2019 11:34:02 AM EDT Former smoker completed Former smoker [facility] 06/24/2019 11:34:02 AM EDT Former smoker completed Former smoker [facility] 06/24/2019 11:34:02 AM EDT Former smoker completed Former smoker [facility] 06/24/2019 11:34:02 AM EDT Former smoker completed Former smoker [facility] 06/24/2019 11:34:02 AM EDT Former smoker completed Former smoker [facility] 06/24/2019 11:34:02 AM EDT Former smoker completed Former smoker [facility] 06/24/2019 11:34:02 AM EDT Former smoker completed Former smoker [facility] Smoking 06/24/2019 11:34:00 AM EDT Former smoker completed Former smoker [facility] Smoking 06/24/2019 11:34:00 AM EDT Former smoker completed Former smoker [facility] Smoking 06/24/2019 11:34:00 AM EDT Former smoker completed Former smoker [facility] Smoking 06/24/2019 11:34:00 AM EDT Former smoker completed Former smoker [facility] Smoking 06/24/2019 11:34:00 AM EDT Former smoker completed Former smoker [facility] 05/16/2019 02:19:42 PM EST Former smoker completed Former smoker [facility] 05/16/2019 02:19:42 PM EST Former smoker completed Former smoker [facility] 05/16/2019 02:19:42 PM EST Former smoker completed Former smoker [facility] 05/16/2019 02:19:42 PM EST Former smoker completed Former smoker [facility] 05/16/2019 02:19:42 PM EST Former smoker completed Former smoker [facility] 05/16/2019 02:19:42 PM EST Former smoker completed Former smoker [facility] 05/16/2019 02:19:42 PM EST Former smoker completed Former smoker [facility] 05/16/2019 02:19:42 PM EST Former smoker completed Former smoker [facility] 05/16/2019 02:19:42 PM EST Former smoker completed Former smoker [facility] 05/16/2019 02:19:42 PM EST Former smoker completed Former smoker [facility] 05/16/2019 02:19:42 PM EST Former smoker completed Former smoker [facility] 05/16/2019 02:19:42 PM EST Former smoker completed Former smoker [facility] 05/16/2019 02:19:42 PM EST Former smoker completed Former smoker [facility] Smoking 05/16/2019 02:19:00 PM EST Former smoker completed Former smoker [facility] 05/11/2019 09:05:00 AM EST 1992 completed 1992 [facility] 05/11/2019 09:05:00 AM EST No completed No [facility] 05/11/2019 09:05:00 AM EST No completed No [facility] 05/11/2019 09:05:00 AM EST Yes completed Yes [facility] 05/11/2019 08:24:38 AM EST Former smoker completed Former smoker [facility] 05/11/2019 08:24:38 AM EST Former smoker completed Former smoker [facility] 05/11/2019 08:24:38 AM EST Former smoker completed Former smoker [facility] 05/11/2019 08:24:38 AM EST Former smoker completed Former smoker [facility] 05/11/2019 08:24:38 AM EST Former smoker completed Former smoker [facility] 05/11/2019 08:24:38 AM EST Former smoker completed Former smoker [facility] 05/11/2019 08:24:38 AM EST Former smoker completed Former smoker [facility] 05/11/2019 08:24:38 AM EST Former smoker completed Former smoker [facility] 05/11/2019 08:24:38 AM EST Former smoker completed Former smoker [facility] 05/11/2019 08:24:38 AM EST Former smoker completed Former smoker [facility] 05/11/2019 08:24:38 AM EST Former smoker completed Former smoker [facility] 05/11/2019 08:24:38 AM EST Former smoker completed Former smoker [facility] 05/11/2019 08:24:38 AM EST Former smoker completed Former smoker [facility] 05/11/2019 08:24:38 AM EST Former smoker completed Former smoker [facility] Smoking 05/11/2019 08:24:00 AM EST Former smoker completed Former smoker [facility] 05/09/2019 09:00:00 PM EST 03/30/90 completed 03/30/90 [facility] 05/09/2019 09:00:00 PM EST 03/30/90 completed 03/30/90 [facility] 05/09/2019 09:00:00 PM EST 03/30/90 completed 03/30/90 [facility] 05/09/2019 09:00:00 PM EST 03/30/90 completed 03/30/90 [facility] 05/09/2019 09:00:00 PM EST 03/30/90 completed 03/30/90 [facility] 05/09/2019 09:00:00 PM EST 03/30/90 completed 03/30/90 [facility] 05/09/2019 09:00:00 PM EST 03/30/90 completed 03/30/90 [facility] 05/09/2019 09:00:00 PM EST 03/30/90 completed 03/30/90 [facility] 05/09/2019 09:00:00 PM EST 03/30/90 completed 03/30/90 [facility] 05/09/2019 09:00:00 PM EST 03/30/90 completed 03/30/90 [facility] 05/09/2019 09:00:00 PM EST 03/30/90 completed 03/30/90 [facility] 05/09/2019 09:00:00 PM EST 03/30/90 completed 03/30/90 [facility] 05/09/2019 09:00:00 PM EST 03/30/90 completed 03/30/90 [facility] 05/09/2019 09:00:00 PM EST 03/30/90 completed 03/30/90 [facility] 05/09/2019 09:00:00 PM EST 03/30/90 completed 03/30/90 [facility] 05/09/2019 09:00:00 PM EST 03/30/90 completed 03/30/90 [facility] 05/09/2019 09:00:00 PM EST 03/30/90 completed 03/30/90 [facility] 05/09/2019 09:00:00 PM EST 03/30/90 completed 03/30/90 [facility] 05/09/2019 09:00:00 PM EST Former smoker completed Former smoker [facility] Smoking 05/09/2019 09:00:00 PM EST Former smoker completed Former smoker [facility] 05/09/2019 09:00:00 PM EST 03/30/90 completed 03/30/90 [facility] 05/09/2019 04:00:22 PM EST Yes completed Yes [facility] 05/09/2019 04:00:22 PM EST No completed No [facility] 05/09/2019 04:00:22 PM EST Yes completed Yes [facility] 05/09/2019 04:00:22 PM EST No completed No [facility] 05/09/2019 04:00:22 PM EST Yes completed Yes [facility] 05/09/2019 04:00:22 PM EST No completed No [facility] 05/09/2019 04:00:22 PM EST Yes completed Yes [facility] 05/09/2019 04:00:22 PM EST No completed No [facility] 05/09/2019 04:00:22 PM EST Yes completed Yes [facility] 05/09/2019 04:00:22 PM EST No completed No [facility] 05/09/2019 04:00:22 PM EST Yes completed Yes [facility] 05/09/2019 04:00:22 PM EST No completed No [facility] Vital Signs ID Date Data Source UNK Name Value Range Interpretation Code Description Data Source(s) Oxygen saturation in Arterial blood by Pulse oximetry 79 % 79 % [facility] ([facility]) Body mass index (BMI) [Ratio] 46.6 kg/m2 46.6 k g/m2 [facility]) Body weight 280.00 [lb_av] 280.00 [lb_av] [facility] T ([facility]) Body height 65 [in_i] 65 [in_i] [facility]) 5'5" Heart rate 93 /min 93 /min [facility] ([facility]) Diastolic blood pressure 78 mm[Hg] 78 mm[Hg] [facility] ([facility]) Systolic blood pressure 110 mm[Hg] 110 mm[Hg] M [facility] ([facility]) Body surface area Derived from formula 2.30 m2 2.30 m2 [facility] ([facility]) Body weight 129.730 kg 129.730 kg [facility] ([facility]) [place] body weight 125 [lb_av] 125 [lb_av] [facility] ([facility]) Body mass index (BMI) [Ratio] 47.6 kg/m2 47.6 k g/m2 [facility] ([facility]) Body weight 286.00 [lb_av] 286.00 [lb_av] [facility] ([facility]) Body height 65 [in_i] 65 [in_i] [facility] ([facility]) 5'5" Diastolic blood pressure 80 mm[Hg] 80 mm[Hg] [facility] ([facility], ) Systolic blood pressure 108 mm[Hg] 108 mm[Hg] [facility] Oxygen saturation in Arterial blood by Pulse oximetry 96 % 96 % [facility] ([facility]) Body mass index (BMI) [Ratio] 48.4 kg/m2 48.4 k g/m2 [facility] ([facility]) Body weight 291.00 [lb_av] 291.00 [lb_av] [facility] ([facility]) Body height 65 [in_i] 65 [in_i] [facility] 5'5" Heart rate 102 /min 102 /min [facility] ([facility]) Diastolic blood pressure 72 mm[Hg] 72 mm[Hg] [facility] ([facility]) Systolic blood pressure 124 mm[Hg] 124 mm[Hg] M [facility] ([facility]) Body mass index (BMI) [Ratio] 47.1 kg/m2 47.1 k g/m2 [facility] ([facility]) Body weight 283.00 [lb_av] 283.00 [lb_av] [facility] ([facility]) Body height 65 [in_i] 65 [in_i] [facility] 5'5" Heart rate 80 /min 80 /min [facility]) Diastolic blood pressure 62 mm[Hg] 62 mm[Hg] [facility] ([facility]) Systolic blood pressure 124 mm[Hg] 124 mm[Hg] [facility] ([facility]) Body surface area Derived from formula 2.34 m2 2.34 m2 [facility] ([facility], ) Body weight 134.266 kg 134.266 kg [facility] ([facility]) [place] body weight 125 [lb_av] 125 [lb_av] [facility] ([facility]) Body mass index (BMI) [Ratio] 49.3 kg/m2 49.3 k g/m2 [facility] ([facility]) Body weight 296.00 [lb_av] 296.00 [lb_av] [facility] ([facility]) Body height 65 [in_i] 65 [in_i] [facility] ([facility] ) 5'5" Body temperature 97.2 [degF] 97.2 [degF] [facility] ([facility]) Oxygen saturation in Arterial blood by Pulse oximetry 97 % 97 % [facility] ([facility]) Heart rate 96 /min 96 /min [facility] ([facility]) Diastolic blood pressure 82 mm[Hg] 82 mm[Hg] [facility] ([facility], ) Systolic blood pressure 130 mm[Hg] 130 mm[Hg] [facility] ([facility]) Body mass index (BMI) [Ratio] 49.1 kg/m2 49.1 k g/m2 [facility] ([facility]) Body weight 295.00 [lb_av] 295.00 [lb_av] [facility] ([facility]) Body height 65 [in_i] 65 [in_i] [facility] 5'5" Heart rate 69 /min 69 /min [facility] Diastolic blood pressure 88 mm[Hg] 88 mm[Hg] [facility] ([facility]) Systolic blood pressure 118 mm[Hg] 118 mm[Hg] [facility] ([facility]) Body weight 131.998 kg 131.998 kg [facility] ([facility]) Body mass index (BMI) [Ratio] 48.4 kg/m2 48.4 k g/m2 [facility] ([facility]) Body weight 291.00 [lb_av] 291.00 [lb_av] [facility] ([facility], ) Body height 65 [in_i] 65 [in_i] [facility] ([facility]) 5'5" Oxygen saturation in Arterial blood by Pulse oximetry 97 % 97 % [facility] ([facility]) Room Air Heart rate 112 /min 112 /min [facility] ([facility]) Diastolic blood pressure 80 mm[Hg] 80 mm[Hg] [facility] ([facility]) Systolic blood pressure 124 mm[Hg] 124 mm[Hg] [facility] ([facility])
--- NOTE | 2020-05-25 12:54 | ROOR ---
Patient Name: Rika Chavarria Procedure Date: 05/25/2020 12:21 PM Date of : 1965 Age: 54 Room: [facility] Gender: Female Note Status: Finalized Procedure: Upper GI endoscopy Indications: Heartburn Providers: Hung Mayes MD Referring MD: Hillary Montelongo MD Requesting Provider: Medicines: Monitored Anesthesia Care Complications: No immediate complications. Procedure: Pre-Anesthesia Assessment: - Prior to the procedure, a History and Physical was performed, and patient medications and allergies were reviewed. The patient is competent. The risks and benefits of the procedure and the sedation options and risks were discussed with the patient. All questions were answered and informed consent was obtained. Patient identification and proposed procedure were verified by the physician, the nurse and the anesthesiologist in the procedure room. Mental Status Examination: normal. Airway Examination: normal oropharyngeal airway and neck mobility. Respiratory Examination: clear to auscultation. CV Examination: normal. Prophylactic Antibiotics: The patient does not require prophylactic antibiotics. Prior Anticoagulants: The patient has taken no previous anticoagulant or antiplatelet agents. ASA Grade Assessment: II - A patient with mild systemic disease. After reviewing the risks and benefits, the patient was deemed in satisfactory condition to undergo the procedure. The anesthesia plan was to use monitored anesthesia care (MAC). Immediately prior to administration of medications, the patient was re-assessed for adequacy to receive sedatives. The heart rate, respiratory rate, oxygen saturations, blood pressure, adequacy of pulmonary ventilation, and response to care were monitored throughout the procedure. The physical status of the patient was re-assessed after the procedure. The Endoscope was introduced through the mouth, and advanced to the second part of duodenum. The upper GI endoscopy was accomplished without difficulty. The patient tolerated the procedure well. Findings: Non-severe esophagitis with no bleeding was found at the gastroesophageal junction. Biopsy is contraindicated because the patient is taking anticoagulation medication. No gross lesions were noted in the entire examined stomach. Patchy mild inflammation characterized by erythema and granularity was found in the duodenal bulb and in the second portion of the duodenum. Biopsy is contraindicated because the patient is taking anticoagulation medication. Impression: - Non-severe reflux esophagitis. Biopsy is contraindicated. - No gross lesions in the stomach. - Duodenitis. Biopsy is contraindicated. - No specimens collected. Recommendation: - Patient has a contact number available for emergencies. The signs and symptoms of potential delayed complications were discussed with the patient. Return to normal activities tomorrow. Written discharge instructions were provided to the patient. - High fiber diet. - Continue present medications. - Perform an H. pylori stool antigen (HpSA) test at appointment to be scheduled. - If above test shows H. pylori will need therapy with antibiotic course.. - Follow an antireflux regimen. - Telephone GI clinic for lab results in 2 weeks. - Return to primary care physician. Procedure Code(s): --- Professional --- 86653, Esophagogastroduodenoscopy, flexible, transoral; diagnostic, including collection of specimen(s) by brushing or washing, when performed (separate procedure) Diagnosis Code(s): --- Professional --- K21.0, Gastro-esophageal reflux disease with esophagitis K29.80, Duodenitis without bleeding R12, Heartburn CPT copyright 2019 [employer]. All rights reserved. The codes documented in this report are preliminary and upon traffic monitor specialist review may be revised to meet current compliance requirements. Hung Mayes MD Hung Mayes MD 05/25/2020 12:53:31 PM Electronically signed by Hung Mayes MD Number of Addenda: 0 Note Initiated On: 05/25/2020 12:21 PM Estimated Blood Loss: Estimated blood loss was minimal.
[2020-05-25 13:10] VITALS: BP 136/79
== END 2020-05-25 13:18 | disposition home or self-care (01) ==
LOC: M OPP 11:45
PROVIDERS: ATTEND Internal Medicine Gastroenterology
DX: R12 Heartburn (principal); K21.00 Gastro-esophageal reflux disease with esophagitis, without bleeding; K29.80 Duodenitis without bleeding; G47.30 Sleep apnea, unspecified; F32.9 Major depressive disorder, single episode, unspecified; F41.9 Anxiety disorder, unspecified; Z86.73 Personal history of transient ischemic attack (TIA), and cerebral infarction without residual deficits; Z86.711 Personal history of pulmonary embolism; Z88.0 Allergy status to penicillin; Z79.01 Long term (current) use of anticoagulants; Z79.899 Other long term (current) drug therapy; Z80.0 Family history of malignant neoplasm of digestive organs
CPT/HCPCS: 43235; J3010